=== PATIENT | female | born 1940 | race Caucasian/White ===

== ENCOUNTER 2018-06-25 08:55 | Inpatient (IN) | payer OTHER ==
--- NOTE | 2018-06-25 09:59 | R.PREADM ---
SCREENING DATE AND TIME 06/25/2018 08:59 (CDT) ANTICIPATED REHAB ADMISSION DATE 06/27/2018 REFERRING FACILITY [facility] REFERRAL DATE AND TIME 06/25/2018 08:59 (CDT) Previous Rehabilitation(s): No. REFERRING PHYSICIAN [facility] REHAB FACILITY [facility] CLINICAL LIAISON Samuel Tran PHYSICIAN REVIEWER Dr. Roderick Min M.D. MR# [id number] NAME GIBRAN BELTRAN ADDRESS [id number] [facility] [id number] DATE OF 1940 AGE 78 SSN# [id number] GENDER female MARITAL STATUS Unknown RACE white ADMIT FROM 02 - [facility] PRE-HOSPITAL LIVING SETTING 01 - Home (private home/apt. board/care, assisted living, alf, transitional living) HOME TYPE AND DETAILS Type of home: single family house # of steps to enter the residence: 0 # of steps within the residence: 0 # of levels in the residence: 1 PRE-HOSPITAL LIVING WITH Family/Relatives FAMILY SUPPORT Yes PRIMARY FAMILY CONTACT NAME Luna Worthy PRIMARY FAMILY CONTACT PHONE PHONE PRIMARY FAMILY CONTACT ON ADM.? no IS PRIMARY FAMILY CONTACT AUTH. REP.? no 1ST EMERGENCY CONTACT Luna Worthy 1ST CONTACT PHONE PHONE 1ST CONTACT ON ADM. no IS 1ST CONTACT AUTH. REP.? no PHONE 2ND CONTACT ON ADM.? no PATIENT EMPLOYMENT STATUS Retired (for age) PATIENT EMPLOYER No Employer PAYOR INFORMATION: 1ST PAYOR NAME Medicare 1ST PAYOR PHONE 1ST PAYOR INJURY/ILLNESS DUE TO ACCIDENT? No ANOTHER CONSTITUTION PARTY RESPONSIBLE? No PRIMARY REHAB/ACUTE DIAGNOSIS: acute left midbrain infarct ONSET DATE 06/21/2018 REHAB IMPAIRMENT CATEGORY (DEVYN): 01 Stroke (STR) MEETS 60% rule AFFECTED EXTREMITIES: RLE, and RUE PRIMARY DIAGNOSIS-RELATED SURGERIES: No surgeries related to the primary diagnosis were performed. COMORBID REHAB/ACUTE DIAGNOSES: - Non-Tiered Cardiac arrhythmia, unspecified (I49.9) cavitary lesion of lung compression fx of t12 adenocarcinoma of lung anxiety acquired hypothyroidism dementia - N/A DVT PROPHYLAXIS SUMMARY OF ACUTE HOSPITALIZATION: Pt. is a 78 yo Right-handed white female. On 06/21/2018 Pt. presented to [facility] with sudden onset of right-side weakn ess. On 06/21/2018 she was admitted to [facility] with diagnosis acute left midbrain infarct. Her impairment category is Stroke 01 - Right Body (Left Brain) (01.2). Pre-morbidly, Pt. was independent/mod-I in Transfers Control, Communication, Social Cognition, Self-C are, Sphincter Control, and Locomotion; and she had good Sphincter Control. Currently, she has deficits of Transfers Control, Communication, Social Cognition, Balance, Self-Care , Endurance, Safety Awareness, and Locomotion. Pt. is now referred to [facility] for acute in-patient rehabilitation in order to maximize patient's functional independence in activities of daily living, strength, ROM, and mobi lity. Patient has realistic goal of being discharged at assistance level 6-Vanessa to reside at Home with Fam adolph/Relatives. PAST MEDICAL HISTORY Cardiac arrhythmia, unspecified (I49.9) DVT PROPHYLAXIS acquired hypothyroidism adenocarcinoma of lung anxiety cavitary lesion of lung compression fx of t12 dementia MEDICATION ALLERGIES: No Known Drug Allergies (NKDA) ENVIRONMENTAL ALLERGIES: - Substance Allergies None Known - Other Allergies None Known CODE STATUS: Full code WEIGHT/HEIGHT/BMI: WEIGHT 180 lbs HEIGHT 5' 6" BMI 29 DIET: - Diet Type Regular - Diet - Solid Texture Regular - Diet - Liquid Texture Regular - Tube Feed N/A REVIEW OF SYSTEMS: - Gen Alert and awake Lying in bed No apparent distress Oriented to: person, time, and place - CVS RRR VITAL SIGNS Temperature: 98.9 F SBP/DBP: 152/65 Pulse: 94 Resp: 16 Vital signs stable, afebrile CURRENT SPHINCTER CONTROL: Pre-hospital bladder status: continent # of bladder accidents in the last 7 days prior to screenin Pre-hospital bowel status: continent # of bowel accidents in the last 7 days prior to screenin Last Bowel Movement Date: 06/25/2018 DETAILED CURRENT FUNCTIONAL STATUS: - Bladder accident frequency: Ind - No accidents in the past 7 days - Bowel accident frequency: Ind - No accidents in the past 7 days - Walking score based on distance walked: 1(<=50ft) FUNCTIONAL STATUS: - Self-Care A. Eating Ind Andra B. Grooming Ind Andra C. Bathing Ind Andra D. Dressing - Upper Ind Andra E. Dressing - Lower Ind modA F. Toileting Ind modA - Sphincter Control G: Bladder control Ind Ind H: Bowel control Ind Ind - Transfers Control I. Bed/Chair/Wheelchair Ind modA J. Toilet Ind modA K. Tub/Shower Ind modA - Locomotion L. Walk/Wheelchair (B) Ind Dep M. Stairs Ind ADNO - Communication N. Comprehension (B) Ind sup O. Expression (B) Ind sup - Social Cognition P. Social Interaction Ind sup Q. Problem Solving Ind sup R. Memory Ind sup - Endurance Poor - Balance Poor - Safety Awareness Poor CURRENT FUNC. DEFICITS: Transfers Control, Communication, Social Cognition, Balance, Self-Care, Endurance, Safety Awareness, and Locomotion THERAPY NOTES FROM ACUTE CARE: Attached. SPECIAL NEEDS: - Safety Concerns Skin breakdown precautions needed due to skin breakdown risk PRECAUTIONS: - Weight Bearing Precaution WBAT right LE PATIENT NEEDS ACTIVE AND ONGOING THERAPEUTIC INTERVENTION OF MULTIPLE THERAPY DISCIPLINES, INCLUDING: - Occupational Therapy Evaluate and Treat. Cognitive Retraining. Visual Perceptual Training. - Speech Therapy Memory Strategies. Expressive Language Skills. Speech Intelligibility Training. Cognitive Training. R eceptive Language Skills. - Physical Therapy Evaluate and Treat. PATIENT NEEDS CLOSE MEDICAL SUPERVISION BY A REHABILITATION PHYSICIAN FOR: Bowel and Bladder Management Coordination of Treatment Team DVT Management Medical and Co-Morbidity Management PATIENT REQUIRES 24X7 REHAB NURSING FOR MEDICAL AND FUNCTIONAL MGT. OF THE FOLLOWING DEFICITS: ADL's Ambulation Bowel and Bladder Management Cognition Communication Disease Management Medication Management Patient/Family Education Providing Safe Environment Transfers PATIENT REQUIRES INTENSIVE, COORDINATED INTERDISCIPLINARY APPROACH TO REHAB: Arranging Home Equipment/Services Discharge Planning Family Intervention/Training Product Test Engineer/Case Management PATIENT REHAB POTENTIAL: Expected level of measurable improvement will be of a practical value to patient's functional capacit y or adaptations to impairments Has a viable Discharge Plan Medically appropriate; condition is sufficiently stable to participate in intensive rehab program Patient is able and expected to receive 3 hours of individualized therapy daily on at least 5 of ever y 7 days Patient's prognosis for significant practical improvement within a reasonable period of time appears Good DISCHARGE PLAN: - Estimated Length of Stay (days) 17. - Consensus on plan Discharge plan has been discussed with primary caregiver. Patient/Family is in agreement with the theresa n. Primary caregiver is in agreement with the plan. - Patient/Family Goals Return home with assistance. - Planned Living Setting Upon Discharge Home, to live with Family/Relatives. RECOMMENDED CARE LEVEL: IRF RECOMMENDATION DETAILS: Recommended Admission to Comprehensive Rehabilitation Program to Increase Functional [place] SCREENER'S COMPLETENESS CONFIRMATION: - Screening Confirmation The patient data collection on this preadmission screening form is finished PHYSICIANS REVIEW AND ADMISSION DETERMINATION Admit - Based on my review of the Pre-Admission Screening results, in my medical judgment and experie nce, I concur with the findings and recommend admission to [facility], as this patient requires an IRF level of care. SIGNATURE PANEL: Clinical Liaison - [electronically] signed by Mary Kate Cerrato on 06/25/2018 at 09:09 (CDT) Clinical Liaison - [electronically] signed by Samuel Tran on 06/25/2018 at 09:25 (CDT) Physician Reviewer - [electronically] signed by Dr. Roderick Min M.D. on 06/25/2018 at 09:58 (CDT )
--- OUTSIDE RECORDS SUMMARY | 2018-06-25 15:16 | XMS REPORT ---
:1940 Author Organization [employer] Care Team Providers Name Role Phone Enrique, Na Provider Role Unavailable Allergies, Adverse Reactions, Alerts Substance Reaction Event Type Stadol Info Not Available Drug Allergy Neosporin Info Not Available Drug Allergy Morphine Sulfate Info Not Available Drug Allergy Codeine Sulfate Info Not Available Drug Allergy Problems Problem Type Condition Code Onset Dates Condition Status Assessment Acquired hypothyroidism E03.9 Active Problem Depression with anxiety F41.8 Active Assessment Depression with anxiety F41.8 Active Problem Osteoarthritis, unspecified M19.90 Active osteoarthritis type, unspecified site Problem Vitamin B12 deficiency (dietary) D51.8 Active anemia Problem Mixed hyperlipidemia E78.2 Active Problem Adenocarcinoma of right lung C34.91 Active Problem Acquired hypothyroidism E03.9 Active Problem Hot flashes due to menopause N95.1 Active Problem 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 Assessment Osteoarthritis, unspecified M19.90 Active osteoarthritis type, unspecified site Assessment Adenocarcinoma of right lung C34.91 Active Assessment Mixed hyperlipidemia E78.2 Active Assessment 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 Assessment Hot flashes due to menopause N95.1 Active Assessment Vitamin B12 deficiency (dietary) D51.8 Active anemia Medications Medication Code Code Instructions Start End Status Dosage System Date Date Nitroglycerin [facility] 89487096335 0.4 MG Active not Sublingual defined Premarin [facility] 88607605823 0.3 MG Orally December Active 1 tablet Daily 2017 Zoloft [facility] 82812564175 50 MG Orally December Active 1 tablet Once a day 2017 Liothyronine [facility] 12288324926 25 MCG Orally Active 1 tablet Sodium Once a day on an empty stomach Levothyroxine [facility] 94926138890 112 MCG Orally Active 1 tablet Sodium Once a day on an empty stomach in the morning Zoloft [facility] 37976629026 50 MG Orally Active 1 tablet Once a day Albuterol [facility] [address]-62 108 (90 Base) Active 2 puffs Sulfate MCG/ACT as needed Inhalation every 6 hrs Xanax [facility] 33607453678 0.5 MG Orally Active 1 tablet Twice a day Premarin [facility] 27749622276 0.3 MG Orally Active 1 tablet Daily for Three Weeks, 1 Week off Results No Known Results Summary Purpose [employer] Submission
--- OUTSIDE RECORDS SUMMARY | 2018-06-25 15:16 | XMS REPORT ---
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 Problem Adenocarcinoma of right lung C34.91 Active Problem Vitamin B12 deficiency (dietary) D51.8 Active anemia Problem Hot flashes due to menopause N95.1 Active Assessment Mixed hyperlipidemia E78.2 Active Assessment 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 Assessment Hot flashes due to menopause N95.1 Active Assessment Adenocarcinoma of right lung C34.91 Active Assessment Acquired hypothyroidism E03.9 Active Assessment Depression with anxiety F41.8 Active Assessment Vitamin B12 deficiency (dietary) D51.8 Active anemia Assessment Essential tremor G25.0 Active Assessment Primary insomnia F51.01 Active Medications Medication Code Code Instructions Start End Status Dosage System Date Date Mirtazapine [facility] 13386797703 15 MG Orally April 09, Active 1 tablet Once a day 2017 at bedtime Levothyroxine [facility] 63320242913 112 MCG Orally Active 1 tablet Sodium Once a day on an empty stomach in the morning Liothyronine [facility] 36529907837 25 MCG Active TAKE 1 Sodium TABLET BY MOUTH 1 TIME DAILY. Synthroid [facility] 17068293853 112 MCG Active 1 each once a day orally Premarin ND 76034611027 0.3 MG Orally Active 1 tablet Daily Xanax ND 91810475571 0.5 MG Orally Active 1 tablet Twice a day Premarin [facility] 55778266147 0.3 MG Orally December Active 1 tablet Daily 2017 Nitroglycerin [facility] 66606396799 0.4 MG Active not Sublingual defined Albuterol Sulfate [facility] 02732036732 108 (90 Base) Active 2 puffs as MCG/ACT needed Inhalation every 6 hrs Zoloft [facility] 65080043637 50 MG Orally Active 1 tablet Once a day Propranolol HCl [facility] 13929483159 10 MG Orally April 09, Active 1 tablet Twice a day 2017 Zoloft [facility] 80628471663 50 MG Orally Active 1 tablet Once a day Results No Known Results Summary Purpose eClinicalWorks Submission
--- OUTSIDE RECORDS SUMMARY | 2018-06-25 15:16 | XMS REPORT | Clinical Summary ---
:1940 Author Organization [facility] Address [address] [place] [address] Care Team Providers Name Role Phone Brigitte Enrique DO Primary Care Provider Allergies Active Allergy Reactions Severity Noted Date Comments Codeine Sulfate 01/03/2016 Hydromorphone 08/21/2017 Morphine Sulfate 01/03/2016 Licukbbe-Zgzshmvmhw-Pujykevtd 08/21/2017 Butorphanol Tartrate 08/21/2017 Current Medications Prescription Sig. Disp. Refills Start Date End Date Status amitriptyline Take 10 mg by Active (ELAVIL) 10 MG tablet mouth nightly. methocarbamol 2 (two) times a 12/01/2015 Active (ROBAXIN) 500 MG day. tablet topiramate (TOPAMAX) . 08/30/2015 Active 25 MG tablet HYDROcodone-acetamino Take 1 tablet Active phen (NORCO) 7.5-325 by mouth every mg per tablet 6 (six) hours as needed for moderate pain. LIOTHYRONINE SODIUM Take 15 mg by Active (LIOTHYRONINE ORAL) mouth nightly. levothyroxine TAKE 1 TABLET 1 07/07/2017 Active (SYNTHROID, LEVOXYL) BY MOUTH 1 TIME 100 mcg tablet DAILY. benzonatate . 12/13/2015 Active (TESSALON) 200 MG capsule pantoprazole . 12/11/2015 Active (PROTONIX) 40 MG EC tablet nitroglycerin Place under the Active (NITROSTAT) 0.3 MG SL tongue. tablet isosorbide TAKE 1 TABLET 1 06/03/2017 Active mononitrate (IMDUR) BY MOUTH 1 TIME 30 MG 24 hr tablet DAILY. estrogens, Take 1.25 mg by Active conjugated, mouth daily. (PREMARIN) 1.25 MG tablet rosuvastatin Take 20 mg by Active (CRESTOR) 20 MG mouth daily. tablet sulfamethoxazole-trim Take 1 tablet Active ethoprim (BACTRIM DS) by mouth 2 800-160 mg per tablet (two) times a day. aspirin (ECOTRIN) 81 Take 81 mg by 08/26/2017 Discontinued MG enteric coated mouth daily. tablet Active Problems Not on file Encounters Date Type Specialty Care Team Description 03/27/2018 Hospital Encounter Radiology 08/28/2017 Telephone Cardiothoracic Surgery Fermin Mcgowan MD 08/26/2017 Hospital Encounter Cardiothoracic Surgery Fermin Mcgowan MD 08/26/2017 Procedure Pass Cardiothoracic Surgery 08/26/2017 Surgery Cardiothoracic Surgery Fermin Mcgowan MD BRONCHOSCOPY 08/25/2017 Anesthesia Event Cardiothoracic Surgery Ector Small Jr., MD 08/25/2017 Telephone Cardiothoracic Surgery Yani Vines MA 08/21/2017 Hospital Encounter Radiology Fermin Mcgowan Canceled (Schedule MD Wojciech Order Error) 08/21/2017 Lab Lab Fermin Mcgowan LAD (lymphadenopathy), mediastinal; MD Wojciech Malignant neoplasm of lung, unspecified laterality, unspecified part of lung; Pre-op testing 08/21/2017 Office Visit Cardiothoracic Surgery Fermin Mcgowan LAD ( lymphadenopathy), mediastinal (Primary Dx); MD Wojciech Malignant neoplasm of lung, unspecified laterality, unspecified part of lung; Pre-op testing 08/21/2017 Ancillary Orders Radiology Fermin Mcgowan MD 08/06/2017 Orders Only Cardiothoracic Surgery ProviderDwight MD after 06/24/2017 Family History Medical History Relation Name Comments Breast cancer Maternal Grandmother Brain cancer Mother Heart disease Mother Breast cancer Paternal Grandmother Hypertension Sister Relation Name Status Comments Maternal Grandmother Mother Paternal Grandmother Sister Social History Tobacco Use Types Packs/Day Years Used Date Former Smoker Cigarettes 2 40 Quit: 11/19/1998 Smokeless Tobacco: Never Used Tobacco Cessation: Counseling Given: No Alcohol Use Drinks/Week oz/Week Comments Yes 5 Glasses of wine 3.0 Sex Assigned at Date Recorded Not on file Last Filed Vital Signs Vital Sign Reading Time Taken Blood Pressure 137/63 08/26/2017 12:33 PM [facility] Pulse 88 08/26/2017 12:33 PM [facility] Temperature 37.2 C (99 F) 08/26/2017 12:33 PM [facility] Respiratory Rate 22 08/26/2017 12:33 PM [facility] Oxygen Saturation 95% 08/26/2017 12:33 PM [facility] Inhaled Oxygen Concentration - - Weight 49.8 kg (109 lb 12.6 oz) 08/26/2017 9:43 AM [facility] Height 165.1 cm (5' 5") 08/26/2017 9:48 AM [facility] Body Mass Index 18.27 08/26/2017 9:43 AM [facility] Plan of Treatment Health Maintenance Due Date Last Done Comments SHINGRIX VACCINE (#1) 1990 ZOSTER VACCINE 2000 PNEUMOCOCCAL POLYSACCHARIDE VACCINE AGE 65 AND OVER 2005 PNEUMOCOCCAL-13 2005 INFLUENZA VACCINE 04/22/2018 Procedures Procedure Name Priority Date/Time Associated Comments Diagnosis CYTOLOGY Routine 08/26/2017 11:04 Results for this (NON-GYNECOLOGICAL) AM [facility] procedure are in REQUEST the results section. SURGICAL PATHOLOGY Routine 08/26/2017 10:59 Results for this REQUEST AM [facility] procedure are in the results section. SURGICAL PATHOLOGY Routine 08/26/2017 10:59 Results for this REQUEST AM [facility] procedure are in the results section. SURGICAL PATHOLOGY Routine 08/26/2017 10:59 Results for this REQUEST AM [facility] procedure are in the results section. SURGICAL PATHOLOGY Routine 08/26/2017 10:59 Results for this REQUEST AM [facility] procedure are in the results section. SURGICAL PATHOLOGY Routine 08/26/2017 10:59 Results for this REQUEST AM [facility] procedure are in the results section. MISCELLANEOUS REFERRAL Routine 08/26/2017 10:59 Results for this TEST AM [facility] procedure are in the results section. ANESTHESIA INTUBATION Routine 08/26/2017 9:02 AM [facility] Procedure Note - Julia Pillai CRNA - 08/26/2017 9:01 AM [facility] Airway Date/Time: 08/26/2017 8:57 AM Performed by: JULIA PILLAI Authorized by: NNEKA TAYLOR Location: OR Difficult Airway: No Anesthesiologist: NNEKA TAYLOR Resident/REVIEW SCHEDULING COORDINATOR/AA: JULIA PILLAI Preoxygenated with 100% O2: Yes C-spine Precautions Maintained Throughout: Yes Mask Ventilation: Easy mask Final Airway Type: Endotracheal airway Final Endotracheal Airway: ETT Technique Used: Direct laryngoscopy Devices/Methods Used in Placement: Intubating stylet Insertion Site: Oral Blade Type: Mata Laryngoscope Blade/Videolaryngoscope Blade Size: 2 ETT Size (mm): 8.5 Measured from: Lips ETT to Lips (cm): 22 Placement Verified by: CO2 detection, direct visualization and equal breath sounds Laryngoscopic view: Grade I - full view of glottis Rapid Sequence Induction (RSI): No Modified RSI: No Number of Attempts at Approach: 1 Atraumatic. Lips toungue eyes are in preoperative status PARTIAL THROMBOPLASTIN STAT 08/26/2017 7:27 Results for this TIME (PTT) AM [facility] procedure are in the results section. PROTHROMBIN TIME WITH STAT 08/26/2017 7:27 Results for this INR AM [facility] procedure are in the results section. ZZESTIMATED GFR Routine 08/21/2017 2:45 Results for this PM [facility] procedure are in the results section. HC COMPLETE BLD COUNT Routine 08/21/2017 2:45 LAD Results for this W/AUTO DIFF PM [facility] (lymphadenopathy), procedure are in mediastinal the results Malignant neoplasm section. of lung, unspecified laterality, unspecified part of lung Pre-op testing COMPREHENSIVE METABOLIC Routine 08/21/2017 2:45 LAD Results for this PANEL PM [facility] (lymphadenopathy), procedure are in mediastinal the results Malignant neoplasm section. of lung, unspecified laterality, unspecified part of lung Pre-op testing TYPE AND SCREEN Routine 08/21/2017 2:45 LAD Results for this PM [facility] (lymphadenopathy), procedure are in mediastinal the results Malignant neoplasm section. of lung, unspecified laterality, unspecified part of lung Pre-op testing PET CT SKULL BASE MID Routine 07/23/2017 12:00 THIGH EXTERNAL STUDY AM CDT PET CT WHOLE BODY Routine 07/22/2017 3:04 Results for this EXTERNAL STUDY PM CDT procedure are in the results section. after 06/24/2017 Results Cytology (non-gynecological) request (08/26/2017 11:04 AM) [facility] DEPARTMENT OF PATHOLOGY AND GENOMIC MEDICINE Cytology See link below for PDF [facility] DEPARTMENT OF (non-gynecological) report Lab Report PATHOLOGY AND GENOMIC MEDICINE Result status This is Final Report to [facility] DEPARTMENT OF [id number] PATHOLOGY AND GENOMIC MEDICINE Performing Organization Address City/State/Zipcode Phone Number [facility] DEPARTMENT OF PATHOLOGY AND [address] [place] [address] GENOMIC MEDICINE Miscellaneous referral test (08/26/2017 10:59 AM) [facility] test name RICHI JOHNSON [facility] test result SEE NOTE [facility] Comment: MET FISH Sample type: Paraffin, LYMPH NODE Case# [id number] Reason: Adenocarinoma, poorly differentiated RESULTS: NEGATIVE Interpretation: MET(7q31) signals per nucleus: 2.8 CEN7 signals per nucleus: 2.8 MET-CEN7 signal ratio: 1.0 An H&E stained slide was reviewed by a pathologist to identify traget areas containing invasive tumor. FISH analysis was performed within the marked target areas using a dual-probe FISH assay to detect MET overexpression. Results show no evidence of MET amplification with a MET/CEN7 ratio of <2.0. This is a NEGATIVE result. This MET FISH assay was scored manually by a certified computer engineering technologist. Two or more independent areas containing invasive tumor were analyzed and the technical results underwent further review for quality assurance lead purposes. Reference range: Positive: MET(7q31) to CEN7 signal ration is >/=2.0 or when 10% of tumor cells contain clusters of >15 copies per cell of MET (7q31) signals. Negative: MET(7q31) to CEN7 signal ratio is <2.0 Equivocal: MET copy number >/=5.0 and MET/CEN7 ratio <2.0 Probe set details: MET: nuc joy(CEN7x2.8,METx2.8)[50] Nuclei scored: 50 Test(s) performed by: [employer] [address] [place] [address] Narrative Performed At [facility] [id number] Performing Organization Address City/State/Zipcode Phone Number [facility] [address] [place] [address] Surgical pathology request (08/26/2017 10:59 AM)Only the most recent of5 resultswithin the time period is included. [facility] DEPARTMENT OF PATHOLOGY AND GENOMIC MEDICINE Surgical pathology See link below for PDF Lab [facility] DEPARTMENT OF report Report PATHOLOGY AND GENOMIC MEDICINE Result status This is Supplemental Report [facility] DEPARTMENT OF to [id number] PATHOLOGY AND GENOMIC MEDICINE Narrative Performed At [facility] DEPARTMENT OF PATHOLOGY AND GENOMIC MEDICINE [id number] Performing Organization Address [facility] Phone Number [facility] DEPARTMENT PATHOLOGY AND [address] [place] [address] Partial thromboplastin time, activated (08/26/2017 7:27 AM) PTT 29.2 23.0 - 36.0 sec [facility] DEPARTMENT OF PATHOLOGY Comment: AND [facility] PTT therapeutic range for unfractionated heparin is 61.0-112.0 seconds which corresponds to Anti-Xa 0.3-0.7 U/ml. Specimen Blood Performing Organization Address [facility] Phone Number [facility] DEPARTMENT OF PATHOLOGY AND [address] [place] [address] Prothrombin time with INR (08/26/2017 7:27 AM) Prothrombin time 13.4 12.0 - 15.0 sec [facility] DEPARTMENT OF PATHOLOGY AND [facility] INR 1.0 [facility] DEPARTMENT OF Comment: PATHOLOGY AND GENOMIC The International Normalized Ratio (INR) is a therapeutic MEDICINE monitoring tool for patients who are stable on oral anticoagulant therapy. An INR of 2.0-3.0 is suggested for deep vein thrombosis/pulmonary embolism. Specimen Blood Performing Organization Address [facility] Phone Number [facility] DEPARTMENT PATHOLOGY AND [address] [place] [address] Estimated GFR (08/21/2017 2:45 PM) GFR Non Af Amer 81 mL/min/1.73 m2 [facility] DEPARTMENT OF PATHOLOGY AND GENOMIC [facility] GFR Af Amer >90 mL/min/1.73 m2 [facility] DEPARTMENT OF Comment: PATHOLOGY AND GENOMIC Chronic kidney disease: <60 mL/min/1.73m2 MEDICINE Kidney failure: <15 mL/min/1.73m2 The estimated GFR is calculated from the IDMS-traceable Modification of Diet in Renal Disease Equation. The accuracy of the calculation is poor when the creatinine is normal. Calculated values >90 mL/min/1.73m2 are not reported. This equation has not been validated in children (<18 years), women, the elderly (>70 years), or ethnic groups other than Caucasians and Americans. Specimen Plasma specimen Performing Organization Address [facility] Phone Number [facility] DEPARTMENT OF PATHOLOGY AND [address] [place] [address] GENOMIC MEDICINE CBC with platelet and differential (08/21/2017 2:45 PM) WBC 7.51 4.50 - 11.00 k/uL [facility] DEPARTMENT OF PATHOLOGY AND GENOMIC MEDICINE RBC 3.80 (L) 4.20 - 5.50 m/uL [facility] DEPARTMENT OF PATHOLOGY AND GENOMIC MEDICINE HGB 11.1 (L) 12.0 - 16.0 g/dL [facility] DEPARTMENT OF PATHOLOGY AND GENOMIC MEDICINE HCT 35.2 (L) 37.0 - 47.0 % [facility] DEPARTMENT OF PATHOLOGY AND GENOMIC MEDICINE MCV 92.6 82.0 - 100.0 fL [facility] DEPARTMENT OF PATHOLOGY AND GENOMIC MEDICINE MCH 29.2 27.0 - 34.0 pg [facility] DEPARTMENT OF PATHOLOGY AND GENOMIC MEDICINE MCHC 31.5 31.0 - 37.0 g/dL [facility] DEPARTMENT OF PATHOLOGY AND GENOMIC MEDICINE RDW - SD 46.0 37.0 - 55.0 fL [facility] DEPARTMENT OF PATHOLOGY AND GENOMIC MEDICINE MPV 10.3 8.8 - 13.2 fL [facility] DEPARTMENT OF PATHOLOGY AND GENOMIC MEDICINE Platelet count 254 150 - 400 k/uL [facility] DEPARTMENT OF PATHOLOGY AND GENOMIC MEDICINE Nucleated RBC 0.00 /100 WBC [facility] DEPARTMENT OF PATHOLOGY AND GENOMIC MEDICINE Neutrophils 57.9 39.0 - 69.0 % [facility] DEPARTMENT OF PATHOLOGY AND GENOMIC MEDICINE Lymphocytes 28.9 25.0 - 45.0 % [facility] DEPARTMENT OF PATHOLOGY AND GENOMIC MEDICINE Monocytes 11.6 (H) 0.0 - 10.0 % [facility] DEPARTMENT OF PATHOLOGY AND GENOMIC MEDICINE Eosinophils 0.9 0.0 - 5.0 % [facility] DEPARTMENT OF PATHOLOGY AND GENOMIC MEDICINE Basophils 0.4 0.0 - 1.0 % [facility] DEPARTMENT OF PATHOLOGY AND GENOMIC MEDICINE Immature granulocytes 0.3Comment: 0.0 - 1.0 % [facility] DEPARTMENT OF "Immature PATHOLOGY AND GENOMIC granulocytes" MEDICINE (promyelocytes, myelocytes, metamyelocytes) Specimen Blood Performing Organization Address City/State/Zipcode Phone Number [facility] DEPARTMENT OF PATHOLOGY AND [address] [place] [address], [place] [address] GENOMIC MEDICINE Type and screen (08/21/2017 2:45 PM) ABO grouping A [facility] DEPARTMENT OF PATHOLOGY AND GENOMIC MEDICINE Rh type POS [facility] DEPARTMENT OF PATHOLOGY AND GENOMIC MEDICINE Antibody screen (gel) NEG [facility] DEPARTMENT OF PATHOLOGY AND GENOMIC MEDICINE Specimen Blood Performing Organization Address City/State/Zipcode Phone Number [facility] DEPARTMENT OF PATHOLOGY AND [address] [place] [address] [facility] MEDICINE Comprehensive metabolic panel (08/21/2017 2:45 PM) Sodium 143 135 - 148 mEq/L [facility] DEPARTMENT OF PATHOLOGY AND GENOMIC MEDICINE Potassium 4.5 3.5 - 5.0 mEq/L [facility] DEPARTMENT OF PATHOLOGY AND GENOMIC MEDICINE Chloride 107 98 - 112 mEq/L [facility] DEPARTMENT OF PATHOLOGY AND GENOMIC MEDICINE CO2 25 24 - 31 mEq/L [facility] DEPARTMENT OF PATHOLOGY AND GENOMIC MEDICINE Anion gap 11 7 - 15 mEq/L [facility] DEPARTMENT OF Comment: PATHOLOGY AND GENOMIC Starting from December , anion gap calculation MEDICINE no longer incorporates potassium. Please note the change. BUN 16 8 - 23 mg/dL [facility] DEPARTMENT OF PATHOLOGY AND GENOMIC MEDICINE Creatinine 0.7 0.5 - 0.9 mg/dL [facility] DEPARTMENT OF PATHOLOGY AND GENOMIC MEDICINE Glucose 105 (H) 65 - 99 mg/dL [facility] DEPARTMENT OF PATHOLOGY AND GENOMIC MEDICINE Calcium 9.6 8.8 - 10.2 mg/dL [facility] DEPARTMENT OF PATHOLOGY AND GENOMIC MEDICINE Protein 7.8 6.3 - 8.3 g/dL [facility] DEPARTMENT OF Comment: PATHOLOGY AND GENOMIC 4.6-7.0 g/dL MEDICINE 1 week 4.4-7.6 g/dL 7 months-1year5.1-7.3 g/dL 1-2 years5.6-7.5 g/dL >3 years6.0-8.0 g/dL 18-150 6.3-8.3 g/dL Albumin 3.9 3.5 - 5.0 g/dL [facility] DEPARTMENT OF PATHOLOGY AND GENOMIC MEDICINE A/G ratio 1.0 0.7 - 3.8 [facility] DEPARTMENT OF PATHOLOGY AND GENOMIC MEDICINE Alkaline phosphatase 102 35 - 104 U/L [facility] DEPARTMENT OF PATHOLOGY AND GENOMIC MEDICINE AST 21 10 - 35 U/L [facility] DEPARTMENT OF PATHOLOGY AND GENOMIC MEDICINE ALT 12 5 - 50 U/L [facility] DEPARTMENT OF PATHOLOGY AND GENOMIC MEDICINE Total bilirubin <0.2 0.0 - 1.2 mg/dL [facility] DEPARTMENT OF PATHOLOGY AND GENOMIC MEDICINE Specimen Plasma specimen Performing Organization Address City/State/Zipcode Phone Number [facility] DEPARTMENT OF PATHOLOGY AND [address] [place] [address] [facility] PET/CT Skull Base Mid Thigh External Study (07/23/2017) Narrative Performed At PET/CT Whole Body External Study (07/22/2017 3:04 PM) Narrative Performed At This exam was not acquired at a [facility] facility and has not been [facility] interpreted by a [facility] Provider.The exam was imported into our imaging system for comparisons purposes. Performing Organization Address City/State/Zipcode Phone Number [facility] [address] [place] [address] after 06/24/2017 Insurance Payer Benefit Plan / Group Subscriber ID Type Phone Address MEDICARE MEDICARE PART A AND B xxxxxxxxxx Medicare [place], [place] Home: [address] [phone] [place] [phone] ILEANA BELTRAN [employer] Self 1940 Home: [address] Liability [phone] [address]
[2018-06-25] MEDS ORDERED: MIRTAZAPINE 15 MG TAB PO PRN (15:38)
[2018-06-25] MEDS ORDERED: DIPHENHYDRAMINE 25 MG TAB/CAP PO PRN (15:38)
[2018-06-25] MEDS ORDERED: GUAIFENESIN/CODEINE 5ML UCUP PO PRN (15:38)
[2018-06-25] MEDS ORDERED: BENZONATATE 100 MG CAP PO PRN (15:38)
[2018-06-25] MEDS ORDERED: PHENOL 1.4% ORAL SPRAY 180ML MM PRN (15:38)
[2018-06-25] MEDS ORDERED: AMITRIPTYLINE 25 MG TAB PO PRN (15:38)
[2018-06-25] MEDS ORDERED: PROMETHAZINE 25 MG TABLET PO PRN (15:38)
[2018-06-25] MEDS ORDERED: ALPRAZOLAM 0.5 MG TABLET PO PRN (15:38)
[2018-06-25] MEDS: ENOXAPARIN 40 MG/0.4 ML SQ SCH (16:44)
[2018-06-25] MEDS: DONEPEZIL HCL 5 MG TAB PO SCH (20:17)
[2018-06-25] MEDS: PROPRANOLOL HCL 10 MG TAB PO SCH (20:17)
[2018-06-25] MEDS: ATORVASTATIN 40 MG TAB PO SCH (20:18)
[2018-06-26 00:06] LABS: Urine Appearance CLEAR; Urine Bilirubin NEGATIVE (NEG); Urine Blood NEGATIVE (NEG); Urine Color DK YELLOW; Urine Glucose NEGATIVE (NEG); Urine Protein 1+ (NEG); Urine Specific Gravity 1.025 (1.005-1.030); Urine Urobilinogen 0.2 mg/dL (0.2-1.0)
[2018-06-26 00:27] LABS: Urine Culture Reflex Order NOT NEEDED
[2018-06-26 00:29] LABS: Urine Bacteria <20 /HPF (<20)
[2018-06-26] MEDS: ERLOTINIB 100 MG PO SCH (05:32)
[2018-06-26] MEDS ORDERED: LEVOTHYROXINE SOD 0.1 MG TAB PO SCH (06:00)
[2018-06-26] MEDS ORDERED: LIOTHYRONINE SOD 25 MCG TAB PO SCH (06:00)
[2018-06-26 06:18] LABS: Absolute Lymphocytes (CBC) 1.3 K/uL (0.7-4.9); Absolute Monocytes 1.2 K/uL (0.1-1.3); Absolute Neutrophil 4.1 K/uL (1.8-8.0); Basophils % 0.5 % (0-1.3); Eosinophils % 3.2 % (0-4.4); Lymphocytes % 19.2 % (15.3-44.8); MCH 30.9 pg (27.0-35.0); MCV 91.8 fL (80-100); MPV 8.7 fL (7.6-11.3); Monocytes % 17.9 % (3.3-12.3); RBC Red Blood Cell Count 3.59 M/uL (3.86-4.86)
[2018-06-26 06:33] LABS: Magnesium 2.1 mg/dL (1.8-2.4); Potassium 3.4 mmol/L (3.5-5.1); Prealbumin 14.6 mg/dL (20-40)
[2018-06-26] MEDS ORDERED: ESTROGENS,CONJUGAG 0.3 MG TAB PO SCH (08:00)
[2018-06-26] MEDS: LEVOTHYROXINE SOD 0.1 MG TAB PO SCH (08:12)
[2018-06-26] MEDS: ASPIRIN 81 MG CHEWABLE TABLET PO SCH (08:12)
[2018-06-26] MEDS: SERTRALINE HCL 100 MG TAB PO SCH (08:12)
[2018-06-26] MEDS: PROPRANOLOL HCL 10 MG TAB PO SCH ×2 (08:14→21:44)
[2018-06-26] MEDS: ENOXAPARIN 40 MG/0.4 ML SQ SCH (08:14)
[2018-06-26] MEDS: LIOTHYRONINE SOD 25 MCG TAB PO SCH (08:14)
--- NOTE | 2018-06-26 10:05 | P.RH.PN ---
Estimated Length of Stay: 14 Expected Discharge Date: 07/08/18 Discharge Disposition Plan: Home Family Support: Yes Prison Goal: Mobility, Transfers, Self Care Vital Signs: Last Vital Signs Temp 97.6 F 06/25/18 20:00 Pulse 73 06/26/18 08:14 Resp 16 06/25/18 20:00 BP 123/63 06/26/18 08:14 Pulse Ox 96 06/25/18 20:00 Laboratory: Laboratory Last Values WBC 6.9 K/uL (4.3-10.9) 06/26/18 06:03 RBC 3.59 M/uL (3.86-4.86) L 06/26/18 06:03 Hgb 11.1 g/dL (12.0-15.0) L 06/26/18 06:03 Hct 33.0 % (36.0-45.0) L 06/26/18 06:03 MCV 91.8 fL (80-100) D 06/26/18 06:03 MCH 30.9 pg (27.0-35.0) 06/26/18 06:03 MCHC 33.6 g/dL (32.0-36.0) 06/26/18 06:03 RDW 13.4 % (12.1-15.2) 06/26/18 06:03 Plt Count 292 K/uL (152-406) 06/26/18 06:03 MPV 8.7 fL (7.6-11.3) 06/26/18 06:03 Neutrophils % 59.2 % (41.7-73.7) 06/26/18 06:03 Lymphocytes % 19.2 % (15.3-44.8) 06/26/18 06:03 Monocytes % 17.9 % (3.3-12.3) H 06/26/18 06:03 Eosinophils % 3.2 % (0-4.4) 06/26/18 06:03 Basophils % 0.5 % (0-1.3) 06/26/18 06:03 Absolute Neutrophils 4.1 K/uL (1.8-8.0) 06/26/18 06:03 Absolute Lymphocytes 1.3 K/uL (0.7-4.9) 06/26/18 06:03 Absolute Monocytes 1.2 K/uL (0.1-1.3) 06/26/18 06:03 Absolute Eosinophils 0.2 K/uL (0-0.5) 06/26/18 06:03 Absolute Basophils 0.0 K/uL (0-0.5) 06/26/18 06:03 Sodium 143 mmol/L (136-145) 06/26/18 04:03 Potassium 3.4 mmol/L (3.5-5.1) L 06/26/18 04:03 Chloride 108 mmol/L (98-107) H 06/26/18 04:03 Carbon Dioxide 31 mmol/L (21-32) 06/26/18 04:03 BUN 16 mg/dL (7-18) 06/26/18 04:03 Creatinine 0.70 mg/dL (0.55-1.3) 06/26/18 04:03 Estimated GFR 81 mL/min (=/>90) L 06/26/18 04:03 Glucose 120 mg/dL (74-106) H 06/26/18 04:03 Calcium 8.6 mg/dL (8.5-10.1) 06/26/18 04:03 Magnesium 2.1 mg/dL (1.8-2.4) 06/26/18 04:03 Albumin 3.0 g/dL (3.4-5.0) L 06/26/18 04:03 Prealbumin 14.6 mg/dL (20-40) L 06/26/18 04:03 Urine Color Dk yellow 06/25/18 20:50 Urine Appearance Clear 06/25/18 20:50 Urine pH 6.0 (5.0-7.0) 06/25/18 20:50 Ur Specific [place] 1.025 (1.005-1.030) 06/25/18 20:50 Urine Ketones Negative (NEG) 06/25/18 20:50 Urine Blood Negative (NEG) 06/25/18 20:50 Urine Nitrite Negative (NEG) 06/25/18 20:50 Urine Bilirubin Negative (NEG) 06/25/18 20:50 Urine Urobilinogen 0.2 mg/dL (0.2-1.0) 06/25/18 20:50 Ur Leukocyte Esterase Negative (NEG) 06/25/18 20:50 Urine RBC 5-10 /HPF (NONE SEEN) H 06/25/18 20:50 Urine WBC <5 /HPF (<5) 06/25/18 20:50 Ur Squamous Epith Cells 5-10 /HPF (NONE SEEN) H 06/25/18 20:50 Urine Bacteria <20 /HPF (<20) 06/25/18 20:50 Urine Culture Reflexed Not needed 06/25/18 20:50 Urine Glucose Negative (NEG) 06/25/18 20:50 Urine Total Protein 1+ (NEG) H 06/25/18 20:50 Wound Present: No Closed Surgical Incision Present: No Negative Pressure Wound Therapy Present: No Physician Update: SHe has left arm pain after falling prior to her admission. She has decreased range of motion in the left arm. Dr. Rankin noted decreased range of motion on the right arm. Will have x-rays of the shoulders. 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 She will be evaluated by speech therapy. She lives in a two story home and upstairs. She has her daughter at home with her. Summary: Patient's care plan and care home goals have been reviewed and revised as necessary. Please see the Rehabilitation Signature page for all necessary signatures.
[2018-06-26 10:17] LABS: Blood Morphology Comment NOT SEEN (NOT SEEN); Platelet Estimate ADEQ
--- NOTE | 2018-06-26 10:59 | RAD REPORT ---
EXAM DESCRIPTION: RAD - Shoulder Left 2 View - 06/26/2018 10:50 am CLINICAL HISTORY: fell Fall, trauma, shoulder pain COMPARISON: Shoulder Left 2 View dated 07/04/2014 FINDINGS: Degenerative changes are present without acute fracture or dislocation identified.
--- NOTE | 2018-06-26 11:01 | RAD REPORT ---
EXAM DESCRIPTION: RAD - Shoulder Right 2 View - 06/26/2018 10:54 am CLINICAL HISTORY: fell Trauma, fall, pain COMPARISON: No comparisons FINDINGS: Degenerative changes are present involving the glenohumeral and AC joint. No acute fractur e seen.
--- NOTE | 2018-06-26 12:58 | FAST ---
ENCOUNTER DATE AND TIME: 06/26/2018 08:00 (CDT) NAME GIBRAN BELTRAN DATE OF : 1940 DATE OF ADMISSION: 06/25/2018 15:15 (CDT) PHONE: AGE: 78 SSN# [id number] GENDER: Female ENCOUNTER PHYSICIAN: Dr. Roderick Min M.D. 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 EATING: Activity did not occur on this shift EATING - SCORE: 0-UNK GROOMING: Comb/brush hair GROOMING - STEP 1: Does the patient require assistance when grooming? Yes. GROOMING - STEP 2: Does the patient require the assistance of a helper? Yes. GROOMING - STEP 3: How much assistance does the patient require from the helper? Incidental touching assistance from the helper while grooming GROOMING - SCORE: 4-MIN BATHING: Abdomen Buttocks Chest Left arm Left lower leg and foot Left upper leg Perineal area Right arm Right lower leg and foot Right upper leg BATHING - STEP 1: Does the patient require assistance when bathing? Yes. BATHING - STEP 2: Does the patient require the assistance of a helper? Yes. BATHING - STEP 3: How much assistance does the patient require from the helper? More than just incidental help BATHING - STEP 4: What percent of the body parts did the patient bathe WITHOUT the helper? Half or more of the body par ts BATHING - SCORE: 3-MOD DRESSING - UPPER BODY: Sweater (four steps) T-shirt/pullover shirt (four steps) ARTICLES SCORE Total number of steps: 8 DRESSING - UPPER BODY - STEP 1: Does the patient require help when dressing above the waist? Yes. DRESSING - UPPER BODY - STEP 2: Does the patient require the assistance of a helper? Yes. DRESSING - UPPER BODY - STEP 3: Does the helper touch the patient while dressing? Yes. DRESSING - UPPER BODY - STEP 4: How many of the total steps does the patient complete on his/her own? 6 DRESSING - UPPER BODY - SCORE: 4-MIN DRESSING - LOWER BODY: Elastic waist pants (three steps) Underwear (three steps) ARTICLES SCORE Total number of steps: 6 DRESSING - LOWER BODY - STEP 1: Does the patient require help when dressing below the waist? Yes. DRESSING - LOWER BODY - STEP 2: Does the patient require the assistance of a helper? Yes. DRESSING - LOWER BODY - STEP 3: Does the helper touch the patient while dressing? Yes. DRESSING - LOWER BODY - STEP 4: How many of the total steps does the patient complete on his/her own? 4 DRESSING - LOWER BODY - SCORE: 3-MOD TOILETING: Activity did not occur on this shift TOILETING - SCORE: 0-UNK BLADDER MANAGEMENT: Activity did not occur on this shift BLADDER MANAGEMENT - SCORE: 7-IND BOWEL MANAGEMENT: Activity did not occur on this shift BOWEL MANAGEMENT - SCORE: 7-IND TRANSFERS: BED, CHAIR, WHEELCHAIR: Activity did not occur on this shift TRANSFERS: BED, CHAIR, WHEELCHAIR - SCORE: 0-UNK TRANSFERS: TOILET: Activity did not occur on this shift TRANSFERS: TOILET - SCORE: 0-UNK TRANSFERS: SHOWER: TRANSFERS: SHOWER - STEP 1: Does the patient require assistance with shower transfers? Yes. TRANSFERS: SHOWER - STEP 2: Does the patient require the assistance of a helper? Yes. TRANSFERS: SHOWER - STEP 3: How much assistance does the patient require from the helper? More than incidental help TRANSFERS: SHOWER - STEP 4: How much more help does the patient require from the helper? Lifting the patient either up OR down fr om the wheelchair onto the shower chair TRANSFERS: SHOWER - SCORE: 3-MOD TRANSFERS: TUB: Activity did not occur on this shift TRANSFERS: TUB - SCORE: 0-UNK LOCOMOTION: WALK: Activity did not occur on this shift LOCOMOTION: WALK - SCORE: 0-UNK LOCOMOTION: WHEELCHAIR: Activity did not occur on this shift LOCOMOTION: WHEELCHAIR - SCORE: 0-UNK LOCOMOTION: STAIRS: Activity did not occur on this shift LOCOMOTION: STAIRS - SCORE: 0-UNK COMPREHENSION: COMPREHENSION: TYPE: Both COMPREHENSION - STEP 1: Does the patient require help to understand complex and abstract ideas (such as current events, finan mindy, discharge planning, medical issues, relationships, etc)? Yes. COMPREHENSION - STEP 2: Does the patient require help to understand questions or statements about basic needs or ideas (such as hunger, thirst, sleep, safety, daily schedule, room location, or discomfort) half or more of the t dejuan? No. COMPREHENSION - STEP 3: How often does the patient need help to understand directions and conversation about basic needs? Les s than 10% of the time COMPREHENSION - SCORE: 5-SUP EXPRESSION EXPRESSION: TYPE: Both EXPRESSION - STEP 1: Does the patient require help expressing complex and abstract ideas (such as current events, finances , discharge planning, medical issues, relationships, etc)? Yes. EXPRESSION - STEP 2: Does the patient require help to express basic necessities or ideas (such as hunger, thirst, sleep, s afety, daily schedule, room location, or discomfort) half or more of the time? No. EXPRESSION - STEP 3: How often does the patient need help to express directions and conversation about basic needs? 10-24% of the time EXPRESSION - SCORE: 4-MIN SOCIAL INTERACTION: SOCIAL INTERACTION - STEP 1: Does the patient require a helper to interact with others in social and therapeutic situations? No. SOCIAL INTERACTION - STEP 2: Does the patient need extra time in social situations, OR does s/he interact with staff, other patien ts, and family members ONLY in structured environments, OR does s/he require medication for social in teraction? Yes, patient needs extra time SOCIAL INTERACTION - SCORE: 6-JANET PROBLEM SOLVING: PROBLEM SOLVING - STEP 1: Does the patient need help to solve complex problems such as managing a checking account or confronti ng interpersonal problems? Yes. PROBLEM SOLVING - STEP 2: Does the patient solve basic routine problems half or more of the time? Yes. PROBLEM SOLVING - STEP 3: How often does the patient need help to solve basic routine problems? 10%-24% of the time PROBLEM SOLVING - SCORE: 4-MIN MEMORY: MEMORY - STEP 1: Does the patient need help to remember frequently encountered people, daily routines, and executing r equests? Yes. MEMORY - STEP 2: How often does the patient need help to remember frequently encountered people, daily routines, and e xecuting requests? 25% - 49% of the time MEMORY - SCORE: 3-MOD SIGNATURE PANEL: The following modified sections: Eating - Score, Grooming - Score, Bathing - Score, Dressing - Upper Body - Score, Dressing - Lower Body - Score, Toileting - Score, Transfers: Bed, Chair, Wheelchair - S core, Transfers: Toilet - Score, Transfers: Shower - Score, Transfers: Tub - Score, Comprehension - S core, Expression - Score, Social Interaction - Score, Problem Solving - Score, Memory - Score were [e lectronically] signed by Rosalba Yanez OT on FriJun 26 2018 12:57:19 GMT-0500 (Central Da ylight Time)
--- NOTE | 2018-06-26 13:58 | R.HP ---
FACILITY: [facility] ENCOUNTER DATE AND TIME: 06/26/2018 13:49 (CDT) MR#: [id number] NAME GIBRAN BELTRAN ADDRESS: [id number] [place] [address] CITY: [place]IP [id number] PHONE: DATE OF : 1940 AGE: 78 SSN# [id number] GENDER: Female DEXTERITY Right-handed MARITAL STATUS Unknown RACE White PRE-HOSPITAL LIVING SETTING 01 - Home (private home/apt. board/care, assisted living, fci, transitional living) PRE-HOSPITAL LIVING WITH Family/Relatives ENCOUNTER PHYSICIAN: Dr. Roderick Min M.D. REFERRING DOCTOR: Mary Pavon DATE OF ADMISSION: 06/25/2018 15:15 (CDT) REFERRING FACILITY [facility] HOME TYPE AND DETAILS: Type of home: single family house # of steps to enter the residence: 0 # of steps within the residence: 0 # of levels in the residence: 1 ADMISSION DIAGNOSIS: acute left midbrain infarct ONSET DATE: 06/21/2018 PRIMARY DIAGNOSIS-RELATED SURGERIES: No surgeries related to the primary diagnosis were performed. SECONDARY/COMORBID DIAGNOSES (TIERED): - Non-Tiered Cardiac arrhythmia, unspecified (I49.9) cavitary lesion of lung compression fx of t12 adenocarcinoma of lung anxiety acquired hypothyroidism dementia - N/A DVT PROPHYLAXIS HISTORY OF PRESENT ILLNESS (HPI): Pt. is a 78 yo Right-handed white female. On 06/21/2018 Pt. presented to [facility] with sudden onset of right-side weakn ess. On 06/21/2018 she was admitted to [facility] with diagnosis acute left midbrain infarct. Her impairment category is Stroke 01 - Right Body (Left Brain) (01.2). Pre-morbidly, Pt. was independent/mod-I in Transfers Control, Communication, Social Cognition, Self-C are, Sphincter Control, and Locomotion; and she had good Sphincter Control. Currently, she has deficits of Transfers Control, Communication, Social Cognition, Balance, Self-Care , Endurance, Safety Awareness, and Locomotion. Pt. is now referred to [facility] for acute in-patient rehabilitation in order to maximize patient's functional independence in activities of daily living, strength, ROM, and mobi lity. Patient has realistic goal of being discharged at assistance level 6-Vanessa to reside at Home with Fam adolph/Relatives. She has left more than right shoulder pain. X-rays of both shoulders showed no acute findings includi ng no fractures. 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 [place] MEDICATION ALLERGIES: No Known Drug Allergies (NKDA) ENVIRONMENTAL ALLERGIES: - Substance Allergies None Known - Other Allergies None Known PAST MEDICAL HISTORY: Cardiac arrhythmia, unspecified (I49.9) DVT PROPHYLAXIS acquired hypothyroidism adenocarcinoma of lung anxiety cavitary lesion of lung compression fx of t12 dementia FAMILY HISTORY: Family history is not contributory. SOCIAL HISTORY: - Home Living Family/Relatives REVIEW OF SYSTEMS: - Gen No Chills Fatigue No Fever - Eyes No Double Vision No itchiness - ENMT No Difficulty Swallowing - CVS No Chest Discomfort No Chest Pain Fatigue No Weight Gain - Resp No Cough No Shortness of Breath - GI Continent No Abdominal Pain No Constipation No Diarrhea - Continent No Kidney Pain No Painful Urination No Urinary Urgency - MSK Joint Pain No Muscle Cramps No Stiffness - Skin No Itching No Rash No Suspicious Lesions - Neuro No Coordination Difficulty No Difficulty with Concentration No Memory Loss No Seizures Weakness - Psych No Anxiety No Depression No HIV Exposure No Persistent Infections No Seasonal Allergies - Endo No Cold/Heat Intolerance No Excessive Hunger No Excessive Thirst No Excessive Urination PHYSICAL EXAM - Gen Alert and awake Lying in bed No apparent distress Oriented to: person, time, and place - Skin No skin breakdown. Normacephalic - Eyes No abnormalities - ENMT No abnormalities - Neck No abnormalities - CVS RRR - Chest No abnormalities - Abd +bowel sounds - GI nondistended Deferred - No abnormalities - Ext No significant edema - MSK 4+/5 weakness in right upper and lower extremities. - Neuro 4/5 strength right upper and lower extremities. - Psych No abnormalities VITAL SIGNS Temperature: 98.9 F SBP/DBP: 152/65 Pulse: 94 Resp: 16 NURSING: - Shower allowing shower - Bladder care per protocol - Skin care per protocol PRECAUTIONS: - Weight Bearing Precaution WBAT right LE ACTIVITIES OOB only with supervision FUNCTIONAL STATUS: - Self-Care A. Eating Ind Andra B. Grooming Ind Andra C. Bathing Ind Andra D. Dressing - Upper Ind Andra E. Dressing - Lower Ind modA F. Toileting Ind modA - Sphincter Control G: Bladder control Ind Ind H: Bowel control Ind Ind - Transfers Control I. Bed/Chair/Wheelchair Ind modA J. Toilet Ind modA K. Tub/Shower Ind modA - Locomotion L. Walk/Wheelchair (B) Ind Dep M. Stairs Ind ADNO - Communication N. Comprehension (B) Ind sup O. Expression (B) Ind sup - Social Cognition P. Social Interaction Ind sup Q. Problem Solving Ind sup R. Memory Ind sup - Endurance Poor - Balance Poor - Safety Awareness Poor CURRENT FUNC. DEFICITS: Transfers Control, Communication, Social Cognition, Balance, Self-Care, Endurance, Safety Awareness, and Locomotion ASSESSMENT: Pt. is a 78 yo Right-handed white female.On 06/21/2018 Pt. presented to [facility] with sudden onset of right-side weakness.On 06/21/2018 she was admitted to [facility] with diagnosis acute left midbrain infarct.Her impairment category is Stroke 01 - Right B vanessa (Left Brain) (01.2).Pre-morbidly, Pt. was independent/mod-I in Transfers Control, Communication, Social Cognition, Self-Care, Sphincter Control, and Locomotion; and she had good Sphincter Control.Cu rrently, she has deficits of Transfers Control, Communication, Social Cognition, Balance, Self-Care, Endurance, Safety Awareness, and Locomotion.Pt. is now referred to [facility] for acute in-patient rehabilitation in order to maximize patient's functional independence in activit ies of daily living, strength, ROM, and mobility.- Rehab Goal Patient has realistic goal of being discharged at assistance level 6-Vanessa to reside at Home with Fam adolph/Relatives. REHAB PLAN: for Dementia, TBI, Stroke, or others - Physical Therapy Gait dysfunction - to improve, our physical therapists will perform initial evaluation of pt's status upon admission and devise an individualized program for Gait Training, and Wheel Chair mobility Inability to transfer - to improve, our physical therapists will perform initial evaluation of pt's s tatus upon admission and devise an individualized program for Bed mobility Need for home safety evaluation - to improve, our physical therapists will perform initial evaluation of pt's status upon admission and devise an individualized program for Home Evaluation Need in caregiver upon discharge - to improve, our physical therapists will perform initial evaluatio n of pt's status upon admission and devise an individualized program for Caregiver Training New precaution - to improve, our physical therapists will perform initial evaluation of pt's status u kristel admission and devise an individualized program for Patient precaution education Edema - to improve, our physical therapists will perform initial evaluation of pt's status upon admi ssion and devise an individualized program for Elevation Training, and Lymphedema Therapy Poor balance - to improve, our physical therapists will perform initial evaluation of pt's status upo n admission and devise an individualized program for Balance Training Poor endurance - to improve, our physical therapists will perform initial evaluation of pt's status u kristel admission and devise an individualized program for Endurance Training Weakness - to improve, our physical therapists will perform initial evaluation of pt's status upon ad mission and devise an individualized program for Aquatic Therapy, Neuromuscular Reeducation, and Stre ngthening Achieving independence - to improve, our physical therapists will perform initial evaluation of pt's status upon admission and devise an individualized program for Community Reintegration Activities - Occupational Therapy ADL deficits - to improve, our occupation therapists will perform initial evaluation of pt's status u kristel admission and devise an individualized program for Bathing, Bed mobility, Community Reintegration , Cooking, Dressing, Eating, Fine Motor Skills, Grooming, Homemaking, Kitchen Mobility, Laundry, Jamila ent Education, Safety Awareness, Splinting - Positioning, Transfers(Toilet, Tub, Shower), and Wheel C hair Management Cognitive deficits - to improve, our occupation therapists will perform initial evaluation of pt's st atus upon admission and devise an individualized program for Cognition - orientation Need for career development associate - to improve, our occupation therapists will perform initial evaluation of pt's s tatus upon admission and devise an individualized program for Caregiver Training Weakness - to improve, our occupation therapists will perform initial evaluation of pt's status upon admission and devise an individualized program for Aquatic Therapy, Balance, Endurance, UE ROM, and U E strengthening MEDICAL PLAN: - Diet Type Start Regular - Diet - Liquid Texture Start Regular - Tube Feed Start N/A - Bladder care per protocol - Weight Bearing Precaution WBAT right LE - Skin care per protocol - Diet - Solid Texture Regular - Shower shower DISCHARGE PLAN: - Estimated Length of Stay (days) 17. - Consensus on plan Discharge plan has been discussed with primary caregiver. Patient/Family is in agreement with the theresa n. Primary caregiver is in agreement with the plan. - Patient/Family Goals Return home with assistance. - Planned Living Setting Upon Discharge Home, to live with Family/Relatives. SIGNATURE PANEL: (CDT)
--- NOTE | 2018-06-26 14:01 | PAPE ---
PATIENT: [facility] MR# [id number] REFERRING DOCTOR Mary Pavon EVALUATION DATE AND TIME 06/26/2018 13:58 (CDT) NAME GIBRAN BELTRAN DATE OF 1940 AGE 78 PHONE N# [id number] GENDER female EVALUATING PHYSICIAN Dr. Roderick Min M.D. ADMISSION DIAGNOSIS: acute left midbrain infarct ONSET DATE 06/21/2018 SECONDARY/COMORBID DIAGNOSES TIERED: - Non-Tiered Cardiac arrhythmia, unspecified (I49.9) cavitary lesion of lung compression fx of t12 adenocarcinoma of lung anxiety acquired hypothyroidism dementia - N/A DVT PROPHYLAXIS POST-ADMISSION FUNCTIONAL/MEDICAL STATUS: - Bladder Same accident frequency: Ind - No accidents in the past 7 days - Bowel Same accident frequency: Ind - No accidents in the past 7 days - Walking Same score based on distance walked: 1(<=50ft) STATUS CHANGE EVALUATION: No change in Functional or Medical Status is identified compared with Pre-Admission screening. PATIENT NEEDS CLOSE MEDICAL SUPERVISION BY A REHABILITATION PHYSICIAN FOR: Bowel and Bladder Management Coordination of Treatment Team DVT Management Medical and Co-Morbidity Management PATIENT REQUIRES 24X7 REHAB NURSING FOR MEDICAL AND FUNCTIONAL MGT. OF THE FOLLOWING DEFICITS: ADL's Ambulation Bowel and Bladder Management Cognition Communication Disease Management Medication Management Patient/Family Education Providing Safe Environment Transfers PATIENT REQUIRES INTENSIVE, COORDINATED INTERDISCIPLINARY APPROACH TO REHAB: Arranging Home Equipment/Services Discharge Planning Family Intervention/Training Government Employee/Case Management LIST OF IDENTIFIED AND POTENTIAL PROBLEMS: Alteration in leisure activities Bladder, Incontinence Bowel, Incontinence DVT, Actual or Potential Infection, Actual or Potential Mobility Impaired Pain, Alteration in Comfort Self Care Deficit Skin Integrity, Actual or Potential Urinary Tract Infection (UTI), Actual or Potential PATIENT COULD BE AT RISK FOR COMPLICATIONS FROM ADVERSE MEDICAL CONDITIONS DUE TO HIS/HER COMORBIDITI ES AND THE RIGORS OF THE INTENSIVE REHABILLITATION PROGRAM. METHODS OR INTERVENTIONS TO AVOID COMPLIC ATIONS INCLUDE: - Deep Vein Thrombosis (DVT) Prophylaxis therapy for prevention . Sequential Compression Device (SCD). TE D Hose. - Bleeding Stroke patients assessed for lethargy or change in status. - Infection Clinical staff to assess and manage the signs and symptoms of infection including fever, redness, war mth, etc. - Urinary Tract Infection - Aspiration Clinical staff will assess and manage coughing, drooling, congestion. - Falls Patient will be evaluated for Fall Precautions and will be placed on Fall Precautions as indicated pe r protocol. - Skin Breakdown Nursing will assess skin daily using assessment tool and will place on Skin Breakdown Precautions as indicated per protocol. - Pain Clinical staff may employ non-medication methods such as massage, distraction, decrease stimulus, etc . as needed. Clinical staff will assess patient's pain level every shift per protocol to assess and e nsure pain management effectiveness. Medications will be given and the pain level re-assessed. PRELIMINARY PLAN OF CARE: - Physical Therapy Patient needs Physical Therapy for a daily minimum of 1.5 hours at least 5 out of 7 days, to improve: Mobility, Strengthening, Transfers, Stretching, ROM, Endurance, Ability to manage stairs, Gait, and Balance. - Speech Therapy Patient needs Speech Therapy for a daily minimum of 0.5 hours at least 5 out of 7 days, to improve: S wallowing, Cognition, Language Skills, and Compensatory Strategies. - Rehabilitation Nursing Patient requires 24x7 Rehabilitation Nursing for: Pain Issues, Identifying and preventing risk factor s, Monitoring and reporting current medical conditions, Assisting with ambulation and transfer, Gifty ting with all ADL-s, Teaching patients about disease process and medications, Family teaching, Provid ing safe environment, Bowel and Bladder Issues, Skin Integrity, and Medication Management. Patient needs Government Employee and/or Case Management for: Discharge Planning, Arranging Home Equipmen t or Services, and Family Interventions. - Dietary and Nutrition Services Patient needs Dietary and Nutrition Services for: Adequate Nutrition, Nutritional Supplements, and Nu tritional Education. - Occupational Therapy Patient needs Occupational Therapy for a daily minimum of 1.5 hours at least 5 out of 7 days, to impr ove Activities of Daily Living, including: Eating, Grooming, Bathing, Dressing, Toileting, Toilet Tra nsfers, Community Reintegration, Higher functional activities, Adaptive Equipment, Splinting, Househo ld Tasks, and Other activities as determined. POTENTIAL FUNCTIONAL GOALS FOR PATIENT TO ACHIEVE BY DISCHARGE: - Safety Precaution Patient will remain free from falls or injury at time of discharge. - Bed Mobility Patient will perform bed mobility at 4-Andra level of assistance. - Transfers Patient will complete transfers from bed to chair at 4-Andra level of assistance. - Mobility Patient will ambulate 150 ft with 4-Andra level of assistance with RW. PATIENT REHAB POTENTIAL Expected level of measurable improvement will be of a practical value to patient's functional capacit y or adaptations to impairments Has a viable Discharge Plan Medically appropriate; condition is sufficiently stable to participate in intensive rehab program Patient is able and expected to receive 3 hours of individualized therapy daily on at least 5 of ever y 7 days Patient's prognosis for significant practical improvement within a reasonable period of time appears Good DISCHARGE PLAN: - Estimated Length of Stay (days) 17. - Consensus on plan Discharge plan has been discussed with primary caregiver. Patient/Family is in agreement with the theresa n. Primary caregiver is in agreement with the plan. - Patient/Family Goals Return home with assistance. - Planned Living Setting Upon Discharge Home, to live with Family/Relatives. CONCLUSION ON REHABILITATION NECESSITY: I have evaluated patient's pre-admission functional status and, comparing it to the patient's post-ad mission functional status now, I conclude that the pre-admission assessment was accurate. Patient's c ondition on admission supports the medical necessity of admission to [facility]. It is safe to proceed with patient's therapy program. SIGNATURE PANEL: (CDT)
[2018-06-26] MEDS: HYDROCODONE/APAP 10/325 TAB PO PRN (20:00)
[2018-06-26] MEDS: DONEPEZIL HCL 5 MG TAB PO SCH (20:00)
[2018-06-26] MEDS: ATORVASTATIN 40 MG TAB PO SCH (20:00)
[2018-06-26] MEDS: ENSURE ENLIVE 237 ML CAN PO SCH (20:00)
[2018-06-26] MEDS: PROMOD 30 ML DOSE PO SCH (20:00)
[2018-06-27] MEDS: ERLOTINIB 100 MG PO SCH (06:00)
[2018-06-27] MEDS: PROMOD 30 ML DOSE PO SCH ×2 (08:00→20:53)
[2018-06-27] MEDS: ASPIRIN 81 MG CHEWABLE TABLET PO SCH (08:23)
[2018-06-27] MEDS: FE SULF/FA/VIT B COMP & C TAB PO SCH (08:23)
[2018-06-27] MEDS: ENOXAPARIN 40 MG/0.4 ML SQ SCH (08:23)
[2018-06-27] MEDS: LEVOTHYROXINE SOD 0.1 MG TAB PO SCH (08:23)
[2018-06-27] MEDS: LIOTHYRONINE SOD 25 MCG TAB PO SCH (08:24)
[2018-06-27] MEDS: HYDROCODONE/APAP 10/325 TAB PO PRN ×3 (08:24→18:47)
[2018-06-27] MEDS: FERROUS SULFATE 325 MG TAB PO SCH (08:24)
[2018-06-27] MEDS: SERTRALINE HCL 100 MG TAB PO SCH (08:24)
[2018-06-27] MEDS: PROPRANOLOL HCL 10 MG TAB PO SCH ×2 (08:24→20:52)
[2018-06-27] MEDS: ENSURE ENLIVE 237 ML CAN PO SCH ×2 (08:25→20:53)
--- NOTE | 2018-06-27 11:12 | FAST ---
SHIFT START DATE/TIME: 06/27/2018 07:00 (CDT) SHIFT END DATE/TIME: 06/27/2018 19:00 (CDT) NAME GIBRAN BELTRAN DATE OF : 1940 DATE OF ADMISSION: 06/25/2018 15:15 (CDT) PHONE: AGE: 78 N# [id number] GENDER: Female ENCOUNTER PHYSICIAN: Dr. Roderick Min M.D. 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 EATING: EATING - STEP 1: Does the patient require assistance when eating? Yes. EATING - STEP 2: Does the patient require the assistance of a helper? No, patient only requires an assistive device, O R s/he takes more than reasonable time to eat, OR there is a safety concern, OR s/he requires modifie d food consistency EATING - SCORE: 6-JANET GROOMING: Comb/brush hair Oral care Wash, rinse, and dry face Wash, rinse, and dry hands GROOMING - STEP 1: Does the patient require assistance when grooming? Yes. GROOMING - STEP 2: Does the patient require the assistance of a helper? No. The patient only requires an assistive devic e, OR takes more than reasonable time to groom, OR there is a concern for safety as the patient groom s GROOMING - SCORE: 6-JANET BATHING: Activity did not occur on this shift BATHING - SCORE: 0-UNK DRESSING - UPPER BODY: T-shirt/pullover shirt (four steps) ARTICLES SCORE Total number of steps: 4 DRESSING - UPPER BODY - STEP 1: Does the patient require help when dressing above the waist? Yes. DRESSING - UPPER BODY - STEP 2: Does the patient require the assistance of a helper? Yes. DRESSING - UPPER BODY - STEP 3: Does the helper touch the patient while dressing? No. DRESSING - UPPER BODY - SCORE: 5-SUP DRESSING - LOWER BODY: ARTICLES SCORE Total number of steps: 6 DRESSING - LOWER BODY - STEP 1: Does the patient require help when dressing below the waist? Yes. DRESSING - LOWER BODY - STEP 2: Does the patient require the assistance of a helper? Yes. DRESSING - LOWER BODY - STEP 3: Does the helper touch the patient while dressing? Yes. DRESSING - LOWER BODY - STEP 4: How many of the total steps does the patient complete on his/her own? 4 DRESSING - LOWER BODY - SCORE: 3-MOD TOILETING: TOILETING - STEP 1: Does the patient require assistance with toileting? Yes. TOILETING - STEP 2: Does the patient require the assistance of a helper? Yes. TOILETING - STEP 3: How much assistance does the patient require from the helper? Only supervision TOILETING - SCORE: 5-SUP BLADDER MANAGEMENT: BLADDER MANAGEMENT - STEP 1: Does the patient control the bladder completely and intentionally without equipment or devices or med ications, and is always continent? No. BLADDER MANAGEMENT - STEP 2: Does the patient require the assistance of a helper? No, patient requires and independently uses an a ssistive device, such as a urinal, bedpan, bedside commode, catheter, absorbent pad, or collecting de vice BLADDER MANAGEMENT - SCORE: 6-JANET BOWEL MANAGEMENT: Activity did not occur on this shift BOWEL MANAGEMENT - SCORE: 7-IND TRANSFERS: BED, CHAIR, WHEELCHAIR: TRANSFERS: BED, CHAIR, WHEELCHAIR - STEP 1: Does the patient require assistance with bed, chair, or wheelchair transfers? Yes. TRANSFERS: BED, CHAIR, WHEELCHAIR - STEP 2: Does the patient require the assistance of a helper? Yes. TRANSFERS: BED, CHAIR, WHEELCHAIR - STEP 3: How much assistance does the patient require from the helper? Steadying/guiding assistance TRANSFERS: BED, CHAIR, WHEELCHAIR - SCORE: 4-MIN TRANSFERS: TOILET: TRANSFERS: TOILET - STEP 1: Does the patient require assistance with toilet transfers? Yes. TRANSFERS: TOILET - STEP 2: Does the patient require the assistance of a helper? Yes. TRANSFERS: TOILET - STEP 3: How much assistance does the patient require from the helper? Patient performs half or more of the tr ansferring tasks TRANSFERS: TOILET - STEP 4: Does the patient need only incidental help such as contact guard or steadying during toilet transfer? Yes. TRANSFERS: TOILET - SCORE: 4-MIN TRANSFERS: SHOWER: Activity did not occur on this shift TRANSFERS: SHOWER - SCORE: 0-UNK TRANSFERS: TUB: Activity did not occur on this shift TRANSFERS: TUB - SCORE: 0-UNK LOCOMOTION: WALK: Activity did not occur on this shift LOCOMOTION: WALK - SCORE: 0-UNK LOCOMOTION: WHEELCHAIR: Activity did not occur on this shift LOCOMOTION: WHEELCHAIR - SCORE: 0-UNK COMPREHENSION: COMPREHENSION: TYPE: Both COMPREHENSION - STEP 1: Does the patient require help to understand complex and abstract ideas (such as current events, finan mindy, discharge planning, medical issues, relationships, etc)? No. COMPREHENSION - STEP 2: Does the patient need extra time, require an assistive device (such as glasses for visual comprehensi on or a hearing aid for auditory comprehension) or does s/he have mild difficulty understanding compl ex and abstract information? Yes. COMPREHENSION - SCORE: 6-JANET EXPRESSION EXPRESSION: TYPE: Both EXPRESSION - STEP 1: Does the patient require help expressing complex and abstract ideas (such as current events, finances , discharge planning, medical issues, relationships, etc)? No. EXPRESSION - STEP 2: Does the patient need extra time, require an assistive device (such as augmentive communication syste m or a communication board), OR does s/he have mild difficulty expressing complex and abstract ideas (including mild dysarthria or mild word-find problems)? Yes. EXPRESSION - SCORE: 6-JANET SOCIAL INTERACTION: SOCIAL INTERACTION - STEP 1: Does the patient require a helper to interact with others in social and therapeutic situations? No. SOCIAL INTERACTION - STEP 2: Does the patient need extra time in social situations, OR does s/he interact with staff, other patien ts, and family members ONLY in structured environments, OR does s/he require medication for social in teraction? Yes, patient needs extra time SOCIAL INTERACTION - SCORE: 6-JANET PROBLEM SOLVING: PROBLEM SOLVING - STEP 1: Does the patient need help to solve complex problems such as managing a checking account or confronti ng interpersonal problems? No. PROBLEM SOLVING - STEP 2: Does the patient require extra time to make decisions or solve problems, OR does s/he have slight dif ficulty reading, initiating, or self-correcting in unfamiliar situations? Yes, patient needs extra ti me. PROBLEM SOLVING - SCORE: 6-JANET MEMORY: MEMORY - STEP 1: Does the patient need help to remember frequently encountered people, daily routines, and executing r equests? No. MEMORY - STEP 2: Does the patient have slight difficulty recognizing frequently encountered people, daily routines, or executing requests without the need for repetition or using self-initiated or environmental cues to remember? Yes. MEMORY - SCORE: 6-JANET SIGNATURE PANEL: The following modified sections: Eating - Score, Grooming - Score, Bathing - Score, Dressing - Upper Body - Score, Dressing - Lower Body - Score, Toileting - Score, Bladder Management - Score, Bowel Man agement - Score, Transfers: Bed, Chair, Wheelchair - Score, Transfers: Toilet - Score, Transfers: Gladys wer - Score, Transfers: Tub - Score, Locomotion: Walk - Score, Locomotion: Wheelchair - Score, Compre hension - Score, Expression - Score, Social Interaction - Score, Problem Solving - Score, Memory - Sc ore were [electronically] signed by Shawn Bergeron on Sat Jun 27 2018 11:11:27 GMT-0500 (Central Daylight Time)
[2018-06-27] MEDS ORDERED: DOCUSATE NA/SENNA CONC 1 TAB PO PRN (12:32)
[2018-06-27] MEDS: DONEPEZIL HCL 5 MG TAB PO SCH (20:52)
[2018-06-27] MEDS: ATORVASTATIN 40 MG TAB PO SCH (20:52)
--- NOTE | 2018-06-28 02:01 | FAST ---
SHIFT START DATE/TIME: 06/27/2018 19:00 (CDT) SHIFT END DATE/TIME: 06/28/2018 07:00 (CDT) NAME GIBRAN BELTRAN DATE OF : 1940 DATE OF ADMISSION: 06/25/2018 15:15 (CDT) PHONE: AGE: 78 SSN# [id number] GENDER: Female ENCOUNTER PHYSICIAN: Dr. Roderick Min M.D. 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 EATING: Activity did not occur on this shift EATING - SCORE: 0-UNK GROOMING: Activity did not occur on this shift GROOMING - SCORE: 0-UNK BATHING: Activity did not occur on this shift BATHING - SCORE: 0-UNK DRESSING - UPPER BODY: Activity did not occur on this shift ARTICLES SCORE Total number of steps: 0 DRESSING - UPPER BODY - SCORE: 0-UNK DRESSING - LOWER BODY: Activity did not occur on this shift ARTICLES SCORE Total number of steps: 0 DRESSING - LOWER BODY - SCORE: 0-UNK TOILETING: TOILETING - STEP 1: Does the patient require assistance with toileting? Yes. TOILETING - STEP 2: Does the patient require the assistance of a helper? Yes. TOILETING - STEP 3: How much assistance does the patient require from the helper? Hands-on assistance from the helper TOILETING - STEP 4: Of the 3 tasks: 1) Adjusting clothing prior to use, 2) Cleansing of perineal area, 3) Adjusting clot bere after use; How many tasks does the patient perform WITHOUT assistance of the helper? One task TOILETING - SCORE: 2-MAX BLADDER MANAGEMENT: BLADDER MANAGEMENT - STEP 1: Does the patient control the bladder completely and intentionally without equipment or devices or med ications, and is always continent? No. BLADDER MANAGEMENT - STEP 2: Does the patient require the assistance of a helper? Yes. BLADDER MANAGEMENT - STEP 3: How much assistance does the patient require from the helper? Patient requires contact assistance fro m the helper BLADDER MANAGEMENT - STEP 4: How much contact assistance does the patient require from the helper? Patient requires minimal assist ance to maintain an external device - by positioning, and the patient performs 75% or more of bladder management tasks, while the helper provides less than 25% of the assistance to position patient on / off bedpan BLADDER MANAGEMENT - SCORE: 4-MIN BOWEL MANAGEMENT: Activity did not occur on this shift BOWEL MANAGEMENT - SCORE: 7-IND TRANSFERS: BED, CHAIR, WHEELCHAIR: TRANSFERS: BED, CHAIR, WHEELCHAIR - STEP 1: Does the patient require assistance with bed, chair, or wheelchair transfers? Yes. TRANSFERS: BED, CHAIR, WHEELCHAIR - STEP 2: Does the patient require the assistance of a helper? Yes. TRANSFERS: BED, CHAIR, WHEELCHAIR - STEP 3: How much assistance does the patient require from the helper? Steadying/guiding assistance TRANSFERS: BED, CHAIR, WHEELCHAIR - SCORE: 4-MIN TRANSFERS: TOILET: TRANSFERS: TOILET - STEP 1: Does the patient require assistance with toilet transfers? Yes. TRANSFERS: TOILET - STEP 2: Does the patient require the assistance of a helper? Yes. TRANSFERS: TOILET - STEP 3: How much assistance does the patient require from the helper? Patient performs half or more of the tr ansferring tasks TRANSFERS: TOILET - STEP 4: Does the patient need only incidental help such as contact guard or steadying during toilet transfer? Yes. TRANSFERS: TOILET - SCORE: 4-MIN TRANSFERS: SHOWER: Activity did not occur on this shift TRANSFERS: SHOWER - SCORE: 0-UNK TRANSFERS: TUB: Activity did not occur on this shift TRANSFERS: TUB - SCORE: 0-UNK LOCOMOTION: WALK: Activity did not occur on this shift LOCOMOTION: WALK - SCORE: 0-UNK LOCOMOTION: WHEELCHAIR: Activity did not occur on this shift LOCOMOTION: WHEELCHAIR - SCORE: 0-UNK COMPREHENSION: COMPREHENSION: TYPE: Both COMPREHENSION - STEP 1: Does the patient require help to understand complex and abstract ideas (such as current events, finan mindy, discharge planning, medical issues, relationships, etc)? No. COMPREHENSION - STEP 2: Does the patient need extra time, require an assistive device (such as glasses for visual comprehensi on or a hearing aid for auditory comprehension) or does s/he have mild difficulty understanding compl ex and abstract information? Yes. COMPREHENSION - SCORE: 6-JANET EXPRESSION EXPRESSION: TYPE: Both EXPRESSION - STEP 1: Does the patient require help expressing complex and abstract ideas (such as current events, finances , discharge planning, medical issues, relationships, etc)? No. EXPRESSION - STEP 2: Does the patient need extra time, require an assistive device (such as augmentive communication syste m or a communication board), OR does s/he have mild difficulty expressing complex and abstract ideas (including mild dysarthria or mild word-find problems)? Yes. EXPRESSION - SCORE: 6-JANET SOCIAL INTERACTION: SOCIAL INTERACTION - STEP 1: Does the patient require a helper to interact with others in social and therapeutic situations? No. SOCIAL INTERACTION - STEP 2: Does the patient need extra time in social situations, OR does s/he interact with staff, other patien ts, and family members ONLY in structured environments, OR does s/he require medication for social in teraction? Yes, patient needs extra time SOCIAL INTERACTION - SCORE: 6-JANET PROBLEM SOLVING: PROBLEM SOLVING - STEP 1: Does the patient need help to solve complex problems such as managing a checking account or confronti ng interpersonal problems? No. PROBLEM SOLVING - STEP 2: Does the patient require extra time to make decisions or solve problems, OR does s/he have slight dif ficulty reading, initiating, or self-correcting in unfamiliar situations? Yes, patient needs extra ti me. PROBLEM SOLVING - SCORE: 6-JANET MEMORY: MEMORY - STEP 1: Does the patient need help to remember frequently encountered people, daily routines, and executing r equests? No. MEMORY - STEP 2: Does the patient have slight difficulty recognizing frequently encountered people, daily routines, or executing requests without the need for repetition or using self-initiated or environmental cues to remember? No. MEMORY - SCORE: 7-IND SIGNATURE PANEL: The following modified sections: Eating - Score, Grooming - Score, Bathing - Score, Dressing - Upper Body - Score, Dressing - Lower Body - Score, Toileting - Score, Bladder Management - Score, Bowel Man agement - Score, Transfers: Bed, Chair, Wheelchair - Score, Transfers: Toilet - Score, Transfers: Gladys wer - Score, Transfers: Tub - Score, Locomotion: Walk - Score, Locomotion: Wheelchair - Score, Compre hension - Score, Expression - Score, Social Interaction - Score, Problem Solving - Score, Memory - Sc ore were [electronically] signed by Niru Zuleta RN on FriJun 28 2018 02:01:33 T-0500 ([facility] Time)
[2018-06-28] MEDS: ERLOTINIB 100 MG PO SCH (05:03)
[2018-06-28] MEDS: ENSURE ENLIVE 237 ML CAN PO SCH ×2 (08:00→19:24)
[2018-06-28] MEDS: ASPIRIN 81 MG CHEWABLE TABLET PO SCH (08:00)
[2018-06-28] MEDS: ENOXAPARIN 40 MG/0.4 ML SQ SCH (09:38)
[2018-06-28] MEDS: FE SULF/FA/VIT B COMP & C TAB PO SCH (09:39)
[2018-06-28] MEDS: SERTRALINE HCL 100 MG TAB PO SCH (09:39)
[2018-06-28] MEDS: FERROUS SULFATE 325 MG TAB PO SCH (09:39)
[2018-06-28] MEDS: PROPRANOLOL HCL 10 MG TAB PO SCH ×2 (09:40→19:25)
[2018-06-28] MEDS: LIOTHYRONINE SOD 25 MCG TAB PO SCH (09:41)
[2018-06-28] MEDS: LEVOTHYROXINE SOD 0.1 MG TAB PO SCH (09:43)
[2018-06-28] MEDS: PROMOD 30 ML DOSE PO SCH ×2 (11:19→19:25)
--- NOTE | 2018-06-28 11:26 | FAST ---
SHIFT START DATE/TIME: 06/28/2018 07:00 (CDT) SHIFT END DATE/TIME: 06/28/2018 19:00 (CDT) NAME GIBRAN BELTRAN DATE OF : 1940 DATE OF ADMISSION: 06/25/2018 15:15 (CDT) PHONE: AGE: 78 N# [id number] GENDER: Female ENCOUNTER PHYSICIAN: Dr. Roderick Min M.D. 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 EATING: EATING - STEP 1: Does the patient require assistance when eating? Yes. EATING - STEP 2: Does the patient require the assistance of a helper? No, patient only requires an assistive device, O R s/he takes more than reasonable time to eat, OR there is a safety concern, OR s/he requires modifie d food consistency EATING - SCORE: 6-JANET GROOMING: Comb/brush hair Oral care Wash, rinse, and dry face Wash, rinse, and dry hands GROOMING - STEP 1: Does the patient require assistance when grooming? Yes. GROOMING - STEP 2: Does the patient require the assistance of a helper? No. The patient only requires an assistive devic e, OR takes more than reasonable time to groom, OR there is a concern for safety as the patient groom s GROOMING - SCORE: 6-JANET BATHING: Activity did not occur on this shift BATHING - SCORE: 0-UNK DRESSING - UPPER BODY: Sweater (four steps) T-shirt/pullover shirt (four steps) ARTICLES SCORE Total number of steps: 8 DRESSING - UPPER BODY - STEP 1: Does the patient require help when dressing above the waist? Yes. DRESSING - UPPER BODY - STEP 2: Does the patient require the assistance of a helper? Yes. DRESSING - UPPER BODY - STEP 3: Does the helper touch the patient while dressing? Yes. DRESSING - UPPER BODY - STEP 4: How many of the total steps does the patient complete on his/her own? 7 DRESSING - UPPER BODY - SCORE: 4-MIN DRESSING - LOWER BODY: ARTICLES SCORE Total number of steps: 7 DRESSING - LOWER BODY - STEP 1: Does the patient require help when dressing below the waist? Yes. DRESSING - LOWER BODY - STEP 2: Does the patient require the assistance of a helper? Yes. DRESSING - LOWER BODY - STEP 3: Does the helper touch the patient while dressing? Yes. DRESSING - LOWER BODY - STEP 4: How many of the total steps does the patient complete on his/her own? 4 DRESSING - LOWER BODY - SCORE: 3-MOD TOILETING: TOILETING - STEP 1: Does the patient require assistance with toileting? Yes. TOILETING - STEP 2: Does the patient require the assistance of a helper? Yes. TOILETING - STEP 3: How much assistance does the patient require from the helper? Hands-on assistance from the helper TOILETING - STEP 4: Of the 3 tasks: 1) Adjusting clothing prior to use, 2) Cleansing of perineal area, 3) Adjusting clot bere after use; How many tasks does the patient perform WITHOUT assistance of the helper? Three tasks with steadying assistance from the helper TOILETING - SCORE: 4-MIN BLADDER MANAGEMENT: BLADDER MANAGEMENT - STEP 1: Does the patient control the bladder completely and intentionally without equipment or devices or med ications, and is always continent? No. BLADDER MANAGEMENT - STEP 2: Does the patient require the assistance of a helper? No, patient requires and independently uses an a ssistive device, such as a urinal, bedpan, bedside commode, catheter, absorbent pad, or collecting de vice BLADDER MANAGEMENT - SCORE: 6-JANET BOWEL MANAGEMENT: Activity did not occur on this shift BOWEL MANAGEMENT - SCORE: 7-IND TRANSFERS: BED, CHAIR, WHEELCHAIR: TRANSFERS: BED, CHAIR, WHEELCHAIR - STEP 1: Does the patient require assistance with bed, chair, or wheelchair transfers? Yes. TRANSFERS: BED, CHAIR, WHEELCHAIR - STEP 2: Does the patient require the assistance of a helper? Yes. TRANSFERS: BED, CHAIR, WHEELCHAIR - STEP 3: How much assistance does the patient require from the helper? Steadying/guiding assistance TRANSFERS: BED, CHAIR, WHEELCHAIR - SCORE: 4-MIN TRANSFERS: TOILET: TRANSFERS: TOILET - STEP 1: Does the patient require assistance with toilet transfers? Yes. TRANSFERS: TOILET - STEP 2: Does the patient require the assistance of a helper? Yes. TRANSFERS: TOILET - STEP 3: How much assistance does the patient require from the helper? Patient performs half or more of the tr ansferring tasks TRANSFERS: TOILET - STEP 4: Does the patient need only incidental help such as contact guard or steadying during toilet transfer? No. Patient needs more than incidental help TRANSFERS: TOILET - SCORE: 3-MOD TRANSFERS: SHOWER: Activity did not occur on this shift TRANSFERS: SHOWER - SCORE: 0-UNK TRANSFERS: TUB: Activity did not occur on this shift TRANSFERS: TUB - SCORE: 0-UNK LOCOMOTION: WALK: Activity did not occur on this shift LOCOMOTION: WALK - SCORE: 0-UNK LOCOMOTION: WHEELCHAIR: Activity did not occur on this shift LOCOMOTION: WHEELCHAIR - SCORE: 0-UNK COMPREHENSION: COMPREHENSION: TYPE: Both COMPREHENSION - STEP 1: Does the patient require help to understand complex and abstract ideas (such as current events, finan mindy, discharge planning, medical issues, relationships, etc)? No. COMPREHENSION - STEP 2: Does the patient need extra time, require an assistive device (such as glasses for visual comprehensi on or a hearing aid for auditory comprehension) or does s/he have mild difficulty understanding compl ex and abstract information? Yes. COMPREHENSION - SCORE: 6-JANET EXPRESSION EXPRESSION: TYPE: Both EXPRESSION - STEP 1: Does the patient require help expressing complex and abstract ideas (such as current events, finances , discharge planning, medical issues, relationships, etc)? No. EXPRESSION - STEP 2: Does the patient need extra time, require an assistive device (such as augmentive communication syste m or a communication board), OR does s/he have mild difficulty expressing complex and abstract ideas (including mild dysarthria or mild word-find problems)? Yes. EXPRESSION - SCORE: 6-JANET SOCIAL INTERACTION: SOCIAL INTERACTION - STEP 1: Does the patient require a helper to interact with others in social and therapeutic situations? No. SOCIAL INTERACTION - STEP 2: Does the patient need extra time in social situations, OR does s/he interact with staff, other patien ts, and family members ONLY in structured environments, OR does s/he require medication for social in teraction? Yes, patient needs extra time SOCIAL INTERACTION - SCORE: 6-JANET PROBLEM SOLVING: PROBLEM SOLVING - STEP 1: Does the patient need help to solve complex problems such as managing a checking account or confronti ng interpersonal problems? No. PROBLEM SOLVING - STEP 2: Does the patient require extra time to make decisions or solve problems, OR does s/he have slight dif ficulty reading, initiating, or self-correcting in unfamiliar situations? Yes, patient needs extra ti me. PROBLEM SOLVING - SCORE: 6-JANET MEMORY: MEMORY - STEP 1: Does the patient need help to remember frequently encountered people, daily routines, and executing r equests? No. MEMORY - STEP 2: Does the patient have slight difficulty recognizing frequently encountered people, daily routines, or executing requests without the need for repetition or using self-initiated or environmental cues to remember? Yes. MEMORY - SCORE: 6-JANET SIGNATURE PANEL: The following modified sections: Eating - Score, Grooming - Score, Bathing - Score, Dressing - Upper Body - Score, Dressing - Lower Body - Score, Toileting - Score, Bladder Management - Score, Bowel Man agement - Score, Transfers: Bed, Chair, Wheelchair - Score, Transfers: Toilet - Score, Transfers: Gladys wer - Score, Transfers: Tub - Score, Locomotion: Walk - Score, Locomotion: Wheelchair - Score, Compre hension - Score, Expression - Score, Social Interaction - Score, Problem Solving - Score, Memory - Sc ore were [electronically] signed by Shawn Bergeron on FriJun 28 2018 11:25:23 GMT-0500 (Central Daylight Time)
[2018-06-28] MEDS: HYDROCODONE/APAP 10/325 TAB PO PRN ×2 (11:32→17:00)
[2018-06-28] MEDS: ASPIRIN EC 81 MG TAB PO SCH (13:53)
[2018-06-28] MEDS: NITROFURAN MACRO 100 MG CAP PO SCH ×2 (13:53→19:25)
[2018-06-28] MEDS: DONEPEZIL HCL 5 MG TAB PO SCH (19:31)
[2018-06-28] MEDS: ATORVASTATIN 40 MG TAB PO SCH (19:33)
--- NOTE | 2018-06-29 03:14 | FAST ---
SHIFT START DATE/TIME: 06/28/2018 19:00 (CDT) SHIFT END DATE/TIME: 06/29/2018 07:00 (CDT) NAME GIBRAN BELTRAN DATE OF : 1940 DATE OF ADMISSION: 06/25/2018 15:15 (CDT) PHONE: AGE: 78 N# [id number] GENDER: Female ENCOUNTER PHYSICIAN: Dr. Roderick Min M.D. 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 EATING: Activity did not occur on this shift EATING - SCORE: 0-UNK GROOMING: Wash, rinse, and dry hands GROOMING - STEP 1: Does the patient require assistance when grooming? Yes. GROOMING - STEP 2: Does the patient require the assistance of a helper? Yes. GROOMING - STEP 3: How much assistance does the patient require from the helper? Cuing, coaxing, instructions, or encour agement for completion of grooming GROOMING - SCORE: 5-SUP BATHING: Activity did not occur on this shift BATHING - SCORE: 0-UNK DRESSING - UPPER BODY: Patient is not dressing in public clothing ARTICLES SCORE Total number of steps: 0 DRESSING - UPPER BODY - SCORE: 0-UNK DRESSING - LOWER BODY: Patient is not dressing in public clothing ARTICLES SCORE Total number of steps: 0 DRESSING - LOWER BODY - SCORE: 0-UNK TOILETING: TOILETING - STEP 1: Does the patient require assistance with toileting? Yes. TOILETING - STEP 2: Does the patient require the assistance of a helper? Yes. TOILETING - STEP 3: How much assistance does the patient require from the helper? Hands-on assistance from the helper TOILETING - STEP 4: Of the 3 tasks: 1) Adjusting clothing prior to use, 2) Cleansing of perineal area, 3) Adjusting clot bere after use; How many tasks does the patient perform WITHOUT assistance of the helper? One task TOILETING - SCORE: 2-MAX BLADDER MANAGEMENT: BLADDER MANAGEMENT - STEP 1: Does the patient control the bladder completely and intentionally without equipment or devices or med ications, and is always continent? No. BLADDER MANAGEMENT - STEP 2: Does the patient require the assistance of a helper? Yes. BLADDER MANAGEMENT - STEP 3: How much assistance does the patient require from the helper? Only set-up of equipment - such as plac ing it within reach of the patient or emptying a device - to maintain either satisfactory voiding pat tern or managing an external device, such as an absorbent pad, ileal device, or catheter BLADDER MANAGEMENT - SCORE: 5-SUP BOWEL MANAGEMENT: Activity did not occur on this shift BOWEL MANAGEMENT - SCORE: 7-IND TRANSFERS: BED, CHAIR, WHEELCHAIR: TRANSFERS: BED, CHAIR, WHEELCHAIR - STEP 1: Does the patient require assistance with bed, chair, or wheelchair transfers? Yes. TRANSFERS: BED, CHAIR, WHEELCHAIR - STEP 2: Does the patient require the assistance of a helper? Yes. TRANSFERS: BED, CHAIR, WHEELCHAIR - STEP 3: How much assistance does the patient require from the helper? Steadying/guiding assistance TRANSFERS: BED, CHAIR, WHEELCHAIR - SCORE: 4-MIN TRANSFERS: TOILET: TRANSFERS: TOILET - STEP 1: Does the patient require assistance with toilet transfers? Yes. TRANSFERS: TOILET - STEP 2: Does the patient require the assistance of a helper? Yes. TRANSFERS: TOILET - STEP 3: How much assistance does the patient require from the helper? Patient performs half or more of the tr ansferring tasks TRANSFERS: TOILET - STEP 4: Does the patient need only incidental help such as contact guard or steadying during toilet transfer? Yes. TRANSFERS: TOILET - SCORE: 4-MIN TRANSFERS: SHOWER: Activity did not occur on this shift TRANSFERS: SHOWER - SCORE: 0-UNK TRANSFERS: TUB: Activity did not occur on this shift TRANSFERS: TUB - SCORE: 0-UNK LOCOMOTION: WALK: Activity did not occur on this shift LOCOMOTION: WALK - SCORE: 0-UNK LOCOMOTION: WHEELCHAIR: Activity did not occur on this shift LOCOMOTION: WHEELCHAIR - SCORE: 0-UNK COMPREHENSION: COMPREHENSION: TYPE: Both COMPREHENSION - STEP 1: Does the patient require help to understand complex and abstract ideas (such as current events, finan mindy, discharge planning, medical issues, relationships, etc)? No. COMPREHENSION - STEP 2: Does the patient need extra time, require an assistive device (such as glasses for visual comprehensi on or a hearing aid for auditory comprehension) or does s/he have mild difficulty understanding compl ex and abstract information? Yes. COMPREHENSION - SCORE: 6-JANET EXPRESSION EXPRESSION: TYPE: Both EXPRESSION - STEP 1: Does the patient require help expressing complex and abstract ideas (such as current events, finances , discharge planning, medical issues, relationships, etc)? No. EXPRESSION - STEP 2: Does the patient need extra time, require an assistive device (such as augmentive communication syste m or a communication board), OR does s/he have mild difficulty expressing complex and abstract ideas (including mild dysarthria or mild word-find problems)? Yes. EXPRESSION - SCORE: 6-JANET SOCIAL INTERACTION: SOCIAL INTERACTION - STEP 1: Does the patient require a helper to interact with others in social and therapeutic situations? No. SOCIAL INTERACTION - STEP 2: Does the patient need extra time in social situations, OR does s/he interact with staff, other patien ts, and family members ONLY in structured environments, OR does s/he require medication for social in teraction? Yes, patient needs extra time SOCIAL INTERACTION - SCORE: 6-JANET PROBLEM SOLVING: PROBLEM SOLVING - STEP 1: Does the patient need help to solve complex problems such as managing a checking account or confronti ng interpersonal problems? No. PROBLEM SOLVING - STEP 2: Does the patient require extra time to make decisions or solve problems, OR does s/he have slight dif ficulty reading, initiating, or self-correcting in unfamiliar situations? Yes, patient needs extra ti me. PROBLEM SOLVING - SCORE: 6-JANET MEMORY: MEMORY - STEP 1: Does the patient need help to remember frequently encountered people, daily routines, and executing r equests? No. MEMORY - STEP 2: Does the patient have slight difficulty recognizing frequently encountered people, daily routines, or executing requests without the need for repetition or using self-initiated or environmental cues to remember? Yes. MEMORY - SCORE: 6-JANET SIGNATURE PANEL: The following modified sections: Eating - Score, Grooming - Score, Dressing - Upper Body - Score, Arun ssing - Lower Body - Score, Toileting - Score, Bladder Management - Score, Bowel Management - Score, Transfers: Bed, Chair, Wheelchair - Score, Transfers: Toilet - Score, Transfers: Shower - Score, [place] sfers: Tub - Score, Locomotion: Walk - Score, Locomotion: Wheelchair - Score, Comprehension - Score, Expression - Score, Social Interaction - Score, Problem Solving - Score, Memory - Score were [electro nically] signed by Evelyn Grayson CNA on FriJun 29 2018 02:56:46 GMT-0500 (Central Daylight Time)
[2018-06-29] MEDS: ERLOTINIB 100 MG PO SCH (05:09)
[2018-06-29] MEDS: ENOXAPARIN 40 MG/0.4 ML SQ SCH (07:24)
[2018-06-29] MEDS: FERROUS SULFATE 325 MG TAB PO SCH (07:43)
[2018-06-29] MEDS: PROPRANOLOL HCL 10 MG TAB PO SCH ×2 (07:43→20:36)
[2018-06-29] MEDS: ASPIRIN EC 81 MG TAB PO SCH (07:43)
[2018-06-29] MEDS: HYDROCODONE/APAP 10/325 TAB PO PRN ×2 (07:44→18:27)
[2018-06-29] MEDS: LEVOTHYROXINE SOD 0.1 MG TAB PO SCH (07:44)
[2018-06-29] MEDS: FE SULF/FA/VIT B COMP & C TAB PO SCH (07:44)
[2018-06-29] MEDS: SERTRALINE HCL 100 MG TAB PO SCH (07:44)
[2018-06-29] MEDS: LIOTHYRONINE SOD 25 MCG TAB PO SCH (07:46)
[2018-06-29] MEDS: NITROFURAN MACRO 100 MG CAP PO SCH ×2 (07:46→20:36)
[2018-06-29] MEDS: PROMOD 30 ML DOSE PO SCH ×2 (07:48→20:37)
[2018-06-29] MEDS: ENSURE ENLIVE 237 ML CAN PO SCH ×2 (07:49→20:37)
[2018-06-29] MEDS: TIZANIDINE 4 MG TABLET PO PRN (10:13)
[2018-06-29] MEDS: MAGNESIUM OXIDE 400 MG TAB PO SCH ×2 (15:04→20:36)
[2018-06-29] MEDS: GABAPENTIN 300 MG CAP PO SCH ×2 (15:04→20:36)
[2018-06-29] MEDS: DONEPEZIL HCL 5 MG TAB PO SCH (20:36)
[2018-06-29] MEDS: ATORVASTATIN 40 MG TAB PO SCH (20:36)
--- NOTE | 2018-06-30 01:36 | FAST ---
SHIFT START DATE/TIME: 06/29/2018 19:00 (CDT) SHIFT END DATE/TIME: 06/30/2018 07:00 (CDT) NAME GIBRAN BELTRAN DATE OF : 1940 DATE OF ADMISSION: 06/25/2018 15:15 (CDT) PHONE: AGE: 78 N# [id number] GENDER: Female ENCOUNTER PHYSICIAN: Dr. Roderick Min M.D. 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 EATING: Activity did not occur on this shift EATING - SCORE: 0-UNK GROOMING: Wash, rinse, and dry hands GROOMING - STEP 1: Does the patient require assistance when grooming? Yes. GROOMING - STEP 2: Does the patient require the assistance of a helper? Yes. GROOMING - STEP 3: How much assistance does the patient require from the helper? Only prior equipment preparation/set up from the helper GROOMING - SCORE: 5-SUP BATHING: Activity did not occur on this shift BATHING - SCORE: 0-UNK DRESSING - UPPER BODY: Patient is not dressing in public clothing ARTICLES SCORE Total number of steps: 0 DRESSING - UPPER BODY - SCORE: 0-UNK DRESSING - LOWER BODY: Patient is not dressing in public clothing ARTICLES SCORE Total number of steps: 0 DRESSING - LOWER BODY - SCORE: 0-UNK TOILETING: TOILETING - STEP 1: Does the patient require assistance with toileting? Yes. TOILETING - STEP 2: Does the patient require the assistance of a helper? Yes. TOILETING - STEP 3: How much assistance does the patient require from the helper? Hands-on assistance from the helper TOILETING - STEP 4: Of the 3 tasks: 1) Adjusting clothing prior to use, 2) Cleansing of perineal area, 3) Adjusting clot bere after use; How many tasks does the patient perform WITHOUT assistance of the helper? One task TOILETING - SCORE: 2-MAX BLADDER MANAGEMENT: BLADDER MANAGEMENT - STEP 1: Does the patient control the bladder completely and intentionally without equipment or devices or med ications, and is always continent? No. BLADDER MANAGEMENT - STEP 2: Does the patient require the assistance of a helper? Yes. BLADDER MANAGEMENT - STEP 3: How much assistance does the patient require from the helper? Only set-up of equipment - such as plac ing it within reach of the patient or emptying a device - to maintain either satisfactory voiding pat tern or managing an external device, such as an absorbent pad, ileal device, or catheter BLADDER MANAGEMENT - SCORE: 5-SUP BOWEL MANAGEMENT: Activity did not occur on this shift BOWEL MANAGEMENT - SCORE: 7-IND TRANSFERS: BED, CHAIR, WHEELCHAIR: TRANSFERS: BED, CHAIR, WHEELCHAIR - STEP 1: Does the patient require assistance with bed, chair, or wheelchair transfers? Yes. TRANSFERS: BED, CHAIR, WHEELCHAIR - STEP 2: Does the patient require the assistance of a helper? Yes. TRANSFERS: BED, CHAIR, WHEELCHAIR - STEP 3: How much assistance does the patient require from the helper? Lifting of the legs TRANSFERS: BED, CHAIR, WHEELCHAIR - STEP 4: How many legs does the patient require the helper to lift? both legs TRANSFERS: BED, CHAIR, WHEELCHAIR - SCORE: 3-MOD TRANSFERS: TOILET: TRANSFERS: TOILET - STEP 1: Does the patient require assistance with toilet transfers? Yes. TRANSFERS: TOILET - STEP 2: Does the patient require the assistance of a helper? Yes. TRANSFERS: TOILET - STEP 3: How much assistance does the patient require from the helper? Patient performs half or more of the tr ansferring tasks TRANSFERS: TOILET - STEP 4: Does the patient need only incidental help such as contact guard or steadying during toilet transfer? Yes. TRANSFERS: TOILET - SCORE: 4-MIN TRANSFERS: SHOWER: Activity did not occur on this shift TRANSFERS: SHOWER - SCORE: 0-UNK TRANSFERS: TUB: Activity did not occur on this shift TRANSFERS: TUB - SCORE: 0-UNK LOCOMOTION: WALK: Activity did not occur on this shift LOCOMOTION: WALK - SCORE: 0-UNK LOCOMOTION: WHEELCHAIR: Activity did not occur on this shift LOCOMOTION: WHEELCHAIR - SCORE: 0-UNK COMPREHENSION: COMPREHENSION: TYPE: Both COMPREHENSION - STEP 1: Does the patient require help to understand complex and abstract ideas (such as current events, finan mindy, discharge planning, medical issues, relationships, etc)? No. COMPREHENSION - STEP 2: Does the patient need extra time, require an assistive device (such as glasses for visual comprehensi on or a hearing aid for auditory comprehension) or does s/he have mild difficulty understanding compl ex and abstract information? Yes. COMPREHENSION - SCORE: 6-JANET EXPRESSION EXPRESSION: TYPE: Both EXPRESSION - STEP 1: Does the patient require help expressing complex and abstract ideas (such as current events, finances , discharge planning, medical issues, relationships, etc)? No. EXPRESSION - STEP 2: Does the patient need extra time, require an assistive device (such as augmentive communication syste m or a communication board), OR does s/he have mild difficulty expressing complex and abstract ideas (including mild dysarthria or mild word-find problems)? Yes. EXPRESSION - SCORE: 6-JANET SOCIAL INTERACTION: SOCIAL INTERACTION - STEP 1: Does the patient require a helper to interact with others in social and therapeutic situations? No. SOCIAL INTERACTION - STEP 2: Does the patient need extra time in social situations, OR does s/he interact with staff, other patien ts, and family members ONLY in structured environments, OR does s/he require medication for social in teraction? Yes, patient needs extra time SOCIAL INTERACTION - SCORE: 6-JANET PROBLEM SOLVING: PROBLEM SOLVING - STEP 1: Does the patient need help to solve complex problems such as managing a checking account or confronti ng interpersonal problems? No. PROBLEM SOLVING - STEP 2: Does the patient require extra time to make decisions or solve problems, OR does s/he have slight dif ficulty reading, initiating, or self-correcting in unfamiliar situations? Yes, patient needs extra ti me. PROBLEM SOLVING - SCORE: 6-JANET MEMORY: MEMORY - STEP 1: Does the patient need help to remember frequently encountered people, daily routines, and executing r equests? No. MEMORY - STEP 2: Does the patient have slight difficulty recognizing frequently encountered people, daily routines, or executing requests without the need for repetition or using self-initiated or environmental cues to remember? Yes. MEMORY - SCORE: 6-JANET SIGNATURE PANEL: The following modified sections: Eating - Score, Grooming - Score, Dressing - Upper Body - Score, Arun ssing - Lower Body - Score, Toileting - Score, Bladder Management - Score, Bowel Management - Score, Transfers: Bed, Chair, Wheelchair - Score, Transfers: Toilet - Score, Transfers: Shower - Score, Garzon sfers: Tub - Score, Locomotion: Wheelchair - Score, Locomotion: Walk - Score, Comprehension - Score, Expression - Score, Social Interaction - Score, Problem Solving - Score, Memory - Score were [electro nically] signed by Evelyn Grayson CNA on FriJun 30 2018 01:36:04 GMT-0500 (Central Daylight Time)
[2018-06-30] MEDS: ERLOTINIB 100 MG PO SCH (05:33)
[2018-06-30] MEDS: ENSURE ENLIVE 237 ML CAN PO SCH ×2 (08:00→20:59)
[2018-06-30] MEDS: SERTRALINE HCL 100 MG TAB PO SCH (08:47)
[2018-06-30] MEDS: HYDROCODONE/APAP 10/325 TAB PO PRN ×2 (08:47→16:32)
[2018-06-30] MEDS: NITROFURAN MACRO 100 MG CAP PO SCH ×2 (08:47→20:50)
[2018-06-30] MEDS: MAGNESIUM OXIDE 400 MG TAB PO SCH ×2 (08:47→20:52)
[2018-06-30] MEDS: LIOTHYRONINE SOD 25 MCG TAB PO SCH (08:47)
[2018-06-30] MEDS: FERROUS SULFATE 325 MG TAB PO SCH (08:48)
[2018-06-30] MEDS: GABAPENTIN 300 MG CAP PO SCH ×2 (08:48→21:00)
[2018-06-30] MEDS: PROPRANOLOL HCL 10 MG TAB PO SCH ×2 (08:48→20:51)
[2018-06-30] MEDS: FE SULF/FA/VIT B COMP & C TAB PO SCH (08:48)
[2018-06-30] MEDS: ASPIRIN EC 81 MG TAB PO SCH (08:48)
[2018-06-30] MEDS: PROMOD 30 ML DOSE PO SCH ×2 (08:51→20:59)
[2018-06-30] MEDS: LEVOTHYROXINE SOD 0.1 MG TAB PO SCH (08:51)
[2018-06-30] MEDS: ENOXAPARIN 40 MG/0.4 ML SQ SCH (08:51)
[2018-06-30] MEDS ORDERED: CALCIUM CARBONATE CHEW 500MG TAB PO PRN (17:31)
[2018-06-30] MEDS: ATORVASTATIN 40 MG TAB PO SCH ×2 (20:51→21:00)
[2018-06-30] MEDS: DONEPEZIL HCL 5 MG TAB PO SCH (20:52)
--- NOTE | 2018-06-30 21:44 | RAD REPORT ---
EXAM DESCRIPTION: MRI - Brain Wo Cont - 06/30/2018 8:23 pm CLINICAL HISTORY: CVA COMPARISON: 2016 TECHNIQUE: Axial, sagittal, and coronal magnetic images of the brain were obtained. Contrast was not requested FINDINGS: A 15 millimeter area of abnormal signal is present within the left midbrain having the [place] earance of a subacute infarction. Moderate signal within periventricular, deep and subcortical white matter likely represent ischemic changes secondary to small vessel disease The ventricles are normal caliber. An extra-axial fluid collection is not present The sinuses and mastoids are clear. IMPRESSION: Subacute infarct involving the left midbrain
[2018-07-01] MEDS: ERLOTINIB 100 MG PO SCH (06:00)
[2018-07-01] MEDS: LIDOCAINE 5% PATCH TOP SCH (06:50)
[2018-07-01] MEDS: ENOXAPARIN 40 MG/0.4 ML SQ SCH (06:51)
[2018-07-01] MEDS: ENSURE ENLIVE 237 ML CAN PO SCH ×2 (08:00→20:00)
[2018-07-01] MEDS: PROPRANOLOL HCL 10 MG TAB PO SCH ×2 (08:27→20:08)
[2018-07-01] MEDS: FE SULF/FA/VIT B COMP & C TAB PO SCH (08:27)
[2018-07-01] MEDS: NITROFURAN MACRO 100 MG CAP PO SCH ×2 (08:27→20:06)
[2018-07-01] MEDS: MAGNESIUM OXIDE 400 MG TAB PO SCH ×2 (08:27→20:06)
[2018-07-01] MEDS: SERTRALINE HCL 100 MG TAB PO SCH (08:27)
[2018-07-01] MEDS: LEVOTHYROXINE SOD 0.1 MG TAB PO SCH (08:27)
[2018-07-01] MEDS: LIOTHYRONINE SOD 25 MCG TAB PO SCH (08:27)
[2018-07-01] MEDS: GABAPENTIN 300 MG CAP PO SCH ×2 (08:27→20:06)
[2018-07-01] MEDS: ASPIRIN EC 81 MG TAB PO SCH (08:28)
[2018-07-01] MEDS: FERROUS SULFATE 325 MG TAB PO SCH (08:28)
[2018-07-01] MEDS: HYDROCODONE/APAP 10/325 TAB PO PRN ×3 (08:29→20:18)
[2018-07-01] MEDS: PROMOD 30 ML DOSE PO SCH ×2 (08:30→20:08)
--- NOTE | 2018-07-01 10:21 | RAD REPORT ---
EXAM DESCRIPTION: RAD - Barium Swallow Modified - 07/01/2018 9:52 am CLINICAL HISTORY: Cough and choking FINDINGS: Aspiration: inconsistent cough with thin, nectar, nectar with chin tuck and regular solids . Barium pill passed with honey thick liquids with out incident Nineteen fluoroscopic spot series obtained Fluoro time 3.34 minutes
[2018-07-01] MEDS: TRAMADOL HCL 50 MG TAB PO PRN (10:44)
--- NOTE | 2018-07-01 13:06 | FAST ---
SHIFT START DATE/TIME: 07/01/2018 07:00 (CDT) SHIFT END DATE/TIME: 07/01/2018 19:00 (CDT) NAME GIBRAN BELTRAN DATE OF : 1940 DATE OF ADMISSION: 06/25/2018 15:15 (CDT) PHONE: AGE: 78 N# [id number] GENDER: Female ENCOUNTER PHYSICIAN: Dr. Roderick Min M.D. 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 EATING: EATING - STEP 1: Does the patient require assistance when eating? Yes. EATING - STEP 2: Does the patient require the assistance of a helper? Yes. EATING - STEP 3: Does the patient perform half or more of the eating tasks? Yes. EATING - STEP 4: Does the patient need only supervision, cuing, coaxing OR help to apply an orthosis OR help to cut fo od, open containers, pour liquids, or butter bread? Yes. EATING - SCORE: 5-SUP GROOMING: Comb/brush hair Oral care Wash, rinse, and dry face Wash, rinse, and dry hands GROOMING - STEP 1: Does the patient require assistance when grooming? Yes. GROOMING - STEP 2: Does the patient require the assistance of a helper? Yes. GROOMING - STEP 3: How much assistance does the patient require from the helper? Only prior equipment preparation/set up from the helper GROOMING - SCORE: 5-SUP BATHING: Activity did not occur on this shift BATHING - SCORE: 0-UNK DRESSING - UPPER BODY: Activity did not occur on this shift ARTICLES SCORE Total number of steps: 0 DRESSING - UPPER BODY - SCORE: 0-UNK DRESSING - LOWER BODY: Activity did not occur on this shift ARTICLES SCORE Total number of steps: 0 DRESSING - LOWER BODY - SCORE: 0-UNK TOILETING: TOILETING - STEP 1: Does the patient require assistance with toileting? Yes. TOILETING - STEP 2: Does the patient require the assistance of a helper? Yes. TOILETING - STEP 3: How much assistance does the patient require from the helper? Hands-on assistance from the helper TOILETING - STEP 4: Of the 3 tasks: 1) Adjusting clothing prior to use, 2) Cleansing of perineal area, 3) Adjusting clot bere after use; How many tasks does the patient perform WITHOUT assistance of the helper? Three tasks with steadying assistance from the helper TOILETING - SCORE: 4-MIN BLADDER MANAGEMENT: BLADDER MANAGEMENT - STEP 1: Does the patient control the bladder completely and intentionally without equipment or devices or med ications, and is always continent? No. BLADDER MANAGEMENT - STEP 2: Does the patient require the assistance of a helper? No, patient requires and independently uses an a ssistive device, such as a urinal, bedpan, bedside commode, catheter, absorbent pad, or collecting de vice BLADDER MANAGEMENT - SCORE: 6-JANET BOWEL MANAGEMENT: BOWEL MANAGEMENT - STEP 1: Does the patient control bowels completely and intentionally without equipment devices or medications AND is always continent? No. BOWEL MANAGEMENT - STEP 2: Does the patient require the assistance of a helper? No, patient requires and manages independently a n assistive device such as a bedpan, bedside commode, absorbent pad, incontinent device, or collectin g device BOWEL MANAGEMENT - SCORE: 6-JANET TRANSFERS: BED, CHAIR, WHEELCHAIR: TRANSFERS: BED, CHAIR, WHEELCHAIR - STEP 1: Does the patient require assistance with bed, chair, or wheelchair transfers? Yes. TRANSFERS: BED, CHAIR, WHEELCHAIR - STEP 2: Does the patient require the assistance of a helper? Yes. TRANSFERS: BED, CHAIR, WHEELCHAIR - STEP 3: How much assistance does the patient require from the helper? Lifting of the patient TRANSFERS: BED, CHAIR, WHEELCHAIR - STEP 4: Does the helper lift the patient ONLY up? ONLY down? Up AND Down? ONLY up. TRANSFERS: BED, CHAIR, WHEELCHAIR - SCORE: 3-MOD TRANSFERS: TOILET: TRANSFERS: TOILET - STEP 1: Does the patient require assistance with toilet transfers? Yes. TRANSFERS: TOILET - STEP 2: Does the patient require the assistance of a helper? Yes. TRANSFERS: TOILET - STEP 3: How much assistance does the patient require from the helper? Patient performs half or more of the tr ansferring tasks TRANSFERS: TOILET - STEP 4: Does the patient need only incidental help such as contact guard or steadying during toilet transfer? Yes. TRANSFERS: TOILET - SCORE: 4-MIN TRANSFERS: SHOWER: Activity did not occur on this shift TRANSFERS: SHOWER - SCORE: 0-UNK TRANSFERS: TUB: Activity did not occur on this shift TRANSFERS: TUB - SCORE: 0-UNK LOCOMOTION: WALK: Activity did not occur on this shift LOCOMOTION: WALK - SCORE: 0-UNK LOCOMOTION: WHEELCHAIR: Activity did not occur on this shift LOCOMOTION: WHEELCHAIR - SCORE: 0-UNK COMPREHENSION: COMPREHENSION: TYPE: Both COMPREHENSION - STEP 1: Does the patient require help to understand complex and abstract ideas (such as current events, finan mindy, discharge planning, medical issues, relationships, etc)? No. COMPREHENSION - STEP 2: Does the patient need extra time, require an assistive device (such as glasses for visual comprehensi on or a hearing aid for auditory comprehension) or does s/he have mild difficulty understanding compl ex and abstract information? Yes. COMPREHENSION - SCORE: 6-JANET EXPRESSION EXPRESSION: TYPE: Both EXPRESSION - STEP 1: Does the patient require help expressing complex and abstract ideas (such as current events, finances , discharge planning, medical issues, relationships, etc)? No. EXPRESSION - STEP 2: Does the patient need extra time, require an assistive device (such as augmentive communication syste m or a communication board), OR does s/he have mild difficulty expressing complex and abstract ideas (including mild dysarthria or mild word-find problems)? No. EXPRESSION - SCORE: 7-IND SOCIAL INTERACTION: SOCIAL INTERACTION - STEP 1: Does the patient require a helper to interact with others in social and therapeutic situations? No. SOCIAL INTERACTION - STEP 2: Does the patient need extra time in social situations, OR does s/he interact with staff, other patien ts, and family members ONLY in structured environments, OR does s/he require medication for social in teraction? Yes, patient needs extra time SOCIAL INTERACTION - SCORE: 6-JANET PROBLEM SOLVING: PROBLEM SOLVING - STEP 1: Does the patient need help to solve complex problems such as managing a checking account or confronti ng interpersonal problems? No. PROBLEM SOLVING - STEP 2: Does the patient require extra time to make decisions or solve problems, OR does s/he have slight dif ficulty reading, initiating, or self-correcting in unfamiliar situations? Yes, patient needs extra ti me. PROBLEM SOLVING - SCORE: 6-JANET MEMORY: MEMORY - STEP 1: Does the patient need help to remember frequently encountered people, daily routines, and executing r equests? No. MEMORY - STEP 2: Does the patient have slight difficulty recognizing frequently encountered people, daily routines, or executing requests without the need for repetition or using self-initiated or environmental cues to remember? Yes. MEMORY - SCORE: 6-JANET SIGNATURE PANEL: The following modified sections: Eating - Score, Grooming - Score, Bathing - Score, Dressing - Upper Body - Score, Dressing - Lower Body - Score, Toileting - Score, Bladder Management - Score, Bowel Man agement - Score, Transfers: Bed, Chair, Wheelchair - Score, Transfers: Toilet - Score, Transfers: Gladys wer - Score, Transfers: Tub - Score, Locomotion: Walk - Score, Locomotion: Wheelchair - Score, Compre hension - Score, Expression - Score, Social Interaction - Score, Problem Solving - Score, Memory - Sc ore were [electronically] signed by Shawn Bergeron on FriJul 01 2018 13:05:36 GMT-0500 (Central Daylight Time)
[2018-07-01] MEDS: DULOXETINE 20 MG CAP PO SCH (16:52)
--- NOTE | 2018-07-01 18:21 | R.PN ---
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 Pt denied any depression. Ambulated 500' with contact guard assistance using a rolling walker. Up and down [address] guard assistance. Self-propelled wheelchair 180' with standby assistance. VITAL SIGNS Temperature: 97.4 F SBP/DBP: 142/69 Pulse: 69 Resp: 16 MEDICATION ALLERGIES: No Known Drug Allergies (NKDA) ENVIRONMENTAL ALLERGIES: - Substance Allergies None Known - Other Allergies None Known NURSING: - Shower allowing shower - Bladder care per protocol - Skin care per protocol PRECAUTIONS: - Weight Bearing Precaution WBAT right LE ACTIVITIES OOB only with supervision THERAPIES: - Occupational Therapy Evaluate and Treat. Cognitive Retraining. Visual Perceptual Training. - Speech Therapy Memory Strategies. Expressive Language Skills. Speech Intelligibility Training. Cognitive Training. R eceptive Language Skills. - Physical Therapy Evaluate and Treat. PHYSICAL EXAM - Gen Alert and awake Lying in bed No apparent distress Oriented to: person, time, and place - Skin No skin breakdown. Normacephalic - Eyes No abnormalities - ENMT No abnormalities - Neck No abnormalities - CVS RRR - Chest No abnormalities - Abd +bowel sounds - GI nondistended Deferred - No abnormalities - Ext No significant edema - MSK 4+/5 weakness in right upper and lower extremities. - Neuro 4/5 strength right upper and lower extremities. - Psych No abnormalities ASSESSMENT: Pt. is a 78 yo Right-handed white female.On 06/21/2018 Pt. presented to [facility] with sudden onset of right-side weakness.On 06/21/2018 she was admitted to [facility] with diagnosis acute left midbrain infarct.Her impairment category is Stroke 01 - Right B vanessa (Left Brain) (01.2).Pre-morbidly, Pt. was independent/mod-I in Transfers Control, Communication, Social Cognition, Self-Care, Sphincter Control, and Locomotion; and she had good Sphincter Control.Cu rrently, she has deficits of Transfers Control, Communication, Social Cognition, Balance, Self-Care, Endurance, Safety Awareness, and Locomotion.Pt. is now referred to [facility] for acute in-patient rehabilitation in order to maximize patient's functional independence in activit ies of daily living, strength, ROM, and mobility.- Rehab Goal Patient has realistic goal of being discharged at assistance level 6-Vanessa to reside at Home with Fam adolph/Relatives. She has left more than right shoulder pain. X-rays of both shoulders showed no acute findings includi ng no fractures. 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.JacquelinedonTXMDM/PLAN: - Physical Therapy Gait dysfunction - to improve, our physical therapists will perform initial evaluation of pt's statu s upon admission and devise an individualized program for Gait Training, and Wheel Chair mobility Inability to transfer - to improve, our physical therapists will perform initial evaluation of pt's status upon admission and devise an individualized program for Bed mobility Need for home safety evaluation - to improve, our physical therapists will perform initial evaluatio n of pt's status upon admission and devise an individualized program for Home Evaluation Need in caregiver upon discharge - to improve, our physical therapists will perform initial evaluati on of pt's status upon admission and devise an individualized program for Caregiver Training New precaution - to improve, our physical therapists will perform initial evaluation of pt's status upon admission and devise an individualized program for Patient precaution education Edema - to improve, our physical therapists will perform initial evaluation of pt's status upon admi ssion and devise an individualized program for Elevation Training, and Lymphedema Therapy Poor balance - to improve, our physical therapists will perform initial evaluation of pt's status up on admission and devise an individualized program for Balance Training Poor endurance - to improve, our physical therapists will perform initial evaluation of pt's status upon admission and devise an individualized program for Endurance Training Weakness - to improve, our physical therapists will perform initial evaluation of pt's status upon a dmission and devise an individualized program for Aquatic Therapy, Neuromuscular Reeducation, and Str engthening Achieving independence - to improve, our physical therapists will perform initial evaluation of pt's status upon admission and devise an individualized program for Community Reintegration Activities - Occupational Therapy ADL deficits - to improve, our occupation therapists will perform initial evaluation of pt's status upon admission and devise an individualized program for Bathing, Bed mobility, Community Reintegratio n, Cooking, Dressing, Eating, Fine Motor Skills, Grooming, Homemaking, Kitchen Mobility, Laundry, Pat ient Education, Safety Awareness, Splinting - Positioning, Transfers(Toilet, Tub, Shower), and Wheel Chair Management Cognitive deficits - to improve, our occupation therapists will perform initial evaluation of pt's s tatus upon admission and devise an individualized program for Cognition - orientation Need for critical care cns - to improve, our occupation therapists will perform initial evaluation of pt's status upon admission and devise an individualized program for Caregiver Training Weakness - to improve, our occupation therapists will perform initial evaluation of pt's status upon admission and devise an individualized program for Aquatic Therapy, Balance, Endurance, UE ROM, and UE strengthening - Diet Type Continue Regular - Diet - Liquid Texture Continue Regular - Tube Feed Continue N/A - Bladder care per protocol - Weight Bearing Precaution WBAT right LE - Skin care per protocol - Diet - Solid Texture Continue Regular - Shower allowing shower for Dementia, TBI, Stroke, or others FUNCTIONAL STATUS: UPDATED AT WEEKLY TEAM CONFERENCE - Bladder Same accident frequency: 7-Ind - No accidents in the past 7 days - Bowel Same accident frequency: 7-Ind - No accidents in the past 7 days - Walking Same score based on distance walked: 1(<=50ft) FUNCTIONAL STATUS: - Self-Care A. Eating Andra B. Grooming Andra C. Bathing Andra D. Dressing - Upper Andra E. Dressing - Lower modA F. Toileting modA - Sphincter Control G: Bladder control Ind H: Bowel control Ind - Transfers Control I. Bed/Chair/Wheelchair modA J. Toilet modA K. Tub/Shower modA - Locomotion L. Walk/Wheelchair (B) Dep M. Stairs ADNO - Communication N. Comprehension (B) sup O. Expression (B) sup - Social Cognition P. Social Interaction sup Q. Problem Solving sup R. Memory sup - Endurance Poor - Balance Poor - Safety Awareness Poor CURRENT FUNC. DEFICITS: Transfers Control, Communication, Social Cognition, Balance, Self-Care, Endurance, Safety Awareness, and Locomotion SIGNATURE PANEL: (CDT)
[2018-07-01] MEDS: DONEPEZIL HCL 5 MG TAB PO SCH (20:06)
[2018-07-01] MEDS: ATORVASTATIN 40 MG TAB PO SCH (20:07)
[2018-07-02] MEDS: ERLOTINIB 100 MG PO SCH (05:01)
[2018-07-02 06:32] LABS: Absolute Monocytes 1.6 K/uL (0.1-1.3); Absolute Neutrophil 6.7 K/uL (1.8-8.0); Basophils % 0.3 % (0-1.3); Eosinophils % 3.1 % (0-4.4); Hematocrit 32.6 % (36.0-45.0); Lymphocytes % 18.8 % (15.3-44.8); MCH 31.4 pg (27.0-35.0); MCV 92.4 fL (80-100); MPV 8.7 fL (7.6-11.3); RBC Red Blood Cell Count 3.53 M/uL (3.86-4.86)
[2018-07-02 06:35] LABS: Albumin 3.1 g/dL (3.4-5.0); BUN Blood Urea Nitrogen 12 mg/dL (7-18); Bicarbonate 33 mmol/L (21-32); Glucose Level 102 mg/dL (74-106); Potassium 4.8 mmol/L (3.5-5.1); Sodium Level 140 mmol/L (136-145)
[2018-07-02] MEDS: ENOXAPARIN 40 MG/0.4 ML SQ SCH (06:52)
[2018-07-02] MEDS: ENSURE ENLIVE 237 ML CAN PO SCH (08:00)
[2018-07-02] MEDS: NITROFURAN MACRO 100 MG CAP PO SCH ×2 (08:21→20:39)
[2018-07-02] MEDS: LIDOCAINE 5% PATCH TOP SCH (08:21)
[2018-07-02] MEDS: FERROUS SULFATE 325 MG TAB PO SCH (08:21)
[2018-07-02] MEDS: LIOTHYRONINE SOD 25 MCG TAB PO SCH (08:21)
[2018-07-02] MEDS: SERTRALINE HCL 100 MG TAB PO SCH (08:22)
[2018-07-02] MEDS: PROPRANOLOL HCL 10 MG TAB PO SCH ×2 (08:22→20:39)
[2018-07-02] MEDS: ASPIRIN EC 81 MG TAB PO SCH (08:22)
[2018-07-02] MEDS: LEVOTHYROXINE SOD 0.1 MG TAB PO SCH (08:22)
[2018-07-02] MEDS: MAGNESIUM OXIDE 400 MG TAB PO SCH ×2 (08:22→20:39)
[2018-07-02] MEDS: DULOXETINE 20 MG CAP PO SCH (08:22)
[2018-07-02] MEDS: PROMOD 30 ML DOSE PO SCH ×2 (08:23→20:40)
[2018-07-02] MEDS: FE SULF/FA/VIT B COMP & C TAB PO SCH (08:23)
[2018-07-02] MEDS: GABAPENTIN 300 MG CAP PO SCH ×2 (08:23→20:39)
[2018-07-02] MEDS: HYDROCODONE/APAP 10/325 TAB PO PRN (08:32)
--- NOTE | 2018-07-02 13:19 | FAST ---
SHIFT START DATE/TIME: 07/02/2018 07:00 (CDT) SHIFT END DATE/TIME: 07/02/2018 19:00 (CDT) NAME GIBRAN BELTRAN DATE OF : 1940 DATE OF ADMISSION: 06/25/2018 15:15 (CDT) PHONE: AGE: 78 N# [id number] GENDER: Female ENCOUNTER PHYSICIAN: Dr. Roderick Min M.D. 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 EATING: EATING - STEP 1: Does the patient require assistance when eating? Yes. EATING - STEP 2: Does the patient require the assistance of a helper? No, patient only requires an assistive device, O R s/he takes more than reasonable time to eat, OR there is a safety concern, OR s/he requires modifie d food consistency EATING - SCORE: 6-JANET GROOMING: Activity did not occur on this shift GROOMING - SCORE: 0-UNK BATHING: Activity did not occur on this shift BATHING - SCORE: 0-UNK DRESSING - UPPER BODY: Activity did not occur on this shift ARTICLES SCORE Total number of steps: 0 DRESSING - UPPER BODY - SCORE: 0-UNK DRESSING - LOWER BODY: Activity did not occur on this shift ARTICLES SCORE Total number of steps: 0 DRESSING - LOWER BODY - SCORE: 0-UNK TOILETING: TOILETING - STEP 1: Does the patient require assistance with toileting? Yes. TOILETING - STEP 2: Does the patient require the assistance of a helper? Yes. TOILETING - STEP 3: How much assistance does the patient require from the helper? Hands-on assistance from the helper TOILETING - STEP 4: Of the 3 tasks: 1) Adjusting clothing prior to use, 2) Cleansing of perineal area, 3) Adjusting clot bere after use; How many tasks does the patient perform WITHOUT assistance of the helper? Three tasks with steadying assistance from the helper TOILETING - SCORE: 4-MIN BLADDER MANAGEMENT: Activity did not occur on this shift BLADDER MANAGEMENT - SCORE: 7-IND BOWEL MANAGEMENT: Activity did not occur on this shift BOWEL MANAGEMENT - SCORE: 7-IND TRANSFERS: BED, CHAIR, WHEELCHAIR: TRANSFERS: BED, CHAIR, WHEELCHAIR - STEP 1: Does the patient require assistance with bed, chair, or wheelchair transfers? Yes. TRANSFERS: BED, CHAIR, WHEELCHAIR - STEP 2: Does the patient require the assistance of a helper? Yes. TRANSFERS: BED, CHAIR, WHEELCHAIR - STEP 3: How much assistance does the patient require from the helper? Steadying/guiding assistance TRANSFERS: BED, CHAIR, WHEELCHAIR - SCORE: 4-MIN TRANSFERS: TOILET: TRANSFERS: TOILET - STEP 1: Does the patient require assistance with toilet transfers? Yes. TRANSFERS: TOILET - STEP 2: Does the patient require the assistance of a helper? Yes. TRANSFERS: TOILET - STEP 3: How much assistance does the patient require from the helper? Patient performs half or more of the tr ansferring tasks TRANSFERS: TOILET - STEP 4: Does the patient need only incidental help such as contact guard or steadying during toilet transfer? Yes. TRANSFERS: TOILET - SCORE: 4-MIN TRANSFERS: SHOWER: Activity did not occur on this shift TRANSFERS: SHOWER - SCORE: 0-UNK TRANSFERS: TUB: Activity did not occur on this shift TRANSFERS: TUB - SCORE: 0-UNK LOCOMOTION: WALK: Activity did not occur on this shift LOCOMOTION: WALK - SCORE: 0-UNK LOCOMOTION: WHEELCHAIR: Activity did not occur on this shift LOCOMOTION: WHEELCHAIR - SCORE: 0-UNK COMPREHENSION: COMPREHENSION: TYPE: Both COMPREHENSION - STEP 1: Does the patient require help to understand complex and abstract ideas (such as current events, finan mindy, discharge planning, medical issues, relationships, etc)? No. COMPREHENSION - STEP 2: Does the patient need extra time, require an assistive device (such as glasses for visual comprehensi on or a hearing aid for auditory comprehension) or does s/he have mild difficulty understanding compl ex and abstract information? Yes. COMPREHENSION - SCORE: 6-JANET EXPRESSION EXPRESSION: TYPE: Both EXPRESSION - STEP 1: Does the patient require help expressing complex and abstract ideas (such as current events, finances , discharge planning, medical issues, relationships, etc)? No. EXPRESSION - STEP 2: Does the patient need extra time, require an assistive device (such as augmentive communication syste m or a communication board), OR does s/he have mild difficulty expressing complex and abstract ideas (including mild dysarthria or mild word-find problems)? No. EXPRESSION - SCORE: 7-IND SOCIAL INTERACTION: SOCIAL INTERACTION - STEP 1: Does the patient require a helper to interact with others in social and therapeutic situations? No. SOCIAL INTERACTION - STEP 2: Does the patient need extra time in social situations, OR does s/he interact with staff, other patien ts, and family members ONLY in structured environments, OR does s/he require medication for social in teraction? Yes, patient needs extra time SOCIAL INTERACTION - SCORE: 6-JANET PROBLEM SOLVING: PROBLEM SOLVING - STEP 1: Does the patient need help to solve complex problems such as managing a checking account or confronti ng interpersonal problems? No. PROBLEM SOLVING - STEP 2: Does the patient require extra time to make decisions or solve problems, OR does s/he have slight dif ficulty reading, initiating, or self-correcting in unfamiliar situations? Yes, patient needs extra ti me. PROBLEM SOLVING - SCORE: 6-JANET MEMORY: MEMORY - STEP 1: Does the patient need help to remember frequently encountered people, daily routines, and executing r equests? No. MEMORY - STEP 2: Does the patient have slight difficulty recognizing frequently encountered people, daily routines, or executing requests without the need for repetition or using self-initiated or environmental cues to remember? Yes. MEMORY - SCORE: 6-JANET SIGNATURE PANEL: The following modified sections: Eating - Score, Grooming - Score, Bathing - Score, Dressing - Upper Body - Score, Dressing - Lower Body - Score, Toileting - Score, Bladder Management - Score, Bowel Man agement - Score, Transfers: Bed, Chair, Wheelchair - Score, Transfers: Toilet - Score, Transfers: Gladys wer - Score, Transfers: Tub - Score, Locomotion: Walk - Score, Locomotion: Wheelchair - Score, Compre hension - Score, Social Interaction - Score, Problem Solving - Score, Memory - Score, Expression - Sc ore were [electronically] signed by Shawn Bergeron on FriJul 02 2018 13:19:19 GMT-0500 (Central Daylight Time)
[2018-07-02] MEDS: TRAMADOL HCL 50 MG TAB PO PRN ×2 (15:09→20:49)
[2018-07-02] MEDS: ATORVASTATIN 40 MG TAB PO SCH (20:39)
[2018-07-02] MEDS: DONEPEZIL HCL 5 MG TAB PO SCH (20:39)
[2018-07-02] MEDS: ENSURE PUDDING 4 OZ CUP PO SCH (20:40)
[2018-07-03] MEDS: ERLOTINIB 100 MG PO SCH (06:00)
[2018-07-03] MEDS: ENOXAPARIN 40 MG/0.4 ML SQ SCH (07:11)
[2018-07-03] MEDS: SERTRALINE HCL 100 MG TAB PO SCH (08:50)
[2018-07-03] MEDS: LIOTHYRONINE SOD 25 MCG TAB PO SCH (08:50)
[2018-07-03] MEDS: DULOXETINE 20 MG CAP PO SCH (08:50)
[2018-07-03] MEDS: MAGNESIUM OXIDE 400 MG TAB PO SCH ×2 (08:50→19:07)
[2018-07-03] MEDS: LEVOTHYROXINE SOD 0.1 MG TAB PO SCH (08:50)
[2018-07-03] MEDS: HYDROCODONE/APAP 10/325 TAB PO PRN ×3 (08:51→19:06)
[2018-07-03] MEDS: FE SULF/FA/VIT B COMP & C TAB PO SCH (08:51)
[2018-07-03] MEDS: FERROUS SULFATE 325 MG TAB PO SCH (08:51)
[2018-07-03] MEDS: GABAPENTIN 300 MG CAP PO SCH ×2 (08:51→19:06)
[2018-07-03] MEDS: NITROFURAN MACRO 100 MG CAP PO SCH ×2 (08:51→19:06)
[2018-07-03] MEDS: ENSURE PUDDING 4 OZ CUP PO SCH ×2 (08:52→20:00)
[2018-07-03] MEDS: LIDOCAINE 5% PATCH TOP SCH (08:52)
[2018-07-03] MEDS: ASPIRIN EC 81 MG TAB PO SCH (08:52)
[2018-07-03] MEDS: PROPRANOLOL HCL 10 MG TAB PO SCH ×2 (08:53→19:07)
[2018-07-03] MEDS: PROMOD 30 ML DOSE PO SCH ×2 (08:58→21:25)
--- NOTE | 2018-07-03 09:32 | P.RH.PN ---
Estimated Length of Stay: 16 Expected Discharge Date: 07/10/18 Discharge Disposition Plan: Home Family Support: Yes Prison Goal: Mobility, Transfers, Self Care Vital Signs: Last Vital Signs Temp 98.2 F 07/03/18 06:30 Pulse 77 07/03/18 08:53 Resp 16 07/03/18 06:30 BP 120/59 L 07/03/18 08:53 Pulse Ox 93 07/03/18 06:30 Laboratory: Laboratory Last Values WBC 10.6 K/uL (4.3-10.9) D 07/02/18 05:48 RBC 3.53 M/uL (3.86-4.86) L 07/02/18 05:48 Hgb 11.1 g/dL (12.0-15.0) L 07/02/18 05:48 Hct 32.6 % (36.0-45.0) L 07/02/18 05:48 MCV 92.4 fL (80-100) 07/02/18 05:48 MCH 31.4 pg (27.0-35.0) 07/02/18 05:48 MCHC 34.0 g/dL (32.0-36.0) 07/02/18 05:48 RDW 13.0 % (12.1-15.2) 07/02/18 05:48 Plt Count 349 K/uL (152-406) 07/02/18 05:48 MPV 8.7 fL (7.6-11.3) 07/02/18 05:48 Neutrophils % 62.8 % (41.7-73.7) 07/02/18 05:48 Lymphocytes % 18.8 % (15.3-44.8) 07/02/18 05:48 Monocytes % 15.0 % (3.3-12.3) H 07/02/18 05:48 Eosinophils % 3.1 % (0-4.4) 07/02/18 05:48 Basophils % 0.3 % (0-1.3) 07/02/18 05:48 Absolute Neutrophils 6.7 K/uL (1.8-8.0) 07/02/18 05:48 Segmented Neutrophils 51 % (40-80) 06/26/18 06:03 Absolute Lymphocytes 2.0 K/uL (0.7-4.9) 07/02/18 05:48 Lymphocytes 33 % (15-42) 06/26/18 06:03 Monocytes 12 % (0-10) H 06/26/18 06:03 Absolute Monocytes 1.6 K/uL (0.1-1.3) H 07/02/18 05:48 Eosinophils 4 % (0-3) H 06/26/18 06:03 Absolute Eosinophils 0.3 K/uL (0-0.5) 07/02/18 05:48 Absolute Basophils 0.0 K/uL (0-0.5) 07/02/18 05:48 Morphology Comment Not seen (NOT SEEN) 06/26/18 06:03 Sodium 140 mmol/L (136-145) 07/02/18 05:48 Potassium 4.8 mmol/L (3.5-5.1) 07/02/18 05:48 Chloride 104 mmol/L (98-107) 07/02/18 05:48 Carbon Dioxide 33 mmol/L (21-32) H 07/02/18 05:48 BUN 12 mg/dL (7-18) 07/02/18 05:48 Creatinine 0.60 mg/dL (0.55-1.3) 07/02/18 05:48 Estimated GFR > 90 mL/min (=/>90) 07/02/18 05:48 Glucose 102 mg/dL (74-106) 07/02/18 05:48 Calcium 8.8 mg/dL (8.5-10.1) 07/02/18 05:48 Magnesium 2.1 mg/dL (1.8-2.4) 06/26/18 04:03 Albumin 3.1 g/dL (3.4-5.0) L 07/02/18 05:48 Prealbumin 17.0 mg/dL (20-40) L 07/02/18 05:48 Urine Color Dk yellow 06/25/18 20:50 Urine Appearance Clear 06/25/18 20:50 Urine pH 6.0 (5.0-7.0) 06/25/18 20:50 Ur Specific Barry 1.025 (1.005-1.030) 06/25/18 20:50 Urine Ketones Negative (NEG) 06/25/18 20:50 Urine Blood Negative (NEG) 06/25/18 20:50 Urine Nitrite Negative (NEG) 06/25/18 20:50 Urine Bilirubin Negative (NEG) 06/25/18 20:50 Urine Urobilinogen 0.2 mg/dL (0.2-1.0) 06/25/18 20:50 Ur Leukocyte Esterase Negative (NEG) 06/25/18 20:50 Urine RBC 5-10 /HPF (NONE SEEN) H 06/25/18 20:50 Urine WBC <5 /HPF (<5) 06/25/18 20:50 Ur Squamous Epith Cells 5-10 /HPF (NONE SEEN) H 06/25/18 20:50 Urine Bacteria <20 /HPF (<20) 06/25/18 20:50 Urine Culture Reflexed Not needed 06/25/18 20:50 Urine Glucose Negative (NEG) 06/25/18 20:50 Urine Total Protein 1+ (NEG) H 06/25/18 20:50 Weight: 116 lb 14.4 oz Wound Present: No Closed Surgical Incision Present: No Negative Pressure Wound Therapy Present: No Physician Update: She continues to report significant pain in her arms, back and legs. Will increase gabapentin to 600 mg twice daily. Her labs have been reviewed and are stable. She is making fairly well with physical therapy with some difficulty, falling to the right with ambulation. She did lose balance posteriorly when putting on pants. She is at minimum assistance when sitting. Pain Issues: Aquilla 10/325mg Q6H PRN PO. Tramadol 50mg Q4H PRN PO Functional Improvement: Patient has met all short-term goals at this time and is progressing toward long-term goals. Patient continues to present w/ diplopia. Patient indicated that patch "helped" w/ diplopia, however no significant change in imbalance w/ detected. Functional Improvement Occupational Therapy: PATIENT'S UE FUNCTION HAS IMPROVED ; VISUAL MOTOR AND PERCEPTION HAS IMPROVED, USING EYE PATCH, ALTERNATING EYES SPORADICALLY TO CONTINUE CHALLENGING EYE MUSCULATURE, WITH GOOD TOLERANCE SINCE ISSUED BY PT. CONTINUES TO REQUIRE MIN ASSIST TO STEADY WHILE STANDING STATIC TO MANAGE CLOTHES OR CLEAN PERINEAL AREAS, SHE LISTS POSTERIORLY. BENEFITS FROM FURTHER OT TO ADDRESS STG/LTG SET IN POC. Speech Therapy Update: ST to Eval on 06/26/18 Summary: Patient's care plan and mcc goals have been reviewed and revised as necessary. Please see the Rehabilitation Signature page for all necessary signatures.
[2018-07-03] MEDS: TRAMADOL HCL 50 MG TAB PO PRN (11:22)
[2018-07-03] MEDS: DONEPEZIL HCL 5 MG TAB PO SCH (21:26)
[2018-07-03] MEDS: ATORVASTATIN 40 MG TAB PO SCH (21:26)
[2018-07-04] MEDS: ERLOTINIB 100 MG PO SCH (05:37)
[2018-07-04] MEDS: ENSURE PUDDING 4 OZ CUP PO SCH ×2 (08:00→20:00)
[2018-07-04] MEDS: LIDOCAINE 5% PATCH TOP SCH (08:00)
[2018-07-04] MEDS: GABAPENTIN 300 MG CAP PO SCH ×2 (08:38→20:16)
[2018-07-04] MEDS: RIVAROXABAN 10 MG TABLET PO SCH (08:39)
[2018-07-04] MEDS: FE SULF/FA/VIT B COMP & C TAB PO SCH (08:39)
[2018-07-04] MEDS: NITROFURAN MACRO 100 MG CAP PO SCH ×2 (08:39→20:16)
[2018-07-04] MEDS: PROPRANOLOL HCL 10 MG TAB PO SCH ×2 (08:40→20:00)
[2018-07-04] MEDS: LIOTHYRONINE SOD 25 MCG TAB PO SCH (08:40)
[2018-07-04] MEDS: FERROUS SULFATE 325 MG TAB PO SCH (08:40)
[2018-07-04] MEDS: SERTRALINE HCL 100 MG TAB PO SCH (08:40)
[2018-07-04] MEDS: LEVOTHYROXINE SOD 0.1 MG TAB PO SCH (08:40)
[2018-07-04] MEDS: HYDROCODONE/APAP 10/325 TAB PO PRN ×2 (08:41→20:15)
[2018-07-04] MEDS: ASPIRIN EC 81 MG TAB PO SCH (08:41)
[2018-07-04] MEDS: PROMOD 30 ML DOSE PO SCH ×2 (08:41→20:25)
[2018-07-04] MEDS: TRAMADOL HCL 50 MG TAB PO PRN (12:57)
[2018-07-04] MEDS: MAGNESIUM OXIDE 400 MG TAB PO SCH ×2 (12:57→20:16)
[2018-07-04] MEDS: ATORVASTATIN 40 MG TAB PO SCH (20:15)
[2018-07-04] MEDS: DONEPEZIL HCL 5 MG TAB PO SCH (20:17)
[2018-07-05] MEDS: ERLOTINIB 100 MG PO SCH (05:41)
[2018-07-05] MEDS: LIDOCAINE 5% PATCH TOP SCH (08:00)
[2018-07-05] MEDS: FE SULF/FA/VIT B COMP & C TAB PO SCH (08:33)
[2018-07-05] MEDS: PROPRANOLOL HCL 10 MG TAB PO SCH ×2 (08:33→21:26)
[2018-07-05] MEDS: RIVAROXABAN 10 MG TABLET PO SCH (08:33)
[2018-07-05] MEDS: FERROUS SULFATE 325 MG TAB PO SCH (08:34)
[2018-07-05] MEDS: HYDROCODONE/APAP 10/325 TAB PO PRN ×2 (08:34→19:46)
[2018-07-05] MEDS: LIOTHYRONINE SOD 25 MCG TAB PO SCH (08:34)
[2018-07-05] MEDS: ASPIRIN EC 81 MG TAB PO SCH (08:34)
[2018-07-05] MEDS: MAGNESIUM OXIDE 400 MG TAB PO SCH ×2 (08:34→21:25)
[2018-07-05] MEDS: GABAPENTIN 300 MG CAP PO SCH ×2 (08:34→21:25)
[2018-07-05] MEDS: LEVOTHYROXINE SOD 0.1 MG TAB PO SCH (08:34)
[2018-07-05] MEDS: SERTRALINE HCL 100 MG TAB PO SCH (08:34)
[2018-07-05] MEDS: PROMOD 30 ML DOSE PO SCH ×2 (08:35→21:22)
[2018-07-05] MEDS: ENSURE PUDDING 4 OZ CUP PO SCH ×2 (08:35→21:31)
[2018-07-05] MEDS: TRAMADOL HCL 50 MG TAB PO PRN (12:35)
[2018-07-05] MEDS: ATORVASTATIN 40 MG TAB PO SCH (21:25)
[2018-07-05] MEDS: DONEPEZIL HCL 5 MG TAB PO SCH (21:25)
--- NOTE | 2018-07-06 02:29 | FAST ---
SHIFT START DATE/TIME: 07/05/2018 19:00 (CDT) SHIFT END DATE/TIME: 07/06/2018 07:00 (CDT) NAME GIBRAN BELTRAN DATE OF : 1940 DATE OF ADMISSION: 06/25/2018 15:15 (CDT) PHONE: AGE: 78 N# [id number] GENDER: Female ENCOUNTER PHYSICIAN: Dr. Roderick Min M.D. 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 EATING: Activity did not occur on this shift EATING - SCORE: 0-UNK GROOMING: Wash, rinse, and dry hands GROOMING - STEP 1: Does the patient require assistance when grooming? Yes. GROOMING - STEP 2: Does the patient require the assistance of a helper? Yes. GROOMING - STEP 3: How much assistance does the patient require from the helper? Only prior equipment preparation/set up from the helper GROOMING - SCORE: 5-SUP BATHING: Activity did not occur on this shift BATHING - SCORE: 0-UNK DRESSING - UPPER BODY: Patient is not dressing in public clothing ARTICLES SCORE Total number of steps: 0 DRESSING - UPPER BODY - SCORE: 0-UNK DRESSING - LOWER BODY: Patient is not dressing in public clothing ARTICLES SCORE Total number of steps: 0 DRESSING - LOWER BODY - SCORE: 0-UNK TOILETING: TOILETING - STEP 1: Does the patient require assistance with toileting? Yes. TOILETING - STEP 2: Does the patient require the assistance of a helper? Yes. TOILETING - STEP 3: How much assistance does the patient require from the helper? Hands-on assistance from the helper TOILETING - STEP 4: Of the 3 tasks: 1) Adjusting clothing prior to use, 2) Cleansing of perineal area, 3) Adjusting clot bere after use; How many tasks does the patient perform WITHOUT assistance of the helper? Two tasks TOILETING - SCORE: 3-MOD BLADDER MANAGEMENT: BLADDER MANAGEMENT - STEP 1: Does the patient control the bladder completely and intentionally without equipment or devices or med ications, and is always continent? No. BLADDER MANAGEMENT - STEP 2: Does the patient require the assistance of a helper? Yes. BLADDER MANAGEMENT - STEP 3: How much assistance does the patient require from the helper? Only set-up of equipment - such as plac ing it within reach of the patient or emptying a device - to maintain either satisfactory voiding pat tern or managing an external device, such as an absorbent pad, ileal device, or catheter BLADDER MANAGEMENT - SCORE: 5-SUP BOWEL MANAGEMENT: BOWEL MANAGEMENT - STEP 1: Does the patient control bowels completely and intentionally without equipment devices or medications AND is always continent? No. BOWEL MANAGEMENT - STEP 2: Does the patient require the assistance of a helper? No, patient requires medication for control such as stool softeners, suppositories, laxatives, enemas, or OTC medications BOWEL MANAGEMENT - SCORE: 6-JANET TRANSFERS: BED, CHAIR, WHEELCHAIR: TRANSFERS: BED, CHAIR, WHEELCHAIR - STEP 1: Does the patient require assistance with bed, chair, or wheelchair transfers? Yes. TRANSFERS: BED, CHAIR, WHEELCHAIR - STEP 2: Does the patient require the assistance of a helper? Yes. TRANSFERS: BED, CHAIR, WHEELCHAIR - STEP 3: How much assistance does the patient require from the helper? Steadying/guiding assistance TRANSFERS: BED, CHAIR, WHEELCHAIR - SCORE: 4-MIN TRANSFERS: TOILET: TRANSFERS: TOILET - STEP 1: Does the patient require assistance with toilet transfers? Yes. TRANSFERS: TOILET - STEP 2: Does the patient require the assistance of a helper? Yes. TRANSFERS: TOILET - STEP 3: How much assistance does the patient require from the helper? Patient performs half or more of the tr ansferring tasks TRANSFERS: TOILET - STEP 4: Does the patient need only incidental help such as contact guard or steadying during toilet transfer? Yes. TRANSFERS: TOILET - SCORE: 4-MIN TRANSFERS: SHOWER: Activity did not occur on this shift TRANSFERS: SHOWER - SCORE: 0-UNK TRANSFERS: TUB: Activity did not occur on this shift TRANSFERS: TUB - SCORE: 0-UNK LOCOMOTION: WALK: Activity did not occur on this shift LOCOMOTION: WALK - SCORE: 0-UNK LOCOMOTION: WHEELCHAIR: Activity did not occur on this shift LOCOMOTION: WHEELCHAIR - SCORE: 0-UNK COMPREHENSION: COMPREHENSION: TYPE: Both COMPREHENSION - STEP 1: Does the patient require help to understand complex and abstract ideas (such as current events, finan mindy, discharge planning, medical issues, relationships, etc)? No. COMPREHENSION - STEP 2: Does the patient need extra time, require an assistive device (such as glasses for visual comprehensi on or a hearing aid for auditory comprehension) or does s/he have mild difficulty understanding compl ex and abstract information? Yes. COMPREHENSION - SCORE: 6-JANET EXPRESSION EXPRESSION: TYPE: Both EXPRESSION - STEP 1: Does the patient require help expressing complex and abstract ideas (such as current events, finances , discharge planning, medical issues, relationships, etc)? No. EXPRESSION - STEP 2: Does the patient need extra time, require an assistive device (such as augmentive communication syste m or a communication board), OR does s/he have mild difficulty expressing complex and abstract ideas (including mild dysarthria or mild word-find problems)? Yes. EXPRESSION - SCORE: 6-JANET SOCIAL INTERACTION: SOCIAL INTERACTION - STEP 1: Does the patient require a helper to interact with others in social and therapeutic situations? No. SOCIAL INTERACTION - STEP 2: Does the patient need extra time in social situations, OR does s/he interact with staff, other patien ts, and family members ONLY in structured environments, OR does s/he require medication for social in teraction? Yes, patient needs extra time SOCIAL INTERACTION - SCORE: 6-JANET PROBLEM SOLVING: PROBLEM SOLVING - STEP 1: Does the patient need help to solve complex problems such as managing a checking account or confronti ng interpersonal problems? No. PROBLEM SOLVING - STEP 2: Does the patient require extra time to make decisions or solve problems, OR does s/he have slight dif ficulty reading, initiating, or self-correcting in unfamiliar situations? Yes, patient needs extra ti me. PROBLEM SOLVING - SCORE: 6-JANET MEMORY: MEMORY - STEP 1: Does the patient need help to remember frequently encountered people, daily routines, and executing r equests? No. MEMORY - STEP 2: Does the patient have slight difficulty recognizing frequently encountered people, daily routines, or executing requests without the need for repetition or using self-initiated or environmental cues to remember? Yes. MEMORY - SCORE: 6-JANET SIGNATURE PANEL: The following modified sections: Eating - Score, Grooming - Score, Dressing - Upper Body - Score, Arun ssing - Lower Body - Score, Toileting - Score, Bladder Management - Score, Bowel Management - Score, Transfers: Bed, Chair, Wheelchair - Score, Transfers: Toilet - Score, Transfers: Shower - Score, Garzon sfers: Tub - Score, Locomotion: Walk - Score, Locomotion: Wheelchair - Score, Comprehension - Score, Expression - Score, Social Interaction - Score, Problem Solving - Score, Memory - Score were [electro nically] signed by Evelyn Grayson CNA on FriJul 06 2018 02:29:10 GMT-0500 (Central Daylight Time)
[2018-07-06] MEDS: ERLOTINIB 100 MG PO SCH (05:09)
[2018-07-06] MEDS: LIDOCAINE 5% PATCH TOP SCH (07:54)
[2018-07-06] MEDS: ENSURE PUDDING 4 OZ CUP PO SCH ×2 (08:00→20:27)
[2018-07-06] MEDS: RIVAROXABAN 10 MG TABLET PO SCH (08:00)
[2018-07-06] MEDS: PROPRANOLOL HCL 10 MG TAB PO SCH ×2 (08:00→20:00)
[2018-07-06] MEDS: SERTRALINE HCL 100 MG TAB PO SCH (08:00)
[2018-07-06] MEDS: FERROUS SULFATE 325 MG TAB PO SCH (08:00)
[2018-07-06] MEDS: PROMOD 30 ML DOSE PO SCH ×2 (08:00→20:28)
[2018-07-06] MEDS: LIOTHYRONINE SOD 25 MCG TAB PO SCH (08:00)
[2018-07-06] MEDS: HYDROCODONE/APAP 10/325 TAB PO PRN ×2 (08:00→18:49)
[2018-07-06] MEDS: MAGNESIUM OXIDE 400 MG TAB PO SCH ×2 (08:00→20:26)
[2018-07-06] MEDS: GABAPENTIN 300 MG CAP PO SCH ×2 (08:01→20:26)
[2018-07-06] MEDS: LEVOTHYROXINE SOD 0.1 MG TAB PO SCH (08:01)
[2018-07-06] MEDS: FE SULF/FA/VIT B COMP & C TAB PO SCH (08:01)
[2018-07-06] MEDS: ASPIRIN EC 81 MG TAB PO SCH (08:01)
--- NOTE | 2018-07-06 10:10 | FAST ---
SHIFT START DATE/TIME: 07/06/2018 07:00 (CDT) SHIFT END DATE/TIME: 07/06/2018 19:00 (CDT) NAME GIBRAN BELTRAN DATE OF : 1940 DATE OF ADMISSION: 06/25/2018 15:15 (CDT) PHONE: AGE: 78 N# [id number] GENDER: Female ENCOUNTER PHYSICIAN: Dr. Roderick Min M.D. 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 EATING: EATING - STEP 1: Does the patient require assistance when eating? Yes. EATING - STEP 2: Does the patient require the assistance of a helper? Yes. EATING - STEP 3: Does the patient perform half or more of the eating tasks? Yes. EATING - STEP 4: Does the patient need only supervision, cuing, coaxing OR help to apply an orthosis OR help to cut fo od, open containers, pour liquids, or butter bread? Yes. EATING - SCORE: 5-SUP GROOMING: Comb/brush hair Oral care Wash, rinse, and dry face Wash, rinse, and dry hands GROOMING - STEP 1: Does the patient require assistance when grooming? Yes. GROOMING - STEP 2: Does the patient require the assistance of a helper? No. The patient only requires an assistive devic e, OR takes more than reasonable time to groom, OR there is a concern for safety as the patient groom s GROOMING - SCORE: 6-JANET BATHING: Activity did not occur on this shift BATHING - SCORE: 0-UNK DRESSING - UPPER BODY: Activity did not occur on this shift ARTICLES SCORE Total number of steps: 0 DRESSING - UPPER BODY - SCORE: 0-UNK DRESSING - LOWER BODY: Activity did not occur on this shift ARTICLES SCORE Total number of steps: 0 DRESSING - LOWER BODY - SCORE: 0-UNK TOILETING: TOILETING - STEP 1: Does the patient require assistance with toileting? Yes. TOILETING - STEP 2: Does the patient require the assistance of a helper? Yes. TOILETING - STEP 3: How much assistance does the patient require from the helper? Hands-on assistance from the helper TOILETING - STEP 4: Of the 3 tasks: 1) Adjusting clothing prior to use, 2) Cleansing of perineal area, 3) Adjusting clot bere after use; How many tasks does the patient perform WITHOUT assistance of the helper? Two tasks TOILETING - SCORE: 3-MOD BLADDER MANAGEMENT: BLADDER MANAGEMENT - STEP 1: Does the patient control the bladder completely and intentionally without equipment or devices or med ications, and is always continent? No. BLADDER MANAGEMENT - STEP 2: Does the patient require the assistance of a helper? No, patient requires and independently uses an a ssistive device, such as a urinal, bedpan, bedside commode, catheter, absorbent pad, or collecting de vice BLADDER MANAGEMENT - SCORE: 6-JANET BOWEL MANAGEMENT: BOWEL MANAGEMENT - STEP 1: Does the patient control bowels completely and intentionally without equipment devices or medications AND is always continent? Yes. BOWEL MANAGEMENT - SCORE: 7-IND TRANSFERS: BED, CHAIR, WHEELCHAIR: TRANSFERS: BED, CHAIR, WHEELCHAIR - STEP 1: Does the patient require assistance with bed, chair, or wheelchair transfers? Yes. TRANSFERS: BED, CHAIR, WHEELCHAIR - STEP 2: Does the patient require the assistance of a helper? Yes. TRANSFERS: BED, CHAIR, WHEELCHAIR - STEP 3: How much assistance does the patient require from the helper? Steadying/guiding assistance TRANSFERS: BED, CHAIR, WHEELCHAIR - SCORE: 4-MIN TRANSFERS: TOILET: TRANSFERS: TOILET - STEP 1: Does the patient require assistance with toilet transfers? Yes. TRANSFERS: TOILET - STEP 2: Does the patient require the assistance of a helper? Yes. TRANSFERS: TOILET - STEP 3: How much assistance does the patient require from the helper? Patient performs half or more of the tr ansferring tasks TRANSFERS: TOILET - STEP 4: Does the patient need only incidental help such as contact guard or steadying during toilet transfer? Yes. TRANSFERS: TOILET - SCORE: 4-MIN TRANSFERS: SHOWER: Activity did not occur on this shift TRANSFERS: SHOWER - SCORE: 0-UNK TRANSFERS: TUB: Activity did not occur on this shift TRANSFERS: TUB - SCORE: 0-UNK LOCOMOTION: WALK: Activity did not occur on this shift LOCOMOTION: WALK - SCORE: 0-UNK LOCOMOTION: WHEELCHAIR: Activity did not occur on this shift LOCOMOTION: WHEELCHAIR - SCORE: 0-UNK COMPREHENSION: COMPREHENSION: TYPE: Both COMPREHENSION - STEP 1: Does the patient require help to understand complex and abstract ideas (such as current events, finan mindy, discharge planning, medical issues, relationships, etc)? No. COMPREHENSION - STEP 2: Does the patient need extra time, require an assistive device (such as glasses for visual comprehensi on or a hearing aid for auditory comprehension) or does s/he have mild difficulty understanding compl ex and abstract information? Yes. COMPREHENSION - SCORE: 6-JANET EXPRESSION EXPRESSION: TYPE: Both EXPRESSION - STEP 1: Does the patient require help expressing complex and abstract ideas (such as current events, finances , discharge planning, medical issues, relationships, etc)? No. EXPRESSION - STEP 2: Does the patient need extra time, require an assistive device (such as augmentive communication syste m or a communication board), OR does s/he have mild difficulty expressing complex and abstract ideas (including mild dysarthria or mild word-find problems)? Yes. EXPRESSION - SCORE: 6-JANET SOCIAL INTERACTION: SOCIAL INTERACTION - STEP 1: Does the patient require a helper to interact with others in social and therapeutic situations? No. SOCIAL INTERACTION - STEP 2: Does the patient need extra time in social situations, OR does s/he interact with staff, other patien ts, and family members ONLY in structured environments, OR does s/he require medication for social in teraction? Yes, patient needs extra time SOCIAL INTERACTION - SCORE: 6-JANET PROBLEM SOLVING: PROBLEM SOLVING - STEP 1: Does the patient need help to solve complex problems such as managing a checking account or confronti ng interpersonal problems? Yes. PROBLEM SOLVING - STEP 2: Does the patient solve basic routine problems half or more of the time? Yes. PROBLEM SOLVING - STEP 3: How often does the patient need help to solve basic routine problems? Less than 10% of the time PROBLEM SOLVING - SCORE: 5-SUP MEMORY: MEMORY - STEP 1: Does the patient need help to remember frequently encountered people, daily routines, and executing r equests? No. MEMORY - STEP 2: Does the patient have slight difficulty recognizing frequently encountered people, daily routines, or executing requests without the need for repetition or using self-initiated or environmental cues to remember? Yes. MEMORY - SCORE: 6-JANET SIGNATURE PANEL: The following modified sections: Eating - Score, Grooming - Score, Bathing - Score, Dressing - Upper Body - Score, Dressing - Lower Body - Score, Toileting - Score, Bladder Management - Score, Bowel Man agement - Score, Transfers: Bed, Chair, Wheelchair - Score, Transfers: Toilet - Score, Transfers: Gladys wer - Score, Transfers: Tub - Score, Locomotion: Walk - Score, Locomotion: Wheelchair - Score, Compre hension - Score, Expression - Score, Social Interaction - Score, Problem Solving - Score, Memory - Sc ore were [electronically] signed by Shawn Bergeron on FriJul 06 2018 10:09:34 GMT-0500 (Central Daylight Time)
--- NOTE | 2018-07-06 14:19 | FAST ---
ENCOUNTER DATE AND TIME: 07/06/2018 08:00 (CDT) NAME GIBRAN BELTRAN DATE OF : 1940 DATE OF ADMISSION: 06/25/2018 15:15 (CDT) PHONE: AGE: 78 SSN# [id number] GENDER: Female ENCOUNTER PHYSICIAN: Dr. Roderick Min M.D. 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 EATING: Activity did not occur on this shift EATING - SCORE: 0-UNK GROOMING: Activity did not occur on this shift GROOMING - SCORE: 0-UNK BATHING: Activity did not occur on this shift BATHING - SCORE: 0-UNK DRESSING - UPPER BODY: Activity did not occur on this shift Patient is not dressing in public clothing ARTICLES SCORE Total number of steps: 0 DRESSING - UPPER BODY - SCORE: 0-UNK DRESSING - LOWER BODY: Activity did not occur on this shift Patient is not dressing in public clothing ARTICLES SCORE Total number of steps: 0 DRESSING - LOWER BODY - SCORE: 0-UNK TOILETING: Activity did not occur on this shift TOILETING - SCORE: 0-UNK BLADDER MANAGEMENT: Activity did not occur on this shift BLADDER MANAGEMENT - SCORE: 7-IND BOWEL MANAGEMENT: Activity did not occur on this shift BOWEL MANAGEMENT - SCORE: 7-IND TRANSFERS: BED, CHAIR, WHEELCHAIR: TRANSFERS: BED, CHAIR, WHEELCHAIR - STEP 1: Does the patient require assistance with bed, chair, or wheelchair transfers? Yes. TRANSFERS: BED, CHAIR, WHEELCHAIR - STEP 2: Does the patient require the assistance of a helper? Yes. TRANSFERS: BED, CHAIR, WHEELCHAIR - STEP 3: How much assistance does the patient require from the helper? Steadying/guiding assistance TRANSFERS: BED, CHAIR, WHEELCHAIR - SCORE: 4-MIN TRANSFERS: TOILET: Activity did not occur on this shift TRANSFERS: TOILET - SCORE: 0-UNK TRANSFERS: SHOWER: Activity did not occur on this shift TRANSFERS: SHOWER - SCORE: 0-UNK TRANSFERS: TUB: Activity did not occur on this shift TRANSFERS: TUB - SCORE: 0-UNK LOCOMOTION: WALK: LOCOMOTION: WALK - STEP 1: Does the patient need help to walk 150 feet? Yes. LOCOMOTION: WALK - STEP 2: How much assistance does the patient require to walk a minimum of 150 feet? Only incidental help such as contact guarding or steadying LOCOMOTION: WALK - SCORE: 4-MIN LOCOMOTION: WHEELCHAIR: Activity did not occur on this shift LOCOMOTION: WHEELCHAIR - SCORE: 0-UNK LOCOMOTION: STAIRS: Activity did not occur on this shift LOCOMOTION: STAIRS - SCORE: 0-UNK COMPREHENSION: COMPREHENSION - SCORE: 0-UNK EXPRESSION EXPRESSION - SCORE: 0-UNK SOCIAL INTERACTION: SOCIAL INTERACTION - SCORE: 0-UNK PROBLEM SOLVING: PROBLEM SOLVING - SCORE: 0-UNK MEMORY: MEMORY - SCORE: 0-UNK SIGNATURE PANEL: The following modified sections: Transfers: Bed, Chair, Wheelchair - Score, Transfers: Toilet - Score , Locomotion: Walk - Score, Locomotion: Wheelchair - Score, Locomotion: Stairs - Score were [electron hiren] signed by Anselmo Murray PT on FriJul 06 2018 14:18:26 T-0500 (Central Daylight Time)
--- NOTE | 2018-07-06 19:12 | R.PN ---
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 Pt denied any depression. Ambulated 390' with contact guard assistance using a rolling walker. Up and down [address] guard assistance. Self-propelled wheelchair 200' with standby assistance. VITAL SIGNS Temperature: 97.4 F SBP/DBP: 110/53 Pulse:69 Resp: 14 MEDICATION ALLERGIES: No Known Drug Allergies (NKDA) ENVIRONMENTAL ALLERGIES: - Substance Allergies None Known - Other Allergies None Known NURSING: - Shower allowing shower - Bladder care per protocol - Skin care per protocol PRECAUTIONS: - Weight Bearing Precaution WBAT right LE ACTIVITIES OOB only with supervision THERAPIES: - Occupational Therapy Evaluate and Treat. Cognitive Retraining. Visual Perceptual Training. - Speech Therapy Memory Strategies. Expressive Language Skills. Speech Intelligibility Training. Cognitive Training. R eceptive Language Skills. - Physical Therapy Evaluate and Treat. PHYSICAL EXAM - Gen Alert and awake Lying in bed No apparent distress Oriented to: person, time, and place - Skin No skin breakdown. Normacephalic - Eyes No abnormalities - ENMT No abnormalities - Neck No abnormalities - CVS RRR - Chest No abnormalities - Abd +bowel sounds - GI nondistended Deferred - No abnormalities - Ext No significant edema - MSK 4+/5 weakness in right upper and lower extremities. - Neuro 4/5 strength right upper and lower extremities. - Psych No abnormalities ASSESSMENT: Pt. is a 78 yo Right-handed white female.On 06/21/2018 Pt. presented to [facility] with sudden onset of right-side weakness.On 06/21/2018 she was admitted to [facility] with diagnosis acute left midbrain infarct.Her impairment category is Stroke 01 - Right B vanessa (Left Brain) (01.2).Pre-morbidly, Pt. was independent/mod-I in Transfers Control, Communication, Social Cognition, Self-Care, Sphincter Control, and Locomotion; and she had good Sphincter Control.Cu rrently, she has deficits of Transfers Control, Communication, Social Cognition, Balance, Self-Care, Endurance, Safety Awareness, and Locomotion.Pt. is now referred to [facility] for acute in-patient rehabilitation in order to maximize patient's functional independence in activit ies of daily living, strength, ROM, and mobility.- Rehab Goal Patient has realistic goal of being discharged at assistance level 6-Vanessa to reside at Home with Fam adolph/Relatives. She has left more than right shoulder pain. X-rays of both shoulders showed no acute findings includi ng no fractures. 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.JacquelinedonTXMDM/PLAN: - Physical Therapy Gait dysfunction - to improve, our physical therapists will perform initial evaluation of pt's statu s upon admission and devise an individualized program for Gait Training, and Wheel Chair mobility Inability to transfer - to improve, our physical therapists will perform initial evaluation of pt's status upon admission and devise an individualized program for Bed mobility Need for home safety evaluation - to improve, our physical therapists will perform initial evaluatio n of pt's status upon admission and devise an individualized program for Home Evaluation Need in caregiver upon discharge - to improve, our physical therapists will perform initial evaluati on of pt's status upon admission and devise an individualized program for Caregiver Training New precaution - to improve, our physical therapists will perform initial evaluation of pt's status upon admission and devise an individualized program for Patient precaution education Edema - to improve, our physical therapists will perform initial evaluation of pt's status upon admi ssion and devise an individualized program for Elevation Training, and Lymphedema Therapy Poor balance - to improve, our physical therapists will perform initial evaluation of pt's status up on admission and devise an individualized program for Balance Training Poor endurance - to improve, our physical therapists will perform initial evaluation of pt's status upon admission and devise an individualized program for Endurance Training Weakness - to improve, our physical therapists will perform initial evaluation of pt's status upon a dmission and devise an individualized program for Aquatic Therapy, Neuromuscular Reeducation, and Str engthening Achieving independence - to improve, our physical therapists will perform initial evaluation of pt's status upon admission and devise an individualized program for Community Reintegration Activities - Occupational Therapy ADL deficits - to improve, our occupation therapists will perform initial evaluation of pt's status upon admission and devise an individualized program for Bathing, Bed mobility, Community Reintegratio n, Cooking, Dressing, Eating, Fine Motor Skills, Grooming, Homemaking, Kitchen Mobility, Laundry, Pat ient Education, Safety Awareness, Splinting - Positioning, Transfers(Toilet, Tub, Shower), and Wheel Chair Management Cognitive deficits - to improve, our occupation therapists will perform initial evaluation of pt's s tatus upon admission and devise an individualized program for Cognition - orientation Need for animal daycare provider - to improve, our occupation therapists will perform initial evaluation of pt's status upon admission and devise an individualized program for Caregiver Training Weakness - to improve, our occupation therapists will perform initial evaluation of pt's status upon admission and devise an individualized program for Aquatic Therapy, Balance, Endurance, UE ROM, and UE strengthening - Diet Type Continue Regular - Diet - Liquid Texture Continue Regular - Tube Feed Continue N/A - Bladder care per protocol - Weight Bearing Precaution WBAT right LE - Skin care per protocol - Diet - Solid Texture Continue Regular - Shower allowing shower for Dementia, TBI, Stroke, or others FUNCTIONAL STATUS: UPDATED AT WEEKLY TEAM CONFERENCE - Bladder Same accident frequency: 7-Ind - No accidents in the past 7 days - Bowel Same accident frequency: 7-Ind - No accidents in the past 7 days - Walking Same score based on distance walked: 1(<=50ft) FUNCTIONAL STATUS: - Self-Care A. Eating Andra B. Grooming Andra C. Bathing Andra D. Dressing - Upper Andra E. Dressing - Lower modA F. Toileting modA - Sphincter Control G: Bladder control Ind H: Bowel control Ind - Transfers Control I. Bed/Chair/Wheelchair modA J. Toilet modA K. Tub/Shower modA - Locomotion L. Walk/Wheelchair (B) Dep M. Stairs ADNO - Communication N. Comprehension (B) sup O. Expression (B) sup - Social Cognition P. Social Interaction sup Q. Problem Solving sup R. Memory sup - Endurance Poor - Balance Poor - Safety Awareness Poor CURRENT FUNC. DEFICITS: Transfers Control, Communication, Social Cognition, Balance, Self-Care, Endurance, Safety Awareness, and Locomotion SIGNATURE PANEL: (CDT)
[2018-07-06] MEDS: DONEPEZIL HCL 5 MG TAB PO SCH (20:26)
[2018-07-06] MEDS: ATORVASTATIN 40 MG TAB PO SCH (20:26)
--- NOTE | 2018-07-07 02:28 | FAST ---
SHIFT START DATE/TIME: 07/06/2018 19:00 (CDT) SHIFT END DATE/TIME: 07/07/2018 07:00 (CDT) NAME GIBRAN BELTRAN DATE OF : 1940 DATE OF ADMISSION: 06/25/2018 15:15 (CDT) PHONE: AGE: 78 N# [id number] GENDER: Female ENCOUNTER PHYSICIAN: Dr. Roderick Min M.D. 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 EATING: Activity did not occur on this shift EATING - SCORE: 0-UNK GROOMING: Oral care Wash, rinse, and dry face Wash, rinse, and dry hands GROOMING - STEP 1: Does the patient require assistance when grooming? Yes. GROOMING - STEP 2: Does the patient require the assistance of a helper? Yes. GROOMING - STEP 3: How much assistance does the patient require from the helper? Only prior equipment preparation/set up from the helper GROOMING - SCORE: 5-SUP BATHING: Activity did not occur on this shift BATHING - SCORE: 0-UNK DRESSING - UPPER BODY: Patient is not dressing in public clothing ARTICLES SCORE Total number of steps: 0 DRESSING - UPPER BODY - SCORE: 0-UNK DRESSING - LOWER BODY: Patient is not dressing in public clothing ARTICLES SCORE Total number of steps: 0 DRESSING - LOWER BODY - SCORE: 0-UNK TOILETING: TOILETING - STEP 1: Does the patient require assistance with toileting? Yes. TOILETING - STEP 2: Does the patient require the assistance of a helper? Yes. TOILETING - STEP 3: How much assistance does the patient require from the helper? Hands-on assistance from the helper TOILETING - STEP 4: Of the 3 tasks: 1) Adjusting clothing prior to use, 2) Cleansing of perineal area, 3) Adjusting clot bere after use; How many tasks does the patient perform WITHOUT assistance of the helper? Two tasks TOILETING - SCORE: 3-MOD BLADDER MANAGEMENT: BLADDER MANAGEMENT - STEP 1: Does the patient control the bladder completely and intentionally without equipment or devices or med ications, and is always continent? No. BLADDER MANAGEMENT - STEP 2: Does the patient require the assistance of a helper? Yes. BLADDER MANAGEMENT - STEP 3: How much assistance does the patient require from the helper? Only set-up of equipment - such as plac ing it within reach of the patient or emptying a device - to maintain either satisfactory voiding pat tern or managing an external device, such as an absorbent pad, ileal device, or catheter BLADDER MANAGEMENT - SCORE: 5-SUP BOWEL MANAGEMENT: Activity did not occur on this shift BOWEL MANAGEMENT - SCORE: 7-IND TRANSFERS: BED, CHAIR, WHEELCHAIR: TRANSFERS: BED, CHAIR, WHEELCHAIR - STEP 1: Does the patient require assistance with bed, chair, or wheelchair transfers? Yes. TRANSFERS: BED, CHAIR, WHEELCHAIR - STEP 2: Does the patient require the assistance of a helper? Yes. TRANSFERS: BED, CHAIR, WHEELCHAIR - STEP 3: How much assistance does the patient require from the helper? Lifting of the legs TRANSFERS: BED, CHAIR, WHEELCHAIR - STEP 4: How many legs does the patient require the helper to lift? both legs TRANSFERS: BED, CHAIR, WHEELCHAIR - SCORE: 3-MOD TRANSFERS: TOILET: TRANSFERS: TOILET - STEP 1: Does the patient require assistance with toilet transfers? Yes. TRANSFERS: TOILET - STEP 2: Does the patient require the assistance of a helper? Yes. TRANSFERS: TOILET - STEP 3: How much assistance does the patient require from the helper? Patient performs half or more of the tr ansferring tasks TRANSFERS: TOILET - STEP 4: Does the patient need only incidental help such as contact guard or steadying during toilet transfer? No. Patient needs more than incidental help TRANSFERS: TOILET - SCORE: 3-MOD TRANSFERS: SHOWER: Activity did not occur on this shift TRANSFERS: SHOWER - SCORE: 0-UNK TRANSFERS: TUB: Activity did not occur on this shift TRANSFERS: TUB - SCORE: 0-UNK LOCOMOTION: WALK: Activity did not occur on this shift LOCOMOTION: WALK - SCORE: 0-UNK LOCOMOTION: WHEELCHAIR: Activity did not occur on this shift LOCOMOTION: WHEELCHAIR - SCORE: 0-UNK COMPREHENSION: COMPREHENSION: TYPE: Both COMPREHENSION - STEP 1: Does the patient require help to understand complex and abstract ideas (such as current events, finan mindy, discharge planning, medical issues, relationships, etc)? No. COMPREHENSION - STEP 2: Does the patient need extra time, require an assistive device (such as glasses for visual comprehensi on or a hearing aid for auditory comprehension) or does s/he have mild difficulty understanding compl ex and abstract information? Yes. COMPREHENSION - SCORE: 6-JANET EXPRESSION EXPRESSION: TYPE: Both EXPRESSION - STEP 1: Does the patient require help expressing complex and abstract ideas (such as current events, finances , discharge planning, medical issues, relationships, etc)? No. EXPRESSION - STEP 2: Does the patient need extra time, require an assistive device (such as augmentive communication syste m or a communication board), OR does s/he have mild difficulty expressing complex and abstract ideas (including mild dysarthria or mild word-find problems)? Yes. EXPRESSION - SCORE: 6-JANET SOCIAL INTERACTION: SOCIAL INTERACTION - STEP 1: Does the patient require a helper to interact with others in social and therapeutic situations? No. SOCIAL INTERACTION - STEP 2: Does the patient need extra time in social situations, OR does s/he interact with staff, other patien ts, and family members ONLY in structured environments, OR does s/he require medication for social in teraction? Yes, patient needs extra time SOCIAL INTERACTION - SCORE: 6-JANET PROBLEM SOLVING: PROBLEM SOLVING - STEP 1: Does the patient need help to solve complex problems such as managing a checking account or confronti ng interpersonal problems? No. PROBLEM SOLVING - STEP 2: Does the patient require extra time to make decisions or solve problems, OR does s/he have slight dif ficulty reading, initiating, or self-correcting in unfamiliar situations? Yes, patient needs extra ti me. PROBLEM SOLVING - SCORE: 6-JANET MEMORY: MEMORY - STEP 1: Does the patient need help to remember frequently encountered people, daily routines, and executing r equests? No. MEMORY - STEP 2: Does the patient have slight difficulty recognizing frequently encountered people, daily routines, or executing requests without the need for repetition or using self-initiated or environmental cues to remember? Yes. MEMORY - SCORE: 6-JANET
[2018-07-07] MEDS: ERLOTINIB 100 MG PO SCH (05:15)
[2018-07-07] MEDS: LIDOCAINE 5% PATCH TOP SCH (07:29)
[2018-07-07] MEDS: LEVOTHYROXINE SOD 0.1 MG TAB PO SCH (07:29)
[2018-07-07] MEDS: GABAPENTIN 300 MG CAP PO SCH ×2 (07:29→20:21)
[2018-07-07] MEDS: FERROUS SULFATE 325 MG TAB PO SCH (07:30)
[2018-07-07] MEDS: FE SULF/FA/VIT B COMP & C TAB PO SCH (07:30)
[2018-07-07] MEDS: ASPIRIN EC 81 MG TAB PO SCH (07:30)
[2018-07-07] MEDS: SERTRALINE HCL 100 MG TAB PO SCH (07:30)
[2018-07-07] MEDS: LIOTHYRONINE SOD 25 MCG TAB PO SCH (07:30)
[2018-07-07] MEDS: RIVAROXABAN 10 MG TABLET PO SCH (07:30)
[2018-07-07] MEDS: HYDROCODONE/APAP 10/325 TAB PO PRN ×3 (07:30→20:22)
[2018-07-07] MEDS: ENSURE PUDDING 4 OZ CUP PO SCH ×2 (07:31→20:23)
[2018-07-07] MEDS: PROPRANOLOL HCL 10 MG TAB PO SCH ×2 (07:31→20:21)
[2018-07-07] MEDS: MAGNESIUM OXIDE 400 MG TAB PO SCH ×2 (07:32→20:21)
[2018-07-07] MEDS: PROMOD 30 ML DOSE PO SCH ×2 (07:32→20:22)
--- NOTE | 2018-07-07 10:11 | FAST ---
SHIFT START DATE/TIME: 07/07/2018 07:00 (CDT) SHIFT END DATE/TIME: 07/07/2018 19:00 (CDT) NAME GIBRAN BELTRAN DATE OF : 1940 DATE OF ADMISSION: 06/25/2018 15:15 (CDT) PHONE: AGE: 78 N# [id number] GENDER: Female ENCOUNTER PHYSICIAN: Dr. Roderick Min M.D. 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 EATING: EATING - STEP 1: Does the patient require assistance when eating? Yes. EATING - STEP 2: Does the patient require the assistance of a helper? No, patient only requires an assistive device, O R s/he takes more than reasonable time to eat, OR there is a safety concern, OR s/he requires modifie d food consistency EATING - SCORE: 6-JANET GROOMING: Comb/brush hair Oral care Wash, rinse, and dry face Wash, rinse, and dry hands GROOMING - STEP 1: Does the patient require assistance when grooming? Yes. GROOMING - STEP 2: Does the patient require the assistance of a helper? Yes. GROOMING - STEP 3: How much assistance does the patient require from the helper? Only prior equipment preparation/set up from the helper GROOMING - SCORE: 5-SUP BATHING: Activity did not occur on this shift BATHING - SCORE: 0-UNK DRESSING - UPPER BODY: T-shirt/pullover shirt (four steps) ARTICLES SCORE Total number of steps: 4 DRESSING - UPPER BODY - STEP 1: Does the patient require help when dressing above the waist? Yes. DRESSING - UPPER BODY - STEP 2: Does the patient require the assistance of a helper? Yes. DRESSING - UPPER BODY - STEP 3: Does the helper touch the patient while dressing? No. DRESSING - UPPER BODY - SCORE: 5-SUP DRESSING - LOWER BODY: ARTICLES SCORE Total number of steps: 10 DRESSING - LOWER BODY - STEP 1: Does the patient require help when dressing below the waist? Yes. DRESSING - LOWER BODY - STEP 2: Does the patient require the assistance of a helper? Yes. DRESSING - LOWER BODY - STEP 3: Does the helper touch the patient while dressing? Yes. DRESSING - LOWER BODY - STEP 4: How many of the total steps does the patient complete on his/her own? 5 DRESSING - LOWER BODY - SCORE: 3-MOD TOILETING: TOILETING - STEP 1: Does the patient require assistance with toileting? Yes. TOILETING - STEP 2: Does the patient require the assistance of a helper? Yes. TOILETING - STEP 3: How much assistance does the patient require from the helper? Hands-on assistance from the helper TOILETING - STEP 4: Of the 3 tasks: 1) Adjusting clothing prior to use, 2) Cleansing of perineal area, 3) Adjusting clot bere after use; How many tasks does the patient perform WITHOUT assistance of the helper? Three tasks with steadying assistance from the helper TOILETING - SCORE: 4-MIN BLADDER MANAGEMENT: BLADDER MANAGEMENT - STEP 1: Does the patient control the bladder completely and intentionally without equipment or devices or med ications, and is always continent? No. BLADDER MANAGEMENT - STEP 2: Does the patient require the assistance of a helper? No, patient requires and independently uses an a ssistive device, such as a urinal, bedpan, bedside commode, catheter, absorbent pad, or collecting de vice BLADDER MANAGEMENT - SCORE: 6-JANET BOWEL MANAGEMENT: BOWEL MANAGEMENT - STEP 1: Does the patient control bowels completely and intentionally without equipment devices or medications AND is always continent? No. BOWEL MANAGEMENT - STEP 2: Does the patient require the assistance of a helper? No, patient requires and manages independently a n assistive device such as a bedpan, bedside commode, absorbent pad, incontinent device, or collectin g device BOWEL MANAGEMENT - SCORE: 6-JANET TRANSFERS: BED, CHAIR, WHEELCHAIR: TRANSFERS: BED, CHAIR, WHEELCHAIR - STEP 1: Does the patient require assistance with bed, chair, or wheelchair transfers? Yes. TRANSFERS: BED, CHAIR, WHEELCHAIR - STEP 2: Does the patient require the assistance of a helper? Yes. TRANSFERS: BED, CHAIR, WHEELCHAIR - STEP 3: How much assistance does the patient require from the helper? Steadying/guiding assistance TRANSFERS: BED, CHAIR, WHEELCHAIR - SCORE: 4-MIN TRANSFERS: TOILET: TRANSFERS: TOILET - STEP 1: Does the patient require assistance with toilet transfers? Yes. TRANSFERS: TOILET - STEP 2: Does the patient require the assistance of a helper? Yes. TRANSFERS: TOILET - STEP 3: How much assistance does the patient require from the helper? Patient performs half or more of the tr ansferring tasks TRANSFERS: TOILET - STEP 4: Does the patient need only incidental help such as contact guard or steadying during toilet transfer? No. Patient needs more than incidental help TRANSFERS: TOILET - SCORE: 3-MOD TRANSFERS: SHOWER: Activity did not occur on this shift TRANSFERS: SHOWER - SCORE: 0-UNK TRANSFERS: TUB: Activity did not occur on this shift TRANSFERS: TUB - SCORE: 0-UNK LOCOMOTION: WALK: Activity did not occur on this shift LOCOMOTION: WALK - SCORE: 0-UNK LOCOMOTION: WHEELCHAIR: Activity did not occur on this shift LOCOMOTION: WHEELCHAIR - SCORE: 0-UNK COMPREHENSION: COMPREHENSION: TYPE: Both COMPREHENSION - STEP 1: Does the patient require help to understand complex and abstract ideas (such as current events, finan mindy, discharge planning, medical issues, relationships, etc)? No. COMPREHENSION - STEP 2: Does the patient need extra time, require an assistive device (such as glasses for visual comprehensi on or a hearing aid for auditory comprehension) or does s/he have mild difficulty understanding compl ex and abstract information? Yes. COMPREHENSION - SCORE: 6-JANET EXPRESSION EXPRESSION: TYPE: Both EXPRESSION - STEP 1: Does the patient require help expressing complex and abstract ideas (such as current events, finances , discharge planning, medical issues, relationships, etc)? No. EXPRESSION - STEP 2: Does the patient need extra time, require an assistive device (such as augmentive communication syste m or a communication board), OR does s/he have mild difficulty expressing complex and abstract ideas (including mild dysarthria or mild word-find problems)? Yes. EXPRESSION - SCORE: 6-JANET SOCIAL INTERACTION: SOCIAL INTERACTION - STEP 1: Does the patient require a helper to interact with others in social and therapeutic situations? No. SOCIAL INTERACTION - STEP 2: Does the patient need extra time in social situations, OR does s/he interact with staff, other patien ts, and family members ONLY in structured environments, OR does s/he require medication for social in teraction? Yes, patient needs extra time SOCIAL INTERACTION - SCORE: 6-JANET PROBLEM SOLVING: PROBLEM SOLVING - STEP 1: Does the patient need help to solve complex problems such as managing a checking account or confronti ng interpersonal problems? No. PROBLEM SOLVING - STEP 2: Does the patient require extra time to make decisions or solve problems, OR does s/he have slight dif ficulty reading, initiating, or self-correcting in unfamiliar situations? Yes, patient needs extra ti me. PROBLEM SOLVING - SCORE: 6-JANET MEMORY: MEMORY - STEP 1: Does the patient need help to remember frequently encountered people, daily routines, and executing r equests? No. MEMORY - STEP 2: Does the patient have slight difficulty recognizing frequently encountered people, daily routines, or executing requests without the need for repetition or using self-initiated or environmental cues to remember? No. MEMORY - SCORE: 7-IND SIGNATURE PANEL: The following modified sections: Eating - Score, Grooming - Score, Bathing - Score, Dressing - Upper Body - Score, Dressing - Lower Body - Score, Toileting - Score, Bladder Management - Score, Bowel Man agement - Score, Transfers: Bed, Chair, Wheelchair - Score, Transfers: Toilet - Score, Transfers: Gladys wer - Score, Transfers: Tub - Score, Locomotion: Walk - Score, Locomotion: Wheelchair - Score, Compre hension - Score, Expression - Score, Social Interaction - Score, Problem Solving - Score, Memory - Sc ore were [electronically] signed by Shawn Bergeron on FriJul 07 2018 10:10:37 T-0500 (Central Daylight Time)
--- NOTE | 2018-07-07 13:56 | FAST ---
ENCOUNTER DATE AND TIME: 07/07/2018 08:00 (CDT) NAME GIBRAN BELTRAN DATE OF : 1940 DATE OF ADMISSION: 06/25/2018 15:15 (CDT) PHONE: AGE: 78 SSN# [id number] GENDER: Female ENCOUNTER PHYSICIAN: Dr. Roderick Min M.D. 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 EATING: Activity did not occur on this shift EATING - SCORE: 0-UNK GROOMING: Activity did not occur on this shift GROOMING - SCORE: 0-UNK BATHING: Activity did not occur on this shift BATHING - SCORE: 0-UNK DRESSING - UPPER BODY: Activity did not occur on this shift Patient is not dressing in public clothing ARTICLES SCORE Total number of steps: 0 DRESSING - UPPER BODY - SCORE: 0-UNK DRESSING - LOWER BODY: Activity did not occur on this shift Patient is not dressing in public clothing ARTICLES SCORE Total number of steps: 0 DRESSING - LOWER BODY - SCORE: 0-UNK TOILETING: Activity did not occur on this shift TOILETING - SCORE: 0-UNK BLADDER MANAGEMENT: Activity did not occur on this shift BLADDER MANAGEMENT - SCORE: 7-IND BOWEL MANAGEMENT: Activity did not occur on this shift BOWEL MANAGEMENT - SCORE: 7-IND TRANSFERS: BED, CHAIR, WHEELCHAIR: TRANSFERS: BED, CHAIR, WHEELCHAIR - STEP 1: Does the patient require assistance with bed, chair, or wheelchair transfers? Yes. TRANSFERS: BED, CHAIR, WHEELCHAIR - STEP 2: Does the patient require the assistance of a helper? Yes. TRANSFERS: BED, CHAIR, WHEELCHAIR - STEP 3: How much assistance does the patient require from the helper? Steadying/guiding assistance TRANSFERS: BED, CHAIR, WHEELCHAIR - SCORE: 4-MIN TRANSFERS: TOILET: Activity did not occur on this shift TRANSFERS: TOILET - SCORE: 0-UNK TRANSFERS: SHOWER: Activity did not occur on this shift TRANSFERS: SHOWER - SCORE: 0-UNK TRANSFERS: TUB: Activity did not occur on this shift TRANSFERS: TUB - SCORE: 0-UNK LOCOMOTION: WALK: LOCOMOTION: WALK - STEP 1: Does the patient need help to walk 150 feet? Yes. LOCOMOTION: WALK - STEP 2: How much assistance does the patient require to walk a minimum of 150 feet? Only incidental help such as contact guarding or steadying LOCOMOTION: WALK - SCORE: 4-MIN LOCOMOTION: WHEELCHAIR: Activity did not occur on this shift LOCOMOTION: WHEELCHAIR - SCORE: 0-UNK LOCOMOTION: STAIRS: Activity did not occur on this shift LOCOMOTION: STAIRS - SCORE: 0-UNK COMPREHENSION: COMPREHENSION - SCORE: 0-UNK EXPRESSION EXPRESSION - SCORE: 0-UNK SOCIAL INTERACTION: SOCIAL INTERACTION - SCORE: 0-UNK PROBLEM SOLVING: PROBLEM SOLVING - SCORE: 0-UNK MEMORY: MEMORY - SCORE: 0-UNK SIGNATURE PANEL: The following modified sections: Transfers: Bed, Chair, Wheelchair - Score, Transfers: Toilet - Score , Locomotion: Walk - Score, Locomotion: Wheelchair - Score, Locomotion: Stairs - Score were [electron hiren] signed by Anselmo Murray PT on FriJul 07 2018 13:56:05 [facility] [place]-0500 (Central Daylight Time)
--- NOTE | 2018-07-07 17:45 | R.PN ---
ENCOUNTER DATE AND TIME: 07/07/2018 17:42 (CDT) NAME GIBRAN BELTRAN DATE OF : 1940 DATE OF ADMISSION: 06/25/2018 15:15 (CDT) acute left midbrain infarctCHIEF COMPLAINT: Left midbrain stroke with right sided deficits SUBJECTIVE: Pt denied any Shortness of Breath. Pt denied any depression. Ambulated 600' with contact guard assistance using a rolling walker. Up and down [address] with [address]a ct guard assistance. Self-propelled wheelchair 200' with standby assistance. VITAL SIGNS Temperature: 97.2 F SBP/DBP: 112/51 Pulse:73 Resp: 14 MEDICATION ALLERGIES: No Known Drug Allergies (NKDA) ENVIRONMENTAL ALLERGIES: - Substance Allergies None Known - Other Allergies None Known NURSING: - Shower allowing shower - Bladder care per protocol - Skin care per protocol PRECAUTIONS: - Weight Bearing Precaution WBAT right LE ACTIVITIES OOB only with supervision THERAPIES: - Occupational Therapy Evaluate and Treat. Cognitive Retraining. Visual Perceptual Training. - Speech Therapy Memory Strategies. Expressive Language Skills. Speech Intelligibility Training. Cognitive Training. R eceptive Language Skills. - Physical Therapy Evaluate and Treat. PHYSICAL EXAM - Gen Alert and awake Lying in bed No apparent distress Oriented to: person, time, and place - Skin No skin breakdown. Normacephalic - Eyes No abnormalities - ENMT No abnormalities - Neck No abnormalities - CVS RRR - Chest No abnormalities - Abd +bowel sounds - GI nondistended Deferred - No abnormalities - Ext No significant edema - MSK 4+/5 weakness in right upper and lower extremities. - Neuro 4/5 strength right upper and lower extremities. - Psych No abnormalities ASSESSMENT: Pt. is a 78 yo Right-handed white female.On 06/21/2018 Pt. presented to [facility] with sudden onset of right-side weakness.On 06/21/2018 she was admitted to [facility] with diagnosis acute left midbrain infarct.Her impairment category is Stroke 01 - Right B vanessa (Left Brain) (01.2).Pre-morbidly, Pt. was independent/mod-I in Transfers Control, Communication, Social Cognition, Self-Care, Sphincter Control, and Locomotion; and she had good Sphincter Control.Cu rrently, she has deficits of Transfers Control, Communication, Social Cognition, Balance, Self-Care, Endurance, Safety Awareness, and Locomotion.Pt. is now referred to [facility] for acute in-patient rehabilitation in order to maximize patient's functional independence in activit ies of daily living, strength, ROM, and mobility.- Rehab Goal Patient has realistic goal of being discharged at assistance level 6-Vanessa to reside at Home with Fam adolph/Relatives. She has left more than right shoulder pain. X-rays of both shoulders showed no acute findings includi ng no fractures. 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.JacquelinedonTXMDM/PLAN: - Physical Therapy Gait dysfunction - to improve, our physical therapists will perform initial evaluation of pt's statu s upon admission and devise an individualized program for Gait Training, and Wheel Chair mobility Inability to transfer - to improve, our physical therapists will perform initial evaluation of pt's status upon admission and devise an individualized program for Bed mobility Need for home safety evaluation - to improve, our physical therapists will perform initial evaluatio n of pt's status upon admission and devise an individualized program for Home Evaluation Need in caregiver upon discharge - to improve, our physical therapists will perform initial evaluati on of pt's status upon admission and devise an individualized program for Caregiver Training New precaution - to improve, our physical therapists will perform initial evaluation of pt's status upon admission and devise an individualized program for Patient precaution education Edema - to improve, our physical therapists will perform initial evaluation of pt's status upon admi ssion and devise an individualized program for Elevation Training, and Lymphedema Therapy Poor balance - to improve, our physical therapists will perform initial evaluation of pt's status up on admission and devise an individualized program for Balance Training Poor endurance - to improve, our physical therapists will perform initial evaluation of pt's status upon admission and devise an individualized program for Endurance Training Weakness - to improve, our physical therapists will perform initial evaluation of pt's status upon a dmission and devise an individualized program for Aquatic Therapy, Neuromuscular Reeducation, and Str engthening Achieving independence - to improve, our physical therapists will perform initial evaluation of pt's status upon admission and devise an individualized program for Community Reintegration Activities - Occupational Therapy ADL deficits - to improve, our occupation therapists will perform initial evaluation of pt's status upon admission and devise an individualized program for Bathing, Bed mobility, Community Reintegratio n, Cooking, Dressing, Eating, Fine Motor Skills, Grooming, Homemaking, Kitchen Mobility, Laundry, Pat ient Education, Safety Awareness, Splinting - Positioning, Transfers(Toilet, Tub, Shower), and Wheel Chair Management Cognitive deficits - to improve, our occupation therapists will perform initial evaluation of pt's s tatus upon admission and devise an individualized program for Cognition - orientation Need for pulmonary care nurse - to improve, our occupation therapists will perform initial evaluation of pt's status upon admission and devise an individualized program for Caregiver Training Weakness - to improve, our occupation therapists will perform initial evaluation of pt's status upon admission and devise an individualized program for Aquatic Therapy, Balance, Endurance, UE ROM, and UE strengthening - Diet Type Continue Regular - Diet - Liquid Texture Continue Regular - Tube Feed Continue N/A - Bladder care per protocol - Weight Bearing Precaution WBAT right LE - Skin care per protocol - Diet - Solid Texture Continue Regular - Shower allowing shower for Dementia, TBI, Stroke, or others FUNCTIONAL STATUS: UPDATED AT WEEKLY TEAM CONFERENCE - Bladder Same accident frequency: 7-Ind - No accidents in the past 7 days - Bowel Same accident frequency: 7-Ind - No accidents in the past 7 days - Walking Same score based on distance walked: 1(<=50ft) FUNCTIONAL STATUS: - Self-Care A. Eating Andra B. Grooming Andra C. Bathing Andra D. Dressing - Upper Andra E. Dressing - Lower modA F. Toileting modA - Sphincter Control G: Bladder control Ind H: Bowel control Ind - Transfers Control I. Bed/Chair/Wheelchair modA J. Toilet modA K. Tub/Shower modA - Locomotion L. Walk/Wheelchair (B) Dep M. Stairs ADNO - Communication N. Comprehension (B) sup O. Expression (B) sup - Social Cognition P. Social Interaction sup Q. Problem Solving sup R. Memory sup - Endurance Poor - Balance Poor - Safety Awareness Poor CURRENT FUNC. DEFICITS: Transfers Control, Communication, Social Cognition, Balance, Self-Care, Endurance, Safety Awareness, and Locomotion SIGNATURE PANEL: (CDT)
--- NOTE | 2018-07-07 18:47 | FAST ---
ENCOUNTER DATE AND TIME: 07/07/2018 08:00 (CDT) NAME GIBRAN BELTRAN DATE OF : 1940 DATE OF ADMISSION: 06/25/2018 15:15 (CDT) PHONE: AGE: 78 SSN# [id number] GENDER: Female ENCOUNTER PHYSICIAN: Dr. Roderick Min M.D. 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 EATING: Activity did not occur on this shift EATING - SCORE: 0-UNK GROOMING: Activity did not occur on this shift GROOMING - SCORE: 0-UNK BATHING: Activity did not occur on this shift BATHING - SCORE: 0-UNK DRESSING - UPPER BODY: Activity did not occur on this shift Patient is not dressing in public clothing DRESSING - UPPER BODY - SCORE: 0-UNK DRESSING - LOWER BODY: Activity did not occur on this shift Patient is not dressing in public clothing DRESSING - LOWER BODY - SCORE: 0-UNK TOILETING: Activity did not occur on this shift TOILETING - SCORE: 0-UNK BLADDER MANAGEMENT: Activity did not occur on this shift BLADDER MANAGEMENT - SCORE: 7-IND BOWEL MANAGEMENT: Activity did not occur on this shift BOWEL MANAGEMENT - SCORE: 7-IND TRANSFERS: BED, CHAIR, WHEELCHAIR: Activity did not occur on this shift TRANSFERS: BED, CHAIR, WHEELCHAIR - SCORE: 0-UNK TRANSFERS: TOILET: Activity did not occur on this shift TRANSFERS: TOILET - SCORE: 0-UNK TRANSFERS: SHOWER: Activity did not occur on this shift TRANSFERS: SHOWER - SCORE: 0-UNK TRANSFERS: TUB: Activity did not occur on this shift TRANSFERS: TUB - SCORE: 0-UNK LOCOMOTION: WALK: Activity did not occur on this shift LOCOMOTION: WALK - SCORE: 0-UNK COMPREHENSION: COMPREHENSION - STEP 1: Does the patient require help to understand complex and abstract ideas (such as current events, finan mindy, discharge planning, medical issues, relationships, etc)? Yes. COMPREHENSION - STEP 2: Does the patient require help to understand questions or statements about basic needs or ideas (such as hunger, thirst, sleep, safety, daily schedule, room location, or discomfort) half or more of the t dejuan? No. COMPREHENSION - STEP 3: How often does the patient need help to understand directions and conversation about basic needs? Les s than 10% of the time COMPREHENSION - SCORE: 5-SUP EXPRESSION EXPRESSION - STEP 1: Does the patient require help expressing complex and abstract ideas (such as current events, finances , discharge planning, medical issues, relationships, etc)? No. EXPRESSION - STEP 2: Does the patient need extra time, require an assistive device (such as augmentive communication syste m or a communication board), OR does s/he have mild difficulty expressing complex and abstract ideas (including mild dysarthria or mild word-find problems)? Yes. EXPRESSION - SCORE: 6-JANET SOCIAL INTERACTION: SOCIAL INTERACTION - STEP 1: Does the patient require a helper to interact with others in social and therapeutic situations? No. SOCIAL INTERACTION - STEP 2: Does the patient need extra time in social situations, OR does s/he interact with staff, other patien ts, and family members ONLY in structured environments, OR does s/he require medication for social in teraction? Yes, patient needs extra time SOCIAL INTERACTION - SCORE: 6-JANET PROBLEM SOLVING: PROBLEM SOLVING - STEP 1: Does the patient need help to solve complex problems such as managing a checking account or confronti ng interpersonal problems? Yes. PROBLEM SOLVING - STEP 2: Does the patient solve basic routine problems half or more of the time? Yes. PROBLEM SOLVING - STEP 3: How often does the patient need help to solve basic routine problems? Less than 10% of the time PROBLEM SOLVING - SCORE: 5-SUP MEMORY: MEMORY - STEP 1: Does the patient need help to remember frequently encountered people, daily routines, and executing r equests? Yes. MEMORY - STEP 2: How often does the patient need help to remember frequently encountered people, daily routines, and e xecuting requests? Less than 10% of the time MEMORY - SCORE: 5-SUP SIGNATURE PANEL: The following modified sections: Comprehension - Score, Expression - Score, Social Interaction - Scor e, Problem Solving - Score, Memory - Score were [electronically] signed by ST polina Varghese Fri 18:46:59 [id number] (Central Daylight Time)
[2018-07-07] MEDS: DONEPEZIL HCL 5 MG TAB PO SCH (20:22)
[2018-07-07] MEDS: ATORVASTATIN 40 MG TAB PO SCH (20:22)
[2018-07-08] MEDS: ERLOTINIB 100 MG PO SCH (05:52)
[2018-07-08] MEDS: LEVOTHYROXINE SOD 0.1 MG TAB PO SCH (07:33)
[2018-07-08] MEDS: FERROUS SULFATE 325 MG TAB PO SCH (07:33)
[2018-07-08] MEDS: GABAPENTIN 300 MG CAP PO SCH ×2 (07:33→20:38)
[2018-07-08] MEDS: ASPIRIN EC 81 MG TAB PO SCH (07:33)
[2018-07-08] MEDS: RIVAROXABAN 10 MG TABLET PO SCH (07:33)
[2018-07-08] MEDS: LIOTHYRONINE SOD 25 MCG TAB PO SCH (07:34)
[2018-07-08] MEDS: FE SULF/FA/VIT B COMP & C TAB PO SCH (07:36)
[2018-07-08] MEDS: HYDROCODONE/APAP 10/325 TAB PO PRN ×3 (07:36→20:41)
[2018-07-08] MEDS: MAGNESIUM OXIDE 400 MG TAB PO SCH ×2 (07:36→20:38)
[2018-07-08] MEDS: SERTRALINE HCL 100 MG TAB PO SCH (07:36)
[2018-07-08] MEDS: LIDOCAINE 5% PATCH TOP SCH (07:37)
[2018-07-08] MEDS: PROMOD 30 ML DOSE PO SCH ×2 (07:37→20:44)
[2018-07-08] MEDS: PROPRANOLOL HCL 10 MG TAB PO SCH ×2 (07:37→20:38)
[2018-07-08] MEDS: ENSURE PUDDING 4 OZ CUP PO SCH ×2 (07:37→20:00)
--- NOTE | 2018-07-08 09:17 | RAD REPORT ---
EXAM DESCRIPTION: RAD - Barium Swallow Modified - 07/08/2018 9:09 am CLINICAL HISTORY: Dysphagia COMPARISON: Barium Swallow Modified dated 07/01/2018 TECHNIQUE: The patient was given liquid, semi-solid and solid forms of barium. Lateral view fluorosc opic imaging was performed in conjunction with speech pathology service. FINDINGS: Aspiration: Delayed cough with nectar thick via tsp and with cup sip using a chin tuck. Phatyngeal residue: mild vallecular Significant esophageal stasis Total fluoroscopy time: 2 minutes 45 seconds.
[2018-07-08] MEDS: TIZANIDINE 4 MG TABLET PO PRN (11:33)
--- NOTE | 2018-07-08 13:27 | FAST ---
SHIFT START DATE/TIME: 07/08/2018 07:00 (CDT) SHIFT END DATE/TIME: 07/08/2018 19:00 (CDT) NAME GIBRAN BELTRAN DATE OF : 1940 DATE OF ADMISSION: 06/25/2018 15:15 (CDT) PHONE: AGE: 78 N# [id number] GENDER: Female ENCOUNTER PHYSICIAN: Dr. Roderick Min M.D. 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 EATING: EATING - STEP 1: Does the patient require assistance when eating? Yes. EATING - STEP 2: Does the patient require the assistance of a helper? Yes. EATING - STEP 3: Does the patient perform half or more of the eating tasks? Yes. EATING - STEP 4: Does the patient need only supervision, cuing, coaxing OR help to apply an orthosis OR help to cut fo od, open containers, pour liquids, or butter bread? Yes. EATING - SCORE: 5-SUP GROOMING: Comb/brush hair Wash, rinse, and dry face Wash, rinse, and dry hands GROOMING - STEP 1: Does the patient require assistance when grooming? Yes. GROOMING - STEP 2: Does the patient require the assistance of a helper? Yes. GROOMING - STEP 3: How much assistance does the patient require from the helper? Only prior equipment preparation/set up from the helper GROOMING - SCORE: 5-SUP BATHING: Activity did not occur on this shift BATHING - SCORE: 0-UNK DRESSING - UPPER BODY: Activity did not occur on this shift ARTICLES SCORE Total number of steps: 0 DRESSING - UPPER BODY - SCORE: 0-UNK DRESSING - LOWER BODY: Activity did not occur on this shift ARTICLES SCORE Total number of steps: 0 DRESSING - LOWER BODY - SCORE: 0-UNK TOILETING: TOILETING - STEP 1: Does the patient require assistance with toileting? Yes. TOILETING - STEP 2: Does the patient require the assistance of a helper? Yes. TOILETING - STEP 3: How much assistance does the patient require from the helper? Hands-on assistance from the helper TOILETING - STEP 4: Of the 3 tasks: 1) Adjusting clothing prior to use, 2) Cleansing of perineal area, 3) Adjusting clot bere after use; How many tasks does the patient perform WITHOUT assistance of the helper? Three tasks with steadying assistance from the helper TOILETING - SCORE: 4-MIN BLADDER MANAGEMENT: BLADDER MANAGEMENT - STEP 1: Does the patient control the bladder completely and intentionally without equipment or devices or med ications, and is always continent? No. BLADDER MANAGEMENT - STEP 2: Does the patient require the assistance of a helper? No, patient only requires extra time BLADDER MANAGEMENT - SCORE: 6-JANET BLADDER MANAGEMENT - FREQUENCY OF ACCIDENTS: BLADDER MANAGEMENT(FA) - STEP 1: How many accidents has the patient had during the current shift? 0 BOWEL MANAGEMENT: BOWEL MANAGEMENT - STEP 1: Does the patient control bowels completely and intentionally without equipment devices or medications AND is always continent? No. BOWEL MANAGEMENT - STEP 2: Does the patient require the assistance of a helper? No, patient requires extra time BOWEL MANAGEMENT - SCORE: 6-JANET BOWEL MANAGEMENT - FREQUENCY OF ACCIDENTS: BOWEL MANAGEMENT(FA) - STEP 1: How many accidents has the patient had during the current shift? 0 TRANSFERS: BED, CHAIR, WHEELCHAIR: TRANSFERS: BED, CHAIR, WHEELCHAIR - STEP 1: Does the patient require assistance with bed, chair, or wheelchair transfers? Yes. TRANSFERS: BED, CHAIR, WHEELCHAIR - STEP 2: Does the patient require the assistance of a helper? No. Patient only requires an assistive device fo r bed, chair, wheelchair transfers such as a sliding board, grab bar, or brace, OR s/he takes more th an reasonable time, OR there is a safety concern when s/he performs the transfers TRANSFERS: BED, CHAIR, WHEELCHAIR - SCORE: 6-JANET TRANSFERS: TOILET: TRANSFERS: TOILET - STEP 1: Does the patient require assistance with toilet transfers? Yes. TRANSFERS: TOILET - STEP 2: Does the patient require the assistance of a helper? Yes. TRANSFERS: TOILET - STEP 3: How much assistance does the patient require from the helper? Patient performs half or more of the tr ansferring tasks TRANSFERS: TOILET - STEP 4: Does the patient need only incidental help such as contact guard or steadying during toilet transfer? No. Patient needs more than incidental help TRANSFERS: TOILET - SCORE: 3-MOD TRANSFERS: SHOWER: Activity did not occur on this shift TRANSFERS: SHOWER - SCORE: 0-UNK TRANSFERS: TUB: Activity did not occur on this shift TRANSFERS: TUB - SCORE: 0-UNK LOCOMOTION: WALK: Activity did not occur on this shift LOCOMOTION: WALK - SCORE: 0-UNK LOCOMOTION: WHEELCHAIR: LOCOMOTION: WHEELCHAIR - STEP 1: Does the patient need help to go 150 feet in a wheelchair? Yes. LOCOMOTION: WHEELCHAIR - STEP 2: How much assistance does the patient need from the helper? Only incidental help such as around corner s or over thresholds LOCOMOTION: WHEELCHAIR - SCORE: 4-MIN COMPREHENSION: COMPREHENSION: TYPE: Both COMPREHENSION - STEP 1: Does the patient require help to understand complex and abstract ideas (such as current events, finan mindy, discharge planning, medical issues, relationships, etc)? No. COMPREHENSION - STEP 2: Does the patient need extra time, require an assistive device (such as glasses for visual comprehensi on or a hearing aid for auditory comprehension) or does s/he have mild difficulty understanding compl ex and abstract information? Yes. COMPREHENSION - SCORE: 6-JANET EXPRESSION EXPRESSION: TYPE: Both EXPRESSION - STEP 1: Does the patient require help expressing complex and abstract ideas (such as current events, finances , discharge planning, medical issues, relationships, etc)? No. EXPRESSION - STEP 2: Does the patient need extra time, require an assistive device (such as augmentive communication syste m or a communication board), OR does s/he have mild difficulty expressing complex and abstract ideas (including mild dysarthria or mild word-find problems)? Yes. EXPRESSION - SCORE: 6-JANET SOCIAL INTERACTION: SOCIAL INTERACTION - STEP 1: Does the patient require a helper to interact with others in social and therapeutic situations? No. SOCIAL INTERACTION - STEP 2: Does the patient need extra time in social situations, OR does s/he interact with staff, other patien ts, and family members ONLY in structured environments, OR does s/he require medication for social in teraction? Yes, patient needs extra time SOCIAL INTERACTION - SCORE: 6-JANET PROBLEM SOLVING: PROBLEM SOLVING - STEP 1: Does the patient need help to solve complex problems such as managing a checking account or confronti ng interpersonal problems? No. PROBLEM SOLVING - STEP 2: Does the patient require extra time to make decisions or solve problems, OR does s/he have slight dif ficulty reading, initiating, or self-correcting in unfamiliar situations? Yes, patient needs extra ti me. PROBLEM SOLVING - SCORE: 6-JANET MEMORY: MEMORY - STEP 1: Does the patient need help to remember frequently encountered people, daily routines, and executing r equests? No. MEMORY - STEP 2: Does the patient have slight difficulty recognizing frequently encountered people, daily routines, or executing requests without the need for repetition or using self-initiated or environmental cues to remember? Yes. MEMORY - SCORE: 6-JANET SIGNATURE PANEL: The following modified sections: Eating - Score, Grooming - Score, Bathing - Score, Dressing - Upper Body - Score, Dressing - Lower Body - Score, Toileting - Score, Bladder Management - Score, Bowel Man agement - Score, Transfers: Bed, Chair, Wheelchair - Score, Transfers: Toilet - Score, Transfers: Gladys wer - Score, Transfers: Tub - Score, Locomotion: Walk - Score, Locomotion: Wheelchair - Score, Compre hension - Score, Expression - Score, Social Interaction - Score, Problem Solving - Score, Memory - Sc ore were [electronically] signed by Chey Blackwell C.N.A. on FriJul 08 2018 13:26:24 T-0500 (Centra l Daylight Time)
[2018-07-08] MEDS: TRAMADOL HCL 50 MG TAB PO PRN (13:36)
--- NOTE | 2018-07-08 13:48 | FAST ---
ENCOUNTER DATE AND TIME: 07/08/2018 08:00 (CDT) NAME GIBRAN BELTRAN DATE OF : 1940 DATE OF ADMISSION: 06/25/2018 15:15 (CDT) PHONE: AGE: 78 SSN# [id number] GENDER: Female ENCOUNTER PHYSICIAN: Dr. Roderick Min M.D. 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 EATING: Activity did not occur on this shift EATING - SCORE: 0-UNK GROOMING: Activity did not occur on this shift GROOMING - SCORE: 0-UNK BATHING: Activity did not occur on this shift BATHING - SCORE: 0-UNK DRESSING - UPPER BODY: Activity did not occur on this shift Patient is not dressing in public clothing ARTICLES SCORE Total number of steps: 0 DRESSING - UPPER BODY - SCORE: 0-UNK DRESSING - LOWER BODY: Activity did not occur on this shift Patient is not dressing in public clothing ARTICLES SCORE Total number of steps: 0 DRESSING - LOWER BODY - SCORE: 0-UNK TOILETING: Activity did not occur on this shift TOILETING - SCORE: 0-UNK BLADDER MANAGEMENT: Activity did not occur on this shift BLADDER MANAGEMENT - SCORE: 7-IND BOWEL MANAGEMENT: Activity did not occur on this shift BOWEL MANAGEMENT - SCORE: 7-IND TRANSFERS: BED, CHAIR, WHEELCHAIR: TRANSFERS: BED, CHAIR, WHEELCHAIR - STEP 1: Does the patient require assistance with bed, chair, or wheelchair transfers? Yes. TRANSFERS: BED, CHAIR, WHEELCHAIR - STEP 2: Does the patient require the assistance of a helper? Yes. TRANSFERS: BED, CHAIR, WHEELCHAIR - STEP 3: How much assistance does the patient require from the helper? Steadying/guiding assistance TRANSFERS: BED, CHAIR, WHEELCHAIR - SCORE: 4-MIN TRANSFERS: TOILET: Activity did not occur on this shift TRANSFERS: TOILET - SCORE: 0-UNK TRANSFERS: SHOWER: Activity did not occur on this shift TRANSFERS: SHOWER - SCORE: 0-UNK TRANSFERS: TUB: Activity did not occur on this shift TRANSFERS: TUB - SCORE: 0-UNK LOCOMOTION: WALK: LOCOMOTION: WALK - STEP 1: Does the patient need help to walk 150 feet? Yes. LOCOMOTION: WALK - STEP 2: How much assistance does the patient require to walk a minimum of 150 feet? Only incidental help such as contact guarding or steadying LOCOMOTION: WALK - SCORE: 4-MIN LOCOMOTION: WHEELCHAIR: Activity did not occur on this shift LOCOMOTION: WHEELCHAIR - SCORE: 0-UNK LOCOMOTION: STAIRS: LOCOMOTION: STAIRS - STEP 1: Does the patient need help to go up and down 12 to 14 stairs? Yes. LOCOMOTION: STAIRS - STEP 2: How much assistance does the patient need from the helper to go a minimum of 12 to 14 stairs? Only in cidental help such as contact guarding or steadying LOCOMOTION: STAIRS - SCORE: 4-MIN COMPREHENSION: COMPREHENSION - SCORE: 0-UNK EXPRESSION EXPRESSION - SCORE: 0-UNK SOCIAL INTERACTION: SOCIAL INTERACTION - SCORE: 0-UNK PROBLEM SOLVING: PROBLEM SOLVING - SCORE: 0-UNK MEMORY: MEMORY - SCORE: 0-UNK SIGNATURE PANEL: The following modified sections: Transfers: Bed, Chair, Wheelchair - Score, Transfers: Toilet - Score , Locomotion: Walk - Score, Locomotion: Wheelchair - Score, Locomotion: Stairs - Score were [electron hiren] signed by Anselmo Murray, PT on FriJul 08 2018 13:46:38 T-0500 (Central Daylight Time)
--- NOTE | 2018-07-08 15:02 | FAST ---
ENCOUNTER DATE AND TIME: 07/06/2018 08:00 (CDT) NAME GIBRAN BELTRAN DATE OF : 1940 DATE OF ADMISSION: 06/25/2018 15:15 (CDT) PHONE: AGE: 78 SSN# [id number] GENDER: Female ENCOUNTER PHYSICIAN: Dr. Roderick Min M.D. 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 EATING: EATING - STEP 1: Does the patient require assistance when eating? No. EATING - SCORE: 7-IND GROOMING: Oral care Wash, rinse, and dry face Wash, rinse, and dry hands GROOMING - STEP 1: Does the patient require assistance when grooming? No. GROOMING - SCORE: 7-IND BATHING: Abdomen Buttocks Chest Left arm Left lower leg and foot Left upper leg Perineal area Right arm Right lower leg and foot Right upper leg BATHING - STEP 1: Does the patient require assistance when bathing? Yes. BATHING - STEP 2: Does the patient require the assistance of a helper? Yes. BATHING - STEP 3: How much assistance does the patient require from the helper? Only incidental help such as placement of a wash cloth in his/her hand a few times as s/he bathes OR help to bathe just one or two areas of the body BATHING - SCORE: 4-MIN DRESSING - UPPER BODY: Bra (three steps) T-shirt/pullover shirt (four steps) ARTICLES SCORE Total number of steps: 7 DRESSING - UPPER BODY - STEP 1: Does the patient require help when dressing above the waist? No. DRESSING - UPPER BODY - SCORE: 7-IND DRESSING - LOWER BODY: Elastic waist pants (three steps) Sock - Left foot (one step) Sock - Right foot (one step) Tied or buckled shoe - Left foot (two steps) Tied or buckled shoe - Right foot (two steps) Underwear (three steps) ARTICLES SCORE Total number of steps: 12 DRESSING - LOWER BODY - STEP 1: Does the patient require help when dressing below the waist? Yes. DRESSING - LOWER BODY - STEP 2: Does the patient require the assistance of a helper? Yes. DRESSING - LOWER BODY - STEP 3: Does the helper touch the patient while dressing? Yes. DRESSING - LOWER BODY - STEP 4: How many of the total steps does the patient complete on his/her own? 12 DRESSING - LOWER BODY - SCORE: 4-MIN TOILETING: Activity did not occur on this shift TOILETING - SCORE: 0-UNK BLADDER MANAGEMENT: Activity did not occur on this shift BLADDER MANAGEMENT - SCORE: 7-IND BOWEL MANAGEMENT: Activity did not occur on this shift BOWEL MANAGEMENT - SCORE: 7-IND TRANSFERS: BED, CHAIR, WHEELCHAIR: Activity did not occur on this shift TRANSFERS: BED, CHAIR, WHEELCHAIR - SCORE: 0-UNK TRANSFERS: TOILET: Activity did not occur on this shift TRANSFERS: TOILET - SCORE: 0-UNK TRANSFERS: SHOWER: TRANSFERS: SHOWER - STEP 1: Does the patient require assistance with shower transfers? Yes. TRANSFERS: SHOWER - STEP 2: Does the patient require the assistance of a helper? Yes. TRANSFERS: SHOWER - STEP 3: How much assistance does the patient require from the helper? Only incidental help such as contact gu arding or steadying during shower transfers, or help to lift one leg into the shower TRANSFERS: SHOWER - SCORE: 4-MIN TRANSFERS: TUB: Activity did not occur on this shift TRANSFERS: TUB - SCORE: 0-UNK LOCOMOTION: WALK: Activity did not occur on this shift LOCOMOTION: WALK - SCORE: 0-UNK LOCOMOTION: WHEELCHAIR: Activity did not occur on this shift LOCOMOTION: WHEELCHAIR - SCORE: 0-UNK LOCOMOTION: STAIRS: Activity did not occur on this shift LOCOMOTION: STAIRS - SCORE: 0-UNK COMPREHENSION: COMPREHENSION: TYPE: Both COMPREHENSION - STEP 1: Does the patient require help to understand complex and abstract ideas (such as current events, finan mindy, discharge planning, medical issues, relationships, etc)? No. COMPREHENSION - STEP 2: Does the patient need extra time, require an assistive device (such as glasses for visual comprehensi on or a hearing aid for auditory comprehension) or does s/he have mild difficulty understanding compl ex and abstract information? Yes. COMPREHENSION - SCORE: 6-JANET EXPRESSION EXPRESSION: TYPE: Both EXPRESSION - STEP 1: Does the patient require help expressing complex and abstract ideas (such as current events, finances , discharge planning, medical issues, relationships, etc)? No. EXPRESSION - STEP 2: Does the patient need extra time, require an assistive device (such as augmentive communication syste m or a communication board), OR does s/he have mild difficulty expressing complex and abstract ideas (including mild dysarthria or mild word-find problems)? Yes. EXPRESSION - SCORE: 6-JANET SOCIAL INTERACTION: SOCIAL INTERACTION - STEP 1: Does the patient require a helper to interact with others in social and therapeutic situations? No. SOCIAL INTERACTION - STEP 2: Does the patient need extra time in social situations, OR does s/he interact with staff, other patien ts, and family members ONLY in structured environments, OR does s/he require medication for social in teraction? Yes, patient needs extra time SOCIAL INTERACTION - SCORE: 6-JANET PROBLEM SOLVING: PROBLEM SOLVING - STEP 1: Does the patient need help to solve complex problems such as managing a checking account or confronti ng interpersonal problems? No. PROBLEM SOLVING - STEP 2: Does the patient require extra time to make decisions or solve problems, OR does s/he have slight dif ficulty reading, initiating, or self-correcting in unfamiliar situations? Yes, patient needs extra ti me. PROBLEM SOLVING - SCORE: 6-JANET MEMORY: MEMORY - STEP 1: Does the patient need help to remember frequently encountered people, daily routines, and executing r equests? No. MEMORY - STEP 2: Does the patient have slight difficulty recognizing frequently encountered people, daily routines, or executing requests without the need for repetition or using self-initiated or environmental cues to remember? Yes. MEMORY - SCORE: 6-JANET SIGNATURE PANEL: The following modified sections: Eating - Score, Grooming - Score, Bathing - Score, Dressing - Upper Body - Score, Dressing - Lower Body - Score, Toileting - Score, Transfers: Bed, Chair, Wheelchair - S core, Transfers: Toilet - Score, Transfers: Tub - Score, Transfers: Shower - Score, Comprehension - S core, Expression - Score, Social Interaction - Score, Problem Solving - Score, Memory - Score were [e lectronically] signed by Christiane Pope OT on FriJul 08 2018 15:00:57 GMT-0500 (Central Daylight T dejuan)
--- NOTE | 2018-07-08 15:13 | FAST ---
ENCOUNTER DATE AND TIME: 07/08/2018 08:00 (CDT) NAME GIRBAN BELTRAN DATE OF : 1940 DATE OF ADMISSION: 06/25/2018 15:15 (CDT) PHONE: AGE: 78 SSN# [id number] GENDER: Female ENCOUNTER PHYSICIAN: Dr. Roderick Min M.D. 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 EATING: Activity did not occur on this shift EATING - SCORE: 0-UNK GROOMING: Wash, rinse, and dry face Wash, rinse, and dry hands GROOMING - STEP 1: Does the patient require assistance when grooming? No. GROOMING - SCORE: 7-IND BATHING: Abdomen Buttocks Chest Left arm Left lower leg and foot Left upper leg Perineal area Right arm Right lower leg and foot Right upper leg BATHING - STEP 1: Does the patient require assistance when bathing? Yes. BATHING - STEP 2: Does the patient require the assistance of a helper? Yes. BATHING - STEP 3: How much assistance does the patient require from the helper? Only incidental help such as placement of a wash cloth in his/her hand a few times as s/he bathes OR help to bathe just one or two areas of the body BATHING - SCORE: 4-MIN DRESSING - UPPER BODY: T-shirt/pullover shirt (four steps) ARTICLES SCORE Total number of steps: 4 DRESSING - UPPER BODY - STEP 1: Does the patient require help when dressing above the waist? No. DRESSING - UPPER BODY - SCORE: 7-IND DRESSING - LOWER BODY: Elastic waist pants (three steps) Slip-on shoe - Left foot (one step) Slip-on shoe - Right foot (one step) Sock - Left foot (one step) Sock - Right foot (one step) Underwear (three steps) ARTICLES SCORE Total number of steps: 10 DRESSING - LOWER BODY - STEP 1: Does the patient require help when dressing below the waist? Yes. DRESSING - LOWER BODY - STEP 2: Does the patient require the assistance of a helper? Yes. DRESSING - LOWER BODY - STEP 3: Does the helper touch the patient while dressing? Yes. DRESSING - LOWER BODY - STEP 4: How many of the total steps does the patient complete on his/her own? 10 DRESSING - LOWER BODY - SCORE: 4-MIN TOILETING: Activity did not occur on this shift TOILETING - SCORE: 0-UNK BLADDER MANAGEMENT: Activity did not occur on this shift BLADDER MANAGEMENT - SCORE: 7-IND BOWEL MANAGEMENT: Activity did not occur on this shift BOWEL MANAGEMENT - SCORE: 7-IND TRANSFERS: BED, CHAIR, WHEELCHAIR: Activity did not occur on this shift TRANSFERS: BED, CHAIR, WHEELCHAIR - SCORE: 0-UNK TRANSFERS: TOILET: Activity did not occur on this shift TRANSFERS: TOILET - SCORE: 0-UNK TRANSFERS: SHOWER: TRANSFERS: SHOWER - STEP 1: Does the patient require assistance with shower transfers? Yes. TRANSFERS: SHOWER - STEP 2: Does the patient require the assistance of a helper? Yes. TRANSFERS: SHOWER - STEP 3: How much assistance does the patient require from the helper? Only incidental help such as contact gu arding or steadying during shower transfers, or help to lift one leg into the shower TRANSFERS: SHOWER - SCORE: 4-MIN TRANSFERS: TUB: Activity did not occur on this shift TRANSFERS: TUB - SCORE: 0-UNK LOCOMOTION: WALK: Activity did not occur on this shift LOCOMOTION: WALK - SCORE: 0-UNK LOCOMOTION: WHEELCHAIR: Activity did not occur on this shift LOCOMOTION: WHEELCHAIR - SCORE: 0-UNK LOCOMOTION: STAIRS: Activity did not occur on this shift LOCOMOTION: STAIRS - SCORE: 0-UNK COMPREHENSION: COMPREHENSION - SCORE: 0-UNK EXPRESSION EXPRESSION - SCORE: 0-UNK SOCIAL INTERACTION: SOCIAL INTERACTION - SCORE: 0-UNK PROBLEM SOLVING: PROBLEM SOLVING - SCORE: 0-UNK MEMORY: MEMORY - SCORE: 0-UNK SIGNATURE PANEL: The following modified sections: Eating - Score, Grooming - Score, Bathing - Score, Dressing - Upper Body - Score, Dressing - Lower Body - Score, Toileting - Score, Transfers: Bed, Chair, Wheelchair - S core, Transfers: Toilet - Score, Transfers: Shower - Score, Transfers: Tub - Score, Comprehension - S core, Expression - Score, Social Interaction - Score, Problem Solving - Score, Memory - Score were [e lectronically] signed by JOANA Pereyra on FriJul 08 2018 15:12:36 [facility]-0500 ([facility] Time)
--- NOTE | 2018-07-08 18:18 | R.PN ---
ENCOUNTER DATE AND TIME: 07/08/2018 18:16 (CDT) NAME GIBRAN BELTRAN DATE OF : 1940 DATE OF ADMISSION: 06/25/2018 15:15 (CDT) acute left midbrain infarctCHIEF COMPLAINT: Left midbrain stroke with right sided deficits SUBJECTIVE: Pt denied any Shortness of Breath. Pt denied any depression. Ambulated 750' with contact guard assistance using a rolling walker. Up and down [address] ct guard assistance. Self-propelled wheelchair 200' with standby assistance. VITAL SIGNS Temperature: 97.6 F SBP/DBP: 133/59 Pulse:65 Resp: 16 MEDICATION ALLERGIES: No Known Drug Allergies (NKDA) ENVIRONMENTAL ALLERGIES: - Substance Allergies None Known - Other Allergies None Known NURSING: - Shower allowing shower - Bladder care per protocol - Skin care per protocol PRECAUTIONS: - Weight Bearing Precaution WBAT right LE ACTIVITIES OOB only with supervision THERAPIES: - Occupational Therapy Evaluate and Treat. Cognitive Retraining. Visual Perceptual Training. - Speech Therapy Memory Strategies. Expressive Language Skills. Speech Intelligibility Training. Cognitive Training. R eceptive Language Skills. - Physical Therapy Evaluate and Treat. PHYSICAL EXAM - Gen Alert and awake Lying in bed No apparent distress Oriented to: person, time, and place - Skin No skin breakdown. Normacephalic - Eyes No abnormalities - ENMT No abnormalities - Neck No abnormalities - CVS RRR - Chest No abnormalities - Abd +bowel sounds - GI nondistended Deferred - No abnormalities - Ext No significant edema - MSK 4+/5 weakness in right upper and lower extremities. - Neuro 4/5 strength right upper and lower extremities. - Psych No abnormalities ASSESSMENT: Pt. is a 78 yo Right-handed white female.On 06/21/2018 Pt. presented to [facility] with sudden onset of right-side weakness.On 06/21/2018 she was admitted to [facility] with diagnosis acute left midbrain infarct.Her impairment category is Stroke 01 - Right B vanessa (Left Brain) (01.2).Pre-morbidly, Pt. was independent/mod-I in Transfers Control, Communication, Social Cognition, Self-Care, Sphincter Control, and Locomotion; and she had good Sphincter Control.Cu rrently, she has deficits of Transfers Control, Communication, Social Cognition, Balance, Self-Care, Endurance, Safety Awareness, and Locomotion.Pt. is now referred to [facility] for acute in-patient rehabilitation in order to maximize patient's functional independence in activit ies of daily living, strength, ROM, and mobility.- Rehab Goal Patient has realistic goal of being discharged at assistance level 6-Vanessa to reside at Home with Fam adolph/Relatives. She has left more than right shoulder pain. X-rays of both shoulders showed no acute findings includi ng no fractures. 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.JacquelinedonTXMDM/PLAN: - Physical Therapy Gait dysfunction - to improve, our physical therapists will perform initial evaluation of pt's statu s upon admission and devise an individualized program for Gait Training, and Wheel Chair mobility Inability to transfer - to improve, our physical therapists will perform initial evaluation of pt's status upon admission and devise an individualized program for Bed mobility Need for home safety evaluation - to improve, our physical therapists will perform initial evaluatio n of pt's status upon admission and devise an individualized program for Home Evaluation Need in caregiver upon discharge - to improve, our physical therapists will perform initial evaluati on of pt's status upon admission and devise an individualized program for Caregiver Training New precaution - to improve, our physical therapists will perform initial evaluation of pt's status upon admission and devise an individualized program for Patient precaution education Edema - to improve, our physical therapists will perform initial evaluation of pt's status upon admi ssion and devise an individualized program for Elevation Training, and Lymphedema Therapy Poor balance - to improve, our physical therapists will perform initial evaluation of pt's status up on admission and devise an individualized program for Balance Training Poor endurance - to improve, our physical therapists will perform initial evaluation of pt's status upon admission and devise an individualized program for Endurance Training Weakness - to improve, our physical therapists will perform initial evaluation of pt's status upon a dmission and devise an individualized program for Aquatic Therapy, Neuromuscular Reeducation, and Str engthening Achieving independence - to improve, our physical therapists will perform initial evaluation of pt's status upon admission and devise an individualized program for Community Reintegration Activities - Occupational Therapy ADL deficits - to improve, our occupation therapists will perform initial evaluation of pt's status upon admission and devise an individualized program for Bathing, Bed mobility, Community Reintegratio n, Cooking, Dressing, Eating, Fine Motor Skills, Grooming, Homemaking, Kitchen Mobility, Laundry, Pat ient Education, Safety Awareness, Splinting - Positioning, Transfers(Toilet, Tub, Shower), and Wheel Chair Management Cognitive deficits - to improve, our occupation therapists will perform initial evaluation of pt's s tatus upon admission and devise an individualized program for Cognition - orientation Need for career development consultant - to improve, our occupation therapists will perform initial evaluation of pt's status upon admission and devise an individualized program for Caregiver Training Weakness - to improve, our occupation therapists will perform initial evaluation of pt's status upon admission and devise an individualized program for Aquatic Therapy, Balance, Endurance, UE ROM, and UE strengthening - Diet Type Continue Regular - Diet - Liquid Texture Continue Regular - Tube Feed Continue N/A - Bladder care per protocol - Weight Bearing Precaution WBAT right LE - Skin care per protocol - Diet - Solid Texture Continue Regular - Shower allowing shower for Dementia, TBI, Stroke, or others FUNCTIONAL STATUS: UPDATED AT WEEKLY TEAM CONFERENCE - Bladder Same accident frequency: 7-Ind - No accidents in the past 7 days - Bowel Same accident frequency: 7-Ind - No accidents in the past 7 days - Walking Same score based on distance walked: 1(<=50ft) FUNCTIONAL STATUS: - Self-Care A. Eating Andra B. Grooming Andra C. Bathing Andra D. Dressing - Upper Andra E. Dressing - Lower modA F. Toileting modA - Sphincter Control G: Bladder control Ind H: Bowel control Ind - Transfers Control I. Bed/Chair/Wheelchair modA J. Toilet modA K. Tub/Shower modA - Locomotion L. Walk/Wheelchair (B) Dep M. Stairs ADNO - Communication N. Comprehension (B) sup O. Expression (B) sup - Social Cognition P. Social Interaction sup Q. Problem Solving sup R. Memory sup - Endurance Poor - Balance Poor - Safety Awareness Poor CURRENT FUNC. DEFICITS: Transfers Control, Communication, Social Cognition, Balance, Self-Care, Endurance, Safety Awareness, and Locomotion SIGNATURE PANEL: (CDT)
[2018-07-08] MEDS: ATORVASTATIN 40 MG TAB PO SCH (20:38)
[2018-07-08] MEDS: DONEPEZIL HCL 5 MG TAB PO SCH (20:38)
--- NOTE | 2018-07-09 02:17 | FAST ---
SHIFT START DATE/TIME: 07/08/2018 19:00 (CDT) SHIFT END DATE/TIME: 07/09/2018 07:00 (CDT) NAME GIBRAN BELTRAN DATE OF : 1940 DATE OF ADMISSION: 06/25/2018 15:15 (CDT) PHONE: AGE: 78 N# [id number] GENDER: Female ENCOUNTER PHYSICIAN: Dr. Roderick Min M.D. 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 EATING: Activity did not occur on this shift EATING - SCORE: 0-UNK GROOMING: Wash, rinse, and dry hands GROOMING - STEP 1: Does the patient require assistance when grooming? Yes. GROOMING - STEP 2: Does the patient require the assistance of a helper? Yes. GROOMING - STEP 3: How much assistance does the patient require from the helper? Only prior equipment preparation/set up from the helper GROOMING - SCORE: 5-SUP BATHING: Activity did not occur on this shift BATHING - SCORE: 0-UNK DRESSING - UPPER BODY: Patient is not dressing in public clothing ARTICLES SCORE Total number of steps: 0 DRESSING - UPPER BODY - SCORE: 0-UNK DRESSING - LOWER BODY: Patient is not dressing in public clothing ARTICLES SCORE Total number of steps: 0 DRESSING - LOWER BODY - SCORE: 0-UNK TOILETING: TOILETING - STEP 1: Does the patient require assistance with toileting? Yes. TOILETING - STEP 2: Does the patient require the assistance of a helper? Yes. TOILETING - STEP 3: How much assistance does the patient require from the helper? Hands-on assistance from the helper TOILETING - STEP 4: Of the 3 tasks: 1) Adjusting clothing prior to use, 2) Cleansing of perineal area, 3) Adjusting clot bere after use; How many tasks does the patient perform WITHOUT assistance of the helper? One task TOILETING - SCORE: 2-MAX BLADDER MANAGEMENT: BLADDER MANAGEMENT - STEP 1: Does the patient control the bladder completely and intentionally without equipment or devices or med ications, and is always continent? No. BLADDER MANAGEMENT - STEP 2: Does the patient require the assistance of a helper? Yes. BLADDER MANAGEMENT - STEP 3: How much assistance does the patient require from the helper? Only set-up of equipment - such as plac ing it within reach of the patient or emptying a device - to maintain either satisfactory voiding pat tern or managing an external device, such as an absorbent pad, ileal device, or catheter BLADDER MANAGEMENT - SCORE: 5-SUP BOWEL MANAGEMENT: Activity did not occur on this shift BOWEL MANAGEMENT - SCORE: 7-IND TRANSFERS: BED, CHAIR, WHEELCHAIR: TRANSFERS: BED, CHAIR, WHEELCHAIR - STEP 1: Does the patient require assistance with bed, chair, or wheelchair transfers? Yes. TRANSFERS: BED, CHAIR, WHEELCHAIR - STEP 2: Does the patient require the assistance of a helper? Yes. TRANSFERS: BED, CHAIR, WHEELCHAIR - STEP 3: How much assistance does the patient require from the helper? Steadying/guiding assistance TRANSFERS: BED, CHAIR, WHEELCHAIR - SCORE: 4-MIN TRANSFERS: TOILET: TRANSFERS: TOILET - STEP 1: Does the patient require assistance with toilet transfers? Yes. TRANSFERS: TOILET - STEP 2: Does the patient require the assistance of a helper? Yes. TRANSFERS: TOILET - STEP 3: How much assistance does the patient require from the helper? Patient performs half or more of the tr ansferring tasks TRANSFERS: TOILET - STEP 4: Does the patient need only incidental help such as contact guard or steadying during toilet transfer? Yes. TRANSFERS: TOILET - SCORE: 4-MIN TRANSFERS: SHOWER: Activity did not occur on this shift TRANSFERS: SHOWER - SCORE: 0-UNK TRANSFERS: TUB: Activity did not occur on this shift TRANSFERS: TUB - SCORE: 0-UNK LOCOMOTION: WALK: Activity did not occur on this shift LOCOMOTION: WALK - SCORE: 0-UNK LOCOMOTION: WHEELCHAIR: Activity did not occur on this shift LOCOMOTION: WHEELCHAIR - SCORE: 0-UNK COMPREHENSION: COMPREHENSION: TYPE: Both COMPREHENSION - STEP 1: Does the patient require help to understand complex and abstract ideas (such as current events, finan mindy, discharge planning, medical issues, relationships, etc)? No. COMPREHENSION - STEP 2: Does the patient need extra time, require an assistive device (such as glasses for visual comprehensi on or a hearing aid for auditory comprehension) or does s/he have mild difficulty understanding compl ex and abstract information? Yes. COMPREHENSION - SCORE: 6-JANET EXPRESSION EXPRESSION: TYPE: Both EXPRESSION - STEP 1: Does the patient require help expressing complex and abstract ideas (such as current events, finances , discharge planning, medical issues, relationships, etc)? No. EXPRESSION - STEP 2: Does the patient need extra time, require an assistive device (such as augmentive communication syste m or a communication board), OR does s/he have mild difficulty expressing complex and abstract ideas (including mild dysarthria or mild word-find problems)? Yes. EXPRESSION - SCORE: 6-JANET SOCIAL INTERACTION: SOCIAL INTERACTION - STEP 1: Does the patient require a helper to interact with others in social and therapeutic situations? No. SOCIAL INTERACTION - STEP 2: Does the patient need extra time in social situations, OR does s/he interact with staff, other patien ts, and family members ONLY in structured environments, OR does s/he require medication for social in teraction? Yes, patient needs extra time SOCIAL INTERACTION - SCORE: 6-JANET PROBLEM SOLVING: PROBLEM SOLVING - STEP 1: Does the patient need help to solve complex problems such as managing a checking account or confronti ng interpersonal problems? No. PROBLEM SOLVING - STEP 2: Does the patient require extra time to make decisions or solve problems, OR does s/he have slight dif ficulty reading, initiating, or self-correcting in unfamiliar situations? Yes, patient needs extra ti me. PROBLEM SOLVING - SCORE: 6-JANET MEMORY: MEMORY - STEP 1: Does the patient need help to remember frequently encountered people, daily routines, and executing r equests? No. MEMORY - STEP 2: Does the patient have slight difficulty recognizing frequently encountered people, daily routines, or executing requests without the need for repetition or using self-initiated or environmental cues to remember? Yes. MEMORY - SCORE: 6-JANET SIGNATURE PANEL: The following modified sections: Eating - Score, Grooming - Score, Dressing - Upper Body - Score, Arun ssing - Lower Body - Score, Toileting - Score, Bladder Management - Score, Bowel Management - Score, Transfers: Bed, Chair, Wheelchair - Score, Transfers: Toilet - Score, Transfers: Shower - Score, Garzon sfers: Tub - Score, Locomotion: Walk - Score, Locomotion: Wheelchair - Score, Comprehension - Score, Expression - Score, Social Interaction - Score, Problem Solving - Score, Memory - Score were [electro nically] signed by Evelyn Grayson CNA on FriJul 09 2018 02:17:05 GMT-0500 (Central Daylight Time)
[2018-07-09] MEDS: ERLOTINIB 100 MG PO SCH (05:19)
[2018-07-09 06:06] LABS: Absolute Monocytes 1.4 K/uL (0.1-1.3); Basophils % 0.4 % (0-1.3); Eosinophils % 2.9 % (0-4.4); Hematocrit 31.2 % (36.0-45.0); Lymphocytes % 23.1 % (15.3-44.8); MCH 31.3 pg (27.0-35.0); MCV 92.6 fL (80-100); MPV 8.4 fL (7.6-11.3); Monocytes % 15.8 % (3.3-12.3); RBC Red Blood Cell Count 3.37 M/uL (3.86-4.86)
[2018-07-09 06:27] LABS: Albumin 2.9 g/dL (3.4-5.0); Potassium 4.6 mmol/L (3.5-5.1); Prealbumin 13.5 mg/dL (20-40)
[2018-07-09 06:56] LABS: Blood Morphology Comment NOT SEEN (NOT SEEN); Hypochromasia 1+; Platelet Estimate ADEQ
[2018-07-09] MEDS: LIOTHYRONINE SOD 25 MCG TAB PO SCH (07:30)
[2018-07-09] MEDS: LEVOTHYROXINE SOD 0.1 MG TAB PO SCH (07:53)
[2018-07-09] MEDS: MAGNESIUM OXIDE 400 MG TAB PO SCH ×2 (07:53→20:21)
[2018-07-09] MEDS: LIDOCAINE 5% PATCH TOP SCH (07:53)
[2018-07-09] MEDS: FERROUS SULFATE 325 MG TAB PO SCH (07:53)
[2018-07-09] MEDS: FE SULF/FA/VIT B COMP & C TAB PO SCH (07:53)
[2018-07-09] MEDS: RIVAROXABAN 10 MG TABLET PO SCH (07:53)
[2018-07-09] MEDS: GABAPENTIN 300 MG CAP PO SCH ×2 (07:54→20:19)
[2018-07-09] MEDS: SERTRALINE HCL 100 MG TAB PO SCH (07:54)
[2018-07-09] MEDS: ASPIRIN EC 81 MG TAB PO SCH (07:54)
[2018-07-09] MEDS: HYDROCODONE/APAP 10/325 TAB PO PRN ×3 (07:54→20:17)
[2018-07-09] MEDS: PROMOD 30 ML DOSE PO SCH ×2 (07:55→20:25)
[2018-07-09] MEDS: ENSURE PUDDING 4 OZ CUP PO SCH ×2 (07:56→20:00)
[2018-07-09] MEDS: PROPRANOLOL HCL 10 MG TAB PO SCH ×2 (08:59→20:20)
--- NOTE | 2018-07-09 13:40 | FAST ---
SHIFT START DATE/TIME: 07/09/2018 07:00 (CDT) SHIFT END DATE/TIME: 07/09/2018 19:00 (CDT) NAME GIBRAN BELTRAN DATE OF : 1940 DATE OF ADMISSION: 06/25/2018 15:15 (CDT) PHONE: AGE: 78 N# [id number] GENDER: Female ENCOUNTER PHYSICIAN: Dr. Roderick Min M.D. 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 EATING: EATING - STEP 1: Does the patient require assistance when eating? Yes. EATING - STEP 2: Does the patient require the assistance of a helper? No, patient only requires an assistive device, O R s/he takes more than reasonable time to eat, OR there is a safety concern, OR s/he requires modifie d food consistency EATING - SCORE: 6-JANET GROOMING: GROOMING - STEP 1: Does the patient require assistance when grooming? Yes. GROOMING - STEP 2: Does the patient require the assistance of a helper? Yes. GROOMING - STEP 3: How much assistance does the patient require from the helper? Only prior equipment preparation/set up from the helper GROOMING - SCORE: 5-SUP BATHING: Activity did not occur on this shift BATHING - SCORE: 0-UNK DRESSING - UPPER BODY: ARTICLES SCORE Total number of steps: 0 DRESSING - UPPER BODY - STEP 1: Does the patient require help when dressing above the waist? Yes. DRESSING - UPPER BODY - STEP 2: Does the patient require the assistance of a helper? Yes. DRESSING - UPPER BODY - STEP 3: Does the helper touch the patient while dressing? No. DRESSING - UPPER BODY - SCORE: 5-SUP DRESSING - LOWER BODY: Activity did not occur on this shift ARTICLES SCORE Total number of steps: 0 DRESSING - LOWER BODY - SCORE: 0-UNK TOILETING: TOILETING - STEP 1: Does the patient require assistance with toileting? Yes. TOILETING - STEP 2: Does the patient require the assistance of a helper? Yes. TOILETING - STEP 3: How much assistance does the patient require from the helper? Hands-on assistance from the helper TOILETING - STEP 4: Of the 3 tasks: 1) Adjusting clothing prior to use, 2) Cleansing of perineal area, 3) Adjusting clot bere after use; How many tasks does the patient perform WITHOUT assistance of the helper? Three tasks with steadying assistance from the helper TOILETING - SCORE: 4-MIN BLADDER MANAGEMENT: BLADDER MANAGEMENT - STEP 1: Does the patient control the bladder completely and intentionally without equipment or devices or med ications, and is always continent? No. BLADDER MANAGEMENT - STEP 2: Does the patient require the assistance of a helper? No, patient only requires extra time BLADDER MANAGEMENT - SCORE: 6-JANET BLADDER MANAGEMENT - FREQUENCY OF ACCIDENTS: BLADDER MANAGEMENT(FA) - STEP 1: How many accidents has the patient had during the current shift? 0 BOWEL MANAGEMENT: BOWEL MANAGEMENT - STEP 1: Does the patient control bowels completely and intentionally without equipment devices or medications AND is always continent? No. BOWEL MANAGEMENT - STEP 2: Does the patient require the assistance of a helper? No, patient requires extra time BOWEL MANAGEMENT - SCORE: 6-JANET BOWEL MANAGEMENT - FREQUENCY OF ACCIDENTS: BOWEL MANAGEMENT(FA) - STEP 1: How many accidents has the patient had during the current shift? 0 TRANSFERS: BED, CHAIR, WHEELCHAIR: TRANSFERS: BED, CHAIR, WHEELCHAIR - STEP 1: Does the patient require assistance with bed, chair, or wheelchair transfers? Yes. TRANSFERS: BED, CHAIR, WHEELCHAIR - STEP 2: Does the patient require the assistance of a helper? Yes. TRANSFERS: BED, CHAIR, WHEELCHAIR - STEP 3: How much assistance does the patient require from the helper? Steadying/guiding assistance TRANSFERS: BED, CHAIR, WHEELCHAIR - SCORE: 4-MIN TRANSFERS: TOILET: TRANSFERS: TOILET - STEP 1: Does the patient require assistance with toilet transfers? Yes. TRANSFERS: TOILET - STEP 2: Does the patient require the assistance of a helper? Yes. TRANSFERS: TOILET - STEP 3: How much assistance does the patient require from the helper? Patient performs half or more of the tr ansferring tasks TRANSFERS: TOILET - STEP 4: Does the patient need only incidental help such as contact guard or steadying during toilet transfer? No. Patient needs more than incidental help TRANSFERS: TOILET - SCORE: 3-MOD TRANSFERS: SHOWER: Activity did not occur on this shift TRANSFERS: SHOWER - SCORE: 0-UNK TRANSFERS: TUB: Activity did not occur on this shift TRANSFERS: TUB - SCORE: 0-UNK LOCOMOTION: WALK: Activity did not occur on this shift LOCOMOTION: WALK - SCORE: 0-UNK LOCOMOTION: WHEELCHAIR: LOCOMOTION: WHEELCHAIR - STEP 1: Does the patient need help to go 150 feet in a wheelchair? Yes. LOCOMOTION: WHEELCHAIR - STEP 2: How much assistance does the patient need from the helper? Only supervision, cuing, or coaxing LOCOMOTION: WHEELCHAIR - SCORE: 5-SUP COMPREHENSION: COMPREHENSION: TYPE: Both COMPREHENSION - STEP 1: Does the patient require help to understand complex and abstract ideas (such as current events, finan mindy, discharge planning, medical issues, relationships, etc)? No. COMPREHENSION - STEP 2: Does the patient need extra time, require an assistive device (such as glasses for visual comprehensi on or a hearing aid for auditory comprehension) or does s/he have mild difficulty understanding compl ex and abstract information? Yes. COMPREHENSION - SCORE: 6-JANET EXPRESSION EXPRESSION: TYPE: Both EXPRESSION - STEP 1: Does the patient require help expressing complex and abstract ideas (such as current events, finances , discharge planning, medical issues, relationships, etc)? No. EXPRESSION - STEP 2: Does the patient need extra time, require an assistive device (such as augmentive communication syste m or a communication board), OR does s/he have mild difficulty expressing complex and abstract ideas (including mild dysarthria or mild word-find problems)? Yes. EXPRESSION - SCORE: 6-JANET SOCIAL INTERACTION: SOCIAL INTERACTION - STEP 1: Does the patient require a helper to interact with others in social and therapeutic situations? No. SOCIAL INTERACTION - STEP 2: Does the patient need extra time in social situations, OR does s/he interact with staff, other patien ts, and family members ONLY in structured environments, OR does s/he require medication for social in teraction? Yes, patient needs extra time SOCIAL INTERACTION - SCORE: 6-JANET PROBLEM SOLVING: PROBLEM SOLVING - STEP 1: Does the patient need help to solve complex problems such as managing a checking account or confronti ng interpersonal problems? No. PROBLEM SOLVING - STEP 2: Does the patient require extra time to make decisions or solve problems, OR does s/he have slight dif ficulty reading, initiating, or self-correcting in unfamiliar situations? Yes, patient needs extra ti me. PROBLEM SOLVING - SCORE: 6-JANET MEMORY: MEMORY - STEP 1: Does the patient need help to remember frequently encountered people, daily routines, and executing r equests? No. MEMORY - STEP 2: Does the patient have slight difficulty recognizing frequently encountered people, daily routines, or executing requests without the need for repetition or using self-initiated or environmental cues to remember? No. MEMORY - SCORE: 7-IND SIGNATURE PANEL: The following modified sections: Eating - Score, Grooming - Score, Bathing - Score, Dressing - Upper Body - Score, Toileting - Score, Bladder Management - Score, Bowel Management - Score, Transfers: Bed , Chair, Wheelchair - Score, Transfers: Toilet - Score, Transfers: Shower - Score, Transfers: Tub - S core, Locomotion: Walk - Score, Locomotion: Wheelchair - Score, Comprehension - Score, Expression - S core, Social Interaction - Score, Problem Solving - Score, Memory - Score, Dressing - Lower Body - Sc ore were [electronically] signed by Jo Ann ValdovinosNEliseo on FriJul 09 2018 13:40:09 T-0500 (Centra l Daylight Time)
--- NOTE | 2018-07-09 14:15 | FAST ---
ENCOUNTER DATE AND TIME: 07/09/2018 08:00 (CDT) NAME GIBRAN BELTRAN DATE OF : 1940 DATE OF ADMISSION: 06/25/2018 15:15 (CDT) PHONE: AGE: 78 SSN# [id number] GENDER: Female ENCOUNTER PHYSICIAN: Dr. Roderick Min M.D. 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 EATING: Activity did not occur on this shift EATING - SCORE: 0-UNK GROOMING: Activity did not occur on this shift GROOMING - SCORE: 0-UNK BATHING: Activity did not occur on this shift BATHING - SCORE: 0-UNK DRESSING - UPPER BODY: Activity did not occur on this shift Patient is not dressing in public clothing ARTICLES SCORE Total number of steps: 0 DRESSING - UPPER BODY - SCORE: 0-UNK DRESSING - LOWER BODY: Activity did not occur on this shift Patient is not dressing in public clothing ARTICLES SCORE Total number of steps: 0 DRESSING - LOWER BODY - SCORE: 0-UNK TOILETING: Activity did not occur on this shift TOILETING - SCORE: 0-UNK BLADDER MANAGEMENT: Activity did not occur on this shift BLADDER MANAGEMENT - SCORE: 7-IND BOWEL MANAGEMENT: Activity did not occur on this shift BOWEL MANAGEMENT - SCORE: 7-IND TRANSFERS: BED, CHAIR, WHEELCHAIR: TRANSFERS: BED, CHAIR, WHEELCHAIR - STEP 1: Does the patient require assistance with bed, chair, or wheelchair transfers? Yes. TRANSFERS: BED, CHAIR, WHEELCHAIR - STEP 2: Does the patient require the assistance of a helper? Yes. TRANSFERS: BED, CHAIR, WHEELCHAIR - STEP 3: How much assistance does the patient require from the helper? Only supervision TRANSFERS: BED, CHAIR, WHEELCHAIR - SCORE: 5-SUP TRANSFERS: TOILET: Activity did not occur on this shift TRANSFERS: TOILET - SCORE: 0-UNK TRANSFERS: SHOWER: Activity did not occur on this shift TRANSFERS: SHOWER - SCORE: 0-UNK TRANSFERS: TUB: Activity did not occur on this shift TRANSFERS: TUB - SCORE: 0-UNK LOCOMOTION: WALK: LOCOMOTION: WALK - STEP 1: Does the patient need help to walk 150 feet? Yes. LOCOMOTION: WALK - STEP 2: How much assistance does the patient require to walk a minimum of 150 feet? Only supervision, cuing, or coaxing LOCOMOTION: WALK - SCORE: 5-SUP LOCOMOTION: WHEELCHAIR: Activity did not occur on this shift LOCOMOTION: WHEELCHAIR - SCORE: 0-UNK LOCOMOTION: STAIRS: LOCOMOTION: STAIRS - STEP 1: Does the patient need help to go up and down 12 to 14 stairs? Yes. LOCOMOTION: STAIRS - STEP 2: How much assistance does the patient need from the helper to go a minimum of 12 to 14 stairs? Only pardo pervision, cuing, or coaxing LOCOMOTION: STAIRS - SCORE: 5-SUP COMPREHENSION: COMPREHENSION - SCORE: 0-UNK EXPRESSION EXPRESSION - SCORE: 0-UNK SOCIAL INTERACTION: SOCIAL INTERACTION - SCORE: 0-UNK PROBLEM SOLVING: PROBLEM SOLVING - SCORE: 0-UNK MEMORY: MEMORY - SCORE: 0-UNK SIGNATURE PANEL: The following modified sections: Transfers: Bed, Chair, Wheelchair - Score, Transfers: Toilet - Score , Locomotion: Walk - Score, Locomotion: Wheelchair - Score, Locomotion: Stairs - Score were [electron ically] signed by Anselmo Murray PT on FriJul 09 2018 14:14:19 T-0500 (Central Daylight Time)
[2018-07-09 16:35] VITALS: BMI 20.2
--- NOTE | 2018-07-09 18:06 | R.PN ---
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 Pt denied any depression. Ambulated 1000' with contact guard assistance using a rolling walker. Up and down 15 steps with cont act guard assistance. Self-propelled wheelchair 200' with standby assistance. VITAL SIGNS Temperature: 97.6 F SBP/DBP: 114/80 Pulse:68 Resp: 14 MEDICATION ALLERGIES: No Known Drug Allergies (NKDA) ENVIRONMENTAL ALLERGIES: - Substance Allergies None Known - Other Allergies None Known NURSING: - Shower allowing shower - Bladder care per protocol - Skin care per protocol PRECAUTIONS: - Weight Bearing Precaution WBAT right LE ACTIVITIES OOB only with supervision THERAPIES: - Occupational Therapy Evaluate and Treat. Cognitive Retraining. Visual Perceptual Training. - Speech Therapy Memory Strategies. Expressive Language Skills. Speech Intelligibility Training. Cognitive Training. R eceptive Language Skills. - Physical Therapy Evaluate and Treat. PHYSICAL EXAM - Gen Alert and awake Lying in bed No apparent distress Oriented to: person, time, and place - Skin No skin breakdown. Normacephalic - Eyes No abnormalities - ENMT No abnormalities - Neck No abnormalities - CVS RRR - Chest No abnormalities - Abd +bowel sounds - GI nondistended Deferred - No abnormalities - Ext No significant edema - MSK 4+/5 weakness in right upper and lower extremities. - Neuro 4/5 strength right upper and lower extremities. - Psych No abnormalities ASSESSMENT: Pt. is a 78 yo Right-handed white female.On 06/21/2018 Pt. presented to [facility] with sudden onset of right-side weakness.On 06/21/2018 she was admitted to [facility] with diagnosis acute left midbrain infarct.Her impairment category is Stroke 01 - Right B vanessa (Left Brain) (01.2).Pre-morbidly, Pt. was independent/mod-I in Transfers Control, Communication, Social Cognition, Self-Care, Sphincter Control, and Locomotion; and she had good Sphincter Control.Cu rrently, she has deficits of Transfers Control, Communication, Social Cognition, Balance, Self-Care, Endurance, Safety Awareness, and Locomotion.Pt. is now referred to [facility] for acute in-patient rehabilitation in order to maximize patient's functional independence in activit ies of daily living, strength, ROM, and mobility.- Rehab Goal Patient has realistic goal of being discharged at assistance level 6-Vanessa to reside at Home with Fam adolph/Relatives. She has left more than right shoulder pain. X-rays of both shoulders showed no acute findings includi ng no fractures. 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.RoderickTXMDM/PLAN: - Physical Therapy Gait dysfunction - to improve, our physical therapists will perform initial evaluation of pt's statu s upon admission and devise an individualized program for Gait Training, and Wheel Chair mobility Inability to transfer - to improve, our physical therapists will perform initial evaluation of pt's status upon admission and devise an individualized program for Bed mobility Need for home safety evaluation - to improve, our physical therapists will perform initial evaluatio n of pt's status upon admission and devise an individualized program for Home Evaluation Need in caregiver upon discharge - to improve, our physical therapists will perform initial evaluati on of pt's status upon admission and devise an individualized program for Caregiver Training New precaution - to improve, our physical therapists will perform initial evaluation of pt's status upon admission and devise an individualized program for Patient precaution education Edema - to improve, our physical therapists will perform initial evaluation of pt's status upon admi ssion and devise an individualized program for Elevation Training, and Lymphedema Therapy Poor balance - to improve, our physical therapists will perform initial evaluation of pt's status up on admission and devise an individualized program for Balance Training Poor endurance - to improve, our physical therapists will perform initial evaluation of pt's status upon admission and devise an individualized program for Endurance Training Weakness - to improve, our physical therapists will perform initial evaluation of pt's status upon a dmission and devise an individualized program for Aquatic Therapy, Neuromuscular Reeducation, and Str engthening Achieving independence - to improve, our physical therapists will perform initial evaluation of pt's status upon admission and devise an individualized program for Community Reintegration Activities - Occupational Therapy ADL deficits - to improve, our occupation therapists will perform initial evaluation of pt's status upon admission and devise an individualized program for Bathing, Bed mobility, Community Reintegratio n, Cooking, Dressing, Eating, Fine Motor Skills, Grooming, Homemaking, Kitchen Mobility, Laundry, Pat ient Education, Safety Awareness, Splinting - Positioning, Transfers(Toilet, Tub, Shower), and Wheel Chair Management Cognitive deficits - to improve, our occupation therapists will perform initial evaluation of pt's s tatus upon admission and devise an individualized program for Cognition - orientation Need for rn long term care - to improve, our occupation therapists will perform initial evaluation of pt's status upon admission and devise an individualized program for Caregiver Training Weakness - to improve, our occupation therapists will perform initial evaluation of pt's status upon admission and devise an individualized program for Aquatic Therapy, Balance, Endurance, UE ROM, and UE strengthening - Diet Type Continue Regular - Diet - Liquid Texture Continue Regular - Tube Feed Continue N/A - Bladder care per protocol - Weight Bearing Precaution WBAT right LE - Skin care per protocol - Diet - Solid Texture Continue Regular - Shower allowing shower for Dementia, TBI, Stroke, or others FUNCTIONAL STATUS: UPDATED AT WEEKLY TEAM CONFERENCE - Bladder Same accident frequency: 7-Ind - No accidents in the past 7 days - Bowel Same accident frequency: 7-Ind - No accidents in the past 7 days - Walking Same score based on distance walked: 1(<=50ft) FUNCTIONAL STATUS: - Self-Care A. Eating Andra B. Grooming Andra C. Bathing Andra D. Dressing - Upper Andra E. Dressing - Lower modA F. Toileting modA - Sphincter Control G: Bladder control Ind H: Bowel control Ind - Transfers Control I. Bed/Chair/Wheelchair modA J. Toilet modA K. Tub/Shower modA - Locomotion L. Walk/Wheelchair (B) Dep M. Stairs ADNO - Communication N. Comprehension (B) sup O. Expression (B) sup - Social Cognition P. Social Interaction sup Q. Problem Solving sup R. Memory sup - Endurance Poor - Balance Poor - Safety Awareness Poor CURRENT FUNC. DEFICITS: Transfers Control, Communication, Social Cognition, Balance, Self-Care, Endurance, Safety Awareness, and Locomotion SIGNATURE PANEL: (CDT)
[2018-07-09] MEDS: ATORVASTATIN 40 MG TAB PO SCH (20:20)
[2018-07-09] MEDS: DONEPEZIL HCL 5 MG TAB PO SCH (20:20)
[2018-07-09 20:25] VITALS: TEMP 97.6
--- NOTE | 2018-07-10 01:29 | FAST ---
SHIFT START DATE/TIME: 07/09/2018 19:00 (CDT) SHIFT END DATE/TIME: 07/10/2018 07:00 (CDT) NAME GIBRAN BELTRAN DATE OF : 1940 DATE OF ADMISSION: 06/25/2018 15:15 (CDT) PHONE: AGE: 78 N# [id number] GENDER: Female ENCOUNTER PHYSICIAN: Dr. Roderick Min M.D. 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 EATING: Activity did not occur on this shift EATING - SCORE: 0-UNK GROOMING: Wash, rinse, and dry hands GROOMING - STEP 1: Does the patient require assistance when grooming? Yes. GROOMING - STEP 2: Does the patient require the assistance of a helper? Yes. GROOMING - STEP 3: How much assistance does the patient require from the helper? Only prior equipment preparation/set up from the helper GROOMING - SCORE: 5-SUP BATHING: Activity did not occur on this shift BATHING - SCORE: 0-UNK DRESSING - UPPER BODY: Patient is not dressing in public clothing ARTICLES SCORE Total number of steps: 0 DRESSING - UPPER BODY - SCORE: 0-UNK DRESSING - LOWER BODY: Patient is not dressing in public clothing ARTICLES SCORE Total number of steps: 0 DRESSING - LOWER BODY - SCORE: 0-UNK TOILETING: TOILETING - STEP 1: Does the patient require assistance with toileting? Yes. TOILETING - STEP 2: Does the patient require the assistance of a helper? Yes. TOILETING - STEP 3: How much assistance does the patient require from the helper? Only supervision TOILETING - SCORE: 5-SUP BLADDER MANAGEMENT: BLADDER MANAGEMENT - STEP 1: Does the patient control the bladder completely and intentionally without equipment or devices or med ications, and is always continent? No. BLADDER MANAGEMENT - STEP 2: Does the patient require the assistance of a helper? Yes. BLADDER MANAGEMENT - STEP 3: How much assistance does the patient require from the helper? Only supervision, stand-by, cuing, or c oaxing BLADDER MANAGEMENT - SCORE: 5-SUP BOWEL MANAGEMENT: Activity did not occur on this shift BOWEL MANAGEMENT - SCORE: 7-IND TRANSFERS: BED, CHAIR, WHEELCHAIR: TRANSFERS: BED, CHAIR, WHEELCHAIR - STEP 1: Does the patient require assistance with bed, chair, or wheelchair transfers? Yes. TRANSFERS: BED, CHAIR, WHEELCHAIR - STEP 2: Does the patient require the assistance of a helper? Yes. TRANSFERS: BED, CHAIR, WHEELCHAIR - STEP 3: How much assistance does the patient require from the helper? Steadying/guiding assistance TRANSFERS: BED, CHAIR, WHEELCHAIR - SCORE: 4-MIN TRANSFERS: TOILET: TRANSFERS: TOILET - STEP 1: Does the patient require assistance with toilet transfers? Yes. TRANSFERS: TOILET - STEP 2: Does the patient require the assistance of a helper? Yes. TRANSFERS: TOILET - STEP 3: How much assistance does the patient require from the helper? Only supervision, cuing, coaxing, OR he lp to set out transfer equipment or to lock brakes and/or lift foot rests TRANSFERS: TOILET - SCORE: 5-SUP TRANSFERS: SHOWER: Activity did not occur on this shift TRANSFERS: SHOWER - SCORE: 0-UNK TRANSFERS: TUB: Activity did not occur on this shift TRANSFERS: TUB - SCORE: 0-UNK LOCOMOTION: WALK: Activity did not occur on this shift LOCOMOTION: WALK - SCORE: 0-UNK LOCOMOTION: WHEELCHAIR: Activity did not occur on this shift LOCOMOTION: WHEELCHAIR - SCORE: 0-UNK COMPREHENSION: COMPREHENSION: TYPE: Both COMPREHENSION - STEP 1: Does the patient require help to understand complex and abstract ideas (such as current events, finan mindy, discharge planning, medical issues, relationships, etc)? No. COMPREHENSION - STEP 2: Does the patient need extra time, require an assistive device (such as glasses for visual comprehensi on or a hearing aid for auditory comprehension) or does s/he have mild difficulty understanding compl ex and abstract information? Yes. COMPREHENSION - SCORE: 6-JANET EXPRESSION EXPRESSION: TYPE: Both EXPRESSION - STEP 1: Does the patient require help expressing complex and abstract ideas (such as current events, finances , discharge planning, medical issues, relationships, etc)? No. EXPRESSION - STEP 2: Does the patient need extra time, require an assistive device (such as augmentive communication syste m or a communication board), OR does s/he have mild difficulty expressing complex and abstract ideas (including mild dysarthria or mild word-find problems)? Yes. EXPRESSION - SCORE: 6-JANET SOCIAL INTERACTION: SOCIAL INTERACTION - STEP 1: Does the patient require a helper to interact with others in social and therapeutic situations? No. SOCIAL INTERACTION - STEP 2: Does the patient need extra time in social situations, OR does s/he interact with staff, other patien ts, and family members ONLY in structured environments, OR does s/he require medication for social in teraction? Yes, patient needs extra time SOCIAL INTERACTION - SCORE: 6-JANET PROBLEM SOLVING: PROBLEM SOLVING - STEP 1: Does the patient need help to solve complex problems such as managing a checking account or confronti ng interpersonal problems? No. PROBLEM SOLVING - STEP 2: Does the patient require extra time to make decisions or solve problems, OR does s/he have slight dif ficulty reading, initiating, or self-correcting in unfamiliar situations? Yes, patient needs extra ti me. PROBLEM SOLVING - SCORE: 6-JANET MEMORY: MEMORY - STEP 1: Does the patient need help to remember frequently encountered people, daily routines, and executing r equests? No. MEMORY - STEP 2: Does the patient have slight difficulty recognizing frequently encountered people, daily routines, or executing requests without the need for repetition or using self-initiated or environmental cues to remember? Yes. MEMORY - SCORE: 6-JANET SIGNATURE PANEL: The following modified sections: Eating - Score, Grooming - Score, Dressing - Upper Body - Score, Arun ssing - Lower Body - Score, Toileting - Score, Bladder Management - Score, Bowel Management - Score, Transfers: Bed, Chair, Wheelchair - Score, Transfers: Toilet - Score, Transfers: Shower - Score, [place] sfers: Tub - Score, Locomotion: Walk - Score, Locomotion: Wheelchair - Score, Comprehension - Score, Expression - Score, Social Interaction - Score, Problem Solving - Score, Memory - Score were [electro nically] signed by Evelyn Grayson CNA on FriJul 10 2018 01:27:45 GMT-0500 (Central Daylight Time)
[2018-07-10] MEDS: ERLOTINIB 100 MG PO SCH (05:13)
[2018-07-10] MEDS: LIOTHYRONINE SOD 25 MCG TAB PO SCH (07:55)
[2018-07-10] MEDS: LIDOCAINE 5% PATCH TOP SCH (07:55)
[2018-07-10] MEDS: ASPIRIN EC 81 MG TAB PO SCH (07:55)
[2018-07-10] MEDS: RIVAROXABAN 10 MG TABLET PO SCH (07:55)
[2018-07-10] MEDS: FERROUS SULFATE 325 MG TAB PO SCH (07:55)
[2018-07-10] MEDS: SERTRALINE HCL 100 MG TAB PO SCH (07:56)
[2018-07-10] MEDS: PROMOD 30 ML DOSE PO SCH (07:56)
[2018-07-10] MEDS: LEVOTHYROXINE SOD 0.1 MG TAB PO SCH (07:56)
[2018-07-10] MEDS: FE SULF/FA/VIT B COMP & C TAB PO SCH (07:56)
[2018-07-10] MEDS: GABAPENTIN 300 MG CAP PO SCH (07:56)
[2018-07-10] MEDS: PROPRANOLOL HCL 10 MG TAB PO SCH (07:56)
[2018-07-10] MEDS: MAGNESIUM OXIDE 400 MG TAB PO SCH (07:56)
[2018-07-10 07:58] VITALS: BP 106/45
[2018-07-10] MEDS: ENSURE PUDDING 4 OZ CUP PO SCH (07:58)
[2018-07-10] MEDS ORDERED: INFLUENZA VACCINE (for 3y+) 0.5 ML DOSE IMVAC ONE (09:00)
--- NOTE | 2018-07-10 09:45 | P.RH.PN ---
Estimated Length of Stay: 16 Expected Discharge Date: 07/10/18 Discharge Disposition Plan: Home Family Support: Yes Custodial Goal: Mobility, Transfers, Self Care Vital Signs: Last Vital Signs Temp 97.6 F 07/10/18 07:05 Pulse 60 07/10/18 07:56 Resp 16 07/10/18 07:05 BP 106/45 L 07/10/18 07:56 Pulse Ox 96 07/10/18 07:05 Laboratory: Laboratory Last Values WBC 8.6 K/uL (4.3-10.9) D 07/09/18 05:40 RBC 3.37 M/uL (3.86-4.86) L 07/09/18 05:40 Hgb 10.6 g/dL (12.0-15.0) L 07/09/18 05:40 Hct 31.2 % (36.0-45.0) L 07/09/18 05:40 MCV 92.6 fL (80-100) 07/09/18 05:40 MCH 31.3 pg (27.0-35.0) 07/09/18 05:40 MCHC 33.9 g/dL (32.0-36.0) 07/09/18 05:40 RDW 13.0 % (12.1-15.2) 07/09/18 05:40 Plt Count 373 K/uL (152-406) 07/09/18 05:40 MPV 8.4 fL (7.6-11.3) 07/09/18 05:40 Neutrophils % 57.8 % (41.7-73.7) 07/09/18 05:40 Lymphocytes % 23.1 % (15.3-44.8) 07/09/18 05:40 Monocytes % 15.8 % (3.3-12.3) H 07/09/18 05:40 Eosinophils % 2.9 % (0-4.4) 07/09/18 05:40 Basophils % 0.4 % (0-1.3) 07/09/18 05:40 Absolute Neutrophils 5.0 K/uL (1.8-8.0) 07/09/18 05:40 Segmented Neutrophils 56 % (40-80) 07/09/18 05:40 Absolute Lymphocytes 2.0 K/uL (0.7-4.9) 07/09/18 05:40 Lymphocytes 22 % (15-42) 07/09/18 05:40 Monocytes 16 % (0-10) H 07/09/18 05:40 Absolute Monocytes 1.4 K/uL (0.1-1.3) H 07/09/18 05:40 Eosinophils 5 % (0-3) H 07/09/18 05:40 Absolute Eosinophils 0.2 K/uL (0-0.5) 07/09/18 05:40 Basophils 1 % (0-1) 07/09/18 05:40 Absolute Basophils 0.0 K/uL (0-0.5) 07/09/18 05:40 Hypochromasia 1+ 07/09/18 05:40 Morphology Comment Not seen (NOT SEEN) 07/09/18 05:40 Sodium 143 mmol/L (136-145) 07/09/18 05:40 Potassium 4.6 mmol/L (3.5-5.1) 07/09/18 05:40 Chloride 104 mmol/L (98-107) 07/09/18 05:40 Carbon Dioxide 35 mmol/L (21-32) H 07/09/18 05:40 BUN 18 mg/dL (7-18) 07/09/18 05:40 Creatinine 0.80 mg/dL (0.55-1.3) 07/09/18 05:40 Estimated GFR 69 mL/min (=/>90) L 07/09/18 05:40 Glucose 92 mg/dL (74-106) 07/09/18 05:40 Calcium 8.9 mg/dL (8.5-10.1) 07/09/18 05:40 Magnesium 2.1 mg/dL (1.8-2.4) 06/26/18 04:03 Albumin 2.9 g/dL (3.4-5.0) L 07/09/18 05:40 Prealbumin 13.5 mg/dL (20-40) L 07/09/18 05:40 Urine Color Dk yellow 06/25/18 20:50 Urine Appearance Clear 06/25/18 20:50 Urine pH 6.0 (5.0-7.0) 06/25/18 20:50 Ur Specific [place] 1.025 (1.005-1.030) 06/25/18 20:50 Urine Ketones Negative (NEG) 06/25/18 20:50 Urine Blood Negative (NEG) 06/25/18 20:50 Urine Nitrite Negative (NEG) 06/25/18 20:50 Urine Bilirubin Negative (NEG) 06/25/18 20:50 Urine Urobilinogen 0.2 mg/dL (0.2-1.0) 06/25/18 20:50 Ur Leukocyte Esterase Negative (NEG) 06/25/18 20:50 Urine RBC 5-10 /HPF (NONE SEEN) H 06/25/18 20:50 Urine WBC <5 /HPF (<5) 06/25/18 20:50 Ur Squamous Epith Cells 5-10 /HPF (NONE SEEN) H 06/25/18 20:50 Urine Bacteria <20 /HPF (<20) 06/25/18 20:50 Urine Culture Reflexed Not needed 06/25/18 20:50 Urine Glucose Negative (NEG) 06/25/18 20:50 Urine Total Protein 1+ (NEG) H 06/25/18 20:50 Weight: 121 lb 6.4 oz Wound Present: No Closed Surgical Incision Present: No Negative Pressure Wound Therapy Present: No Physician Update: Her labs have been reviewed and are stable. Her Hgb is 10.6. Her albumin is 13.5. She did well with physical, occupational therapy and speech therapy. She will be discharged home today. Pain Issues: [place] 10/325mg Q6H PRN PO. Tramadol 50mg Q4H PRN PO Functional Improvement: pt demonstrated improved balance and stability during ambulation and functional mobility. pt's dtr able to safely gaurd patient during all necessary functional mobility. Functional Improvement Occupational Therapy: pt can benifit with further therapy to address pt's UB strength and ROM, cont to increase pt's safety awareness and cont to educate pt on energy conservation techniques. Cont to increase pt's FMC/GMC for adl tasks and increase pt's activity tolerance for adl tasks. Speech Therapy Update: Patient has made good gains in communication, swallowing and cognition. Repeat MBSS was complete and revealed aspiration on thin and nectar thick liquids. Swallow function however improved for increased tolerance of solids. Patient now upgraded to regular foods and honey thick liquids. Comprehension improved to supervision level. Speech is now 100% intelligible; verbal expression at MOD I level. Cognition imprived to Supervision Summary: Patient's care plan and custodial goals have been reviewed and revised as necessary. Please see the Rehabilitation Signature page for all necessary signatures.
--- NOTE | 2018-07-10 14:59 | FAST ---
ENCOUNTER DATE AND TIME: 07/10/2018 08:00 (CDT) NAME GIBRAN BELTRAN DATE OF : 1940 DATE OF ADMISSION: 06/25/2018 15:15 (CDT) PHONE: AGE: 78 SSN# [id number] GENDER: Female ENCOUNTER PHYSICIAN: Dr. Roderick Min M.D. 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 EATING: Activity did not occur on this shift EATING - SCORE: 0-UNK GROOMING: Comb/brush hair Wash, rinse, and dry face Wash, rinse, and dry hands GROOMING - STEP 1: Does the patient require assistance when grooming? No. GROOMING - SCORE: 7-IND BATHING: Abdomen Buttocks Chest Left arm Left lower leg and foot Left upper leg Perineal area Right arm Right lower leg and foot Right upper leg BATHING - STEP 1: Does the patient require assistance when bathing? Yes. BATHING - STEP 2: Does the patient require the assistance of a helper? No. The patient only requires an assistive devic e such as a bath robyn, OR the patient takes more than reasonable time to bathe, OR there is a concern for safety such as regulating water temperature as the patient bathes. BATHING - SCORE: 6-JANET DRESSING - UPPER BODY: Bra (three steps) T-shirt/pullover shirt (four steps) ARTICLES SCORE Total number of steps: 7 DRESSING - UPPER BODY - STEP 1: Does the patient require help when dressing above the waist? No. DRESSING - UPPER BODY - SCORE: 7-IND DRESSING - LOWER BODY: Elastic waist pants (three steps) Slip-on shoe - Left foot (one step) Slip-on shoe - Right foot (one step) Sock - Left foot (one step) Sock - Right foot (one step) Underwear (three steps) ARTICLES SCORE Total number of steps: 10 DRESSING - LOWER BODY - STEP 1: Does the patient require help when dressing below the waist? Yes. DRESSING - LOWER BODY - STEP 2: Does the patient require the assistance of a helper? No. Patient requires an assistive device such as a manager banquet. OR s/he takes more than reasonable time as s/he dresses the lower body, OR there is a con cern for safety when s/he dresses the lower body DRESSING - LOWER BODY - SCORE: 6-JANET TOILETING: Activity did not occur on this shift TOILETING - SCORE: 0-UNK BLADDER MANAGEMENT: Activity did not occur on this shift BLADDER MANAGEMENT - SCORE: 7-IND BOWEL MANAGEMENT: Activity did not occur on this shift BOWEL MANAGEMENT - SCORE: 7-IND TRANSFERS: BED, CHAIR, WHEELCHAIR: Activity did not occur on this shift TRANSFERS: BED, CHAIR, WHEELCHAIR - SCORE: 0-UNK TRANSFERS: TOILET: Activity did not occur on this shift TRANSFERS: TOILET - SCORE: 0-UNK TRANSFERS: SHOWER: TRANSFERS: SHOWER - STEP 1: Does the patient require assistance with shower transfers? Yes. TRANSFERS: SHOWER - STEP 2: Does the patient require the assistance of a helper? No. The patient only uses an assistive device, t akes more than reasonable time, OR there is a concern for safety when s/he performs transfers. TRANSFERS: SHOWER - SCORE: 6-JANET TRANSFERS: TUB: Activity did not occur on this shift TRANSFERS: TUB - SCORE: 0-UNK LOCOMOTION: WALK: Activity did not occur on this shift LOCOMOTION: WALK - SCORE: 0-UNK LOCOMOTION: WHEELCHAIR: Activity did not occur on this shift LOCOMOTION: WHEELCHAIR - SCORE: 0-UNK LOCOMOTION: STAIRS: Activity did not occur on this shift LOCOMOTION: STAIRS - SCORE: 0-UNK COMPREHENSION: COMPREHENSION - SCORE: 0-UNK EXPRESSION EXPRESSION - SCORE: 0-UNK SOCIAL INTERACTION: SOCIAL INTERACTION - SCORE: 0-UNK PROBLEM SOLVING: PROBLEM SOLVING - SCORE: 0-UNK MEMORY: MEMORY - SCORE: 0-UNK SIGNATURE PANEL: The following modified sections: Eating - Score, Grooming - Score, Bathing - Score, Dressing - Upper Body - Score, Dressing - Lower Body - Score, Toileting - Score, Transfers: Bed, Chair, Wheelchair - S core, Transfers: Toilet - Score, Transfers: Shower - Score, Transfers: Tub - Score, Comprehension - S core, Expression - Score, Social Interaction - Score, Problem Solving - Score, Memory - Score were [e lectronically] signed by JOANA Pereyra on FriJul 10 2018 14:58:16 T-0500 ([facility])
== END 2018-07-10 13:45 | disposition home health service (06) | DRG 57 ==
LOC: 5TH 15:15
PROVIDERS: ADMIT Psychiatry & Neurology Neurology with Special Qualifications in Child Neurology; ATTEND Psychiatry & Neurology Neurology with Special Qualifications in Child Neurology
DX: I69.351 Hemiplegia and hemiparesis following cerebral infarction affecting right dominant side (principal); C34.90 Malignant neoplasm of unspecified part of unspecified bronchus or lung; E03.9 Hypothyroidism, unspecified; F41.9 Anxiety disorder, unspecified; F03.90 Unspecified dementia, unspecified severity, without behavioral disturbance, psychotic disturbance, mood disturbance, and anxiety; I49.9 Cardiac arrhythmia, unspecified
CPT/HCPCS: 36415; 70551; 74230; 80048; 81001; 82040; 83735; 84134; 85025; 87077; 87086; 87088; 87186; 97542; G0008; J1650; Q2035

== ENCOUNTER 2018-11-26 12:49 | Observation (INO) | payer OTHER ==
--- OUTSIDE RECORDS SUMMARY | 2018-11-26 12:52 | XMS REPORT ---
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 Assessment Hot flashes due to menopause N95.1 Active Assessment Adenocarcinoma of right lung C34.91 Active Assessment Acquired hypothyroidism E03.9 Active Assessment Depression with anxiety F41.8 Active Assessment Vitamin B12 deficiency (dietary) D51.8 Active anemia Assessment Essential tremor G25.0 Active Assessment Primary insomnia F51.01 Active Medications Medication Code Code Instructions Start End Status Dosage System Date Date Mirtazapine [facility] 93318382558 15 MG Orally April 09, Active 1 tablet Once a day 2017 at bedtime Levothyroxine [facility] 30515153166 112 MCG Orally Active 1 tablet Sodium Once a day on an empty stomach in the morning Liothyronine [facility] 24047938191 25 MCG Active TAKE 1 Sodium TABLET BY MOUTH 1 TIME DAILY. Synthroid [facility] 99059682040 112 MCG Active 1 each once a day orally Premarin ND 96296312056 0.3 MG Orally Active 1 tablet Daily Xanax ND 30890268515 0.5 MG Orally Active 1 tablet Twice a day Premarin [facility] 62010837003 0.3 MG Orally December Active 1 tablet Daily 2017 Nitroglycerin [facility] 74397819422 0.4 MG Active not Sublingual defined Albuterol Sulfate [facility] 07534670790 108 (90 Base) Active 2 puffs as MCG/ACT needed Inhalation every 6 hrs Zoloft [facility] 08109696180 50 MG Orally Active 1 tablet Once a day Propranolol HCl [facility] 02619537402 10 MG Orally April 09, Active 1 tablet Twice a day 2017 Zoloft [facility] 03969714524 50 MG Orally Active 1 tablet Once a day Results No Known Results Summary Purpose eClinicalWorks Submission
--- OUTSIDE RECORDS SUMMARY | 2018-11-26 12:52 | XMS REPORT ---
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 Problem Adenocarcinoma of right lung C34.91 Active Problem Depression with anxiety F41.8 Active Problem Mixed hyperlipidemia E78.2 Active Problem 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 Problem Essential tremor G25.0 Active Problem Hospital discharge follow-up Z09 Active Problem Vitamin B12 deficiency (dietary) D51.8 Active anemia Problem Hot flashes due to menopause N95.1 Active Problem Primary insomnia F51.01 Active Problem Osteoarthritis, unspecified M19.90 Active osteoarthritis type, unspecified site Medications No Known Medications Results No Known Results Summary Purpose eClinicalWorks Submission
--- OUTSIDE RECORDS SUMMARY | 2018-11-26 12:52 | XMS REPORT ---
[...] N95.1 Active Problem Coronary artery disease of [place] I25.118 Active artery of eek heart with stable angina pectoris Assessment Osteoarthritis, unspecified M19.90 Active osteoarthritis type, unspecified site Assessment Adenocarcinoma of right lung C34.91 Active Assessment Mixed hyperlipidemia E78.2 Active Assessment Coronary artery disease of [place] I25.118 Active artery of eek heart with stable angina pectoris Assessment Hot flashes due to menopause N95.1 Active Assessment Vitamin B12 deficiency (dietary) D51.8 Active anemia Medications Medication Code Code Instructions Start End Status Dosage System Date Date Nitroglycerin [facility] 56080838664 0.4 MG Active not Sublingual defined Premarin [facility] 48655173737 0.3 MG Orally December Active 1 tablet Daily 2017 Zoloft [facility] 83884766154 50 MG Orally December Active 1 tablet Once a day 2017 Liothyronine [facility] 04814432470 25 MCG Orally Active 1 tablet Sodium Once a day on an empty stomach Levothyroxine [facility] 20416565567 112 MCG Orally Active 1 tablet Sodium Once a day on an empty stomach in the morning Zoloft [facility] 10904752171 50 MG Orally Active 1 tablet Once a day Albuterol [facility] [address]-62 108 (90 Base) Active 2 puffs Sulfate MCG/ACT as needed Inhalation every 6 hrs Xanax [facility] 50038857909 0.5 MG Orally Active 1 tablet Twice a day Premarin [facility] 88370031928 0.3 MG Orally Active 1 tablet Daily for Three Weeks, 1 Week off Results No Known Results Summary Purpose eClinicalWorks Submission
--- OUTSIDE RECORDS SUMMARY | 2018-11-26 12:52 | XMS REPORT | Clinical Summary ---
:1940 Author Organization [facility] Address [address] [place] [address] Care Team Providers Name Role Phone Brigitte Enrique DO Primary Care Provider Allergies Active Allergy Reactions Severity Noted Date Comments Codeine Sulfate 01/03/2016 Hydromorphone 08/21/2017 Morphine Sulfate 01/03/2016 Jqomvkwh-Pqyrgjllfp-Effebyiaq 08/21/2017 Butorphanol Tartrate 08/21/2017 Medications Medication Sig Dispensed Refills Start Date End Date Status amitriptyline (ELAVIL) Take 10 mg by 0 Active 10 MG tablet mouth nightly. methocarbamol (ROBAXIN) 2 (two) times a 0 12/01/2015 Active 500 MG tablet day. topiramate (TOPAMAX) 25 . 0 08/30/2015 Active MG tablet HYDROcodone-acetaminoph Take 1 tablet by 0 Active en (NORCO) 7.5-325 mg mouth every 6 per tablet (six) hours as needed for moderate pain. LIOTHYRONINE SODIUM Take 15 mg by 0 Active (LIOTHYRONINE ORAL) mouth nightly. levothyroxine TAKE 1 TABLET BY 1 07/07/2017 Active (SYNTHROID, LEVOXYL) MOUTH 1 TIME 100 mcg tablet DAILY. benzonatate (TESSALON) . 0 12/13/2015 Active 200 MG capsule pantoprazole (PROTONIX) . 0 12/11/2015 Active 40 MG EC tablet nitroglycerin Place under the 0 Active (NITROSTAT) 0.3 MG SL tongue. tablet isosorbide mononitrate TAKE 1 TABLET BY 1 06/03/2017 Active (IMDUR) 30 MG 24 hr MOUTH 1 TIME tablet DAILY. estrogens, conjugated, Take 1.25 mg by 0 Active (PREMARIN) 1.25 MG mouth daily. tablet rosuvastatin (CRESTOR) Take 20 mg by 0 Active 20 MG tablet mouth daily. sulfamethoxazole-trimet Take 1 tablet by 0 Active hoprim (BACTRIM DS) mouth 2 (two) 800-160 mg per tablet times a day. Active Problems Not on file Encounters Date Type Specialty Care Team Description 03/27/2018 Hospital Encounter Radiology after 11/25/2017 Family History Medical History Relation Name Comments [...] Assigned at Date Recorded Not on file Job Start Date Occupation Industry Not on file Not on file Not on file Travel History Travel Start Travel End No recent travel history available. Last Filed Vital Signs Not on file Plan of Treatment Health Maintenance Due Date Last Done Comments SHINGLES VACCINES (#1) 1990 65+ PNEUMOCOCCAL VACCINE (1 of 2 - PCV13) 2005 PNEUMOCOCCAL POLYSACCHARIDE VACCINE AGE 65 AND OVER 2005 INFLUENZA VACCINE 04/22/2018 Results Not on fileafter 11/25/2017 Insurance Payer Benefit Plan / Group Subscriber ID Type Phone Address MEDICARE MEDICARE PART A AND B xxxxxxxxxx Medicare [place], [place] Advance Directives Patient has advance care planning documents on file. For more information, please contact:[place] [address]
--- OUTSIDE RECORDS SUMMARY | 2018-11-26 12:52 | XMS REPORT ---
:1940 [facility] Address [address] [place] [address] [address] [place] [address] Care Team Providers Name Role Phone Unavailable Unavailable Unavailable Problems This patient has no known problems. Allergies, Adverse Reactions, Alerts This patient has no known allergies or adverse reactions. Medications This patient has no known medications.
--- OUTSIDE RECORDS SUMMARY | 2018-11-26 12:52 | XMS REPORT ---
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
[2018-11-26] MEDS ORDERED: ACETAMINOPHEN 500 MG TAB ONE (16:02)
[2018-11-26 16:48] LABS: Absolute Lymphocytes (CBC) 0.9 K/uL (0.7-4.9); Absolute Monocytes 1.3 K/uL (0.1-1.3); Absolute Neutrophil 12.9 K/uL (1.8-8.0); Basophils % 0.1 % (0-1.3); Eosinophils % 0.3 % (0-4.4); Hematocrit 32.5 % (36.0-45.0); Lymphocytes % 5.8 % (15.3-44.8); MPV 8.5 fL (7.6-11.3); Monocytes % 8.6 % (3.3-12.3); RBC Red Blood Cell Count 3.58 M/uL (3.86-4.86)
[2018-11-26 17:12] LABS: Potassium 3.7 mmol/L (3.5-5.1)
[2018-11-26 17:13] LABS: Albumin 3.4 g/dL (3.4-5.0); Bilirubin Direct 0.1 mg/dL (0-0.2); Bilirubin Total 0.4 mg/dL (0.2-1.0); Protein, Total 7.8 g/dL (6.4-8.2)
[2018-11-26 17:36] LABS: Blood Morphology Comment NOT SEEN (NOT SEEN); Platelet Estimate ADEQ; Urine White Blood Cell Casts OK
[2018-11-26 17:42] LABS: Urine Bacteria LOADED /HPF (<20); Urine Culture Reflex Order REFLEXED; Urine RBC NONE SEEN /HPF (NONE SEEN)
[2018-11-26] MEDS ORDERED: TETANUS & DIPHTHERIA TOX,ADULT 0.5 ML VIAL ONE (17:44)
[2018-11-26] MEDS ORDERED: METHYLPREDNISOLONE 40 MG INJ ONE (17:44)
[2018-11-26] MEDS ORDERED: PIPER/TAZO/NS 3.375gm 3.375 GM/100 ML BAG ONE (17:45)
--- NOTE | 2018-11-26 17:58 | RAD REPORT ---
EXAM DESCRIPTION: CT - Head Brain Wo Cont - 11/26/2018 5:40 pm CLINICAL HISTORY: Headache COMPARISON: June 2018 MRI brain TECHNIQUE: Computed axial tomography of the head was obtained. IV contrast was not requested. All CT scans are performed using dose optimization technique as appropriate and may include automated exposure control or mA/KV adjustment according to patient size. FINDINGS: An intracranial bleed is not seen . The ventricles are normal in caliber. No extra-axial fluid collection is noted. Low-density within the left cerebral peduncle and left midbrain is secondary to an old infarct. Mild atrophy is present. Mild to moderate low-density areas within periventricular, deep and subcortical white matter likely r epresent ischemic changes secondary to small vessel disease Fluid within the sinuses/ mastoids is not seen. IMPRESSION: No acute intracranial abnormality is seen. If patient's symptoms persist MRI of the bra in would be recommended.
[2018-11-26] MEDS ORDERED: ERYTHROMYCIN 1 APPL/1 GM TUBE EACH EYE ONE (18:00)
[2018-11-26] MEDS ORDERED: VANCOMYCIN/NS 1 gm 1 GM/250 ML BAG IVPB ONE (18:00)
--- NOTE | 2018-11-26 18:02 | RAD REPORT ---
EXAM DESCRIPTION: CT - Soft Tissue Neck W/Contr - 11/26/2018 5:41 pm CLINICAL HISTORY: Neck pain and neck swelling COMPARISON: None. TECHNIQUE: Computed axial tomography of the neck was obtained. 50 cc Isovue-300 administered intrave nously. Coronal and sagittal reconstruction was performed All CT scans are performed using dose optimization technique as appropriate and may include automated exposure control or mA/KV adjustment according to patient size. FINDINGS: The pharynx, larynx, tongue base and subglottic trachea are unremarkable. The parotid, and submandibular glands are unremarkable. A thyroid mass is not noted. Patient has a known neck and mediastinal lymphadenopathy. Spondylosis involves the cervical spine. IMPRESSION: No acute abnormality is displayed. Patient has known neck and mediastinal lymphadenopathy
--- NOTE | 2018-11-26 18:06 | RAD REPORT ---
EXAM DESCRIPTION: CT - Facial Bones W/ Mpr - 11/26/2018 5:41 pm CLINICAL HISTORY: Facial facial pain and swelling TECHNIQUE: Computed axial tomography of the face was obtained. Coronal and sagittal reconstruction w as performed. All CT scans are performed using dose optimization technique as appropriate and may include automated exposure control or mA/KV adjustment according to patient size. FINDINGS: Edema is present within the subcutaneous tissues of the right greater than left. Preseptal swelling is present bilaterally. A fluid-filled abscess is not seen. The globes are intact. Fluid within the sinuses is not noted. IMPRESSION: Diffuse edema within the subcutaneous tissues of the face as well is preseptal edema. Mo st likely this is an allergic response. This should be correlated clinically
--- NOTE | 2018-11-26 18:13 | ER ---
Nurse's Notes [facility] Name: Ileana Lopez Age: 78 yrs Sex: Female : 1940 Arrival Date: 11/26/2018 Time: 12:53 Bed 5 Private MD: Brigitte Enrique Diagnosis: Cellulitis of face Presentation: 11/26 13:04 Presenting complaint: Worsening itchy rash to entire face, neck, and upper torso after hb she slipped on bank of [employer] 2 weeks ago. Daughter reports seeing poison alban in the area. Transition of care: patient was not received from another setting of care. Onset of symptoms was November 11, 2018. Risk Assessment: Do you want to hurt yourself or someone else? Patient reports no desire to harm self or others. Care prior to arrival: None. 13:04 Method Of Arrival: Wheelchair hb 13:04 Acuity: JUSTIN 3 hb 14:04 Initial Sepsis Screen: Does the patient meet any 2 criteria? HR > 90 bpm. Yes Does the hj patient have a suspected source of infection? Yes: Skin breakdown/wound. Triage Assessment: 14:04 General: Appears in no apparent distress. uncomfortable, Behavior is calm, cooperative, hj appropriate for age. Pain: Denies pain. Historical: - Allergies: 13:08 Codeine; hb 13:08 Dilaudid; hb 13:08 Morphine; hb 13:08 Neosporin ([id number]); hb 13:08 Stadol; hb - PMHx: 13:08 Cancer; Cancer, Lung; radiation; hb - PSHx: 13:08 lymphnode removal; Hysterectomy; partial thyroidectomy; Carpal Tunnel Repair; Bladder hb suspension; cataract removal; Tonsillectomy; - Immunization history:: Adult Immunizations up to date. - Social history:: Smoking status: Patient/guardian denies using tobacco. - Ebola Screening: : No symptoms or risks identified at this time. Screenin:00 Abuse screen: Denies threats or abuse. Denies injuries from another. Nutritional hj screening: No deficits noted. Tuberculosis screening: No symptoms or risk factors identified. Fall Risk Fall in past 12 months (25 points). Assessment: 14:04 Neuro: Level of Consciousness is awake, alert, obeys commands, Oriented to person, hj place, time, situation, Appropriate for age. 14:48 Reassessment: Patient and/or family updated on plan of care and expected duration. Pain pc1 level reassessed. Patient is alert, oriented x 3, equal unlabored respirations, skin warm/dry/pink. 15:30 Reassessment: Patient and/or family updated on plan of care and expected duration. Pain hj level reassessed. Patient is alert, oriented x 3, equal unlabored respirations, skin warm/dry/pink. awaiting for provider;. 16:30 Reassessment: Patient and/or family updated on plan of care and expected duration. Pain hj level reassessed. Patient is alert, oriented x 3, equal unlabored respirations, skin warm/dry/pink. family in room;. 17:22 Reassessment: Patient and/or family updated on plan of care and expected duration. Pain hj level reassessed. Patient is alert, oriented x 3, equal unlabored respirations, skin warm/dry/pink. provider in room;. 18:24 Reassessment: Patient and/or family updated on plan of care and expected duration. Pain hj level reassessed. Patient is alert, oriented x 3, equal unlabored respirations, skin warm/dry/pink. awaiting room placement;. 19:09 General: Appears uncomfortable, Behavior is appropriate for age. Pain: Complains of ea pain in mouth and neck and face. Neuro: Level of Consciousness is awake, alert, obeys commands, Oriented to person, place, time, situation. Cardiovascular: Patient's skin is warm and dry. Respiratory: Airway is patent Respiratory effort is even, unlabored, Respiratory pattern is regular, symmetrical. Derm: Rash noted that is urticaria, on right arm, left arm, right leg, left leg and neck and face. 20:30 Reassessment: Patient and/or family updated on plan of care and expected duration. Pain ea level reassessed. Patient is alert, oriented x 3, equal unlabored respirations, skin warm/dry/pink. 21:50 Reassessment: Patient and/or family updated on plan of care and expected duration. Pain ea level reassessed. Patient is alert, oriented x 3, equal unlabored respirations, skin warm/dry/pink. Report called to Nela RUFF. Pt taken via stretcher to second floor. Tolerating well. Vital Signs: 13:07 BP 120 / 66; Pulse 88; Resp 16; Temp 100(TE); Pulse Ox 100% on R/A; Pain 10/10; hb 14:19 BP 136 / 65; Pulse 104; Resp 18; Temp 101.0(O); Pulse Ox 95% on R/A; hj 15:46 BP 127 / 61; Pulse 98; Resp 18 S; Pulse Ox 94% on R/A; jl7 17:20 BP 124 / 57; Pulse 103; Resp 18; Temp 99.8(O); Pulse Ox 100% on R/A; hj 18:25 BP 125 / 66; Pulse 100; Resp 18; Pulse Ox 94% on R/A; hj 19:30 BP 119 / 79; Pulse 99; Resp 18; Pulse Ox 96% on R/A; ea 20:30 BP 121 / 63; Pulse 99; Resp 18; Pulse Ox 96% on R/A; ea 21:30 BP 115 / 52; Pulse 99; Resp 18; Temp 98.2(O); Pulse Ox 99% ; ea ED Course: 12:53 Patient arrived in ED. rg4 12:53 Brigitte Enrique MD is Private Physician. rg4 13:07 Triage completed. hb 13:07 Arm band placed on. hb 14:04 Patient has correct armband on for positive identification. Placed in gown. Bed in low hj position. Call light in reach. Side rails up X 1. 14:13 Sheila Martinez, RN is Primary Nurse. jl7 14:17 Saul Bennett, ELZBIETA is Primary Nurse. hj 15:50 Yg Merritt NP is PHCP. pm1 15:50 Joshua Almaraz MD is Attending Physician. pm1 16:24 Radiology exam delayed due to lab results not completed at this time. (BUN/Creatinine). sj 16:27 Initial lab(s) drawn, by nc, sent to lab. First set of blood cultures drawn by darnell philip Strep swab sent to lab. Inserted saline lock: 22 gauge in right antecubital area, using aseptic technique. Blood collected. 16:32 Radiology exam delayed due to lab results not completed at this time. (BUN/Creatinine). em2 16:45 Second set of blood cultures drawn by me. dh3 16:48 Urine collected: bedpan, cloudy, brad. dh3 16:56 Radiology exam delayed due to lab results not completed at this time. (BUN/Creatinine). sj 17:10 Radiology exam delayed due to lab results not completed at this time. (BUN/Creatinine). vm2 17:37 CT completed. Patient tolerated procedure well. Patient moved to CT via stretcher. vm2 Patient moved back from CT. 17:40 CT Head Brain wo Cont In Process Unspecified. EDMS 17:41 CT Soft Tissue Neck W/contr In Process Unspecified. EDMS 17:41 CT Facial Bones W/O Con In Process Unspecified. EDMS 18:12 Johny Guerrero DO is Hospitalizing Provider. pm1 19:39 Yissel Vanessa, ELZBIETA is Primary Nurse. ea 21:45 No provider procedures requiring assistance completed. Patient admitted, IV remains in ea place. Administered Medications: 16:02 Drug: Tylenol 1000 mg Route: PO; jl7 17:19 Follow up: Response: No adverse reaction; Temperature is decreased hj 17:26 Drug: Zosyn 3.375 grams Route: IVPB; Infused Over: 60 mins; Site: right antecubital; hj 18:26 Follow up: IV Status: Completed infusion hj 19:40 Follow up: Response: No adverse reaction; IV Status: Completed infusion ea 17:26 Drug: SOLU-Medrol 40 mg Route: IVP; Site: right antecubital; hj 18:26 Follow up: Response: No adverse reaction hj 18:06 Drug: [place] 10 mg-325 mg 1 tabs Route: PO; hj 18:26 Follow up: Response: No adverse reaction; Pain is decreased hj 18:08 Drug: ERYTHromycin Ointment 1 application Route: Ophthalmic; Site: both eyes; hj 18:08 Drug: Tetanus-Diphtheria Toxoid Adult 0.5 ml {Cytometry Technologist: Arch[employer]. Exp: hj 11/05/2020. Lot #: [id number]. } Route: IM; Site: right deltoid; 18:26 Follow up: Response: No adverse reaction hj 19:48 Drug: vancoMYCIN 1 grams Route: IVPB; Infused Over: 2 hrs; Site: right antecubital; ea 21:26 Follow up: Response: No adverse reaction; IV Status: Completed infusion; IV Intake: ea 250ml Intake: 21:26 IV: 250ml; Total: 250ml. ea Outcome: 18:13 Decision to Hospitalize by Provider. pm1 20:00 Admitted to Med/surg accompanied by tech, room 211, on monitor, Report called to Nela rojas RN 20:00 Condition: stable 20:00 Instructed on the need for admit. 21:51 Patient left the ED. crystal Signatures: Dispatcher [employer] EDMS Yadira Pavon Enrique 2 Saul Bennett, RN RN Yg Caicedo, [employer] pm1 Noelle Dempsey RN RN Leeann Graves 4 Sheila Martinez RN RN jl7 Yasmeen Parker 2 Deloris Mann 3 Yissel Vanessa RN RN ea Cantu, Patrick pc1 Corrections: (The following items were deleted from the chart) 17:37 17:[address] via wheelchair. vm2 vm2
--- NOTE | 2018-11-26 18:13 | EDPHYS ---
Physician Documentation [facility] Name: Ileana Lopez Age: 78 yrs Sex: Female : 1940 Arrival Date: 11/26/2018 Time: 12:53 Bed 5 Private MD: Brigitte Enrique ED Physician Joshua Almaraz HPI: 11/26 17:18 This 78 yrs old Female presents to ER via Wheelchair with complaints of Rash, pm1 Neck and Upper Back Pain. 17:18 The patient's rash thought to be caused by Poison alban exposure. pm1 17:18 The rash is located on the face and neck. The rash can be described as macular. Onset: pm1 The symptoms/episode began/occurred 10 day(s) ago. Associated signs and symptoms: Pertinent positives: fever, sore throat, Pertinent negatives: burning sensation, difficulty breathing, swelling of lips, swelling of throat, swelling of tongue. Severity of symptoms: in the emergency department the symptoms have improved. Treatment given at home: None. The patient has not experienced similar symptoms in the past. The patient has been recently seen by a physician: Dr. Enrique earlier today, with similar presenting complaints, and was sent to the [facility] Emergency Department for further evaluation. Patient was in her yard and fell down [facility] through some shrubbery that included some poison alban. Patient uncertain if she passed out at that time. No headache or neck pain. Historical: - Allergies: 13:08 Codeine; hb 13:08 Dilaudid; hb 13:08 Morphine; hb 13:08 Neosporin ([id number]); hb 13:08 Stadol; hb - PMHx: 13:08 Cancer; Cancer, Lung; radiation; hb - PSHx: 13:08 lymphnode removal; Hysterectomy; partial thyroidectomy; Carpal Tunnel Repair; Bladder hb suspension; cataract removal; Tonsillectomy; - Immunization history:: Adult Immunizations up to date. - Social history:: Smoking status: Patient/guardian denies using tobacco. - Ebola Screening: : No symptoms or risks identified at this time. ROS: 17:27 Constitutional: Negative for fever, chills, and weight loss, Eyes: Negative for injury, pm1 pain, redness, and discharge, ENT: Negative for injury, pain, and discharge, Neck: Negative for injury, pain, and swelling, Cardiovascular: Negative for chest pain, palpitations, and edema, Respiratory: Negative for shortness of breath, cough, wheezing, and pleuritic chest pain, Abdomen/GI: Negative for abdominal pain, nausea, vomiting, diarrhea, and constipation, Back: Negative for injury and pain, : Negative for injury, bleeding, discharge, and swelling, MS/Extremity: Negative for injury and deformity. 17:27 Neuro: Negative for headache, weakness, numbness, tingling, and seizure. 17:27 Skin: Positive for rash, of the face, mouth and neck. Exam: 17:18 Constitutional: This is a well developed, well nourished patient who is awake, alert, pm1 and in no acute distress. Head/Face: Normocephalic, atraumatic. Eyes: Pupils equal round and reactive to light, extra-ocular motions intact. Lids and lashes normal. Conjunctiva and sclera are non-icteric and not injected. Cornea within normal limits. Periorbital areas with no swelling, redness, or edema. Neck: Trachea midline, no thyromegaly or masses palpated, and no cervical lymphadenopathy. Supple, full range of motion without nuchal rigidity, or vertebral point tenderness. No Meningismus. Chest/axilla: Normal chest wall appearance and motion. Nontender with no deformity. No lesions are appreciated. Cardiovascular: Regular rate and rhythm with a normal S1 and S2. No gallops, murmurs, or rubs. Normal PMI, no JVD. No pulse deficits. Respiratory: Lungs have equal breath sounds bilaterally, clear to auscultation and percussion. No rales, rhonchi or wheezes noted. No increased work of breathing, no retractions or nasal flaring. Abdomen/GI: Soft, non-tender, with normal bowel sounds. No distension or tympany. No guarding or rebound. No evidence of tenderness throughout. Back: No spinal tenderness. No costovertebral tenderness. Full range of motion. 17:18 ENT: External ear(s): are unremarkable, Ear canal(s): are normal, TM's: are normal, Nose: is normal, Mouth: is normal, (-) tongue elevation (-) trismus mild ulceration present to buccal membranes, Posterior pharynx: erythema, that is moderate, exudate, is not appreciated, peritonsillar mass, is not appreciated, pooling of secretions, is not appreciated. 17:18 Skin: Appearance: normal except for affected area, consistent with contact dermatitis, on the right cheek, left cheek, chin, right jaw and left jaw. 17:18 Neuro: Orientation: is normal, Motor: moves all fours. Vital Signs: 13:07 BP 120 / 66; Pulse 88; Resp 16; Temp 100(TE); Pulse Ox 100% on R/A; Pain 10/10; hb 14:19 BP 136 / 65; Pulse 104; Resp 18; Temp 101.0(O); Pulse Ox 95% on R/A; hj 15:46 BP 127 / 61; Pulse 98; Resp 18 S; Pulse Ox 94% on R/A; jl7 17:20 BP 124 / 57; Pulse 103; Resp 18; Temp 99.8(O); Pulse Ox 100% on R/A; hj 18:25 BP 125 / 66; Pulse 100; Resp 18; Pulse Ox 94% on R/A; hj 19:30 BP 119 / 79; Pulse 99; Resp 18; Pulse Ox 96% on R/A; ea 20:30 BP 121 / 63; Pulse 99; Resp 18; Pulse Ox 96% on R/A; ea 21:30 BP 115 / 52; Pulse 99; Resp 18; Temp 98.2(O); Pulse Ox 99% ; ea MDM: 15:50 Patient medically screened. pm1 18:11 Data reviewed: vital signs. Data interpreted: Pulse oximetry: on room air is 100 %. pm1 Interpretation: normal. Counseling: I had a detailed discussion with the patient and/or guardian regarding: the historical points, exam findings, and any diagnostic results supporting the discharge/admit diagnosis, lab results, radiology results, the need for further work-up and treatment in the hospital. 18:24 Physician consultation: Johny Guerrero DO was called at 18:24, was contacted at 18:24, pm1 regarding admission, patient's condition, and will see patient in ED. 11/26 16:10 Order name: CBC with Diff; Complete Time: 18:04 pm1 11/26 16:10 Order name: BMP; Complete Time: 17:16 pm1 11/26 16:10 Order name: LFT's; Complete Time: 17:16 pm1 11/26 16:10 Order name: Urine Microscopic Only; Complete Time: 18:04 pm1 11/26 16:10 Order name: Strep; Complete Time: 17:16 pm1 11/26 16:10 Order name: Blood Culture Adult (2) pm1 11/26 16:10 Order name: Procalcitonin; Complete Time: 18:04 pm1 11/26 16:14 Order name: CT Head Brain wo Cont; Complete Time: 18:04 pm1 11/26 16:14 Order name: CT Soft Tissue Neck W/contr; Complete Time: 18:04 pm1 11/26 16:48 Order name: Urine Dipstick--Ancillary (enter results); Complete Time: 21:37 bd 11/26 17:03 Order name: CBC Smear Scan; Complete Time: 18:04 EDOK 11/26 17:17 Order name: Throat Culture [facility] 11/26 17:26 Order name: CT Facial Bones W/O Con; Complete Time: 18:10 pm1 11/26 17:45 Order name: Urine Culture [facility] 11/26 16:10 Order name: IV Saline Lock; Complete Time: 16:49 pm1 11/26 16:10 Order name: Urine Dipstick-Ancillary (obtain specimen); Complete Time: 16:49 pm1 Administered Medications: 16:02 Drug: Tylenol 1000 mg Route: PO; jl7 17:19 Follow up: Response: No adverse reaction; Temperature is decreased hj 17:26 Drug: Zosyn 3.375 grams Route: IVPB; Infused Over: 60 mins; Site: right antecubital; hj 18:26 Follow up: IV Status: Completed infusion hj 19:40 Follow up: Response: No adverse reaction; IV Status: Completed infusion ea 17:26 Drug: SOLU-Medrol 40 mg Route: IVP; Site: right antecubital; hj 18:26 Follow up: Response: No adverse reaction hj 18:06 Drug: Webb 10 mg-325 mg 1 tabs Route: PO; hj 18:26 Follow up: Response: No adverse reaction; Pain is decreased hj 18:08 Drug: ERYTHromycin Ointment 1 application Route: Ophthalmic; Site: both eyes; hj 18:08 Drug: Tetanus-Diphtheria Toxoid Adult 0.5 ml {Inpatient Coder: [employer]. Exp: 11/05/2020. Lot #: [id number]. } Route: IM; Site: right deltoid; 18:26 Follow up: Response: No adverse reaction 19:48 Drug: vancoMYCIN 1 grams Route: IVPB; Infused Over: 2 hrs; Site: right antecubital; ea 21:26 Follow up: Response: No adverse reaction; IV Status: Completed infusion; IV Intake: ea 250ml Disposition: 11/27 06:48 Co-signature as Attending Physician, Joshua Almaraz MD I agree with the assessment and kdr plan of care. Disposition: 11/26/18 18:13 Hospitalization ordered by Johny Guerrero for Inpatient Admission. Preliminary diagnosis is Cellulitis of face. - Bed requested for Telemetry/MedSurg (Inpatient). - Status is Inpatient Admission. ea - Condition is Stable. - Problem is new. - Symptoms have improved. UTI on Admission? Yes Signatures: Dispatcher [employer] EDMS Jada Moore, Joshua Corbin RN, MD MD [facility] Saul Bennett RN RN hj Marinas, Patrick, NP [employer] pm1 Noelle Dempsey RN RN Sheila Martinez RN RN jl7 Yissel Vanessa RN RN ea Corrections: (The following items were deleted from the chart) 11/26 18:13 18:13 Hospitalization Ordered by Johny Guerrero DO for Inpatient Admission. Preliminary pm1 diagnosis is Cellulitis of face. Bed requested for Telemetry/MedSurg (Inpatient). Status is Inpatient Admission. Condition is Stable. Problem is new. Symptoms have improved. UTI on Admission? No. pm1 20:57 18:13 11/26/2018 18:13 Hospitalization Ordered by Johny Guerrero DO for Inpatient kl Admission. Preliminary diagnosis is Cellulitis of face. Bed requested for Telemetry/MedSurg (Inpatient). Status is Inpatient Admission. Condition is Stable. Problem is new. Symptoms have improved. UTI on Admission? Yes. pm1 21:51 20:57 11/26/2018 18:13 Hospitalization Ordered by Johny Guerrero DO for Inpatient ea Admission. Preliminary diagnosis is Cellulitis of face. Bed requested for Telemetry/MedSurg (Inpatient). Status is Inpatient Admission. Condition is Stable. Problem is new. Symptoms have improved. UTI on Admission? Yes. kl
[2018-11-26] MEDS: ERYTHROMYCIN 3.5GM OPTH OINT EACH EYE SCH (21:00)
[2018-11-26 21:13] LABS: Urine Blood 2+ (NEG); Urine Glucose NEGATIVE (NEG); Urine Protein 2+ (NEG); Urine pH 5.5 (5.0-7.0)
[2018-11-26] MEDS ORDERED: ONDANSETRON 4 MG/2 ML VIAL IV PRN (22:05)
[2018-11-26] MEDS: NA CHLORIDE 0.9% 1,000 ML IV SCH (22:05)
--- NOTE | 2018-11-26 23:08 | P.HP ---
Certification for Inpatient Patient admitted to: Inpatient With expected LOS: >2 Midnights Practitioner: I am a practitioner with admitting privileges, knowledge of patient current condition, hospital course, and medical plan of care. Services: Services provided to patient in accordance with Admission requirements found in Title 42 Section 412.3 of the Code of Federal Regulations Patient History Date of Service: 11/26/18 Reason for admission: facial cellulitis, contact dermatitis History of Present Illness: Ms Lopez is a 78 years old woman with history of adenocarcinoma of the lung, hypothyroidism, dementia, who [place] [facility]. She slipped and fell into the water about 1 week ago, since so, she has developed a rash in her face, which has been getting worse over the time. Her daughter states that there are poison alban around this area. Since last night, her face was more swollen and red. She has some yellowish secretion from perioral lesions. The patient has oral ulcers, which are painful to swallow as well. In ER she was febrile, 101.0F, lab work shows leukocytosis, normal procalcitonin. CT facial bones shows no acute fractures. CT soft tissue head and neck, shows significant edema without abscess formation. Also preseptal edema. Allergies latex Allergy (Severe, Verified 06/26/18 15:36) Itching/Hives/Rash bacitracin [From Neosporin ([id number])] Allergy (Verified 06/25/18 16:44) Itching/Hives/Rash bacitracin zinc [From Neosporin ([id number])] Allergy (Verified 06/25/18 16: 44) Itching/Hives/Rash butorphanol tartrate [From Stadol] Allergy (Verified 06/25/18 16:44) Shortness of breath codeine Allergy (Verified 06/25/18 16:44) Shortness of breath hydromorphone [From Dilaudid] Allergy (Verified 06/25/18 18:30) Unknown morphine Allergy (Verified 06/25/18 16:44) Shortness of breath neomycin [From Neosporin ([id number]-mot-[id number])] Allergy (Verified 06/25/18 18:30) Itching/Hives/Rash neomycin sulfate [From Neosporin ([id number])] Allergy (Verified 06/25/18 16: 44) Itching/Hives/Rash polymyxin B [From Neosporin ([id number])] Allergy (Verified 06/25/18 16:44) Itching/Hives/Rash Home medications list reviewed: Yes Home Medications: ALPRAZolam [Xanax*] 0.5 mg PO BID PRN #40 tab 07/10/18 Atorvastatin Calcium [Lipitor] 40 mg PO BEDTIME #30 tab 07/10/18 Calcium Carbonate [Tums Regular*] 500 mg PO QID PRN #60 tab 07/10/18 Docusate/Senna [Senokot-S*] 2 tab PO BEDTIME PRN #60 tab 07/10/18 Donepezil [Aricept*] 10 mg PO BEDTIME #60 tab 07/10/18 Ferrous Sulfate [Ferrous Sulfate*] 325 mg PO DAILY #30 tab 07/10/18 Hydrocodone 10/APAP 325 [Thurman 10/325*] 1 tab PO Q4HP PRN #60 tab 07/10/18 Iron/FA/Vit B-Com W/C [Hemocyte Plus*] 1 tab PO DAILY WITH BREAKFAST #30 tab Levothyroxine [Synthroid*] 0.1 mg PO DAILY@0730 #30 tab 07/10/18 Lidocaine 5% Patch [Lidoderm 5% Patch*] 1 patch TOP DAILY #30 patch 07/10/18 Liothyronine [Cytomel*] 25 mcg PO DAILY@0730 #30 tab 07/10/18 Magnesium Oxide [Mag 0X*] 400 mg PO BID #60 tab 07/10/18 Mirtazapine [Remeron*] 15 mg PO BEDTIME PRN #30 tab 07/10/18 Rivaroxaban [Xarelto*] 10 mg PO DAILY #30 tablet 07/10/18 Sertraline [Zoloft*] 100 mg PO DAILY #30 tab 07/10/18 Tizanidine [Zanaflex*] 4 mg PO BID PRN #60 tab 07/10/18 traMADol HCL [Ultram*] 100 mg PO Q4H PRN #60 tab 07/10/18 - Past Medical/Surgical History Diabetic: No -: chronic back pain -: anxiety -: lung cancer -: dementia -: lung surgery - Family History Sister -: Heart disease - Social History Smoking Status: Never smoker Alcohol use: No CD- Drugs: No Caffeine use: Yes Place of Residence: Home Review of Systems 10-point ROS is otherwise unremarkable Physical Examination - Physical Exam General: Alert, In no apparent distress HEENT: PERRLA, Mucous membr. moist/pink, EOMI (no tenderness to eyes movement.) , Sclerae nonicteric Neck: Supple, 2+ carotid pulse no bruit, No LAD, Without JVD or thyroid abnormality Respiratory: Clear to auscultation bilaterally, Normal air movement Cardiovascular: Regular rate/rhythm, Normal S1 S2 Gastrointestinal: Normal bowel sounds, No tenderness Musculoskeletal: No tenderness Integumentary: No rashes, Skin breakdown, Tenderness/swelling (face), Erythema Neurological: Normal speech, Normal strength at 5/5 x4 extr, Normal tone, Normal affect Lymphatics: No axilla or inguinal lymphadenopathy - Studies Laboratory Data (last 24 hrs) 11/26/18 16:27: Sodium 141, Potassium 3.7, BUN 14, Creatinine 1.02, Glucose 161 H, Total Bilirubin 0.4, AST 11 L, ALT 13, Alkaline Phosphatase 181 H 11/26/18 16:27: WBC 15.2 H, Hgb 10.7 L, Hct 32.5 L, Plt Count 344 Microbiology Data (last 24 hrs): 11/26/18 16:31 Throat Group A Streptococcus Rapid Screen - Final Assessment and Plan - Problems (Diagnosis) (1) Facial cellulitis Current Visit: Yes Status: Acute (2) Contact dermatitis and eczema due to plant Current Visit: Yes Status: Acute (3) Dementia Current Visit: Yes Status: Acute Qualifiers: Dementia type: unspecified type Dementia behavioral disturbance: without behavioral disturbance Qualified Code(s): F03.90 - Unspecified dementia without behavioral disturbance (4) Lung cancer Current Visit: Yes Status: Acute Qualifiers: Laterality: unspecified laterality Lung location: unspecified part of lung Qualified Code(s): C34.90 - Malignant neoplasm of unspecified part of unspecified bronchus or lung - Plan The patient will be admitted to the hospital due to contact dermatitis, which leads to facial cellulitis. During her stay in ED, the patient received IV broad spectrum antibiotics and steroids. Her swelling and erythema have significantly improved. The patient feels better. Will continue with IV Vancomycin, IV Zosyn and IV steroids. Consult ENT for evaluation and recommendations. - Advance Directives Does patient have a Living Will: No Does patient have a Durable POA for Healthcare: No - Code Status/Comfort Care Code Status Assessed: Yes Code Status: Full Code
[2018-11-26 23:11] VITALS: O2SAT 92
[2018-11-26 23:36] VITALS: BMI 19.2
[2018-11-27] MEDS ORDERED: PIPER/TAZO/NS 3.375gm 3.375 GM/100 ML BAG IVPB SCH
[2018-11-27] MEDS ORDERED: PIPER/TAZO/NS 2.25gm 2.25 GM/50 ML BAG IV SCH ×2 (01:45→08:00)
[2018-11-27] MEDS: METHYLPREDNISOLONE 40 MG INJ IV SCH ×2 (02:06→06:08)
[2018-11-27] MEDS: NA CHLORIDE 0.9% 1,000 ML IV SCH ×2 (02:06→08:05)
[2018-11-27] MEDS ORDERED: PIPER/TAZO/NS 2.25gm 2.25 GM/50 ML BAG ONE (02:39)
[2018-11-27 06:09] LABS: Absolute Monocytes 0.3 K/uL (0.1-1.3); Absolute Neutrophil 10.3 K/uL (1.8-8.0); Basophils % 0.1 % (0-1.3); Hematocrit 30.8 % (36.0-45.0); Lymphocytes % 8.4 % (15.3-44.8); MPV 8.5 fL (7.6-11.3); RBC Red Blood Cell Count 3.38 M/uL (3.86-4.86)
[2018-11-27 06:11] LABS: Potassium 3.6 mmol/L (3.5-5.1)
[2018-11-27] MEDS ORDERED: POTASSIUM CL SA 10 MEQ TAB PO ONE (07:30)
[2018-11-27] MEDS ORDERED: ALPRAZOLAM 0.5 MG TABLET PO PRN (07:42)
[2018-11-27] MEDS ORDERED: ASPIRIN 81 MG CHEWABLE TABLET PO SCH (09:00)
[2018-11-27] MEDS ORDERED: SERTRALINE HCL 50 MG TAB PO SCH (09:00)
[2018-11-27] MEDS ORDERED: FAMOTIDINE 20 MG TAB PO SCH (09:00)
[2018-11-27] MEDS: ERYTHROMYCIN 3.5GM OPTH OINT EACH EYE SCH (09:00)
[2018-11-27] MEDS ORDERED: AMOX/K CLAV 500 MG TAB PO SCH (09:00)
[2018-11-27] MEDS ORDERED: MUPIROCIN 2% OINT 22GM TUBE TOP SCH (09:00)
[2018-11-27] MEDS ORDERED: VANCOMYCIN 1 GM in NA CHLORIDE 0.9% 250 ML IVPB SCH (09:00)
[2018-11-27] MEDS ORDERED: CETIRIZINE HCL 5 MG TABLET PO SCH (09:00)
[2018-11-27] MEDS ORDERED: ESTROGENS,CONJUGAG 0.3 MG TAB PO SCH (09:00)
[2018-11-27] MEDS ORDERED: predniSONE 20 MG TAB PO SCH (09:00)
[2018-11-27] MEDS ORDERED: ENOXAPARIN 40 MG/0.4 ML SQ SCH (09:00)
--- NOTE | 2018-11-27 09:35 | P.DS ---
Admission Date: 11/26/18 Discharge Date: 11/27/18 Primary Care Provider: Dr. Enrique; Oncology-Dr. Merino Disposition: ROUTINE DISCHARGE Discharge Condition: GOOD Reason for Admission: facial cellulitis, contact dermatitis Consultations: none Procedures: CT head: FINDINGS: An intracranial bleed is not seen . The ventricles are normal in caliber. No extra-axial fluid collection is noted. Low-density within the left cerebral peduncle and left midbrain is secondary to an old infarct. Mild atrophy is present. Mild to moderate low-density areas within periventricular, deep and subcortical white matter likely represent ischemic changes secondary to small vessel disease Fluid within the sinuses/ mastoids is not seen. IMPRESSION: No acute intracranial abnormality is seen Facial CT: FINDINGS: Edema is present within the subcutaneous tissues of the right greater than left. Preseptal swelling is present bilaterally. A fluid-filled abscess is not seen. The globes are intact. Fluid within the sinuses is not noted. IMPRESSION: Diffuse edema within the subcutaneous tissues of the face as well is preseptal edema. Most likely this is an allergic response. Soft tissue neck CT: COMPARISON: None. TECHNIQUE: Computed axial tomography of the neck was obtained. 50 cc Isovue- 300 administered intravenously. Coronal and sagittal reconstruction was performed All CT scans are performed using dose optimization technique as appropriate and may include automated exposure control or mA/KV adjustment according to patient size. FINDINGS: The pharynx, larynx, tongue base and subglottic trachea are unremarkable. The parotid, and submandibular glands are unremarkable. A thyroid mass is not noted. Patient has a known neck and mediastinal lymphadenopathy. Spondylosis involves the cervical spine. IMPRESSION: No acute abnormality is displayed. Patient has known neck and mediastinal lymphadenopathy Medical Problem List: Bilateral Facial contact allergic dermatitis likely from poison alban/plant with superimposed mild cellulitis and bilateral conjunctivitis Acute renal injury likely mild dehydration Asymptomatic bacteriuria Hypothyroidism Depression History of lung and throat cancer Brief History of Present Illness: 78-year-old female presented to the emergency room with facial edema and erythema. She apparently fell [place] the bank of a river. Upon climbing up she was exposed to some plants. This occurred about 1 week ago. Over the last several days increasing edema worsened. She went to her PCP who sent her to the ER for further evaluation. Patient had noticeable edema and erythema to the face. CT scan revealed preseptal edema likely or allergic in nature. Patient was admitted for treatment. Hospital Course: Patient admitted for edema and erythema to the face after exposed to poison alban like plant. Patient found to have bilateral facial contact allergic dermatitis with superimposed mild cellulitis and bilateral conjunctivitis. Patient was given IV steroids and antibiotics. Patient responded very well to IV steroids. Pro calcitonin negative. Patient was also mildly dehydrated. At discharge swelling to the face significantly improved. No significant erythema noted. At discharge patient will continue with prednisone 20 mg 1 pill twice daily for 5 days then 1 pill once daily for 5 days. Patient will also continue with Zyrtec 10 mg at night and Pepcid 20 mg 1 pill twice daily. The patient will also continue with Augmentin 500 mg 1 pill twice daily for 7 days along with E-mycin ointment apply to conjunctiva twice daily for 7 days. Patient will also continue with Bactroban ointment to the nares and lip region twice daily for 7 days. Recommend to follow up with her PCP in 1 week to follow up this hospitalization. Patient may benefit with allergy consultation as an outpatient to further evaluate. Patient with acute renal injury likely from dehydration. Patient received IV fluids. This improved. Recommend to recheck BMP in 1 week to monitor her resolution. Patient with asymptomatic bacteriuria. UTI prevention will be enforced. Patient with hypothyroidism. Patient continue with her medications-Synthroid 100 mcg daily and Cytomel 25 mcg daily at discharge. Patient with depression. She will continue with her medications-Zoloft 50 mg daily, Remeron 15 mg at bedtime, and Xanax 0.5 mg 1 pill twice daily as needed for anxiety at discharge. Patient has hyperlipidemia. She will continue with Lipitor 40 mg daily. Patient with history of lung and throat cancer. Patient seen by oncology. Patient will follow up with oncology to further monitor and address. Vital Signs/Physical Exam: Temp Pulse Resp BP Pulse Ox 97.0 F 75 18 120/58 L 99 11/27/18 04:00 11/27/18 04:00 11/27/18 04:00 11/27/18 04:00 11/27/18 04:00 General: Alert, In no apparent distress, Oriented x3, Cooperative HEENT: Atraumatic, Other (Swelling to the face significantly improved. No significant warmth or erythema now noted. Mild irritation to the mouth area. Some irritation to the conjunctiva bilaterally.) Neck: Supple Respiratory: Clear to auscultation bilaterally, Normal air movement Cardiovascular: Normal pulses, Regular rate/rhythm Gastrointestinal: Normal bowel sounds, Soft and benign, Non-distended, No tenderness, No masses, No rebound, No guarding Musculoskeletal: No erythema, No tenderness, No warmth Integumentary: No cyanosis, Other (As above. Significant improvement of edema to the face bilateral. No significant erythema now noted.) Neurological: Normal speech, Normal strength at 5/5 x4 extr, Normal tone, Normal affect Laboratory Data at Discharge: WBC 11.6 K/uL (4.3-10.9) H D 11/27/18 05:29 Hgb 10.1 g/dL (12.0-15.0) L 11/27/18 05:29 Hct 30.8 % (36.0-45.0) L 11/27/18 05:29 Plt Count 336 K/uL (152-406) 11/27/18 05:29 Sodium 142 mmol/L (136-145) 11/27/18 05:29 Potassium 3.6 mmol/L (3.5-5.1) 11/27/18 05:29 BUN 14 mg/dL (7-18) 11/27/18 05:29 Creatinine 0.90 mg/dL (0.55-1.3) 11/27/18 05:29 Glucose 167 mg/dL (74-106) H 11/27/18 05:29 Total Bilirubin 0.4 mg/dL (0.2-1.0) 11/26/18 16:27 AST 11 U/L (15-37) L 11/26/18 16:27 ALT 13 U/L (12-78) 11/26/18 16:27 Alkaline Phosphatase 181 U/L (45-117) H 11/26/18 16:27 Home Medications: ALPRAZolam [Xanax*] 0.5 mg PO BID 11/27/18 Amox/Clavulanate [Augmentin 500-125 mg Tab*] 500 mg PO BID #14 tab 11/27/18 Aspirin Chewable [Aspirin Chewable*] 1 tab PO DAILY 11/27/18 Atorvastatin Calcium [Lipitor] 40 mg PO DAILY 11/27/18 Cetirizine HCl [Zyrtec] 10 mg PO DAILY #30 tablet 11/27/18 Erythromycin Opth [Erythromycin Eye Ointment*] 1 appl EACH EYE BID #1 tube 11/27 Estrogens,Conj [Premarin*] 1 tab PO DAILY 11/27/18 Famotidine [Pepcid*] 20 mg PO BID #60 tab 11/27/18 Levothyroxine [Synthroid*] 0.1 mg PO DAILY 11/27/18 Liothyronine Sodium [Cytomel] 1 tab PO DAILY 11/27/18 Mirtazapine [Remeron*] 15 mg PO BEDTIME 11/27/18 Mupirocin Oint [Bactroban 2% Ointment*] 1 appl TOP BID #1 tube 11/27/18 Sertraline [Zoloft*] 50 mg PO DAILY 11/27/18 predniSONE [Prednisone*] 20 mg PO SEECOM #15 tab 11/27/18 New Medications: Amox/Clavulanate [Augmentin 500-125 mg Tab*] 500 mg PO BID #14 tab Cetirizine HCl [Zyrtec] 10 mg PO DAILY #30 tablet Erythromycin Opth [Erythromycin Eye Ointment*] 1 appl EACH EYE BID #1 tube Famotidine [Pepcid*] 20 mg PO BID #60 tab Mupirocin Oint [Bactroban 2% Ointment*] 1 appl TOP BID #1 tube predniSONE [Prednisone*] 20 mg PO SEECOM #15 tab Patient Discharge Instructions: 1. Recommend to follow up with her PCP within 1 week to follow up this hospitalization. 2. Patient admitted for edema and erythema to the face after exposed to poison alban like plant. Patient found to have bilateral facial contact allergic dermatitis with superimposed mild cellulitis and bilateral conjunctivitis. Patient was given IV steroids and antibiotics. Patient responded very well to IV steroids. Pro calcitonin negative. Patient was also mildly dehydrated. At discharge swelling to the face significantly improved. No significant erythema noted. At discharge patient will continue with prednisone 20 mg 1 pill twice daily for 5 days then 1 pill once daily for 5 days. Patient will also continue with Zyrtec 10 mg at night and Pepcid 20 mg 1 pill twice daily. The patient will also continue with Augmentin 500 mg 1 pill twice daily for 7 days along with E-mycin ointment apply to conjunctiva twice daily for 7 days. Patient will also continue with Bactroban ointment to the nares and lip region twice daily for 7 days. Recommend to follow up with her PCP in 1 week to follow up this hospitalization. Patient may benefit with allergy consultation as an outpatient to further evaluate. 3. Patient with acute renal injury likely from dehydration. Patient received IV fluids. This improved. Recommend to recheck BMP in 1 week to monitor her resolution. 4. Patient with asymptomatic bacteriuria. UTI prevention will be enforced. 5. Patient with hypothyroidism. Patient continue with her medications-Synthroid 100 mcg daily and Cytomel 25 mcg daily at discharge. 6. Patient with depression. She will continue with her medications-Zoloft 50 mg daily, Remeron 15 mg at bedtime, and Xanax 0.5 mg 1 pill twice daily as needed for anxiety at discharge. 7. Patient has hyperlipidemia. She will continue with Lipitor 40 mg daily. 8. Patient with history of lung and throat cancer. Patient seen by oncology. Patient will follow up with oncology to further monitor and address. Diet: AHA Activity: Fall precautions Time spent managing pt's care (in minutes): 55
[2018-11-27 11:10] VITALS: BP 129/64; TEMP 97.1
--- NOTE | 2018-11-27 15:40 | P.CNS ---
Date of Consult: 11/27/[address] Guerrero - patient is clinically much improved with abx and steriods and he does not feel formal consult is needed at this point. I reviewed her films - there is no abscess and no evidence of sinusitis as a cause for pre-septal cellulitis. She can FU with me on an as needed basis.
[2018-11-27] MEDS ORDERED: ATORVASTATIN 40 MG TAB PO SCH (21:00)
[2018-11-27] MEDS ORDERED: MIRTAZAPINE 15 MG TAB PO SCH (21:00)
[2018-11-28] MEDS ORDERED: VANCOMYCIN 1 GM in NA CHLORIDE 0.9% 250 ML IVPB SCH ×6 (06:00)
[2018-11-28] MEDS ORDERED: LEVOTHYROXINE SOD 0.1 MG TAB PO SCH (06:30)
[2018-11-28] MEDS ORDERED: LIOTHYRONINE SOD 25 MCG TAB PO SCH (06:30)
== END 2018-11-27 12:24 | disposition home or self-care (01) ==
LOC: ER 12:49 → INTOOBSV 21:34 → 2ND 21:34
PROVIDERS: ADMIT Family Medicine; ATTEND Internal Medicine
DX: L03.211 Cellulitis of face (principal); L23.9 Allergic contact dermatitis, unspecified cause; H10.9 Unspecified conjunctivitis; N17.9 Acute kidney failure, unspecified; R82.71 Bacteriuria; E03.9 Hypothyroidism, unspecified; F32.9 Major depressive disorder, single episode, unspecified; E86.0 Dehydration; Z91.040 Latex allergy status; F03.90 Unspecified dementia, unspecified severity, without behavioral disturbance, psychotic disturbance, mood disturbance, and anxiety; I25.10 Atherosclerotic heart disease of native coronary artery without angina pectoris; Z85.819 Personal history of malignant neoplasm of unspecified site of lip, oral cavity, and pharynx; Z85.118 Personal history of other malignant neoplasm of bronchus and lung
CPT/HCPCS: 96365; 96367; 87040 ×2; 87070; 87088; 85025 ×2; 87086; 80048 ×2; 36415; 80076; 87081; 87077; 87186; 84145; 70450; 70486; 70491; 76377; 90714; 94760; 96375; 99285; 96366; Q9967; J1650; J7030; J2920 ×3; G0378 ×2; 81003; 81015; J2543; J3370; J7512

== ENCOUNTER 2019-04-03 18:30 | Emergency (ER) | payer OTHER ==
--- OUTSIDE RECORDS SUMMARY | 2019-04-03 18:33 | XMS REPORT ---
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 28527538971 0.4 MG Active not Sublingual defined Premarin [facility] 29588417307 0.3 MG Orally December Active 1 tablet Daily [address] [facility] 41318923412 50 MG Orally December Active 1 tablet Once a day [address] [facility] 59993450932 25 MCG Orally Active 1 tablet Sodium Once a day on an empty stomach Levothyroxine [facility] 64606242306 112 MCG Orally Active 1 tablet Sodium Once a day on an empty stomach in the morning Zoloft [facility] 05670212126 50 MG Orally Active 1 tablet Once a day Albuterol [facility] [address]-41 108 (90 Base) Active 2 puffs Sulfate MCG/ACT as needed Inhalation every [address] [facility] 30274483257 0.5 MG Orally Active 1 tablet Twice a day Premarin [facility] 02269342968 0.3 MG Orally Active 1 tablet Daily for Three Weeks, 1 Week off Results No Known Results Summary Purpose eClinicalWorks Submission
--- OUTSIDE RECORDS SUMMARY | 2019-04-03 18:33 | XMS REPORT ---
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
--- OUTSIDE RECORDS SUMMARY | 2019-04-03 18:33 | XMS REPORT ---
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
--- OUTSIDE RECORDS SUMMARY | 2019-04-03 18:33 | XMS REPORT ---
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 Assessment History of CVA (cerebrovascular Z86.73 Active accident) Problem Cellulitis, face L03.211 Active Problem Hospital discharge follow-up Z09 Active Problem 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 Problem Skin infection L08.9 Active Problem Fever, unspecified fever cause R50.9 Active Problem Depression with anxiety F41.8 Active Assessment Cellulitis, face L03.211 Active Assessment Hospital discharge follow-up Z09 Active Problem Vitamin B12 deficiency (dietary) D51.8 Active anemia Problem Adenocarcinoma of right lung C34.91 Active Problem 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 Problem Mixed hyperlipidemia E78.2 Active Assessment Renal insufficiency N28.9 Active Problem Hot flashes due to menopause N95.1 Active Problem Acquired hypothyroidism E03.9 Active Medications Medication Code Code Instructions Start End Status Dosage System Date Date Mirtazapine ND 89822073532 15 MG Orally Active 1 tablet Once a day at bedtime Atorvastatin ND 94012967095 40 MG Orally Active 1 tablet Calcium Once a day Albuterol Sulfate ND 40085057880 108 (90 Base) Active 2 puffs as MCG/ACT needed Inhalation every 6 hrs Nitroglycerin [facility] 81346535883 0.4 MG Active not Sublingual defined Premarin [facility] 82126209946 0.3 MG Orally Active 1 tablet Daily Zoloft [facility] 12004480113 100 MG Orally Active 1 tablet Once a day Aspirin 81 [facility] 47534044835 81 MG Orally Active 1 tablet Once a day Synthroid [facility] 27674821210 112 MCG Active 1 each once a day orally Premarin [facility] 31021386061 0.3 MG Orally Fabienne Active 1 tablet Daily 2017 Levothyroxine [facility] 33241421296 112 MCG Orally Active 1 tablet Sodium Once a day on an empty stomach in the morning Zoloft [facility] 32485792463 50 MG Orally Active 1 tablet Once a day Levothyroxine [facility] 70602344390 100 MCG Orally Active 1 tablet Sodium Once a day in on an AM empty stomach in the morning Liothyronine [facility] 63471380866 25 MCG Orally Active 1 tablet Sodium Once a day in on an AM empty stomach Xanax [facility] 49391023775 0.5 MG Orally Active 1 tablet Twice a day Propranolol HCl [facility] 88544232994 10 MG Orally Active 1 tablet Twice a day Results No Known Results Summary Purpose eClinicalWorks Submission
--- OUTSIDE RECORDS SUMMARY | 2019-04-03 18:33 | XMS REPORT ---
[...] Condition Code Onset Dates Condition Status Problem Vitamin B12 deficiency (dietary) D51.8 Active anemia Problem Mixed hyperlipidemia E78.2 Active Problem Osteoarthritis, unspecified M19.90 Active osteoarthritis type, unspecified site Problem Fever, unspecified fever cause R50.9 Active Assessment Mixed hyperlipidemia E78.2 Active Problem Hospital discharge follow-up Z09 Active Assessment Adenocarcinoma of right lung C34.91 Active Assessment Hot flashes due to menopause N95.1 Active Problem Skin infection L08.9 Active Problem Primary insomnia F51.01 Active Problem Acquired hypothyroidism E03.9 Active Problem 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 Problem Essential tremor G25.0 Active Assessment Primary insomnia F51.01 Active Assessment Acquired hypothyroidism E03.9 Active Assessment 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 Assessment Vitamin B12 deficiency (dietary) D51.8 Active anemia Problem Depression with anxiety F41.8 Active Problem Adenocarcinoma of right lung C34.91 Active Assessment Depression with anxiety F41.8 Active Problem 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 Assessment Essential tremor G25.0 Active Problem Hot flashes due to menopause N95.1 Active Medications Medication Code Code Instructions Start End Status Dosage System Date Date Premarin ND 50717127451 0.3 MG Orally Active 1 tablet Daily Nitroglycerin ND 90520020324 0.4 MG Active not Sublingual defined Xanax ND 62451342263 0.5 MG Orally Active 1 tablet Twice a day Albuterol ND 68271993928 108 (90 Base) Active 2 puffs Sulfate MCG/ACT as needed Inhalation every 6 hrs Zoloft ND 22523740309 100 MG Orally Active 1 tablet Once a day Zoloft [facility] 69718515007 50 MG Orally Inactive 1 tablet Once a day Aspirin 81 [facility] 30779723913 81 MG Orally Nov 05November Active 1 tablet Once a day 2018 Levothyroxine [facility] 05764956298 112 MCG Orally Active 1 tablet Sodium Once a day on an empty stomach in the morning Propranolol HCl [facility] 82022245478 10 MG Orally Active 1 tablet Twice a day Zoloft [facility] 16156424495 50 MG Orally Active 1 tablet Once a day Liothyronine [facility] 73002573703 25 MCG Orally Active 1 tablet Sodium Once a day in on an AM empty stomach Levothyroxine [facility] 27529424821 100 MCG Orally Active 1 tablet Sodium Once a day in on an AM empty stomach in the morning Mirtazapine [facility] 32389387942 15 MG Orally Active 1 tablet Once a day at bedtime Atorvastatin [facility] 62583040666 40 MG Orally Active 1 tablet Calcium Once a day Synthroid [facility] 84346549986 112 MCG Active 1 each once a day orally Premarin [facility] 96196516031 0.3 MG Orally Fabienne Active 1 tablet Daily 2017 Results No Known Results Summary Purpose eClinicalWorks Submission
--- OUTSIDE RECORDS SUMMARY | 2019-04-03 18:33 | XMS REPORT ---
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 Assessment Hot flashes due to menopause N95.1 Active Assessment Adenocarcinoma of right lung C34.91 Active Assessment Acquired hypothyroidism E03.9 Active Assessment Depression with anxiety F41.8 Active Assessment Vitamin B12 deficiency (dietary) D51.8 Active anemia Assessment Essential tremor G25.0 Active Assessment Primary insomnia F51.01 Active Medications Medication Code Code Instructions Start End Status Dosage System Date Date Mirtazapine [facility] 13392806062 15 MG Orally April 09, Active 1 tablet Once a day 2017 at bedtime Levothyroxine [facility] 64309246176 112 MCG Orally Active 1 tablet Sodium Once a day on an empty stomach in the morning Liothyronine [facility] 46826873117 25 MCG Active TAKE 1 Sodium TABLET BY MOUTH 1 TIME DAILY. Synthroid [facility] 91576354496 112 MCG Active 1 each once a day orally Premarin ND 47110049840 0.3 MG Orally Active 1 tablet Daily Xanax ND 74599350874 0.5 MG Orally Active 1 tablet Twice a day Premarin [facility] 56912103161 0.3 MG Orally December Active 1 tablet Daily 2017 Nitroglycerin [facility] 01174572130 0.4 MG Active not Sublingual defined Albuterol Sulfate [facility] 52763154676 108 (90 Base) Active 2 puffs as MCG/ACT needed Inhalation every 6 hrs Zoloft [facility] 26470091473 50 MG Orally Active 1 tablet Once a day Propranolol HCl [facility] 87866076171 10 MG Orally April 09, Active 1 tablet Twice a day 2017 Zoloft [facility] 21798042971 50 MG Orally Active 1 tablet Once a day Results No Known Results Summary Purpose eClinicalWorks Submission
--- OUTSIDE RECORDS SUMMARY | 2019-04-03 18:33 | XMS REPORT | Clinical Summary ---
:1940 Author Organization [facility] Address [address] [place] [address] Care Team Providers Name Role Phone Brigitte Enrique DO Primary Care Provider Allergies Active Allergy Reactions Severity Noted Date Comments Codeine Sulfate 01/03/2016 Hydromorphone 08/21/2017 Morphine Sulfate 01/03/2016 [id number] 08/21/2017 Butorphanol Tartrate 08/21/2017 Medications Medication Sig [...] a day. Active Problems Not on file Family History Medical History Relation Name Comments [...] VACCINE (1 of 2 - PCV13) 2005 INFLUENZA VACCINE 04/22/2019 Results Not on fileafter 04/02/2018 Insurance Payer Benefit Plan / Subscriber ID Effective Dates Phone Address Type Group MEDICARE MEDICARE PART A xxxxxxxxxx 2005-Present [place], [place] Medicare AND B Advance Directives Patient has advance care planning documents on file. For more information, please contact:[place] [address]
--- OUTSIDE RECORDS SUMMARY | 2019-04-03 18:33 | XMS REPORT ---
:1940 Author [facility] Address [address] [place] [address] Dr. Balbuena [address] [place] [id number] Care Team Providers Name Role Phone Unavailable Unavailable Unavailable Problems This patient has no known problems. Allergies, Adverse Reactions, Alerts This patient has no known allergies or adverse reactions. Medications This patient has no known medications.
--- OUTSIDE RECORDS SUMMARY | 2019-04-03 18:33 | XMS REPORT ---
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 Problem Skin infection L08.9 Active Problem Fever, unspecified fever cause R50.9 Active Problem Depression with anxiety F41.8 Active Assessment Fever, unspecified fever cause R50.9 Active Assessment Skin infection L08.9 Active Problem Vitamin B12 deficiency (dietary) D51.8 Active anemia Problem Adenocarcinoma of right lung C34.91 Active Problem 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 73644765018 0.3 MG Orally Active [address] [facility] 60939417756 50 MG Orally Active 1 tablet Once a day Synthroid [facility] 61567362133 112 MCG Active 1 each once a day orally Aspirin 81 ND 22680915252 81 MG Orally Active 1 tablet Once a day Nitroglycerin [facility] 76437511366 0.4 MG Active not Sublingual defined Levothyroxine [facility] 39006723248 112 MCG Orally Active 1 tablet Sodium Once a day on an empty stomach in the morning Zoloft [facility] 87838382314 100 MG Orally Active 1 tablet Once a day Xanax [facility] 84121210935 0.5 MG Orally Active 1 tablet Twice a day Levothyroxine [facility] 25580507393 100 MCG Orally Active 1 tablet Sodium Once a day in on an AM empty stomach in the morning Atorvastatin [facility] 74965100803 40 MG Orally Active 1 tablet Calcium Once a day Mirtazapine [facility] 51354874737 15 MG Orally Active 1 tablet Once a day at bedtime Albuterol Sulfate [facility] 22005283950 108 (90 Base) Active 2 puffs as MCG/ACT needed Inhalation every [address] [facility] 61849216469 10 MG Orally Active 1 tablet Twice a day Premarin [facility] 13394301865 0.3 MG Orally Fabienne Active 1 tablet Daily [address] [facility] 36560260114 25 MCG Orally Active 1 tablet Sodium Once a day in on an AM empty stomach Results No Known Results Summary Purpose eClinicalWorks Submission
--- NOTE | 2019-04-03 19:29 | RAD REPORT ---
EXAM DESCRIPTION: RAD - Shoulder Right 2 View - 04/03/2019 7:21 pm CLINICAL HISTORY: shoulder injury Fall, pain COMPARISON: <Comparisons> FINDINGS: Mildly comminuted and impacted fracture the proximal right humerus is seen. No dislocation evident.
--- NOTE | 2019-04-03 19:30 | RAD REPORT ---
EXAM DESCRIPTION: RAD - Humerus Right - 04/03/2019 7:21 pm CLINICAL HISTORY: fall Fall, right shoulder pain COMPARISON: <Comparisons> FINDINGS: Mildly impacted and comminuted fracture the proximal right humerus is seen. No dislocation evident.
--- NOTE | 2019-04-03 19:33 | RAD REPORT ---
EXAM DESCRIPTION: RAD - Hand Right 3 View - 04/03/2019 7:21 pm CLINICAL HISTORY: fall Trauma, fall COMPARISON: <Comparisons> FINDINGS: Diffuse osteopenia is seen with multi joint osteoarthritic changes present. No acute fract ure or dislocation evident.
[2019-04-03] MEDS ORDERED: HYDROCODONE/APAP 5/325 MG TAB ONE (20:01)
--- NOTE | 2019-04-03 20:42 | ER ---
Nurse's Notes [facility] Name: Ileana Lopez Age: 79 yrs Sex: Female : 1940 Arrival Date: 04/03/2019 Time: 18:32 Bed 4 Private MD: Diagnosis: Proximal Humerus Fracture Presentation: 04/03 18:35 Presenting complaint: Patient states: I tripped going [place] steps [place] the local and la1 landed on my right shoulder/ arm. Pt presents in home made sling. Denies trauma to head or neck. Reports use of xarelto. Transition of care: patient was not received from another setting of care. Onset of symptoms was April 03, 2019. Risk Assessment: Do you want to hurt yourself or someone else? Patient reports no desire to harm self or others. Initial Sepsis Screen: Does the patient meet any 2 criteria? No. Patient's initial sepsis screen is negative. Does the patient have a suspected source of infection? No. Patient's initial sepsis screen is negative. Care prior to arrival: None. 18:35 Method Of Arrival: Ambulatory la1 18:35 Acuity: JUSTIN 3 la1 18:52 Mechanism of Injury: Fall Patient states she tripped over a step and fell forward. ae4 Trauma event details: Injury occurred in the [facility]. Historical: - Allergies: 18:34 Codeine; la1 18:34 Dilaudid; la1 18:34 Morphine; la1 18:34 Neosporin ([id number]); la1 18:34 Stadol; la1 - PMHx: 18:34 Cancer, Lung; Cancer; radiation; la1 - Immunization history:: Adult Immunizations up to date. - Social history:: Smoking status: Patient/guardian denies using tobacco. - Immunization history: Last tetanus immunization: < 5 years ago. - Ebola Screening: : No symptoms or risks identified at this time. Screenin:43 Abuse screen: Denies threats or abuse. Denies injuries from another. Tuberculosis aj screening: No symptoms or risk factors identified. 18:45 Nutritional screening: No deficits noted. Fall Risk None identified. aj Primary Survey: 18:43 NO uncontrolled hemorrhage observed. A: The patient is alert. Airway: patent. aj Breathing/Chest: Respiratory pattern: regular, Respiratory effort: spontaneous, unlabored, Breath sounds: clear. Circulation: Skin color: pink, Skin temperature: warm, dry. Disability Alert. Exposure/Environment: There is no evidence of uncontrolled external bleeding. 18:50 Reassessment Airway Airway Patent Breathing/Chest Respiratory pattern Regular. ae4 19:40 Reassessment Airway Airway Patent Breathing/Chest Respiratory pattern Regular rr5 Respiratory effort Spontaneous Unlabored Breath sounds Clear Chest inspection Symmetrical Circulation Heart tones Present Pulses Palpable Color [place] Temperature Warm Disability Alert. Secondary Survey: 19:40 HEENT: No deficits noted. Gastrointestinal: No deficits noted. : No deficits noted. rr5 No signs and/or symptoms were reported regarding the genitourinary system. Musculoskeletal: Circulation, motion, and sensation intact. Capillary refill < 3 seconds, Range of motion: limited in right shoulder, right elbow and right wrist Swelling present in right shoulder. 19:40 Injury Description: Abrasion sustained to right hand is no uncontrolled hemorrahge, rr5 abrasion and skin peeled. Assessment: 18:45 General: Appears in no apparent distress. comfortable, Behavior is calm, cooperative, aj appropriate for age. Pain: Complains of pain in palm of right hand and anterior aspect of right shoulder. Neuro: Level of Consciousness is awake, alert, obeys commands, Oriented to person, place, time, situation, Appropriate for age. Respiratory: Airway is patent Respiratory effort is even, unlabored, Respiratory pattern is regular, symmetrical. Derm: Skin is intact, is healthy with good turgor, Skin is pink, warm \T\ dry. normal. Musculoskeletal: Swelling present in anterior aspect of right shoulder Reports pain in anterior aspect of right shoulder. Injury Description: Abrasion sustained to palm of right hand. 19:20 General: Appears in no apparent distress. uncomfortable, Behavior is calm, cooperative, rr5 appropriate for age. Pain: Complains of pain in right shoulser and right hand Pain does not radiate. Pain currently is 10 out of 10 on a pain scale. Quality of pain is described as aching, Pain began suddenly, Is intermittent. Neuro: Level of Consciousness is awake, alert, obeys commands, Oriented to person, place, time, situation, Appropriate for age. Cardiovascular: Capillary refill < 3 seconds Patient's skin is warm and dry. Respiratory: Airway is patent Respiratory effort is even, unlabored, Respiratory pattern is regular, symmetrical. GI: No signs and/or symptoms were reported involving the gastrointestinal system. : No signs and/or symptoms were reported regarding the genitourinary system. EENT: No signs and/or symptoms were reported regarding the EENT system. Derm: Wound noted right hand Wound is abrasion. Musculoskeletal: Circulation, motion, and sensation intact. Capillary refill < 3 seconds, Range of motion: limited in right shoulder, right elbow and right wrist Swelling present in right shoulder. Injury Description: Abrasion sustained to right hand is no active bleeding. 20:20 Reassessment: patient refused for suturing. ED provider ordered for Steri-Strip rr5 application. 21:00 Reassessment: Patient appears in no apparent distress at this time. Patient is alert, rr5 oriented x 3, equal unlabored respirations, skin warm/dry/pink. discharge instruction given and explained to denial management representative without complaints made. Patient states feeling better. Patient states symptoms have improved. Vital Signs: 18:35 BP 147 / 69; Pulse 80; Resp 16; Temp 98.2; Pulse Ox 98% on R/A; Weight 53.07 kg; Height la1 5 ft. 5 in. (165.10 cm); 19:00 BP 156 / 73; Pulse 83; Resp 17; Temp 98.7; Pulse Ox 100% ; Pain 10/10; rr5 20:00 BP 133 / 70; Pulse 80; Resp 17; Pulse Ox 98% ; Pain 8/10; rr5 21:00 BP 121 / 73; Pulse 82; Resp 17; Temp 98.5; Pulse Ox 99% ; Pain 8/10; rr5 18:35 Body Mass Index 19.47 (53.07 kg, 165.10 cm) la1 [place] Score: 18:43 Eye Response: spontaneous(4). Verbal Response: oriented(5). Motor Response: obeys aj commands(6). Total: 15. Trauma Score (Adult): 18:43 Eye Response: spontaneous(1); Verbal Response: oriented(1); Motor Response: obeys aj commands(2); Systolic BP: > 89 mm Hg(4); Respiratory Rate: 10 to 29 per min(4); [place] Score: 15; Trauma Score: 12 ED Course: 18:32 Patient arrived in ED. as 18:34 Arm band placed on left wrist. la1 18:36 Triage completed. la1 18:37 Ирина Rea, RN is Primary Nurse. aj 18:38 Roberto Barajas PA is PHCP. jm 18:38 Jovanny Tsai MD is Attending Physician. [facility] 18:43 Bed in low position. Call light in reach. Adult w/ patient. aj 18:43 Patient maintains SpO2 saturation greater than 95% on room air. aj 18:45 Warm blanket given. aj 18:52 Thermoregulation: warm blanket given to patient. ae4 19:21 Shoulder Right (2 View) XRAY In Process Unspecified. EDMS 19:21 Humerus Right XRAY In Process Unspecified. EDMS 19:21 Hand Right 3 View XRAY In Process Unspecified. EDMS 20:04 Shoulder immobilizer applied on right shoulder. rr5 20:25 Wound care: to skin peeled located on right hand was cleaned with irrigated with normal rr5 saline, dressed with 4X4s, Kerlix, steri strip, Patient tolerated well. 20:40 Latrell Keen MD is Referral Physician. [facility] 21:00 No provider procedures requiring assistance completed. Patient did not have IV access rr5 during this emergency room visit. Administered Medications: 20:04 Drug: [place] 5 mg-325 mg 1 tabs Route: PO; rr5 21:00 Follow up: Response: Pain is decreased rr5 20:30 Not Given (Patient Refused): Lidocaine (1 %) 20 ml 20 ml Infiltration once; to bedside rr5 Intake: 20:30 PO: 200ml (Water); Total: 200ml. rr5 Outcome: 20:41 Discharge ordered by . [facility] 21:00 Discharged to home via wheelchair, with family. rr5 21:00 Condition: stable 21:00 Discharge instructions given to patient, family, Instructed on discharge instructions, follow up and referral plans. wound care, Demonstrated understanding of instructions, follow-up care, wound care. 21:00 Patient's length of stay was not longer than 2 hours. 21:14 Patient left the ED. rr5 Signatures: Dispatcher [employer] EDMS Ирина Rea, RN Roberto Farias PA PA Nolvia Ritter Lee RN RN la1 Abdi Ernandez RN RN rr5 Ethan Hickman RN RN ae4
--- NOTE | 2019-04-03 20:42 | EDPHYS ---
Physician Documentation [facility] Name: Ileana Lopez Age: 79 yrs Sex: Female : 1940 Arrival Date: 04/03/2019 Time: 18:32 Bed 4 Private MD: ED Physician Jovanny Tsai HPI: 04/03 18:39 This 79 yrs old Female presents to ER via Ambulatory with complaints of Fall jmm Injury. 18:39 Details of fall: The patient fell from an upright position. Onset: The symptoms/episode jmm began/occurred acutely, just prior to arrival. Associated injuries: The patient sustained right arm, right hand. This is a 79 year old female that presents to the ED with complaints of right arm pain which occurred just prior to arrival. patient states she missed a step and fell on her right side. denies head injury, denies vomiting. also complains of laceration to her right hand. patient is UTD on immunizations. . Historical: - Allergies: 18:34 Codeine; la1 18:34 Dilaudid; la1 18:34 Morphine; la1 18:34 Neosporin ([id number]); la1 18:34 Stadol; la1 - PMHx: 18:34 Cancer, Lung; Cancer; radiation; la1 - Immunization history:: Adult Immunizations up to date. - Social history:: Smoking status: Patient/guardian denies using tobacco. - Immunization history: Last tetanus immunization: < 5 years ago. - Ebola Screening: : No symptoms or risks identified at this time. ROS: 18:39 Constitutional: Negative for fever, chills, and weight loss, Cardiovascular: Negative jmm for chest pain, palpitations, and edema, Respiratory: Negative for shortness of breath, cough, wheezing, and pleuritic chest pain. 18:39 MS/extremity: Positive for injury or acute deformity, pain. 18:39 All other systems are negative. Exam: 18:39 Constitutional: This is a well developed, well nourished patient who is awake, alert, jmm and in no acute distress. Head/Face: atraumatic. Eyes: EOMI, no conjunctival erythema appreciated ENT: Moist Mucus Membranes Neck: Trachea midline, Supple Chest/axilla: Normal chest wall appearance and motion. Cardiovascular: Regular rate and rhythm. No edema appreciated Respiratory: Normal respirations, no respiratory distress appreciated 18:39 Musculoskeletal/extremity: pain on palpation of the right proximal hur[place]us, full appraiser auditor strength, full radial pulse, NVI. 18:39 Skin: laceration noted to the palm of the right hand, no active bleeding appreciated. 18:39 Neuro: Orientation: is normal, Mentation: is normal, Memory: is normal. 18:39 Psych: Behavior/mood is pleasant, cooperative. Vital Signs: 18:35 BP 147 / 69; Pulse 80; Resp 16; Temp 98.2; Pulse Ox 98% on R/A; Weight 53.07 kg; Height la1 5 ft. 5 in. (165.10 cm); 19:00 BP 156 / 73; Pulse 83; Resp 17; Temp 98.7; Pulse Ox 100% ; Pain 10/10; rr5 20:00 BP 133 / 70; Pulse 80; Resp 17; Pulse Ox 98% ; Pain 8/10; rr5 21:00 BP 121 / 73; Pulse 82; Resp 17; Temp 98.5; Pulse Ox 99% ; Pain 8/10; rr5 18:35 Body Mass Index 19.47 (53.07 kg, 165.10 cm) la1 [place] Coma Score: 18:43 Eye Response: spontaneous(4). Verbal Response: oriented(5). Motor Response: obeys aj commands(6). Total: 15. Trauma Score (Adult): 18:43 Eye Response: spontaneous(1); Verbal Response: oriented(1); Motor Response: obeys aj commands(2); Systolic BP: > 89 mm Hg(4); Respiratory Rate: 10 to 29 per min(4); [place] Score: 15; Trauma Score: 12 MDM: 18:39 Patient medically screened. [facility] 20:39 Data reviewed: vital signs, nurses notes. Counseling: I had a detailed discussion with may the patient and/or guardian regarding: the historical points, exam findings, and any diagnostic results supporting the discharge/admit diagnosis, radiology results, the need for outpatient follow up, to return to the emergency department if symptoms worsen or persist or if there are any questions or concerns that arise at home. 20:39 ED course: Patient refused sutures. Patient is advised to follow up with orthopedics [facility] for further evaluation. Patient understood and agrees with the plan of care. . 04/03 18:46 Order name: Shoulder Right (2 View) XRAY; Complete Time: 19:34 [facility] 04/03 18:46 Order name: Humerus Right XRAY; Complete Time: 19:34 [facility] 04/03 18:46 Order name: Hand Right 3 View XRAY; Complete Time: 19:40 [facility] 04/03 19:34 Order name: Shoulder Immobilizer; Complete Time: 20:04 [facility] 04/03 20:27 Order name: Wound dressing: steri strip dressing; Complete Time: 20:27 rr5 Administered Medications: 20:04 Drug: [place] 5 mg-325 mg 1 tabs Route: PO; rr5 21:00 Follow up: Response: Pain is decreased rr5 20:30 Not Given (Patient Refused): Lidocaine (1 %) 20 ml 20 ml Infiltration once; to bedside rr5 Disposition: 04/04 07:22 Co-signature as Attending Physician, Jovanny Tsai MD. rn Disposition: 04/03/19 20:41 Discharged to Home. Impression: Proximal Humerus Fracture. - Condition is Stable. - Discharge Instructions: Humerus Fracture Treated With Immobilization. - Prescriptions for Ultracet 37.5- 325 mg Oral Tablet - take 1 tablet by ORAL route every 6 hours - for up to 5 days; do not exceed 8 tablets per day.; 20 tablet. - Medication Reconciliation Form, Thank You Letter, Antibiotic Education, Prescription Opioid Use form. - Follow up: Latrell Keen MD; When: 2 - 3 days; Reason: Recheck today's complaints, Continuance of care, Re-evaluation by your physician. Signatures: Dispatcher [employer] EDMS Roberto Barajas PA PA jmm Nieto, Roman, MD MD rn Attema, Lee RN RN la1 Abdi Ernandez RN RN rr5 Ethan Hickman RN RN ae4 Corrections: (The following items were deleted from the chart) 04/03 21:14 20:41 04/03/2019 20:41 Discharged to Home. Impression: Proximal Humerus Fracture. rr5 Condition is Stable. Forms are Medication Reconciliation Form, Thank You Letter, Antibiotic Education, Prescription Opioid Use. Follow up: Latrell Keen; When: 2 - 3 days; Reason: Recheck today's complaints, Continuance of care, Re-evaluation by your physician. jmm
[2019-04-03 21:38] VITALS: BP 156/73; TEMP 98.7; O2SAT 100
== END 2019-04-03 21:14 | disposition home or self-care (01) ==
LOC: ER 18:30
DX: S42.201A Unspecified fracture of upper end of right humerus, initial encounter for closed fracture (principal); W19.XXXA Unspecified fall, initial encounter; Y93.9 Activity, unspecified; Y92.9 Unspecified place or not applicable; Z88.3 Allergy status to other anti-infective agents; Z88.5 Allergy status to narcotic agent; Z88.8 Allergy status to other drugs, medicaments and biological substances; Z85.118 Personal history of other malignant neoplasm of bronchus and lung
CPT/HCPCS: 99284

== ENCOUNTER 2019-08-29 16:41 | Emergency (ER) | payer OTHER ==
--- OUTSIDE RECORDS SUMMARY | 2019-08-29 16:43 | XMS REPORT ---
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 Problem Cellulitis, face L03.211 Active Problem Hospital discharge follow-up Z09 Active Problem History of ischemic I69.30 Active cerebrovascular accident (CVA) with residual deficit Problem Skin infection L08.9 Active Problem Fever, unspecified fever cause R50.9 Active Problem Depression with anxiety F41.8 Active Assessment Other closed nondisplaced fracture S42.294A Active of proximal end of right humerus, initial encounter Assessment Pain, joint, shoulder, right M25.511 Active Problem Vitamin B12 deficiency (dietary) D51.8 Active anemia Problem Adenocarcinoma of right lung C34.91 Active Problem 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 Problem Mixed hyperlipidemia E78.2 Active Problem Hot flashes due to menopause N95.1 Active Problem Acquired hypothyroidism E03.9 Active Medications Medication Code Code Instructions Start End Status Dosage System Date Date Aspirin 81 ND 12408202822 81 MG Orally Active 1 tablet Once a day Estradiol ND 59687808185 0.5 MG Orally Active 1 tablet daily [place] 58232931132 10-325 MG Active as Orally every 6 directed hrs prn pain Zoloft ND 27947132302 50 MG Orally Active 1 tablet Once a day Levothyroxine ND 56124951757 100 MCG Orally Active 1 tablet Sodium Once a day in on an AM empty stomach in the morning Propranolol HCl ND 22409923503 10 MG Orally Active 1 tablet Twice a day Xarelto [facility] 79211683271 10 MG Active TAKE 1 TABLET BY MOUTH EVERY DAY Donepezil HCl [facility] 13534704676 10 MG Active TAKE 1 TABLET BY MOUTH AT BEDTIME Synthroid [facility] 30986692108 112 MCG Active 1 each once a day orally Nitroglycerin [facility] 36525781847 0.4 MG Active not Sublingual defined Atorvastatin [facility] 22788410481 40 MG Orally Active 1 tablet Calcium Once a day Liothyronine [facility] 86894253549 25 MCG Orally Active 1 tablet Sodium Once a day in on an AM empty stomach Albuterol [facility] 17978852180 108 (90 Base) Active 2 puffs as Sulfate MCG/ACT needed Inhalation every 6 hrs Amitriptyline [facility] 0 Active not HCl defined Zoloft [facility] 64589294120 100 MG Orally Active 1 tablet Once a day Levothyroxine [facility] 63011631086 112 MCG Orally Active 1 tablet Sodium Once a day on an empty stomach in the morning Mirtazapine [facility] 48491874815 15 MG Orally Active 1 tablet Once a day at bedtime Integra [facility] [address]-58 Active not defined Xanax [facility] 94920030695 0.5 MG Orally Active 1 tablet Twice a day Results No Known Results Summary Purpose eClinicalWorks Submission
--- OUTSIDE RECORDS SUMMARY | 2019-08-29 16:43 | XMS REPORT ---
:1940 [facility] Address [address] [place] [address] Dr. Balbuena [address] [place] [id number] Care Team Providers Name Role Phone Unavailable Unavailable Unavailable Problems This patient has no known problems. Allergies, Adverse Reactions, Alerts This patient has no known allergies or adverse reactions. Medications This patient has no known medications.
--- OUTSIDE RECORDS SUMMARY | 2019-08-29 16:44 | XMS REPORT ---
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 Problem Mixed hyperlipidemia E78.2 Active Problem Hot flashes due to menopause N95.1 Active Problem Acquired hypothyroidism E03.9 Active Medications Medication Code Code Instructions Start End Status Dosage System Date Date Aspirin 81 ND 88604285293 81 MG Orally Active 1 tablet Once a day [place] ND 34144146088 10-325 MG Active as Orally every 6 directed hrs prn pain Estradiol ND 28287301270 0.5 MG Orally Active 1 tablet daily Levothyroxine ND 62330155879 112 MCG Orally Active 1 tablet Sodium Once a day on an empty stomach in the morning Atorvastatin ND 88362678217 40 MG Orally Active 1 tablet Calcium Once a day Propranolol HCl ND 32324678987 10 MG Orally Active 1 tablet Twice a day Zoloft [facility] 91229855595 50 MG Orally Active 1 tablet Once a day Integra [facility] [address]-56 Active not defined Xarelto [facility] 87900535122 10 MG Active TAKE 1 TABLET BY MOUTH EVERY DAY Nitroglycerin [facility] 25068986612 0.4 MG Active not Sublingual defined Zoloft [facility] 23316478973 100 MG Orally Active 1 tablet Once a day Xanax [facility] 62680253076 0.5 MG Orally Active 1 tablet Twice a day Amitriptyline [place] 0 Active not HCl defined Albuterol [facility] 98461523046 108 (90 Base) Active 2 puffs as Sulfate MCG/ACT needed Inhalation every 6 hrs Liothyronine [facility] 85787807797 25 MCG Orally Active 1 tablet Sodium Once a day in on an AM empty stomach Synthroid [facility] 82170057768 112 MCG Active 1 each once a day orally Donepezil HCl [facility] 80294125388 10 MG Active TAKE 1 TABLET BY MOUTH AT BEDTIME Mirtazapine [facility] 40835635785 15 MG Orally Active 1 tablet Once a day at bedtime Levothyroxine [facility] 72346507808 100 MCG Orally Active 1 tablet Sodium Once a day in on an AM empty stomach in the morning Results No Known Results Summary Purpose eClinicalWorks Submission
--- OUTSIDE RECORDS SUMMARY | 2019-08-29 16:44 | XMS REPORT ---
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 Problem Osteoarthritis, unspecified M19.90 Active osteoarthritis type, unspecified site Problem Essential tremor G25.0 Active Problem Primary insomnia F51.01 Active Problem Acute bacterial conjunctivitis of H10.33 Active both eyes Problem 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 Assessment Acquired hypothyroidism E03.9 Active Assessment Primary insomnia F51.01 Active Problem Cellulitis, face L03.211 Active Assessment Vitamin B12 deficiency (dietary) D51.8 Active anemia Problem Hospital discharge follow-up Z09 Active Problem 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 Problem Skin infection L08.9 Active Problem Fever, unspecified fever cause R50.9 Active Problem Depression with anxiety F41.8 Active Assessment Mixed hyperlipidemia E78.2 Active Assessment Depression with anxiety F41.8 Active Problem Vitamin B12 deficiency (dietary) D51.8 Active anemia Problem Adenocarcinoma of right lung C34.91 Active Problem 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 Problem Hot flashes due to menopause N95.1 Active Medications Medication Code Code Instructions Start End Status Dosage System Date Date Aspirin 81 NDC 12042323917 81 MG Orally Active 1 tablet Once a day Amitriptyline NDC 0 Active not defined HCl Albuterol NDC 73942559988 108 (90 Base) Active 2 puffs as Sulfate MCG/ACT needed Inhalation every 6 hrs Zoloft [facility] 05887796670 50 MG Orally Active 1 tablet Once a day Levothyroxine [facility] 93268846669 112 MCG Orally Active 1 tablet on Sodium Once a day an empty stomach in the morning Estradiol ND 31321539906 0.5 MG Orally Active 1 tablet daily Atorvastatin ND 55659265422 40 MG Orally Active 1 tablet Calcium Once a day Propranolol HCl ND 34561935856 10 MG Orally Active 1 tablet Twice a day Levothyroxine ND 01923175064 125 MCG Orally Active 1 tablet in Sodium Once a day in the morning AM on an empty stomach Nitroglycerin [facility] 10111304645 0.4 MG Active not defined Sublingual Triamcinolone ND 34264946548 0.1 % Jul 30, Active 1 application Acetonide Externally 2019 to affected Twice a day area Mirtazapine ND 82027017697 15 MG Orally Active 1 tablet at Once a day bedtime Zoloft [facility] 24453462048 100 MG Orally Active 1 tablet Once a day Xanax [facility] 52074199306 0.5 MG Orally Active 1 tablet Twice a day Integra [facility] [address]-17 Active not defined [place] [facility] 45890065427 10-325 MG Active as directed Orally every 6 hrs prn pain Donepezil HCl [facility] 90507790898 10 MG Active TAKE 1 TABLET BY MOUTH AT BEDTIME Ketoconazole ND 83674651583 2 % Externally Jul 30Jul Active 1 application Twice a day 2018 15, to affected 2019 area Xarelto [facility] 11950777799 10 MG Active TAKE 1 TABLET BY MOUTH EVERY DAY Synthroid [facility] 57362782610 112 MCG Active 1 each once a day orally Liothyronine ND 22767352409 25 MCG Orally Active 1 tablet on Sodium Once a day in an empty AM stomach Results No Known Results Immunizations Vaccine Administration Date FluAD Jul 30, 2019 Summary Purpose eClinicalWorks Submission
[2019-08-29] MEDS ORDERED: NA CHLORIDE 0.9% 500 ML ONE (17:23)
[2019-08-29] MEDS ORDERED: ONDANSETRON 4 MG/2 ML VIAL ONE (17:23)
[2019-08-29 17:43] LABS: Absolute Lymphocytes (CBC) 0.8 K/uL (0.7-4.9); Basophils % 0.4 % (0-1.3); Hematocrit 29.8 % (36.0-45.0); Lymphocytes % 5.4 % (15.3-44.8); MPV 8.9 fL (7.6-11.3); RBC Red Blood Cell Count 3.27 M/uL (3.86-4.86)
[2019-08-29 17:44] LABS: Protime INR 1.27
[2019-08-29 17:59] LABS: ALT/SGPT 17 U/L (12-78); AST/SGOT 21 U/L (15-37); Albumin 2.6 g/dL (3.4-5.0); Alkaline Phosphatase 98 U/L (45-117); BUN Blood Urea Nitrogen 23 mg/dL (7-18); Bicarbonate 21 mmol/L (21-32); Bilirubin Direct 0.1 mg/dL (0-0.2); Bilirubin Total 0.3 mg/dL (0.2-1.0); Glucose Level 125 mg/dL (74-106); Magnesium 1.9 mg/dL (1.8-2.4); NT PRO-BNP 655 pg/mL (<450); Potassium 4.3 mmol/L (3.5-5.1); Protein, Total 6.8 g/dL (6.4-8.2); Sodium Level 142 mmol/L (136-145); Troponin (Emerg Dept Use Only) < 0.02 ng/mL (0.0-0.045)
--- NOTE | 2019-08-29 18:36 | RAD REPORT ---
EXAM DESCRIPTION: CT - Head Brain Wo Cont - 08/29/2019 6:29 pm CLINICAL HISTORY: Head injury, nausea, weakness, lung cancer history COMPARISON: None. TECHNIQUE: Axial 5 mm thick images of the head were obtained without IV contrast. All CT scans are performed using dose optimization technique as appropriate and may include automated exposure control or mA/KV adjustment according to patient size. FINDINGS: No intracranial hemorrhage, mass, edema or shift of mid-line structures. No acute infarcti on changes seen. No abnormal extra-axial fluid collections. Moderate atrophy and mild to moderate chr onic ischemic changes are present. Ventricles are in proportion to volume loss. Intracranial findings are similar to comparison. Mastoid air cells and visualized portions of the paranasal sinuses are clear. No acute bony findings. IMPRESSION: Negative non-contrast CT head examination for acute finding. Atrophy and chronic ischemic changes match the November 2018 study. Chronic ischemic changes can mask nonhemorrhagic acute infarction. MR brain followup can be obtained if there is ongoing concern for acute ischemia.
--- NOTE | 2019-08-29 18:45 | RAD REPORT ---
EXAM DESCRIPTION: CT - Abdomen Pelvis W Contrast - 08/29/2019 6:35 pm CLINICAL HISTORY: abdominal pain, weaknessabdominal pain, weakness COMPARISON: Portable chest same date, CT abdomen and pelvis December 2017 TECHNIQUE: Biphasic, helical CT imaging of the abdomen and pelvis was performed following 100 ml non -ionic IV contrast. No oral contrast. All CT scans are performed using dose optimization technique as appropriate and may include automated exposure control or mA/KV adjustment according to patient size. FINDINGS: Large right pleural effusion is present not fully assessed. There is right middle lobe and right lower lobe atelectasis. No pericardial thickening or effusion. The liver, spleen, and pancreas show no suspicious findings. Gallbladder and biliary tree are also wi thout suspicious finding. Symmetric renal function is seen with no hydronephrosis or suspicious renal mass. No pyelonephritis o r acute parenchymal process. No bladder abnormalities. No adrenal abnormalities. Uterus is absent. No left ovary abnormality seen. Right ovary is not clearly distinguishable from the adjacent on opacifi ed bowel. There is a 2.7 centimeter oval cystic mass in the right adnexa. Calcifications are seen fabian ng the periphery. No fat component. This could be paraovarian or ovarian remnant cysts. This can be m onitored on subsequent imaging. No gastric dilatation or gastric wall thickening. No dilated large or small bowel loops. Patient has prominent diverticulosis. No acute diverticulitis confirmed. Appendix is not clearly defined. Appendi citis not suspected. No free air, free fluid or inflammatory stranding. No hernia, mass or bulky lymphadenopathy. No suspicious bony findings. IMPRESSION: Prominent diverticulosis is present without diverticulitis or other acute GI finding wesley ntifiable. An acute peritoneal or retroperitoneal process is not seen. Patient has a large right pleural effusion is only partially imaged. There is right middle lobe and r ight lower lobe atelectasis.
--- NOTE | 2019-08-29 18:46 | RAD REPORT ---
EXAM DESCRIPTION: RAD - Chest Single View - 08/29/2019 6:06 pm CLINICAL HISTORY: Weakness, shortness of breath COMPARISON: CT chest June 25 TECHNIQUE: AP portable chest image was obtained 1750 hours . FINDINGS: A large right pleural effusion is present occupying at least 50% of the right hemithorax. No pleural effusion on the left. Lung markings are mildly prominent. No peripheral consolidation or m ass. Trachea is midline. Right apical pleural thickening has not change from comparison imaging. Righ t heart border is obscured. Heart does not appear to be enlarged. No pneumothorax. No acute bony abno rmality seen. No acute aortic findings suspected. IMPRESSION: Large pleural effusion occupying at least 50% of the right hemithorax.
--- NOTE | 2019-08-29 18:55 | RAD REPORT ---
EXAM DESCRIPTION: CT - Thorax Wo Con - 08/29/2019 6:42 pm CLINICAL HISTORY: Chest pain COMPARISON: CT chest June 25 TECHNIQUE: Axial 5 mm thick images of the chest were obtained without IV contrast. Exam was performe d subsequent to an IV contrast enhanced CT abdomen and pelvis study. All CT scans are performed using dose optimization technique as appropriate and may include automated exposure control or mA/KV adjustment according to patient size. FINDINGS: A grossly 2 centimeter area of spiculated parenchyma is present in the left apex. There is central cavitation or lucency. The parenchymal stranding or thickening associated with this apical m ass density has progressed slightly from June. Interstitial opacification is present in the scrap handler ior gutter on the left. There is an overall left hemithorax volume reduction compared to prior imagin g. No additional area of mass or consolidation. Airspace opacification is present in the superior aspect of the right lower lobe most likely pneumoni a. This could be infectious or postobstructive. Large pleural effusion is present filling the majorit y of the right hemithorax. There is fluid entrapped along the major fissure. There is partial atelect asis in the inferior aspect of the right upper lobe. There is atelectasis of the right middle lobe an d most of the right lower lobe. No left-sided pleural effusion. No pneumothorax. The pleural fluid pardo periorly is loculated. No air within the pleural fluid. Increased opacification is present in the rig ht hilum. Atelectatic lung and non-opacified vasculature may be explained all of this opacification. Development of a mass density cannot be excluded. Increased mediastinal lymphadenopathy is present. In the anterior superior mediastinum there is a new 11 millimeter lymph node. Clustered retrocaval-pretracheal lymph nodes are present 14-20 mm in size. There is increased subcarinal mass or lymphadenopathy as well. No acute aortic finding. Pulmonary ar terial tree is limited in assessment. No pericardial effusion. No chest wall mass or abnormal axillary lymphadenopathy. IMPRESSION: Large right pleural effusion occupying more than 50% of the right hemithorax. This is at least partially loculated. Airspace opacification in the superior aspect of the right lower lobe which could be infectious pneum onia or a postobstructive pneumonia. Multiple mediastinal lymph nodes, new or enlarged from June 2019. Increased opacification of the right hilum which could be a summation artifact of unopacified vascula ture and atelectatic lung. However, presence of a hilar mass is not excluded. Spiculated parenchyma in the left apex slightly progressive from June 2019.
[2019-08-29 20:24] LABS: Urine RBC <5 /HPF (NONE SEEN)
[2019-08-29 20:25] LABS: Urine Bacteria >50 /HPF (<20); Urine Culture Reflex Order REFLEXED
[2019-08-29 20:48] LABS: Urine Blood 2+ (NEG); Urine Glucose NEGATIVE (NEG); Urine Protein 1+ (NEG); Urine Specific Gravity 1.015 (1.005-1.030); Urine pH 5.5 (5.0-7.0)
[2019-08-29] MEDS ORDERED: CEFEPIME 1 GM/100 ML BAG IV ONE (21:08)
--- NOTE | 2019-08-29 21:15 | EDPHYS ---
Physician Documentation [facility] Name: Ileana Lopez Age: 79 yrs Sex: Female : 1940 Arrival Date: 08/29/2019 Time: 16:44 Bed 7 Private MD: ED Physician Joshua Almaraz HPI: 08/29 17:49 This 79 yrs old Female presents to ER via EMS with complaints of weakness, jmm nausea. 17:49 The patient presents to the emergency department with nausea, abdominal pain. Onset: jmm The symptoms/episode began/occurred gradually, 2 week(s) ago. Possible causes: unknown. The symptoms are aggravated by nothing. The symptoms are alleviated by nothing. Associated signs and symptoms: Pertinent positives: abdominal pain, Pertinent negatives: dysuria, fever. This is a 79 year old female with a history of lung cancer that presents to the ED with complaints of nausea, decreased appetite beginning 2 week ago after a fall. Patient states she developed abdominal pain and right sided rib pain beginning today. Denies diarrhea. Denies fever. . Historical: - Allergies: 16:58 Codeine; bp 16:58 Dilaudid; bp 16:58 Morphine; bp 16:58 Neosporin (ptr-[id number]); bp 16:58 Stadol; bp - Home Meds: 22:05 amitriptyline 25 mg Oral tab [Active]; tizanidine 4 mg oral cap [Active]; topiramate 25 jb4 mg oral cpSP [Active]; diphenoxylate-atropine 2.5-0.025 mg Oral tab [Active]; mirtazapine 15 mg Oral tab [Active]; liothyronine 25 mcg oral tab [Active]; sertraline 100 mg oral tab [Active]; levothyroxine 25 mcg tab [Active]; atorvastatin 40 mg oral tab [Active]; alprazolam 0.5 mg Oral tab [Active]; donepezil 10 mg oral tab [Active]; estradiol 0.5 mg Oral tab [Active]; Xarelto 10 mg oral tab [Active]; Potassium Chloride Oral [Active]; Hydrocodone-Acetaminophen Oral [Active]; Nexium Oral [Active]; Benadryl Oral [Active]; Gilotrif 20 mg oral tab [Active]; - PMHx: 16:58 Cancer; Cancer, Lung; radiation; bp - Immunization history:: Adult Immunizations up to date. - Social history:: Smoking status: Patient/guardian denies using tobacco. - Ebola Screening: : No symptoms or risks identified at this time. ROS: 17:49 Cardiovascular: Negative for chest pain, palpitations, and edema, Respiratory: Negative jmm for shortness of breath, cough, wheezing, and pleuritic chest pain. 17:49 Back: Negative for injury and pain. 17:49 Constitutional: Positive for fatigue. 17:49 Abdomen/GI: Positive for abdominal pain, nausea. 17:49 Neuro: Positive for weakness. 17:49 All other systems are negative. Exam: 17:49 Constitutional: This is a well developed, well nourished patient who is awake, alert, jmm and in no acute distress. 17:49 ENT: Moist Mucus Membranes Neck: Trachea midline, Supple Chest/axilla: Normal chest wall appearance and motion. Cardiovascular: Regular rate and rhythm. No edema appreciated Respiratory: Normal respirations, no respiratory distress appreciated 17:49 Skin: General appearance color normal MS/ Extremity: Moves all extremities, no obvious deformities appreciated, no edema noted to the lower extremities Neuro: Awake and alert, normal gait Psych: Behavior is normal, Mood is normal, Patient is cooperative and pleasant 17:49 Head/face: ecchymosis noted to the right side of the face. 17:49 Chest/axilla: Palpation: tenderness, that is mild, of the diaphragm. 17:49 Abdomen/GI: Inspection: abdomen appears normal, Bowel sounds: normal, Palpation: abdomen is soft and non-tender, in all quadrants. Vital Signs: 16:50 BP 123 / 60; Pulse 105; Resp 28; Temp 98; Pulse Ox 96% on 3 lpm NC; Weight 47.63 kg; bp Height 5 ft. 5 in. (165.10 cm); 18:00 BP 112 / 95; Pulse 104; Resp 26 S; Pulse Ox 97% on R/A; ca1 19:02 BP 108 / 47; Pulse 98; Resp 21; Pulse Ox 99% ; bp 20:32 BP 118 / 58; Pulse 104; Resp 22; Pulse Ox 96% on 2 lpm NC; jb4 21:21 BP 97 / 83; Pulse 109; Resp 23; Temp 98.9(TE); Pulse Ox 97% on 2 lpm NC; jb4 22:22 BP 111 / 65; Pulse 103; Resp 27; Pulse Ox 95% on 2 lpm NC; jb4 23:18 BP 109 / 56; Pulse 98; Resp 24; Pulse Ox 95% on 2 lpm NC; jb4 16:50 Body Mass Index 17.47 (47.63 kg, 165.10 cm) bp MDM: 17:14 Patient medically screened. [facility] 21:05 Data reviewed: vital signs, nurses notes. Counseling: I had a detailed discussion with [facility] the patient and/or guardian regarding: the historical points, exam findings, and any diagnostic results supporting the discharge/admit diagnosis, lab results, radiology results, the need to transfer to another facility. ED course: I discussed the patient with Dr. Gonzalez whom stated he would be unable to perform the procedure necessary for the patient. Patient refused transfer to [facility]. I discussed the patient with Dr. Orozco whom accepted transfer. . 08/29 17:14 Order name: Basic Metabolic Panel; Complete Time: 18:03 [facility] 08/29 17:14 Order name: CBC with Diff; Complete Time: 17:56 [facility] 08/29 17:14 Order name: LFT's; Complete Time: 18:03 [facility] 08/29 17:14 Order name: Magnesium; Complete Time: 18:03 [facility] 08/29 17:14 Order name: NT PRO-BNP; Complete Time: 18:03 [facility] 08/29 17:14 Order name: PT-INR; Complete Time: 17:56 [facility] 08/29 17:14 Order name: Troponin (emerg Dept Use Only); Complete Time: 18:03 [facility] 08/29 20:15 Order name: Urine Microscopic Only; Complete Time: 20:29 [facility] 08/29 20:27 Order name: Urine Culture [facility] 08/29 20:31 Order name: Blood Culture Adult (2) [facility] 08/29 20:31 Order name: Procalcitonin; Complete Time: 21:26 [facility] 08/29 20:31 Order name: Lactate; Complete Time: 21:14 [facility] 08/29 20:40 Order name: Urine Dipstick--Ancillary (enter results) pa 08/29 20:50 Order name: Urine Dipstick-Ancillary [facility] 08/29 17:14 Order name: XRAY Chest (1 view); Complete Time: 19:05 [facility] 08/29 17:14 Order name: EKG; Complete Time: 17:15 [facility] 08/29 17:14 Order name: Cardiac monitoring; Complete Time: 17:42 [facility] 08/29 17:14 Order name: EKG - Nurse/Tech; Complete Time: 18:57 [facility] 08/29 17:14 Order name: IV Saline Lock; Complete Time: 17:42 [facility] 08/29 17:14 Order name: Labs collected and sent; Complete Time: 17:42 [facility] 08/29 17:14 Order name: O2 Per Protocol; Complete Time: 17:48 [facility] 08/29 17:14 Order name: O2 Sat Monitoring; Complete Time: 18:14 [facility] 08/29 17:15 Order name: CT Head Brain wo Cont; Complete Time: 19:05 [facility] 08/29 17:15 Order name: Urine Dipstick-Ancillary (obtain specimen); Complete Time: 20:15 [facility] 08/29 17:15 Order name: CT Abd/Pelvis - IV Contrast Only; Complete Time: 19:05 [facility] 08/29 18:37 Order name: Thorax Wo Con; Complete Time: 19:05 EDMS Administered Medications: 17:25 Drug: NS 0.9% 500 ml Route: IV; Rate: bolus; Site: right antecubital; ca1 18:15 Follow up: Response: No adverse reaction; IV Status: Completed infusion; IV Intake: ca1 500ml 19:01 Not Given (Patient Refused): Zofran 4 mg IVP once; over 2 minutes bp 21:21 Drug: Cefepime 1 grams Route: IVPB; Rate: 200 ml/hr; Infused Over: 30 mins; Site: right jb4 antecubital; 21:51 Follow up: Response: No adverse reaction; IV Status: Completed infusion; IV Intake: jb4 100ml Disposition: 08/30 08:41 Co-signature as Attending Physician, Joshua Almaraz MD I agree with the assessment and kdr plan of care. Disposition: 08/29/19 21:14 Transfer ordered to [facility]. Diagnosis are Pleural effusion, not elsewhere classified, Pneumonia. - Reason for transfer: Higher level of care. - Accepting physician is Dr. Orozco. - Condition is Stable. - Problem is new. - Symptoms are unchanged. Signatures: Dispatcher [employer] EDMS Joshua Almaraz MD MD kdr Mickail, Joel, PA PA jmm Bryson, James RN RN jb4 Shant Jensen RN RN Leigha Colvin RN RN ca1 Corrections: (The following items were deleted from the chart) 08/29 22:05 16:58 Home Meds: Unable to obtain; bp jb4 23:27 21:14 08/29/2019 21:14 Transfer ordered to [facility]. Diagnosis is Pleural jb4 effusion, not elsewhere classified; Pneumonia. Reason for transfer: Higher level of care. Accepting physician is Dr. Orozco. Condition is Stable. Problem is new. Symptoms are unchanged. may
--- NOTE | 2019-08-29 21:15 | ER ---
Nurse's Notes [facility] Name: Ileana Lopez Age: 79 yrs Sex: Female : 1940 Arrival Date: 08/29/2019 Time: 16:44 Bed 7 Private MD: Diagnosis: Pleural effusion, not elsewhere classified;Pneumonia Presentation: 08/29 16:49 Presenting complaint: EMS states: GENERAL WEAKNESS x5 DAYS WITH NAUSEA/VOMITING TODAY. bp Transition of care: patient was not received from another setting of care. Onset of symptoms is unknown. Risk Assessment: Do you want to hurt yourself or someone else? Patient reports no desire to harm self or others. Initial Sepsis Screen: Does the patient meet any 2 criteria? No. Patient's initial sepsis screen is negative. Does the patient have a suspected source of infection? No. Patient's initial sepsis screen is negative. Care prior to arrival: IV initiated. 18 GA, in the right antecubital area, Glucose check: 140. 16:49 Method Of Arrival: EMS: [facility] bp 16:49 Acuity: JUSTIN 2 bp Triage Assessment: 16:50 General: Appears in no apparent distress. comfortable, Behavior is cooperative, bp appropriate for age, anxious. Pain: Denies pain. EENT: No deficits noted. Neuro: Level of Consciousness is awake, alert, obeys commands, Oriented to person, place, time, situation, Appropriate for age Reports weakness. Cardiovascular: Rhythm is sinus tachycardia. Respiratory: No deficits noted. GI: Reports nausea, vomiting. : No signs and/or symptoms were reported regarding the genitourinary system. Derm: No deficits noted. Musculoskeletal: No deficits noted. Historical: - Allergies: 16:58 Codeine; bp 16:58 Dilaudid; bp 16:58 Morphine; bp 16:58 Neosporin ([id number]); bp 16:58 Stadol; bp - Home Meds: 22:05 amitriptyline 25 mg Oral tab [Active]; tizanidine 4 mg oral cap [Active]; topiramate 25 jb4 mg oral cpSP [Active]; diphenoxylate-atropine 2.5-0.025 mg Oral tab [Active]; mirtazapine 15 mg Oral tab [Active]; liothyronine 25 mcg oral tab [Active]; sertraline 100 mg oral tab [Active]; levothyroxine 25 mcg tab [Active]; atorvastatin 40 mg oral tab [Active]; alprazolam 0.5 mg Oral tab [Active]; donepezil 10 mg oral tab [Active]; estradiol 0.5 mg Oral tab [Active]; Xarelto 10 mg oral tab [Active]; Potassium Chloride Oral [Active]; Hydrocodone-Acetaminophen Oral [Active]; Nexium Oral [Active]; Benadryl Oral [Active]; Gilotrif 20 mg oral tab [Active]; - PMHx: 16:58 Cancer; Cancer, Lung; radiation; bp - Immunization history:: Adult Immunizations up to date. - Social history:: Smoking status: Patient/guardian denies using tobacco. - Ebola Screening: : No symptoms or risks identified at this time. Screenin:53 Abuse screen: Denies threats or abuse. Denies injuries from another. Nutritional bp screening: No deficits noted. Tuberculosis screening: No symptoms or risk factors identified. Fall Risk None identified. Assessment: 16:52 General: SEE TRIAGE NOTE. bp 19:02 Reassessment: PT RETURNED FROM CT, UOP PENDING. bp 19:15 Reassessment: Patient appears in no apparent distress at this time. Patient and/or jb4 family updated on plan of care and expected duration. Pain level reassessed. Patient is alert, oriented x 3, equal unlabored respirations, skin warm/dry/pink. 20:32 Reassessment: Patient appears in no apparent distress at this time. Patient and/or jb4 family updated on plan of care and expected duration. Pain level reassessed. Patient is alert, oriented x 3, equal unlabored respirations, skin warm/dry/pink. Daughter left to retrieve medications list. Pt denies being on oxygen therapy at home. 21:21 Reassessment: Patient appears in no apparent distress at this time. Patient and/or jb4 family updated on plan of care and expected duration. Pain level reassessed. Patient is alert, oriented x 3, equal unlabored respirations, skin warm/dry/pink. 22:22 Reassessment: Patient appears in no apparent distress at this time. Patient and/or jb4 family updated on plan of care and expected duration. Pain level reassessed. Patient is alert, oriented x 3, equal unlabored respirations, skin warm/dry/pink. 23:18 Reassessment: Patient appears in no apparent distress at this time. Patient and/or jb4 family updated on plan of care and expected duration. Pain level reassessed. Patient is alert, oriented x 3, equal unlabored respirations, skin warm/dry/pink. PT transferred to receiving facility via EMS. IV saline lock. Vital Signs: 16:50 BP 123 / 60; Pulse 105; Resp 28; Temp 98; Pulse Ox 96% on 3 lpm NC; Weight 47.63 kg; bp Height 5 ft. 5 in. (165.10 cm); 18:00 BP 112 / 95; Pulse 104; Resp 26 S; Pulse Ox 97% on R/A; ca1 19:02 BP 108 / 47; Pulse 98; Resp 21; Pulse Ox 99% ; bp 20:32 BP 118 / 58; Pulse 104; Resp 22; Pulse Ox 96% on 2 lpm NC; jb4 21:21 BP 97 / 83; Pulse 109; Resp 23; Temp 98.9(TE); Pulse Ox 97% on 2 lpm NC; jb4 22:22 BP 111 / 65; Pulse 103; Resp 27; Pulse Ox 95% on 2 lpm NC; jb4 23:18 BP 109 / 56; Pulse 98; Resp 24; Pulse Ox 95% on 2 lpm NC; jb4 16:50 Body Mass Index 17.47 (47.63 kg, 165.10 cm) bp ED Course: 16:44 Patient arrived in ED. bp 16:50 Triage completed. bp 16:50 Arm band placed on. bp 16:53 Patient has correct armband on for positive identification. Bed in low position. Call bp light in reach. Side rails up X2. 16:53 Maintain EMS IV. Dressing intact. Good blood return noted. Site clean \T\ dry. Gauge \T\ bp site: 18 GAUGE R AC. 16:55 Roberto Barajas PA is PHCP. [facility] 16:55 Joshua Almaraz MD is Attending Physician. jmm 17:07 EKG done, by ED staff, reviewed by Roberto MENA. jb1 17:13 Leigha Isabel, ELZBIETA is Primary Nurse. ca1 18:05 XRAY Chest (1 view) In Process Unspecified. EDMS 18:31 CT Head Brain wo Cont In Process Unspecified. EDMS 18:35 CT Abd/Pelvis - IV Contrast Only In Process Unspecified. EDMS 18:41 CT completed. Patient tolerated procedure well. Patient moved back from CT. mw3 18:43 Thorax Wo Con In Process Unspecified. EDMS 23:05 No provider procedures requiring assistance completed. Patient transferred, IV remains jb4 in place. Administered Medications: 17:25 Drug: NS 0.9% 500 ml Route: IV; Rate: bolus; Site: right antecubital; ca1 18:15 Follow up: Response: No adverse reaction; IV Status: Completed infusion; IV Intake: ca1 500ml 19:01 Not Given (Patient Refused): Zofran 4 mg IVP once; over 2 minutes bp 21:21 Drug: Cefepime 1 grams Route: IVPB; Rate: 200 ml/hr; Infused Over: 30 mins; Site: right jb4 antecubital; 21:51 Follow up: Response: No adverse reaction; IV Status: Completed infusion; IV Intake: jb4 100ml Intake: 18:15 IV: 500ml; Total: 500ml. ca1 21:51 IV: 100ml; Total: 600ml. jb4 Outcome: 21:14 ER care complete, transfer ordered by . [facility] 23:05 Transferred by ground EMS Transfer form completed. X-rays sent w/ patient. jb4 23:05 Condition: stable 23:05 Discharge instructions given to patient, family, Instructed on the need for transfer, Demonstrated understanding of instructions. 23:27 Patient left the ED. jb4 Signatures: Dispatcher [employer] EDMS Eduar Theodore jb1 Roberto Barajas PA PA Ector Michelle, RN RN jb4 Shant Jensen RN RN Yamilet Duong mw3 Leigha Isabel RN RN ca1 Corrections: (The following items were deleted from the chart) 21:02 21:01 Response: No adverse reaction; IV Status: Completed infusion; IV Intake: 500ml ca1ca1 22:05 16:58 Home Meds: Unable to obtain; bp hendricks
[2019-08-30 04:49] VITALS: TEMP 98.9
[2019-08-30 04:51] VITALS: O2SAT 95
[2019-08-30 04:53] VITALS: BP 109/56
--- NOTE | 2019-08-30 07:38 | EKG ---
Test Date: 2019-08-29 Test Time: 17:03:40 Water Filtration Technician: ALYSA MEASUREMENT RESULTS: Intervals: Rate: 107 ME: 166 QRSD: 110 QT: 382 QTc: 509 Orange: P: 74 ME: 166 QRS: 61 T: 55 INTERPRETIVE STATEMENTS: Sinus tachycardia Anterior infarct, age undetermined ST & T wave abnormality, consider lateral ischemia Abnormal ECG Compared to ECG 08/11/2013 13:10:00 ST (T wave) deviation now present Possible ischemia now present Sinus rhythm no longer present Myocardial infarct finding still present Electronically Signed On 08-30-19 07:38:02 STAKER SURVEYING by Glynn Tamayo
== END 2019-08-29 23:27 | disposition short-term general hospital (02) ==
LOC: ER 16:41
DX: J18.9 Pneumonia, unspecified organism (principal); J91.8 Pleural effusion in other conditions classified elsewhere; Z85.118 Personal history of other malignant neoplasm of bronchus and lung; Z79.01 Long term (current) use of anticoagulants; Z88.6 Allergy status to analgesic agent; Z88.5 Allergy status to narcotic agent
CPT/HCPCS: 96365; 96361; 93005; 87040 ×2; 87088; 85025; 87086; 80048; 36415; 83735; 85610; 80076; 83605; 87077 ×2; 87186 ×2; 84484; 84145; 83880; 70450; 71250; 74177; 71045; 99285; Q9967; J0692; J7040; 81003; 81015; J2405